=== PATIENT | male | born 1985 | race Caucasian/White ===

== ENCOUNTER 2016-05-22 21:02 | Emergency (ER) | payer OTHER ==
[~2016-05-22] VITALS: Ht 172.7 cm; Wt 83.9 kg
[~2016-05-22 21:02] MED LIST: CYCLOBENZAPRINE10 M1 PO; FLEXERIL10 MG PO; IBU600 MG PO; IBUPROFEN600 M1 PO; IBUPROFEN800 MG PO; KEFLEX500 MG PO; MEDROL DOSEPAK1 PAC PO; MOTRIN800 MG PO; NORCO 325 MG-51 TAB PO; PERCOCET 325 MG1 TA2 PO; PERCOCET 5-3251 EACH PO; PREDNISONE20 M1 PO; PROAIR HFA0.09 MG/Ac INH; PROAIR HFA8.5 GM INH; ZITHROMAX Z-PA250 MG PO; ZOFRAN4 M1 PO; ZOFRAN4 M1 SL
[2016-05-22 21:17] VITALS: BP 149/88
--- NOTE | 2016-05-22 21:45 | ED DYSPNEA/ASTHMA COMPLAINT ---
History of Present Illness General Chief Complaint: Dyspnea (COPD, CHF, Other) Stated Complaint: DIFF BREATHING Source: patient Exam Limitations: no limitations Vital Signs & Intake/Output Vital Signs & Intake/Output Vital Signs Date Time Temp Pulse Resp B/P Pulse O2 O2 Flow FiO2 Ox Delivery Rate 05/22 2211 97 Room Air 05/22 2154 97 05/22 2116 97.5 130 20 149/88 98 Room Air Allergies Coded Allergies: No Known Allergies (01/06/16) Reconcile Medications Albuterol Sulfate (Proair Hfa) 8.5 GM HFA.AER.AD 2-4 PUF INH Q4-6 PRN PRN shortness of breath Prednisone 20 MG TABLET 1 TAB PO BID asthma Triage Note: 31 YEAR OLD MALE STATES THAT FOR THE PAST 2 DAYS HE HAS HAD A COUGH PRODUCTIVE OF GREEN SPUTUM, NASAL CONGESTION, STATES THAT HE HAS ASTHMA AND THAT HE FEELS A LITTLE SOB, O2 SAT 98 % ON RA. Triage Nurses Notes Reviewed? yes HPI: Patient presents with a productive cough with green sputum, chills, difficulty breathing and wheezing. Symptoms have been increasing over the past 3 days. Positive sick contacts. Patient states that he has a history of asthma but has not needed to use an inhaler since he was in 8 grade. Patient denies any chest pain or chest tightness. There is no dyspnea on exertion. There is no orthopnea. There is no abdominal pain. There is no nausea or vomiting. Past History Travel History Traveled to [place] past 21 day No Medical History Any Pertinent Medical History? see below for history Neurological: NONE EENT: NONE Cardiovascular: hypertension Respiratory: asthma Gastrointestinal: NONE Hepatic: NONE Renal: NONE Musculoskeletal: sciatica Psychiatric: NONE Endocrine: NONE Blood Disorders: NONE Cancer(s): NONE Tetanus Vaccine: 11/06/14 Surgical History Surgical History: non-contributory, N Psychosocial History What is your primary language Lao Tobacco Use: Never used ETOH Use: denies use Illicit Drug Use: denies illicit drug use Family History Hx Contributory? No Review of Systems Review of Systems Constitutional: Reports: see HPI, chills. EENTM: Reports: no symptoms. Respiratory: Reports: see HPI, cough, sputum production, wheezing. Cardiovascular: Reports: no symptoms. GI: Reports: no symptoms. Genitourinary: Reports: no symptoms. Musculoskeletal: Reports: no symptoms. Skin: Reports: no symptoms. Neurological/Psychological: Reports: no symptoms. Hematologic/Endocrine: Reports: no symptoms. Immunologic/Allergic: Reports: no symptoms. All Other Systems: Reviewed and Negative Physical Exam Physical Exam General Appearance: well developed/nourished, alert, awake, mild distress Head: atraumatic Eyes: Bilateral: PERRL, EOMI. Ears, Nose, Throat: normal pharynx, normal ENT inspection, hearing grossly normal Neck: normal inspection, supple, full range of motion Respiratory: chest non-tender, rhonchi, wheezing Cardiovascular: regular rate/rhythm, normal peripheral pulses Gastrointestinal: normal bowel sounds, soft, non-tender, no organomegaly Extremities: normal inspection, normal capillary refill, normal range of motion, no edema Neurologic/Psych: no motor/sensory deficits, awake, alert, oriented x 3, normal gait, normal mood/affect Skin: intact, normal color, warm/dry Lymphatic: no anterior cervical matt Core Measures ACS in differential dx? No Severe Sepsis Present: No Septic Shock Present: No Progress Differential Diagnosis: asthma, bronchitis, pneumonia Plan of Care: Orders Procedure Date/time Status Telemetry/Package Designer 05/22 2144 Active RAPID VIRAL INFLUENZA A 05/22 2122 Complete Diagnostic Imaging: Viewed by Me: Radiology Read. Discussed w/RAD: Radiology Read. CXR Impression: PATIENT: SOHEILA BISHOP JR PRESENT AGE: 31 PATIENT ACCOUNT NO: [id number] : 87 LOCATION: [facility] ORDERING PHYSICIAN: MARTI TITUS DO SERVICE DATE: 05/22/16 EXAM TYPE: RAD - XRY-CHEST XRAY, PA AND LATERAL EXAMINATION: XR CHEST CLINICAL INFORMATION: Cough. Green sputum. COMPARISON: Chest x-ray 01/06/2016 TECHNIQUE: 2 views of the chest were obtained. FINDINGS: No significant abnormality is noted involving the heart, lungs, mediastinum, bony thorax or soft tissues. IMPRESSION: Normal chest. DICTATED BY: JOSE DE LA CRUZ MD DATE/TIME DICTATED:05/22/162218 CONDUIT MECHANIC :TORIBIO DATE/TIME TRANSCRIBED:05/22/162218 CONFIDENTIAL, DO NOT COPY WITHOUT APPROPRIATE AUTHORIZATION. <Electronically signed in Other Vendor System> SIGNED BY: JOSE DE LA CRUZ MD 05/22/162222 Initial ED EKG: none Departure Departure Disposition: HOME OR SELF CARE Condition: Stable Clinical Impression Primary Impression: Bronchitis Referrals: JAGRUTI PEREZ DO (PCP/Family) Additional Instructions: RETURN IF SYMPTOMS WORSEN OR FOR ANY COCNERNS Departure Forms: Customer Survey General Discharge Information Prescriptions: Current Visit Scripts Amoxicillin/Potassium Clav (Augmentin 875-125 Tablet) 1 TAB PO BID #20 TAB Albuterol Sulfate (Proair Hfa) 2 PUF INH Q4-6 PRN PRN BRONCHITIS #1 INHAL Benzonatate (Tessalon Perle) 1 CAP PO TID PRN COUGH #30 CAP Critical Care Note Critical Care Note Critical Care Time: non-applicable
--- NOTE | 2016-05-22 22:23 | RADIOLOGY REPORT ---
EXAMINATION: XR CHEST CLINICAL INFORMATION: Cough. Green sputum. COMPARISON: Chest x-ray 01/06/2016 TECHNIQUE: 2 views of the chest were obtained. FINDINGS: No significant abnormality is noted involving the heart, lungs, mediastinum, bony thorax or soft tissues. IMPRESSION: Normal chest.
[2016-05-22] MEDS ORDERED: TESSALON PERLE100 M1 PO (22:54)
[2016-05-22] MEDS ORDERED: AUGMENTIN 875-1 EACH PO (22:54)
[2016-05-22] MEDS ORDERED: PROAIR HFA8.5 GM INH (22:54)
== END 2016-05-22 23:33 ==
LOC: ERH 21:02
DX: J40 Bronchitis, not specified as acute or chronic (principal)
CPT/HCPCS: 1263; 1395; 87804; 87804-59

== ENCOUNTER 2016-05-24 21:17 | Emergency (ER) | payer OTHER ==
[~2016-05-24] VITALS: Ht 172.7 cm; Wt 81.6 kg
[~2016-05-24 21:17] MED LIST changes: +AUGMENTIN 875-1 EACH PO; +TESSALON PERLE100 M1 PO
--- NOTE | 2016-05-24 21:46 | ED ANKLE/FOOT INJURY COMPLAINT ---
History of Present Illness General Chief Complaint: Foot or Ankle Injury Stated Complaint: INJURED RIGHT ANKLE Source: patient Exam Limitations: no limitations Vital Signs & Intake/Output Vital Signs & Intake/Output Vital Signs Date Time Temp Pulse Resp B/P Pulse O2 O2 Flow FiO2 Ox Delivery Rate 05/24 2227 87 135/88 05/24 2122 105 20 150/94 98 Allergies Coded Allergies: No Known Allergies (01/06/16) Triage Note: PER PT SHOVELING SLIPPED AND RT ANKLE BENT UNDER BUTTOCKS, NO LOC NO HEAD INJURY. 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 Triage Nurses Notes Reviewed? yes Occurred: just prior to arrival Duration: hour(s): (1) Timing: remote history Severity: moderate Severity Numbers: 6 Pain/Injury Location: Right: Ankle. Method of Injury: twisted Modifying Factors: Improves With: immobilization. Worsens With: movement. HPI: Patient is a 31-year-old male presenting to the emergency Department chief complaint of right ankle pain that started about one hour prior to arrival. He was shoveling when his right ankle bent underneath him. Pain moderate achy throbbing worse with weightbearing and range of motion. Denies any other injury. No head injury loss of consciousness. Denies neck or back pain. Pain does not radiate. Denies taking anything prior to arrival to help with pain. Limited to come in for evaluation because he was unsure if it is broken. No numbness or tingling. (KWABENA GARCIA,HUMBLE) Reconcile Medications Albuterol Sulfate (Proair Hfa) 90 MCG HFA.AER.AD 2 PUF INH Q4-6 PRN PRN BRONCHITIS Albuterol Sulfate (Proair Hfa) 8.5 GM HFA.AER.AD 2-4 PUF INH Q4-6 PRN PRN shortness of breath Amoxicillin/Potassium Clav (Augmentin 875-125 Tablet) 875 MG-125 MG TABLET 1 TAB PO BID BRONCHITIS Benzonatate (Tessalon Perle) 100 MG CAPSULE 1 CAP PO TID PRN COUGH Ibuprofen 800 MG TABLET 1 TAB PO TID PRN pain Prednisone 20 MG TABLET 1 TAB PO BID asthma (HUGO FAUST MD) Past History Travel History Traveled to [place] past 21 day No Medical History Any Pertinent Medical History? see below for history Neurological: NONE EENT: NONE Cardiovascular: hypertension Respiratory: asthma Gastrointestinal: NONE Hepatic: NONE Renal: NONE Musculoskeletal: sciatica Psychiatric: NONE Endocrine: NONE Blood Disorders: NONE Cancer(s): NONE Tetanus Vaccine: 11/06/14 Surgical History Surgical History: non-contributory, N Psychosocial History What is your primary language Portuguese Tobacco Use: Never used Family History Hx Contributory? No (KWABENA GARCIA,HUMBLE) Review of Systems Review of Systems Constitutional: Reports: no symptoms. Comments Review of systems: See HPI, All other systems negative. Constitutional, no chills fever or weight loss HEENT: No visual changes no sore throat no congestion Cardiovascular: No chest pain ,palpitation Skin, no jaundice no rashes Respiratory: No dyspnea cough sputum or hemoptysis GI: No nausea no vomiting Muscle skeletal: no back pain, no neck pain, Neurologic: No numbness Psych: No stress anxiety Immunology: No splenectomy or history of AIDS (KWABENA GARCIA,HUMBLE) Physical Exam Physical Exam General Appearance: well developed/nourished, no apparent distress, alert, awake , comfortable Leg/Knee/Thigh Left: limited range of motion Comments: Well-developed well-nourished no apparent distress. HEENT: Atraumatic, extraocular motion intact Neck: Supple, no lymphadenopathy Back: Nontender Respiratory: No respiratory distress Extremities: Right Ankle with moderate tenderness medially over the medial malleolus. No lateral tenderness.. Range of motion is near full but somewhat limited due to pain. No instability is noted. Skin is intact, no swelling or ecchymosis noted. The foot is neurovascularly intact with sensation and motor grossly intact. There is no foot tenderness or fifth metatarsal tenderness. Able to move all toes. Neuro: Alert and oriented x3, motor and sensory intact Psych: Mood affect normal, normal memory normal judgment. (KWABENA GARCIA,HUMBLE) Progress Differential Diagnosis: gout, fracture, dislocation, sprain, contusion Plan of Care: Orders Procedure Date/time Status Durable Medical Equipment 05/24 2152 Active Diagnostic Imaging: Viewed by Me: Radiology Read. Discussed w/RAD: Radiology Read. Radiology Impression: no acute abnormality, no fracture, no dislocation, no foreign body seen, PATIENT: SOHEILA BISHOP JR PRESENT AGE: 31 PATIENT ACCOUNT NO: [id number] : 87 LOCATION: [facility] ORDERING PHYSICIAN: HUMBLE GARCIA SERVICE DATE: 05/24/16 EXAM TYPE: RAD - XRY-ANKLE 3 OR MORE VIEWS R; XRY-FOOT COMPLETE, R EXAMINATION: X-RAY RIGHT FOOT AND RIGHT ANKLE CLINICAL INFORMATION: Status post fall. COMPARISON: X-ray right ankle and foot dated 12/27/2014 TECHNIQUE: 3 views of each FINDINGS: Normal bony mineralization. There is no evidence of acute fracture or dislocation. Ankle mortise is preserved. Soft tissue swelling noted along the lateral and dorsal aspect of the ankle. IMPRESSION: No acute osseous modality. Soft tissue swelling. DICTATED BY: JORGE BINGHAM MD Comments: Given IM Toradol on arrival for pain. No acute abnormality on x-ray. Patient will be placed in splint and follow-up with orthopedics if symptoms persist. Otherwise he'll follow-up with his primary care physician. Educated on resting and icing and elevating. (HUMBLE MATTHEWS) Departure Departure Time of Disposition: 2141 Disposition: HOME OR SELF CARE Condition: Stable Clinical Impression Primary Impression: Ankle sprain Qualifiers: Encounter type: initial encounter Involved ligament of ankle: unspecified ligament Laterality: right Qualified Code: S93.401A - Sprain of unspecified ligament of right ankle, initial encounter Referrals: JAGRUTI PEREZ DO (PCP/Family) LIZZY STANELY,JACKY Case Additional Instructions: Follow-up with orthopedics if symptoms persist. Rest ice and elevate. Take [id number] Motrin and Tylenol directed. Wear Javier wrap for support. Departure Forms: Customer Survey General Discharge Information (HUMBLE MATTHEWS) Departure Prescriptions: Current Visit Scripts Ibuprofen 1 TAB PO TID PRN pain #20 TAB PA/PSYCHIATRIC SOCIAL WORKER Co-Sign Statement Statement: ED Attending supervision documentation- [] I saw and evaluated the patient. I have also reviewed all the pertinent lab results and diagnostic results. I agree with the findings and the plan of care as documented in the PA's/PSYCHIATRIC SOCIAL WORKER's documentation. x I have reviewed the ED Record and agree with the PA's/PSYCHIATRIC SOCIAL WORKER's documentation. [] Additions or exceptions (if any) to the PAs/PSYCHIATRIC SOCIAL WORKER's note and plan are summarized below: [] (GOVIND STANLEY,HUGO) Procedures Splinting Location: right ankle Manual Alignment Performed: No Pre-Made Type: aircast Splint: sugar-tong Splint Applied By: splint applied by other (nursing) Pre-Proc Neuro Vasc Exam: normal Post-Proc Neuro Vasc Exam: normal Progress: Patient tolerated procedure well. (KWABENA GARCIA,HUMBLE) ED Attending Observation Initial Observation Note: I have seen and personally examined SOHEILA BISHOP JR on 05/24/16 at 2143. I agree with the current emergency department documentation. The disposition (admission or discharge) is uncertain at this time, he needs a period of observation for the following reason(s): The ED Nurse caring for this patient has been personally informed as to what the patient is being observed for. (HUMBLE MATTHEWS)
--- NOTE | 2016-05-24 22:04 | RADIOLOGY REPORT ---
EXAMINATION: X-RAY RIGHT FOOT AND RIGHT ANKLE CLINICAL INFORMATION: Status post fall. COMPARISON: X-ray right ankle and foot dated 12/27/2014 TECHNIQUE: 3 views of each FINDINGS: Normal bony mineralization. There is no evidence of acute fracture or dislocation. Ankle mortise is preserved. Soft tissue swelling noted along the lateral and dorsal aspect of the ankle. IMPRESSION: No acute osseous modality. Soft tissue swelling.
[2016-05-24] MEDS ORDERED: IBUPROFEN800 M1 PO (22:11)
[2016-05-24 22:28] VITALS: BP 135/88
== END 2016-05-24 22:30 ==
LOC: ERH 21:17
DX: S93.401A Sprain of unspecified ligament of right ankle, initial encounter (principal); X58.XXXA Exposure to other specified factors, initial encounter; W00.0XXA Fall on same level due to ice and snow, initial encounter
CPT/HCPCS: 73610-RT; 73630-RT; J1885

== ENCOUNTER 2016-06-02 00:06 | Emergency (ER) | payer OTHER ==
[~2016-06-02] VITALS: Ht 170.2 cm; Wt 83.5 kg
[~2016-06-02 00:06] MED LIST changes: +IBUPROFEN800 M1 PO
[2016-06-02 00:15] VITALS: BP 139/96
--- NOTE | 2016-06-02 00:22 | ED UPPER/LOWER EXTREMITY COMPL ---
History of Present Illness General Chief Complaint: Lower Extremity Problems Stated Complaint: RT FOOT PAINSEEN HERE FOR SAME " NEEDS TO GET BACK Source: patient Exam Limitations: no limitations Vital Signs & Intake/Output Vital Signs & Intake/Output Vital Signs Date Time Temp Pulse Resp B/P Pulse O2 O2 Flow FiO2 Ox Delivery Rate 06/02 0015 96.8 99 18 139/96 98 Room Air Allergies Coded Allergies: No Known Allergies (01/06/16) Reconcile Medications Albuterol Sulfate (Proair Hfa) 90 MCG HFA.AER.AD 2 PUF INH Q4-6 PRN PRN BRONCHITIS Albuterol Sulfate (Proair Hfa) 8.5 GM HFA.AER.AD 2-4 PUF INH Q4-6 PRN PRN shortness of breath Amoxicillin/Potassium Clav (Augmentin 875-125 Tablet) 875 MG-125 MG TABLET 1 TAB PO BID BRONCHITIS Benzonatate (Tessalon Perle) 100 MG CAPSULE 1 CAP PO TID PRN COUGH Ibuprofen 800 MG TABLET 1 TAB PO TID PRN PAIN Ibuprofen 800 MG TABLET 1 TAB PO TID PRN pain Prednisone 20 MG TABLET 1 TAB PO BID asthma Triage Note: PT TO ED C/O CONTINUED RT ANKLE PAIN AND SWELLING. WAS SEEN HERE ON 05/24. DX WITH A SPRAIN. 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 yes Onset: Abrupt Duration: day(s):, waxing and waning Timing: recent history Severity: mild, moderate Pain/Injury Location: Right: Ankle. Method of Injury: "I sprained my ankle last week." HPI: 31 yo gentleman h/o fracture in his right foot, h/o right ankle sprain on 05/24, presents with continued right ankle pain. 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 He notes continued swelling around the ankle but no leg swelling. No redness, streaking, fevers, chills. Past History Travel History Traveled to [place] past 21 day No Medical History Any Pertinent Medical History? see below for history Neurological: NONE EENT: NONE Cardiovascular: hypertension Respiratory: asthma Gastrointestinal: NONE Hepatic: NONE Renal: NONE Musculoskeletal: sciatica Psychiatric: NONE Endocrine: NONE Blood Disorders: NONE Cancer(s): NONE Tetanus Vaccine: 11/06/14 Surgical History Surgical History: non-contributory, N Psychosocial History What is your primary language Stateless Tobacco Use: Never used ETOH Use: occasional use Illicit Drug Use: denies illicit drug use Family History Hx Contributory? No Review of Systems Review of Systems Constitutional: Reports: no symptoms. EENTM: Reports: no symptoms. Respiratory: Reports: no symptoms. Cardiovascular: Reports: no symptoms. Gastrointestinal/Abdominal: Reports: no symptoms. Genitourinary: Reports: no symptoms. Musculoskeletal: Reports: no symptoms. Skin: Reports: no symptoms. Neurological/Psychological: Reports: no symptoms. Hematologic/Endocrine: Reports: no symptoms. Immunological: Reports: no symptoms. All Other Systems: Reviewed and Negative Physical Exam Physical Exam General Appearance: well developed/nourished, mild distress Head: atraumatic Eyes: Bilateral: normal appearance. Ears, Nose, Throat: normal pharynx Neck: normal inspection Cardiovascular/Respiratory: normal breath sounds Leg Right: diffuse swelling around ankle with diffuse tenderness. no focal bony tenderness. ROM is normal but with discomfort. Progress Differential Diagnosis: sprain vs contusion vs other. Plan of Care: Orders Procedure Date/time Status Durable Medical Equipment 06/02 010 Active estrada bandage to right ankle... encouraged continued use of estrada bandage and crutches x 1 week at least, and then estrada bandage for at least 6 weeks. I also advocated close follow up with orthopedist. wrote note to stay home x 1 week. (HAROON STANLEY,KEAGAN Case) Diagnostic Imaging: Viewed by Me: Radiology Read. Discussed w/RAD: Radiology Read. Radiology Impression: right ankle and foot from 05/24.... no acute disease... full report below. Comments: PATIENT: SOHEILA BISHOP JR PRESENT AGE: 31 PATIENT ACCOUNT NO: [id number] : 87 LOCATION: [facility] ORDERING PHYSICIAN: HUMBLE GARCIA SERVICE DATE: 05/24/16 EXAM TYPE: RAD - XRY-ANKLE 3 OR MORE VIEWS R; XRY-FOOT COMPLETE, R EXAMINATION: X-RAY RIGHT FOOT AND RIGHT ANKLE CLINICAL INFORMATION: Status post fall. COMPARISON: X-ray right ankle and foot dated 12/27/2014 TECHNIQUE: 3 views of each FINDINGS: Normal bony mineralization. There is no evidence of acute fracture or dislocation. Ankle mortise is preserved. Soft tissue swelling noted along the lateral and dorsal aspect of the ankle. IMPRESSION: No acute osseous modality. Soft tissue swelling. DICTATED BY: JORGE BINGHAM MD DATE/TIME DICTATED:05/24/162158 FARMWORKER FIELD CROP:TORIBIO DATE/TIME TRANSCRIBED:05/24/162158 CONFIDENTIAL, DO NOT COPY WITHOUT APPROPRIATE AUTHORIZATION. <Electronically signed in Other Vendor System> SIGNED BY: JORGE BINGHAM MD 05/24/161 Departure Departure Disposition: HOME OR SELF CARE Condition: Stable Clinical Impression Primary Impression: Right ankle sprain Referrals: JAGRUTI PEREZ DO (PCP/Family) Departure Forms: Customer Survey General Discharge Information Prescriptions: Current Visit Scripts Ibuprofen 1 TAB PO TID PRN PAIN #30 TAB Ref 1
[2016-06-02] MEDS ORDERED: IBUPROFEN800 M1 PO (01:04)
== END 2016-06-02 01:15 ==
LOC: ERH 00:06
DX: S93.401A Sprain of unspecified ligament of right ankle, initial encounter (principal); X58.XXXA Exposure to other specified factors, initial encounter

== ENCOUNTER 2016-07-31 18:52 | Inpatient (IN) | payer OTHER ==
[~2016-07-31] VITALS: Ht 172.7 cm; Wt 85.7 kg
--- NOTE | 2016-07-31 18:53 | NUR ---
INFORMED WAITING PERFORMED.
--- NOTE | 2016-07-31 20:01 | NUR ---
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 PT WOKE LAST EVENING WITH DIARRHEA AND THEN TODAY HE HAS BEEN VOMITING APPROX. 5 TIMES TODAY STATES EVERY 1/2 HOUR. PT UNABLE TO EAT ANYTHING TODAY. FROM TRIAGE NOTE
--- NOTE | 2016-07-31 20:06 | ED GI/GU/ABDOMINAL COMPLAINT ---
History of Present Illness General Chief Complaint: Abdominal Pain/Flank Pain Stated Complaint: VOMITING, ABD. PAIN SINCE LAST PM Source: patient, family Exam Limitations: no limitations Vital Signs & Intake/Output Vital Signs & Intake/Output Vital Signs Date Time Temp Pulse Resp B/P B/P Pulse O2 O2 Flow FiO2 Mean Ox Delivery Rate 08/02 0634 98.5 99 20 130/76 94 Room Air 08/02 0600 98.4 104 20 130/80 08/02 0400 98.4 104 20 130/80 08/02 0218 98.4 104 20 130/80 98 Room Air 08/02 0200 98.4 104 20 130/80 08/02 0000 99.6 83 20 150/96 08/01 2325 99.6 83 20 150/96 96 Room Air 08/01 1421 98.0 88 20 135/80 98 08/01 1043 Room Air Room Air 08/01 0800 98.2 83 20 154/84 ED Intake and Output 08/02 0000 08/01 1200 Intake Total 2400 1300 Output Total 1475 1675 Balance 925 -375 Intake, IV 2400 1200 Intake, Oral 0 100 Output, Urine 1475 1675 Patient 190 lb Weight Allergies Coded Allergies: No Known Allergies (01/06/16) Reconcile Medications No Known Home Medications Triage Note: PT STATES HE THINKS HE HAS FOOD POISING. PT WOKE LAST EVENING WITH DIARRHEA AND THEN TODAY HE HAS BEEN VOMITING APPROX. 5 TIMES TODAY STATES EVERY 1/2 HOUR. PT UNABLE TO EAT ANYTHING TODAY. Triage Nurses Notes Reviewed? yes HPI: Patient is a 31-year-old male presents complaining of abdominal pain, diarrhea, vomiting. Patient awoke at 2:30 this morning with diarrhea had approximately 10 episodes. Diarrhea resolved at approximately 2 PM and then patient began vomiting. Patient has vomited approximately 10 times today. Abdominal pain is a cramping and bloating sensation currently severe. Associated cold sweats. Patient had left over [place] food yesterday evening at approximately 11 PM. Denies sick contacts, recent antibiotic use, recent travel. Patient reports that he drinks alcohol approximately 4 times a week, amount varies. Past History Travel History Traveled to [place] past 21 day No Medical History Any Pertinent Medical History? see below for history Neurological: NONE EENT: NONE Cardiovascular: hypertension Respiratory: asthma Gastrointestinal: NONE Hepatic: NONE Renal: NONE Musculoskeletal: sciatica Psychiatric: NONE Endocrine: NONE Blood Disorders: NONE Cancer(s): NONE Tetanus Vaccine: 11/06/14 Surgical History Surgical History: non-contributory, N Psychosocial History What is your primary language Greenlandic Tobacco Use: Never used ETOH Use: 3-4 times a week Illicit Drug Use: denies illicit drug use Family History Hx Contributory? No Review of Systems Review of Systems Constitutional: Denies: chills, fever. EENTM: Reports: no symptoms. Respiratory: Denies: cough, short of breath. Cardiovascular: Denies: chest pain. GI: Reports: see HPI. Genitourinary: Reports: no symptoms. Musculoskeletal: Reports: no symptoms. Skin: Reports: no symptoms. Neurological/Psychological: Reports: no symptoms. Hematologic/Endocrine: Reports: no symptoms. Immunologic/Allergic: Reports: no symptoms. Physical Exam Physical Exam General Appearance: well developed/nourished, alert, awake Head: atraumatic, normal appearance Eyes: Bilateral: normal appearance. Ears, Nose, Throat, Mouth: hearing grossly normal, moist mucous membrane Neck: normal inspection, supple, full range of motion Respiratory: normal breath sounds, chest non-tender, no respiratory distress, lungs clear Cardiovascular: regular rate/rhythm Gastrointestinal: normal bowel sounds, soft, diffuse abdominal tenderness. Back: normal inspection, normal range of motion Extremities: normal range of motion Neurologic/Psych: no motor/sensory deficits, awake, alert, oriented x 3, normal gait, normal mood/affect Skin: intact, normal color, warm/dry Core Measures ACS in differential dx? No Severe Sepsis Present: No Septic Shock Present: No Progress Differential Diagnosis: appendicitis, biliary colic, cholecystitis, diverticulitis, gastritis, hepatitis, hernia, inflamm bowel dis, pancreatitis, PUD/GERD, perforated viscous, FOOD POISONING Plan of Care: Orders Procedure Date/time Status Clear Liquid Diet 08/02 B Active MAGNESIUM 08/02 06 Active CBC WITHOUT DIFFERENTIAL 08/02 0600 Active BASIC ELECTROLYTES PLUS BUN&CR 08/02 0600 Active RT: Evaluation 08/01 1043 Active Change service to 08/01 0751 Active THERAPIST ORDERS 08/01 UNK Complete Current Medications Sig/Brynn Start time Last Medication Dose Stop Time Status Admin Dicyclomine HCl 20 MG 4 TIMES/DAY 08/01 1000 AC 08/01 (Bentyl) 2105 Hydromorphone HCl 0.6 MG Q4P PRN 08/01 0830 AC 08/02 (Dilaudid) 0542 Heparin Sodium 5,000 UNIT Q8 08/01 0600 AC 08/02 (Porcine) 0542 Oxycodone/ 1 TAB Q4P PRN 08/01 0100 AC 08/02 Acetaminophen 0416 (Percocet) Melatonin 5 MG AT BEDTIME PRN 08/01 0030 AC 08/01 (Melatonin) 2105 Lactated Ringer's 1,000 ML Q6H 07/31 2315 AC 08/02 (Lactated Ringers) 0542 Lorazepam 0 Q1P PRN 07/31 2315 AC (Ativan) Ondansetron HCl 4 MG Q6P PRN 07/31 2315 AC 08/02 (Zofran) 0551 Laboratory Tests 08/02/16 0700: Sodium Pending, Potassium Pending, Chloride Pending, Carbon Dioxide Pending, Anion Gap Pending, BUN Pending, Creatinine Pending, BUN/Creatinine Ratio Pending , Magnesium Pending, CBC w Diff Pending, WBC Pending, RBC Pending, Hgb Pending, Hct Pending, MCV Pending, MCH Pending, RDW Pending, Plt Count Pending, MPV Pending, PUBS MCHC Pending 07/31/2016 9:19:53 PM: Patient reports nausea improving, no improvement in abdominal pain after Toradol. Continues with severe abdominal cramping. Abdomen reexamined diffuse tenderness, greatest in the left mid abdomen. Bentyl , morphine, IV fluids ordered. CT scan of the abdomen and pelvis ordered. Results of labs and imaging discussed with patient. Discussed with Dr. Alston. Discussed with Dr. Boothe for admission (MY GARCIA,JOE) Diagnostic Imaging: Viewed by Me: CT Scan. Discussed w/RAD: CT Scan. Radiology Impression: PATIENT: SOHEILA BISHOP JR PRESENT AGE: 31 PATIENT ACCOUNT NO: [id number] : 87 LOCATION: [facility] ORDERING PHYSICIAN: JOE GARCIA SERVICE DATE: 07/31/16 EXAM TYPE: CAT - CT ABD & PELVIS W IV CONTRAST EXAMINATION: CT ABDOMEN AND PELVIS WITH CONTRAST CLINICAL INFORMATION: Diffuse abdominal pain. Vomiting and diarrhea. COMPARISON: None TECHNIQUE: Multidetector volumetric imaging was performed of the abdomen and pelvis before and after the IV administration of 95 mL of Optiray 350 intravenous contrast. Sagittal and coronal reformatted images were obtained on the technologist's workstation. DLP: 554 mGy-cm FINDINGS: LUNG BASES: The visualized lung bases are unremarkable. LIVER, GALLBLADDER, AND BILIARY TREE: The liver is normal in size and shape with decreased attenuation. No focal hepatic lesion or biliary ductal dilatation is present. The gallbladder is unremarkable with no evidence of radiopaque gallstones, gallbladder wall thickening, or obvious pericholecystic inflammatory changes. PANCREAS: The pancreatic parenchyma is homogenous. There is prominent stranding in the fat surrounding the pancreatic head and neck extending to the body. Stranding also extends around the fourth portion of the duodenum. No focal pancreatic lesion. No fluid collection. SPLEEN: Unremarkable. ADRENAL GLANDS: Unremarkable. KIDNEYS AND URETERS: The kidneys are normal in size, shape, and attenuation. No hydronephrosis, hydroureter, or calculi seen. No perinephric stranding. BLADDER: Unremarkable. GASTROINTESTINAL TRACT: The stomach is unremarkable. Fluid around the duodenum is likely correlated to pancreatitis rather than focal duodenitis as there is no wall thickening. The remainder of the small bowel is unremarkable. Normal appendix. No colonic wall thickening or inflammatory change. No free air. ABDOMINAL WALL: No significant hernia is appreciated. LYMPH NODES: Normal. VASCULAR: Unremarkable. PELVIC VISCERA: The prostate and seminal vesicles are unremarkable. OSSEOUS STRUCTURES: No acute or suspicious osseous abnormality. IMPRESSION: 1. Findings most suggestive of pancreatitis. Homogenous pancreatic parenchyma. No rim-enhancing fluid collection. 2. Hepatic steatosis. DICTATED BY: DAVID MUNOZ MD DATE/TIME DICTATED:07/31/162148 SENIOR PRINCIPAL:TORIBIO DATE/TIME TRANSCRIBED:07/31/162148 CONFIDENTIAL, DO NOT COPY WITHOUT APPROPRIATE AUTHORIZATION. <Electronically signed in Other Vendor System> SIGNED BY: DAVID MUNOZ MD 07/31/162154 Initial ED EKG: none Departure Departure Time of Disposition: 2239 Disposition: STILL A PATIENT Condition: Stable Clinical Impression Primary Impression: Acute pancreatitis Qualifiers: Pancreatitis type: unspecified pancreatitis type Acute pancreatitis complication: no infection or necrosis Qualified Code: K85.90 - Acute pancreatitis without necrosis or infection, unspecified Referrals: JAGRUTI PEREZ DO (PCP/Family) Departure Forms: Customer Survey General Discharge Information Prescriptions: Current Visit Scripts No Known Home Medications Admission Note Spoke With: CARRIE BOOTHE MD Documentation of Exam: Documentation of any treatments & extenuating circumstances including Concerns Regarding Discharge (functional status, medication knowledge or non-compliance, living conditions, etc.) that warrant an admission rather than observation: IV fluids, IV pain control, nothing by mouth initially, serial abdominal exams, serial labs, consider GI consultation
--- NOTE | 2016-07-31 20:32 | NUR ---
UNABLE TO OBTAIN IV X 2 FIDELIA RN IN WITH PT.
[2016-07-31 20:35] LABS: ABSOLUTE BASOPHIL COUNT 0 /CUMM (0.0-0.2); ABSOLUTE EOSINOPHIL COUNT 0 /CUMM (0.0-0.7); ABSOLUTE GRANULOCYTE CT 14.4 /CUMM (1.4-6.5); ABSOLUTE MONOCYTE COUNT 0.9 /CUMM (0.10-0.60); BASOPHIL % 0.3 % (0.0-2.0); EOSINOPHIL % 0.1 % (0-5); HEMATOCRIT 49.9 % (42-52); MEAN CORPUSCULAR HGB 31.5 PG (27.0-31.0); MEAN CORPUSCULAR HGB CONC 34.1 G/DL (33.0-37.0); MEAN CORPUSCULAR VOLUME 92.2 FL (80.0-94.0); MEAN PLATELET VOLUME 7.1 FL (7.4-10.4); PLATELET COUNT 151 /CUMM (130-400); RBC DISTRIBUTION WIDTH 12.6 % (11.5-14.5); RED BLOOD CELL CT 5.41 /CUMM (4.70-6.10); WHITE BLOOD CELL COUNT 16.3 /CUMM (4.8-10.8)
[2016-07-31 20:37] LABS: GRANULOCYTE % 88.3 % (42.2-75.2)
--- NOTE | 2016-07-31 20:38 | NUR ---
LABS DRAWN AND SENT SST, LAV, BLUE, AND MA SENT
--- NOTE | 2016-07-31 21:19 | NUR ---
REEVAL BY PA, PT CONT WITH PAIN. PA TO PLACE ADDITIONAL ORDERS
--- NOTE | 2016-07-31 21:55 | CT SCAN REPORT ---
EXAMINATION: CT ABDOMEN AND PELVIS WITH CONTRAST CLINICAL INFORMATION: Diffuse abdominal pain. Vomiting and diarrhea. COMPARISON: None TECHNIQUE: Multidetector volumetric imaging was performed of the abdomen and pelvis before and after the IV administration of 95 mL of Optiray 350 intravenous contrast. Sagittal and coronal reformatted images were obtained on the technologist's workstation. DLP: 554 mGy-cm FINDINGS: LUNG BASES: The visualized lung bases are unremarkable. LIVER, GALLBLADDER, AND BILIARY TREE: The liver is normal in size and shape with decreased attenuation. No focal hepatic lesion or biliary ductal dilatation is present. The gallbladder is unremarkable with no evidence of radiopaque gallstones, gallbladder wall thickening, or obvious pericholecystic inflammatory changes. PANCREAS: The pancreatic parenchyma is homogenous. There is prominent stranding in the fat surrounding the pancreatic head and neck extending to the body. Stranding also extends around the fourth portion of the duodenum. No focal pancreatic lesion. No fluid collection. SPLEEN: Unremarkable. ADRENAL GLANDS: Unremarkable. KIDNEYS AND URETERS: The kidneys are normal in size, shape, and attenuation. No hydronephrosis, hydroureter, or calculi seen. No perinephric stranding. BLADDER: Unremarkable. GASTROINTESTINAL TRACT: The stomach is unremarkable. Fluid around the duodenum is likely correlated to pancreatitis rather than focal duodenitis as there is no wall thickening. The remainder of the small bowel is unremarkable. Normal appendix. No colonic wall thickening or inflammatory change. No free air. ABDOMINAL WALL: No significant hernia is appreciated. LYMPH NODES: Normal. VASCULAR: Unremarkable. PELVIC VISCERA: The prostate and seminal vesicles are unremarkable. OSSEOUS STRUCTURES: No acute or suspicious osseous abnormality. IMPRESSION: 1. Findings most suggestive of pancreatitis. Homogenous pancreatic parenchyma. No rim-enhancing fluid collection. 2. Hepatic steatosis.
--- NOTE | 2016-07-31 22:22 | NUR ---
PA AT BEDSIDE.
--- NOTE | 2016-07-31 22:51 | History & Physical ---
RADHA STANLEY,JHONY 07/31/16 4089: General Information and HPI History of Present Illness: Mr. Coleman is a 31-year-old gentleman with a PMH significant for childhood asthma, recently in ED for bronchitis treated with Augmentin, who presents with intractable abdominal pain associated with profuse diarrhea followed by nausea and vomiting since yesterday. He first started having abdominal pain last night shortly after eating [place] food (pork and rice) that was refrigerated for 2 days. Since then he had about 8 epsidoes of explosive watery nonbloody diarrhea overnight followed by 10 episodes of NBNB emesis since the morning of admission. Denies any fever, chills, chest pain, dypsnea, palpitations, recent sick contact /illness/travel/trauma/interactions with scropions. He reports chronic tremors in arms at baseline. Patient was last seen by PCP about a year ago at which time he was told that his BP was high. No other concerns noted during the visit. Patient drinks 3-4 cans of beer about 4 days a week. Denies any tobacco/illicit drug use. 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 Denies any h/o alcohol withdrawal seizures. FH significant for COPD in mother. No FHx of cardiovascular diseases. In ED patient was given a 1 liter bolus of NS IVF and one time dose of IV morphine 4mg and Toradol with a mild improvement in his abdominal pain. Also received Zofran for nausea with a relief. CT abd revealed pancreatitis consistent with elevated lipase, warranting an admission. PCP - Dr. Perez Full code. Allergies/Medications Allergies: Coded Allergies: No Known Allergies (01/06/16) Home Med list No Known Home Medications Past History Travel History Traveled to [place] past 21 day No Medical History Neurological: NONE EENT: NONE Cardiovascular: hypertension Respiratory: asthma Gastrointestinal: NONE Hepatic: NONE Renal: NONE Musculoskeletal: sciatica Psychiatric: NONE Endocrine: NONE Blood Disorders: NONE Cancer(s): NONE Tetanus Vaccine: 11/06/14 Surgical History Surgical History: non-contributory, N Past Family/Social History Family History Relations & Conditions if any Family history was reviewed; no changes noted. Psychosocial History Where do you live? Home ETOH Use: 3-4 times a week Illicit Drug Use: denies illicit drug use Review of Systems Review of Systems Constitutional: Reports: see HPI. Exam & Diagnostic Data Last 24 Hrs of Vital Signs/I&O Vital Signs Date Time Temp Pulse Resp B/P Pulse O2 O2 Flow FiO2 Ox Delivery Rate 07/31 2242 98.0 74 16 158/88 97 Room Air 07/316 97.0 66 16 168/90 97 Room Air 07/31 1903 96.4 66 16 188/73 99 Room Air Physical Exam General Appearance Alert, Oriented X3, Cooperative, No Acute Distress Skin No Rashes, No Breakdown, No Significant Lesion HEENT Atraumatic, PERRLA, EOMI, Dry MM Neck Supple, No JVD, No thryomegaly, No LAD Cardiovascular Regular Rate, Normal S1, Normal S2, No Murmurs, Gallops, Rubs Lungs Clear to Auscultation, Normal Air Movement Abdomen Normal Bowel Sounds, Soft, No Masses Neurological Normal Gait, Normal Speech, Sensation Intact, Cranial Nerves 3-12 NL Extremities No Clubbing, No Cyanosis, No Edema, Normal Pulses, No Tenderness/ Swelling Vascular Normal Pulses, Pulses Symmetrical Last 24 Hrs of Labs/Mike: Laboratory Tests 07/31/162309: Urine Opiates Screen Pending, Methadone Screen Pending, Barbiturate Screen Pending, Ur Phencyclidine Scrn Pending, Amphetamines Screen Pending, U Benzodiazepines Scrn Pending, Urine Cocaine Screen Pending, Urine Cannabis Screen Pending, Urinalysis LIGHT H, Urine Color YEL, Urine Clarity CLEAR, Urine pH 6.0, Ur Specific [place] 1.020, Urine Protein 30 H, Urine Ketones 15 H, Urine Nitrite NEG, Urine Bilirubin NEG, Urine Urobilinogen 0.2, Ur Leukocyte Esterase NEG, Ur Microscopic SEDIMENT EXAMINED, Urine RBC 1-3, Urine Hemoglobin TRACE-INTACT H, Urine Glucose NEG 07/31/162027: Anion Gap 15, Estimated GFR > 60, BUN/Creatinine Ratio 12.5, Glucose 127 H, Calcium 9.6, Total Bilirubin 1.5 H, Direct Bilirubin 0.6 H, AST 73 H, ALT 106 H, Alkaline Phosphatase 91, Total Protein 8.4 H, Albumin 4.9, Globulin 3.5, Albumin/Globulin Ratio 1.4, Triglycerides 410 H, Cholesterol 236 H, LDL Cholesterol Direct Pending, LDL Cholesterol, Calc ND, HDL Cholesterol 74 H, Cholesterol/HDL Ratio 3, Amylase 61, Lipase 1237 H, CBC w Diff NO MAN DIFF REQ, RBC 5.41, MCV 92.2, MCH 31.5 H, RDW 12.6, MPV 7.1 L, Gran % 88.3 H, Lymphocytes % 5.9 L, Monocytes % 5.4, Eosinophils % 0.1, Basophils % 0.3, Absolute Granulocytes 14.4 H, Absolute Lymphocytes 1.0 L, Absolute Monocytes 0.9 H, Absolute Eosinophils 0, Absolute Basophils 0, PUBS MCHC 34.1, Hepatitis A IgM Ab Pending, Hep Bs Antigen Pending, Hep B Core IgM Ab Conf Pending, Hepatitis C Antibody Pending, Serum Alcohol < 10.0 Microbiology 07/31 2313 STOOL: Clostridium difficile Toxin A & B - ORD 07/31 2013 STOOL: Stool Culture - ORD Assessment/Plan Assessment: Mr. Coleman is a 31 year old gentleman with a PMH significant for childhood asthma, recently in ED for bronchitis treated with Augmentin, who presents with intractable abdominal pain with nausea, vomiting, and profuse diarrhea concerning for gastroenteritis. # Gastroenteritis Given the timing of the onset, his GI sxs were most likely 2/2 gastroenteritis and food poisoning from [place] food that was refrigerated for 2 days. * Admit to GM service * Vitals every shift * Aggressive IVF resuscitation * Adquate pain control with IV narcotics * Control nausea with Zofran # Pancreatitis CT abd revealed pancreatitis consistent with elevated lipase, warranting an admission. Most likely 2/2 EtOH use. * Keep NPO * LR at 150 cc/hr for now * RUQ ultrasound * CIWA protocol * Plans as discussedhawa woody # Hypertension May be 2/2 pain but needs close monitoring as patient was told about his HTN in his previous visits. * Give one time dose of Norvasc 5mg for now * Cont pain control and monitor BP * Initiate an antihypertensive regimen if HTN persists despite pain control # HLD * Provide counseling about lifestyle modifications * To be followed outpatient - NPO - Moderate pain pathway - DVTppx with H - Full code. As Ranked By This Provider Problem List: 1. Acute pancreatitis Qualifiers Pancreatitis type: unspecified pancreatitis type Acute pancreatitis complication: no infection or necrosis Qualified Code: K85.90 - Acute pancreatitis without necrosis or infection, unspecified 2. Gastroenteritis Core Measures/Miscellaneous Acute Coronary Syndrome ACS Diagnosis: No Cerebrovascular Accident CVA/TIA Diagnosis: No Congestive Heart Failure CHF Diagnosis: No Venous Thromboembolism VTE Risk Factors: Age > 40 [facility] prophylaxis d/t: No contraindications No VTE Pharm Prophylaxis d/t: No contraindications VTE Diagnosis: No VTE Type: NONE VTE Confirmed by (Test): NONE Severe Sepsis Severe Sepsis Present: No Septic Shock Septic Shock Present: No Miscellaneous Documentation Attending Case Discussed With: CARRIE RUSSO MD Primary Care Physician: JAGRUTI PEREZ DO Patient sees these Specialists HPI Level of Patient Care: General Medicine JNOI WHARTON MD 07/31/16 2307: Resident Review Statement Resident Statement: examined this patient, discussed with real estate intern Other Findings: 31-year-old gentleman with no medical history, not taking any medications presented to the emergency room with an evaluation of abdominal pain. States that yesterday night for dinner he ate [place] food and then this morning he had roughly 10 bouts of diarrhea, also followed up with nausea and vomiting however no history of hematochezia or hematemesis. States that he drinks 3-4 beers, 3-4 nights a week. No previous alcohol detox history or withdrawal seizures. As stated above no medical history, family history significant for mom having COPD, no history of heart attack or stroke no familial history of cancers. Does not smoke cigarettes, denies any illicit drug use. Pain and tenderness is reported to be diffuse all over the abdomen. CAT scan of the abdomen and pelvis is suggestive of pancreatitis Significant labs are leukocytosis of 16,300, elevated total bilirubin of 1.5, AST 73, ALT 106, total protein 8.4, triglycerides for 10, lipase 1237, serum alcohol less than 10 Physical exam pertinent findings bowel sounds are present, tenderness to light and deep palpation, no organomegaly appreciated; mild tremors of the hands noted bilaterally, no scleral icterus; rest of the physical exam was within normal limits Assessment- 1. Pancreatitis; likely multifactorial chronic alcohol use versus triglyceridemia, no gallstones on CAT scan 2. Abdominal pain secondary to pancreatitis 3. Gastroenteritis; infectious versus noninfectious, likely secondary to eating [place] food 4. History of alcohol use (3-4 drinks, 3-4 nights per week) Plan- GEN med admit Lactated Ringer's 250 mL an hour Nothing by mouth for now Blood cultures 2 U tox IV Zofran for nausea when necessary IV analgesics Check lipid profile Right upper quadrant ultrasound Hepatitis serology C. difficile and stool cultures Pain pathway Place on [facility] protocol PRN ativan per [facility] DVT prophylaxis with subcutaneous heparin Nothing by mouth Full code CARRIE RUSSO 08/01/16 0055: Attending MD Review Statement Attending Statement Attending MD Statement: examined this patient, discuss w/resident/PA/HAIRSPRING ADJUSTER, agreed w/resident/PA/HAIRSPRING ADJUSTER, reviewed EMR data (avail), reviewed images, amended to note Attending Assessment/Plan: CC: abdo pain, diarrhea, vomiting PMH: none Patient woke up at 2.30 am with acute abdo pain, diffuse, going to back, associated with diarrhea, 8-10 times. Later in the afternoon his diarrhea stopped but abdominal pain persisted and associated with nausea and several vomiting starts why he came to ER. No blood in vomiting or diarrhea. No similar symptoms in the past. He drinks 3-4 drinks, 3-4 times a week, no smoking, no illicit drug use. Of note patient's blood pressure has been high on and off outpatient: Was told probably secondary to anxiety/ white coat. Currently not on any medications. Vitals: Afebrile, otherwise unremarkable On examination: A O 3, cooperative, no acute distress, neck supple, no JVD, no lymphadenopathy, mucosa moist, no focal neurological deficit, mild tremors, no dependent edema, no obvious skin rashes or inflammation CVS: S1-S2, RRR. RS: Clear to auscultate bilaterally. Abdomen: Soft, diffusely tender, no guarding no rigidity Segura's sign negative, ND, bowel sounds present. Labs: WBC 16.3, hemoglobin 17.0, hematocrit 49.5, platelet 151, Neutrophils 88%, glucose 127, total bilirubin 1.5, AST 73, ALT 106, total protein 8.4, lipase 1237, alcohol Less than 10 CT abdomen and pelvis with IV contrast:1. Findings most suggestive of pancreatitis. Homogenous pancreatic parenchyma. No rim-enhancing fluid collection. 2. Hepatic steatosis. A and P # Acute pancreatitis : Probably secondary to alcohol, mildly elevated triglyceride which maybe not contributory, patient appears hemoconcentrated secondary to diarrhea and vomiting along with pancreatitis. Unusual to have diarrhea with pancreatitis, maybe associated some gastroenteritis. - Continue IV RL at 150 mL per hour, after - Nothing by mouth except meds - When necessary Zofran for nausea - Adequate pain control with IV morphine, and by mouth Percocet - Check hepatitis panel - Check CBCs, BMP, LFT in a.m. - Add CRP to sample in lab - Small dose of CCB : amlodipine 2.5-5 mg once if blood pressure is persistently elevated
--- NOTE | 2016-07-31 22:57 | NUR ---
PT'S RM ASSIGNMENT 232 BED 1
--- NOTE | 2016-07-31 23:16 | NUR ---
URINE TRIO SENT.
--- NOTE | 2016-07-31 23:30 | NUR ---
REPORT GIVEN TO JUMANA.
[2016-07-31 23:54] VITALS: BP 178/70
[2016-08-01] VITALS: BP 178/70
--- NOTE | 2016-08-01 00:57 | Admission Certification ---
Admission Certification Certification Statement - As attending physician, I certify that at the time of - admission, based on clinical presentation, severity of - symptoms, need for further diagnostic testing and - therapeutic interventions, and risk of adverse outcomes - without in-hospital treatment, in my clinical assessment, - this patient requires an acute hospital stay for a minimum - of two nights or longer. I have also considered psychsocial - factors such as support system, advanced age, financial - issues, cognitive issues, and failed out-patient treatments, - past re-admission history, safety of patient, and lack of - compliance as applicable. Specific rationale supporting this admission is: Acute pancreatitis
[2016-08-01 06:45] VITALS: BP 154/84
--- NOTE | 2016-08-01 07:07 | PN- Housestaff ---
SUE TEJEDA MD 08/01/16 0707: Subjective Follow-up For: Pancreatitis Gastroenteritis Subjective: Patient seen and examined. He is seen lying flat in bed resting comfortably. He appears to be in no acute distress. His spouse is at bedside and is up-to- date about his clinical condition and has no further questions at this time. Patient reports mild improvement of his abdominal pain with the addition of Dilaudid to his pain medication regimen. He does however admit to persistent nausea and abdominal discomfort and is not interested in eating at this time. He otherwise admits to feeling mildly weak but does not endorse any new subjective complaints. Additionally he denies any lightheadedness/dizziness, headache, fever, chills, chest pain, palpitations, shortness of breath, cough, further episodes vomiting, area. No overnight events reported. Review of Systems Constitutional: Reports: see HPI. Objective Last 24 Hrs of Vital Signs/I&O Vital Signs Date Time Temp Pulse Resp B/P B/P Pulse O2 O2 Flow FiO2 Mean Ox Delivery Rate 08/01 1421 98.0 88 20 135/80 98 08/01 1043 Room Air Room Air 08/01 0800 98.2 83 20 154/84 08/01 0645 98.2 83 20 154/84 99 Room Air 08/01 0045 172/100 08/01 0016 Room Air 08/01 0000 98.5 68 20 178/70 07/31 2354 98.5 68 20 178/70 98 Room Air 07/31 2242 98.0 74 16 158/88 97 Room Air 07/31 2056 97.0 66 16 168/90 97 Room Air 07/31 1903 96.4 66 16 188/73 99 Room Air Intake & Output 08/01 1600 08/01 0800 08/01 0000 Intake Total 1200 1300 2000 Output Total 1400 875 600 Balance -196 173 0060 Intake, IV 1200 1200 2000 Intake, Oral 0 100 Output, Urine 1400 875 600 Patient 86.183 kg 86.183 kg Weight Physical Exam General Appearance: Alert, Oriented X3, Cooperative, No Acute Distress Other Physical Findings: General -well-developed, well-nourished young man in no acute distress HEENT - NCAT, PERRL, EOMI, anicteric sclera Cardio - S1, S2 w/o murmurs/gallops/rubs Resp - CTA bilaterally w/o wheezing/rhochi/crackles GI - soft, mild diffuse tenderness without guarding or rigidity, nondistended, bowel sounds present Neuro - Awake and alert, CN II - XII grossly intact Extremities - no edema, pulses intact Current Medications: Current Medications Sig/Brynn Start time Last Medication Dose Route Stop Time Status Admin Amlodipine Besylate 5 MG ONCE ONE 08/01 0030 CAN PO 08/01 0031 Amlodipine Besylate 5 MG ONCE ONE 08/01 0030 DC 08/01 PO 08/01 0031 0045 Dicyclomine HCl 20 MG 4 TIMES/DAY 08/01 1000 AC 08/01 PO 1622 Dicyclomine HCl 20 MG ONCE ONE 07/31 213 DC 07/31 PO 07/31 2130 215 Heparin Sodium 5,000 UNIT Q8 08/01 0600 AC 08/01 (Porcine) SC 1325 Hydromorphone HCl 0.6 MG Q4P PRN 08/01 0830 AC 08/01 IV 1730 Hydromorphone HCl 0.6 MG ONCE ONE 08/01 0330 DC 08/01 IV 08/01 0331 0327 Ketorolac 0 .STK-MED ONE 08/01 2051 DC Tromethamine .ROUTE Ketorolac 30 MG ONCE ONE 07/31 2014 DC 07/31 Tromethamine IV 07/31 Lactated Ringer's 1,000 ML Q6H 07/31 231 AC 08/01 IV 1621 Lactated Ringer's 1,000 ML ONCE ONE 07/31 2229 DC 07/31 IV 08/01 022 2235 Lorazepam 0 Q1P PRN 07/31 2314 IV Melatonin 5 MG AT BEDTIME PRN 08/01 0030 AC 08/01 PO 0046 Morphine Sulfate 2 MG Q4P PRN 07/31 2314 DC 08/01 IV 0542 Morphine Sulfate 0 .STK-MED ONE 07/31 2144 DC .ROUTE Morphine Sulfate 4 MG ONCE ONE 07/31 2129 DC 07/31 IV 07/31 2130 214 Ondansetron HCl 4 MG .STK-MED ONE 08/01 0042 DC IM 08/01 0043 Ondansetron HCl 4 MG Q6P PRN 07/31 2315 AC 08/01 IV 1734 Ondansetron HCl 0 .STK-MED ONE 04/18 2035 DC .ROUTE Ondansetron HCl 4 MG ONCE ONE 07/31 2014 DC 07/31 IV 07/31 Oxycodone/ 1 TAB Q4P PRN 08/01 0100 AC 08/01 Acetaminophen PO 0707 Patient Medication 1 ED .STK-MED ONE 08/01 1402 DC Teaching ED 08/01 1403 Potassium Chloride 40 MEQ ONCE ONE 08/01 1800 UNVr PO 08/01 1801 Sodium Chloride 1,000 ML BOLUS ONE 07/31 2129 DC 07/31 IV 07/31 2228 214 Sodium Chloride 1,000 ML BOLUS ONE 07/31 2014 DC 07/31 IV 07/31 Last 24 Hrs of Lab/Mike Results Last 24 Hrs of Labs/Mics: Laboratory Tests 08/01/16 0624: Anion Gap 12, Estimated GFR > 60, BUN/Creatinine Ratio 8.6, CBC w Diff NO MAN DIFF REQ, RBC 4.84, MCV 92.5, MCH 32.0 H, RDW 12.5, MPV 7.8, Gran % 76.6 H, Lymphocytes % 14.6 L, Monocytes % 7.9, Eosinophils % 0.5, Basophils % 0.4, Absolute Granulocytes 9.4 H, Absolute Lymphocytes 1.8, Absolute Monocytes 1.0 H, Absolute Eosinophils 0.1, Absolute Basophils 0.1, PUBS MCHC 34.6 07/31/16 2310: Urine Opiates Screen 2050.00 H, Methadone Screen < 40, Barbiturate Screen < 60, Ur Phencyclidine Scrn < 6.00, Amphetamines Screen < 100, U Benzodiazepines Scrn < 85, Urine Cocaine Screen < 50, Urine Cannabis Screen < 5.00, Urinalysis LIGHT H, Urine Color YEL, Urine Clarity CLEAR, Urine pH 6.0, Ur Specific [place] 1.020 , Urine Protein 30 H, Urine Ketones 15 H, Urine Nitrite NEG, Urine Bilirubin NEG, Urine Urobilinogen 0.2, Ur Leukocyte Esterase NEG, Ur Microscopic SEDIMENT EXAMINED, Urine RBC 1-3, Urine Hemoglobin TRACE-INTACT H, Urine Glucose NEG 07/31/162027: Anion Gap 15, Estimated GFR > 60, BUN/Creatinine Ratio 12.5, Glucose 127 H, Calcium 9.6, Total Bilirubin 1.5 H, Direct Bilirubin 0.6 H, AST 73 H, ALT 106 H, Alkaline Phosphatase 91, C-Reactive Prot, Quant < 0.5, Total Protein 8.4 H, Albumin 4.9, Globulin 3.5, Albumin/Globulin Ratio 1.4, Triglycerides 410 H, Cholesterol 236 H, LDL Cholesterol Direct 105.46 H, LDL Cholesterol, Calc ND, HDL Cholesterol 74 H, Cholesterol/HDL Ratio 3, Amylase 61, Lipase 1237 H, CBC w Diff NO MAN DIFF REQ, RBC 5.41, MCV 92.2, MCH 31.5 H, RDW 12.6, MPV 7.1 L, Gran % 88.3 H, Lymphocytes % 5.9 L, Monocytes % 5.4, Eosinophils % 0.1, Basophils % 0.3, Absolute Granulocytes 14.4 H, Absolute Lymphocytes 1.0 L, Absolute Monocytes 0.9 H, Absolute Eosinophils 0, Absolute Basophils 0, PUBS MCHC 34.1, Hepatitis A IgM Ab NONREACTIVE, Hep Bs Antigen NONREACTIVE, Hep B Core IgM Ab Conf NONREACTIVE, Hepatitis C Antibody NONREACTIVE, Serum Alcohol < 10.0 Microbiology 07/31 9423 STOOL: Clostridium difficile Toxin A & B - CAN Cancelled: SPECIMEN NOT RECEIVED IN LABORATORY 07/31 2013 STOOL: Stool Culture - CAN Cancelled: SPECIMEN NOT RECEIVED IN LABORATORY Assessment/Plan Assessment: Patient reports mild improvement of his abdominal pain with recurrent narcotic pain medication regimen. He is to be maintained nothing by mouth with intravenous fluid resuscitation, pain control, and antiemetics overnight and to be trialed on a clear liquid diet for breakfast tomorrow. He was encouraged to follow-up with an outpatient alcohol rehabilitation program. Acute pancreatitis/gastroenteritis Patient reports consumption of "old [place] food" 2 days prior to initial evaluation for which she developed multiple episodes of explosive watery nonbloody diarrhea with further multiple episodes of nonbloody nonbilious emesis. He also admits to get her alcohol consumption of 3-4 cans of beer multiple days a week with occasional use of hard liquor. CT abdomen/pelvis demonstrated findings suggestive of acute pancreatitis with homogenous pancreatic parenchyma and no rim-enhancing fluid collection with hepatic steatosis. WBC 16.3. Lipase 1237, triglycerides 410. Urine toxicology was positive for opiates. Hepatitis panel negative -Gen. medicine -Nothing by mouth -Lactated Ringer's -Bentyl 20 mg by mouth 4 times a day -Zofran 4 mg IV every 6 hours as needed for nausea -Dilaudid 0.6 mg IV every 4 hours as needed for severe pain EtOH dependence Patient reports consumption of 3-4 cans of beer several days a week with addition of hard liquor occasionally. He denies admission to hospital or ICU for alcohol-related disease or withdrawal. -CIWA protocol -Ativan per CIWA Pain plan-Percocet/Dilaudid Diet-nothing by mouth, clear liquids for breakfast, advance as tolerated DVT prophylaxis-subcutaneous heparin CODE STATUS-full code Problem List: 1. Gastroenteritis 2. Acute pancreatitis Pain Ratin Pain Location: Abdomen Pain Goal: Pain 7 or less Pain Plan: See assessment Tomorrow's Labs & Rationales: CBC-leukocytosis BEP/Mg-hypokalemia PROMISE GREEN MD 08/01/16 1409: Attending MD Review Statement Attending Statement Attending MD Statement: examined this patient, discuss w/resident/PA/[employer], agreed w/resident/PA/[employer], discussed with family, reviewed EMR data (avail), discussed with nursing, discussed with case mgmt, amended to note Attending Assessment/Plan: Patient seen and examined. Seasonal comfortably and not in acute distress at present. Admits to abdominal pain but states that pain is controlled with Dilaudid. Denies nausea vomiting at present. He is on agitated or tremulous. He is not tachycardic or diaphoretic. His CIWA scores have been low. Appetite is appears to be secondary to alcoholism. There Is no evidence of biliary stones on imaging. He Is not on any medications that can cause pancreatitis. Recommendations: -Keep nothing by mouth. Continue hydration with IV fluids. -Continue current pain regimen. -Recommend outpatient alcohol rehabilitation follow-up. -Supplement potassium level orally. -Leukocytosis is likely secondary to hemoconcentration. Levels are currently improving with hydration.
[2016-08-01 08:00] VITALS: BP 154/84
[2016-08-01 08:14] LABS: ABSOLUTE BASOPHIL COUNT 0.1 /CUMM (0.0-0.2); BASOPHIL % 0.4 % (0.0-2.0); MEAN PLATELET VOLUME 7.8 FL (7.4-10.4); RED BLOOD CELL CT 4.84 /CUMM (4.70-6.10)
[2016-08-01 08:25] LABS: ABSOLUTE EOSINOPHIL COUNT 0.1 /CUMM (0.0-0.7); ABSOLUTE GRANULOCYTE CT 9.4 /CUMM (1.4-6.5); ABSOLUTE LYMPH COUNT 1.8 /CUMM (1.2-3.4); EOSINOPHIL % 0.5 % (0-5); GRANULOCYTE % 76.6 % (42.2-75.2); MEAN CORPUSCULAR HGB CONC 34.6 G/DL (33.0-37.0); MEAN CORPUSCULAR VOLUME 92.5 FL (80.0-94.0); PLATELET COUNT 124 /CUMM (130-400); RBC DISTRIBUTION WIDTH 12.5 % (11.5-14.5); WHITE BLOOD CELL COUNT 12.3 /CUMM (4.8-10.8)
[2016-08-01 08:30] LABS: HEMATOCRIT 44.7 % (42-52)
--- NOTE | 2016-08-01 13:15 | ULTRASOUND REPORT ---
EXAMINATION: US ABDOMEN COMPLETE CLINICAL INFORMATION: Bilirubin of 1.5. Pancreatitis on CT scan. Right upper quadrant ultrasound to rule out biliary process. COMPARISON: CT scan of the abdomen and pelvis dated 07/31/2016. TECHNIQUE: Real-time imaging of the abdominal viscera. FINDINGS: PANCREAS: Suboptimally visualized due to overlying bowel gas. Portions of the pancreatic body are seen and are unremarkable. Remainder of the pancreas is not seen. There is borderline distention of the pancreatic duct to 0.3 cm. No definite peripancreatic fluid collections identified. ABDOMINAL AORTA: The proximal segment is normal in caliber. INFERIOR VENA CAVA: Visualized portions are normal. LIVER: Diffusely increased hepatic echogenicity is seen, consistent with hepatic steatosis. The liver is enlarged, measuring 20.9 cm longitudinally. No focal lesion or intrahepatic biliary duct dilatation. GALLBLADDER: Normal. The gallbladder is physiologically distended without evidence of stones, sludge, polyps, wall thickening or pericholecystic fluid. COMMON BILE DUCT: Normal in caliber measuring 0.4 cm in diameter. RIGHT KIDNEY: Normal. No hydronephrosis. No renal calculi or focal parenchymal lesions. The kidney measures 11.6 cm in maximum dimension. LEFT KIDNEY: Normal. No hydronephrosis. No renal calculi or focal parenchymal lesions. The kidney measures 11.2 cm in maximum dimension. SPLEEN: Normal. The spleen measures 10.4 cm in maximum dimension. FREE FLUID: None. IMPRESSION: 1. Pancreas not adequately assessed on this exam. Known pancreatitis is not appreciated. 2. No peripancreatic collections are seen. Pancreatic duct is borderline dilated. 3. No abnormal dilatation of the biliary tree. 4. No choledocholithiasis or cholecystitis. 5. Hepatic steatosis.
[2016-08-01 14:21] VITALS: BP 135/80
[2016-08-01 23:25] VITALS: BP 150/96
[2016-08-02] VITALS (10 sets, daily range): BP systolic 130–150; BP diastolic 76–96
--- NOTE | 2016-08-02 07:11 | PN- Housestaff ---
SUE TEJEDA MD 08/02/16 0711: Subjective Follow-up For: Pancreatitis Gastroenteritis Subjective: Patient seen and examined. He is seen lying flat in bed resting comfortably. He appears mildly uncomfortable, but in no acute distress. He attempt to eat a clear liquid diet this morning, but was unable to tolerate it. He states that is abdominal pain is still persistent and that the pain medication regimen reduces paint about "2/10" but does not last more than about two hours. Otherwise he feels well and has no new subjective complaints. Additionally he denies any fever, chills, chest pain, shortness of breath, worsening nausea, further vomiting, or diarrhea. No overnight events reported. Review of Systems Constitutional: Reports: see HPI. Objective Last 24 Hrs of Vital Signs/I&O Vital Signs Date Time Temp Pulse Resp B/P B/P Pulse O2 O2 Flow FiO2 Mean Ox Delivery Rate 08/02 1107 99.1 104 20 140/80 95 08/02 0634 98.5 99 20 130/76 94 Room Air 08/02 0600 98.4 104 20 130/80 08/02 0400 98.4 104 20 130/80 08/02 0218 98.4 104 20 130/80 98 Room Air 08/02 0200 98.4 104 20 130/80 08/02 0000 99.6 83 20 150/96 08/01 2325 99.6 83 20 150/96 96 Room Air 08/01 1421 98.0 88 20 135/80 98 Intake & Output 08/02 1600 08/02 0800 08/02 0000 Intake Total 1075 1200 Output Total 1100 875 Balance -25 325 Intake, IV 1000 1200 Intake, Oral 75 Output, Urine 1100 875 Physical Exam General Appearance: Alert, Oriented X3, Cooperative, No Acute Distress Other Physical Findings: General -well-developed, well-nourished young man in no acute distress HEENT - NCAT, PERRL, EOMI, anicteric sclera Cardio - S1, S2 w/o murmurs/gallops/rubs Resp - CTA bilaterally w/o wheezing/rhochi/crackles GI - soft, mild diffuse tenderness without guarding or rigidity, nondistended, bowel sounds present Neuro - Awake and alert, CN II - XII grossly intact Extremities - no edema, pulses intact Current Medications: Current Medications Sig/Brynn Start time Last Medication Dose Route Stop Time Status Admin Dextrose/Lactated 1,000 ML Q6H 08/02 0915 08/02 Ringer's IV 1018 Dicyclomine HCl 20 MG 4 TIMES/DAY 08/01 1000 AC 08/02 PO 0846 Heparin Sodium 5,000 UNIT Q8 08/01 0600 AC 08/02 (Porcine) SC 0542 Hydromorphone HCl 0.6 MG Q2 HRS NEEDED PRN 08/02 0845 08/02 IV 0845 Hydromorphone HCl 0.6 MG Q4P PRN 08/01 0830 IA 08/02 IV 0542 Lactated Ringer's 1,000 ML Q6H 07/31 2315 IA 08/02 IV 0542 Lorazepam 0 Q1P PRN 07/31 2315 IV Melatonin 5 MG AT BEDTIME PRN 08/01 0030 AC 08/01 PO 2105 Ondansetron HCl 4 MG .STK-MED ONE 08/01 1734 DC IM 08/01 1735 Ondansetron HCl 4 MG Q6P PRN 07/31 2315 08/02 IV 0551 Oxycodone/ 1 TAB Q4P PRN 08/01 0100 08/02 Acetaminophen PO 0416 Patient Medication 1 ED .STK-MED ONE 08/01 1402 DC Teaching ED 08/01 1403 Potassium Chloride 40 MEQ ONCE ONE 08/01 1800 DC 08/01 PO 08/01 1801 2105 Last 24 Hrs of Lab/Mike Results Last 24 Hrs of Labs/Mics: Laboratory Tests 08/02/16 0700: Anion Gap 13, Estimated GFR > 60, BUN/Creatinine Ratio 6.3 L, Magnesium 1.6, CBC w Diff NO MAN DIFF REQ, RBC 5.05, MCV 93.2, MCH 31.8 H, RDW 12.6, MPV 7.6, Gran % 87.1 H, Lymphocytes % 6.0 L, Monocytes % 6.7, Eosinophils % 0.2, Basophils % 0 L, Absolute Granulocytes 13.8 H, Absolute Lymphocytes 0.9 L, Absolute Monocytes 1.1 H, Absolute Eosinophils 0, Absolute Basophils 0, PUBS MCHC 34.1 Assessment/Plan Assessment: Patient reports persistent abdominal pain despite intravenous narcotic medications. He states that the pain medications with his pain to "2/10" but only lasts for "a couple of hours". His Dilaudid was advanced to every 2 hours. Patient was trialed on a clear liquid diet for breakfast this morning, but was unable to consume it without worsening abdominal discomfort. Patient was made nothing by mouth and fluids were changed to D5 lactated Ringer's for calorie support. Patient will continue to be monitored today and maintained nothing by mouth, he will be considered for discharge in the next coming days. Acute pancreatitis/gastroenteritis Patient reports consumption of "old [place] food" 2 days prior to initial evaluation for which she developed multiple episodes of explosive watery nonbloody diarrhea with further multiple episodes of nonbloody nonbilious emesis. He also admits to get her alcohol consumption of 3-4 cans of beer multiple days a week with occasional use of hard liquor. CT abdomen/pelvis demonstrated findings suggestive of acute pancreatitis with homogenous pancreatic parenchyma and no rim-enhancing fluid collection with hepatic steatosis. WBC 16.3. Lipase 1237, triglycerides 410. Urine toxicology was positive for opiates. Hepatitis panel negative. -Gen. medicine -Nothing by mouth -D5 Lactated Ringer's -Bentyl 20 mg by mouth 4 times a day -Zofran 4 mg IV every 6 hours as needed for nausea -Dilaudid 0.6 mg IV every 2 hours as needed for severe pain EtOH dependence Patient reports consumption of 3-4 cans of beer several days a week with addition of hard liquor occasionally. He denies admission to hospital or ICU for alcohol-related disease or withdrawal. -[facility] protocol -Ativan per [facility] Pain plan-Percocet/Dilaudid Diet-nothing by mouth, clear liquids for breakfast, advance as tolerated DVT prophylaxis-subcutaneous heparin CODE STATUS-full code Problem List: 1. Acute pancreatitis 2. Gastroenteritis Pain Ratin Pain Location: Abdomen Pain Goal: Pain 7 or less Pain Plan: See assessment Tomorrow's Labs & Rationales: CBC-leukocytosis PROMISE GREEN MD 08/02/16 1142: Attending MD Review Statement Attending Statement Attending MD Statement: examined this patient, discuss w/resident/PA/MERCHANDISE STOCKER, agreed w/resident/PA/MERCHANDISE STOCKER, reviewed EMR data (avail), discussed with nursing, discussed with case mgmt, amended to note Attending Assessment/Plan: Patient seen and examined. Continues to complain of abdominal pain on and off. Continues to request analgesic therapy. Reports that Dilaudid not lasting long enough between doses. He attempted clear liquid diet today but became nauseous the fortunately remains hemodynamically stable and afebrile. Lungs are clear to auscultation bilaterally. Abdomen is soft with mild epigastric tenderness. Laboratory data today shows normal creatinine. White cell count however is trending upwards as well as his hemoglobin level. His platelet count is also slowly trending downwards. His CIWA score remains low. Recommendations: -Recommend more aggressive IV hydration. Increase fluid rate to 2 50 mL an hours. Change fluids to D5 LR as patient remains nothing by mouth. -Close monitoring of respiratory status. -Continue analgesic therapy. Administer Dilaudid every 2 hours as needed. Avoid if excessively sedated. -If abdominal pain persists will consider repeating lipase level and abdominal imaging. -Repeat serum chemistry including LFTs and CBC tomorrow.
[2016-08-02 08:20] LABS: ABSOLUTE BASOPHIL COUNT 0 /CUMM (0.0-0.2); ABSOLUTE EOSINOPHIL COUNT 0 /CUMM (0.0-0.7); ABSOLUTE GRANULOCYTE CT 13.8 /CUMM (1.4-6.5); ABSOLUTE LYMPH COUNT 0.9 /CUMM (1.2-3.4); ABSOLUTE MONOCYTE COUNT 1.1 /CUMM (0.10-0.60); BASOPHIL % 0 % (0.0-2.0); EOSINOPHIL % 0.2 % (0-5); HEMATOCRIT 47.1 % (42-52); MEAN CORPUSCULAR HGB 31.8 PG (27.0-31.0); MEAN CORPUSCULAR HGB CONC 34.1 G/DL (33.0-37.0); MEAN CORPUSCULAR VOLUME 93.2 FL (80.0-94.0); MEAN PLATELET VOLUME 7.6 FL (7.4-10.4); PLATELET COUNT 120 /CUMM (130-400); RBC DISTRIBUTION WIDTH 12.6 % (11.5-14.5); RED BLOOD CELL CT 5.05 /CUMM (4.70-6.10); WHITE BLOOD CELL COUNT 15.8 /CUMM (4.8-10.8)
[2016-08-02 09:22] LABS: GRANULOCYTE % 87.1 % (42.2-75.2)
--- NOTE | 2016-08-02 16:41 | Event Note ---
Event Note Event Note: This patient continues to have persistent abdominal discomfort, his belly appears a little more distended and taut than before. He has been receiving large amounts hydromorphone. His labs seem to suggest that he is also getting increasingly more hemoconcentrated. We suspect opiate-induced ileus/bowel obstruction, or perhaps necrotic pancreatitis plus or minus superimposed infection. We will obtain multiple views of the abdomen with x-ray, if he is obstructed we will decompress him with nasogastric suction. If he is not obstructed we will pursue urgent CAT scan the abdomen and pelvis w/iv & po contrastto evaluate for development of necrosis, pseudocyst versus superimposed infection. If the patient continues to do poorly, or there is evidence of infection begin empiric antibiotics.
--- NOTE | 2016-08-02 17:26 | RADIOLOGY REPORT ---
EXAMINATION: XR ABDOMEN MULTIPLE VIEWS CLINICAL INDICATION: Pancreatitis. COMPARISON: 07/31/2016 TECHNIQUE: 2 views, 3 images of the abdomen FINDINGS: There is a nonobstructive bowel gas pattern. Scattered gas throughout the colon with stool. No dilated loops of bowel. No free air on the upright view. The lung bases are clear. No acute osseous abnormality. IMPRESSION: Nonobstructive bowel gas pattern.
--- NOTE | 2016-08-02 19:50 | NUR ---
PT'S PAIN REMAINED HIGH THROUGHOUT THE DAY. DR. VALENZUELA CHANGED THE DILAUDID TO 0.6MG Q 2 PRN . PT TRIED TO EAT CLEARS IN AM AND WAS NAUSEOUS. PT WAS MADE NPO. INFORMED DR. CR THAT PT'S URINE WAS DARK. NO PAIN WITH URINATION. URINE WAS SENT. PTS ABDOMEN IS STILL EXTREMLEY DISTENDED. XRAY WAS DONE. NO FURTHER ORDERS. MAGNESIUM IS RUNNING . FLUIDS ARE RUNNING AT 250 ML/HR.
--- NOTE | 2016-08-02 20:53 | CT SCAN REPORT ---
EXAMINATION: CT ABDOMEN AND PELVIS WITH CONTRAST CLINICAL INFORMATION: 31-year-old male patient with pancreatitis. COMPARISON: CT of the abdomen and pelvis on 07/31/2016. TECHNIQUE: Multidetector volumetric imaging was performed of the abdomen and pelvis before and after the IV administration of 95 mL of Optiray 320 intravenous contrast. Sagittal and coronal reformatted images were obtained on the technologist's workstation. DLP: 712 mGy-cm FINDINGS: LUNG BASES: The lungs remain clear. There is no pleural effusion. Interestingly, there are streaky opacities and stranding of the cardiophrenic fat pads bilaterally probably due to the ongoing pancreatitis. LIVER, GALLBLADDER, AND BILIARY TREE: Again there is diffuse fatty infiltration of the liver. Biliary system is unremarkable. PANCREAS: The extent of disease secondary to the acute pancreatitis has increased. Importantly, there are no signs of pancreatic necrosis. There is increasing diffusion of pancreatic enzymes in the peripancreatic space, the root of the mesentery, the transverse mesocolon, the lesser sac, the left anterior pararenal space to the true splenic flexure and parallel to the descending colon, and to a lesser extent in the right anterior pararenal space. Some fluid tracks down the right paracolic cutter and there is a small amount of ascites in the pelvis. There is additional stranding in the perirenal fat which has increased in 2 days. As yet, there is no indication of pseudocyst formation or pancreatic abscess. SPLEEN: Unremarkable. ADRENAL GLANDS: Unremarkable. KIDNEYS AND URETERS: The kidneys are normal in size, shape, and attenuation. No hydronephrosis, hydroureter, or calculi seen. There are trace amounts of fluid in both perirenal spaces. BLADDER: Unremarkable. GASTROINTESTINAL TRACT: There is adynamic ileus of the second and third portions of the duodenum due to the adjacent inflammatory disease. Also, there is a suggestion of right-sided colitis as a secondary effect of the adjacent pancreatic enzymes. No free air. ABDOMINAL WALL: No significant hernia is appreciated. LYMPH NODES: Normal. VASCULAR: Unremarkable. PELVIC VISCERA: Unremarkable. OSSEOUS STRUCTURES: Unremarkable. IMPRESSION: Progressive acute pancreatitis with increasing pancreatic effusions in multiple compartments as described above. Small amount of pancreatic ascites. No sign of pancreatic necrosis. No pseudocyst formation or abscess is detected
--- NOTE | 2016-08-02 23:51 | NUR ---
PT HAS SLIGHT TREMOR, REPORTS HAVING TREMOR SINCE CHILDHOOD. DENIES ANY DETOX S/P, REFUSED IV ATIVAN THIS EVENING. PASSED ON TO NEXT SHIFT RN.
[2016-08-03] VITALS (10 sets, daily range): BP systolic 120–171; BP diastolic 70–116
--- NOTE | 2016-08-03 07:23 | PN- Housestaff ---
SUE TEJEDA MD 08/03/16 0722: Subjective Follow-up For: Pancreatitis Gastroenteritis Subjective: Patient seen and examined. He is seen lying flat in bed resting comfortably. He appears to be in no acute distress. He reports that his abdominal pain is worse today, and is no longer being controlled with the current intravenous narcotic regimen. Otherwise he states that his nausea is better and is requesting to have some water. He states that he is now having loose bowel movements and is passing gas. He feels his abdomen is bigger and more bloated today. Otherwise he denies any fever, chills, chest pain, shortness of breath, vomiting. Last evening patient declined to receive the scheduled dose of ativan per nursing staff as the patient reportedly felt that he did not need it. Review of Systems Constitutional: Reports: see HPI. Objective Last 24 Hrs of Vital Signs/I&O Vital Signs Date Time Temp Pulse Resp B/P B/P Pulse O2 O2 Flow FiO2 Mean Ox Delivery Rate 08/03 1117 97.1 88 20 130/77 96 08/03 0800 98.2 77 20 122/80 08/03 0754 98.2 77 20 122/80 98 08/03 0400 99.0 107 20 136/72 08/03 0400 99.0 107 20 136/72 94 Room Air 08/03 0052 100.5 106 20 140/80 95 Room Air 08/03 0000 100.5 106 20 140/80 08/02 2210 100.7 08/02 2200 100.7 89 20 132/80 08/02 2106 100.0 89 20 132/80 94 Room Air 08/02 1725 99.4 109 20 132/82 95 Room Air Intake & Output 08/03 1600 08/03 0800 08/03 0000 Intake Total 1999 2039 Output Total 650 325 Balance 1350 1715 Intake, IV 1999 1999 Intake, Oral 0 40 Number 0 Bowel Movements Output, Urine 650 325 Physical Exam General Appearance: Alert, Oriented X3, Cooperative, No Acute Distress Other Physical Findings: General -well-developed, well-nourished young man in no acute distress HEENT - NCAT, PERRL, EOMI, anicteric sclera Cardio - S1, S2 w/o murmurs/gallops/rubs Resp - CTA bilaterally w/o wheezing/rhochi/crackles GI - soft, mild diffuse tenderness without guarding or rigidity, moderated distended, bowel sounds present Neuro - Awake and alert, CN II - XII grossly intact Extremities - no edema, pulses intact Current Medications: Current Medications Sig/Brynn Start time Last Medication Dose Route Stop Time Status Admin Dextrose/Lactated 1,000 ML Q6H 08/02 0915 AC 08/03 Ringer's IV 0805 Dicyclomine HCl 20 MG 4 TIMES/DAY 08/01 1000 AC 08/03 PO 0921 Docusate Sodium 100 MG DAILY 08/03 1000 AC PO Heparin Sodium 5,000 UNIT Q8 08/01 0600 AC 08/03 (Porcine) SC 0639 Hydromorphone HCl 1 MG Q2 HRS NEEDED PRN 08/03 1000 AC IV Hydromorphone HCl 0.6 MG Q2 HRS NEEDED PRN 08/02 0845 DC 08/03 IV 0920 Lorazepam 2 MG BID 08/02 2200 AC IV Lorazepam 0 Q1P PRN 07/31 2315 AC 08/02 IV 1500 Magnesium Sulfate 1 GM ONCE ONE 08/02 1400 DC 08/02 Dextrose/Water 100 ML IV 08/02 1759 1510 Melatonin 5 MG AT BEDTIME PRN 08/01 0030 AC 08/01 PO 2105 Ondansetron HCl 4 MG .STK-MED ONE 08/03 0140 DC IM 08/03 0141 Ondansetron HCl 4 MG .STK-MED ONE 08/02 1257 DC IM 08/02 1258 Ondansetron HCl 4 MG Q6P PRN 07/31 2315 AC 08/03 IV 0140 Oxycodone/ 1 TAB Q4P PRN 08/01 0100 AC 08/02 Acetaminophen PO 0416 Polyethylene Glycol 17 GM DAILY 08/03 1000 AC PO Senna/Docusate Sodium 1 TAB BID PRN 08/03 0830 AC PO Last 24 Hrs of Lab/Mike Results Last 24 Hrs of Labs/Mics: Laboratory Tests 08/03/16 0610: Total Bilirubin 1.5 H, Direct Bilirubin 0.6 H, AST 26, ALT 42, Alkaline Phosphatase 62, Total Protein 5.8 L, Albumin 3.1 L, Prealbumin 19.2, CBC w Diff Pending, RBC 4.16 L, MCV 92.9, MCH 32.3 H, RDW 12.7, MPV 7.8, Gran % 82.5 H, Lymphocytes % 8.1 L, Monocytes % 8.7, Eosinophils % 0.5, Basophils % 0.2, Absolute Granulocytes 14.0 H, Absolute Lymphocytes 1.4, Absolute Monocytes 1.5 H, Absolute Eosinophils 0.1, Absolute Basophils 0, PUBS MCHC 34.7 08/02/16 1830: Urine Color YEL, Urine Clarity HAZY H, Urine pH 6.5, Ur Specific [place] 1.025, Urine Protein 100 H, Urine Ketones 40 H, Urine Nitrite NEG, Urine Bilirubin NEG@ICTO, Urine Urobilinogen 4.0 H, Ur Leukocyte Esterase NEG, Ur Microscopic SEDIMENT EXAMINED, Urine RBC RARE, Urine WBC RARE, Ur Epithelial Cells RARE, Urine Bacteria MOD H, Urine Hemoglobin SMALL H, Urine Glucose NEG Microbiology 08/03 929 BLOOD: Blood Culture - RECD 08/03 914 BLOOD: Blood Culture - RECD 08/04 843 STOOL: Clostridium difficile Toxin A & B - RECD 08/04 843 STOOL: Stool Culture - RECD Assessment/Plan Assessment: Abdominal X-ray and CT Abdomen/Pelvis yesterday ruled out any obstruction but demonstrated worsening of the pancreatic inflammation. His pain is no longer controlled with the previous dose of intravenous dilaudid, which was increased today. He is to take sips of water as tolerated and will be considered for a clear liquid diet tomorrow. He is still receiving intravenous fluids at an aggressive rate. Acute pancreatitis/gastroenteritis Patient reports consumption of "old [place] food" 2 days prior to initial evaluation for which she developed multiple episodes of explosive watery nonbloody diarrhea with further multiple episodes of nonbloody nonbilious emesis. He also admits to get her alcohol consumption of 3-4 cans of beer multiple days a week with occasional use of hard liquor. CT abdomen/pelvis demonstrated findings suggestive of acute pancreatitis with homogenous pancreatic parenchyma and no rim-enhancing fluid collection with hepatic steatosis. WBC 16.3. Lipase 1237, triglycerides 410. Urine toxicology was positive for opiates. Hepatitis panel negative. -Gen. medicine -Sips of water -Nothing by mouth -D5 Lactated Ringer's -Bentyl 20 mg by mouth 4 times a day -Zofran 4 mg IV every 6 hours as needed for nausea -Dilaudid 1 mg IV every 2 hours as needed for severe pain EtOH dependence Patient reports consumption of 3-4 cans of beer several days a week with addition of hard liquor occasionally. He denies admission to hospital or ICU for alcohol-related disease or withdrawal. -[facility] protocol -Ativan per [facility] Pain plan-Percocet/Dilaudid Diet-nothing by mouth, sips of water as tolerated DVT prophylaxis-subcutaneous heparin CODE STATUS-full code Problem List: 1. Acute pancreatitis 2. Gastroenteritis Pain Ratin Pain Location: Abdomen Pain Goal: Pain 7 or less Pain Plan: See assessment Tomorrow's Labs & Rationales: CBC - leukocytosis PROMISE GREEN MD 08/03/16 1217: Attending MD Review Statement Attending Statement Attending MD Statement: examined this patient, discuss w/resident/PA/BLOCKING MACHINE TENDER, agreed w/resident/PA/BLOCKING MACHINE TENDER, reviewed EMR data (avail), discussed with nursing, discussed with case mgmt, amended to note Attending Assessment/Plan: Patient seen and examined. Yesterday afternoon nursing staff reported increased abdominal girth. Patient continues to complain of abdominal pain. His abdomen did appear more distended, tense and mild diffuse tenderness. X-ray showed no evidence of bowel obstruction. CT scan showed worsening pancreatic inflammation with no evidence of necrosis or abscess. This morning patient does continue to endorse abdominal pain but does report denies nausea. He reports that he is ready to attempt oral intake. He was very hesitant about this yesterday. Denies any respiratory complaints. On examination the abdomen is full but soft and nontender with normal bowel sounds. He reports having a small bowel movement earlier on today. He was febrile overnight and his white cell count continues to rise. Problems: 1. Acute pancreatitis; likely secondary to alcohol use. 2. SIRS; (rising leukocytosis, fever )secondary to pancreatitis. No evidence of infection. 3. Transaminitis; improved 4. Thrombocytopenia; likely secondary to alcohol use. Plan: -Allow only sips of water today. Continue aggressive IV hydration. -Optimize pain control by changing Dilaudid to 1 mg every 2 hours when necessary pain. -Provide patient with bowel regimen. -Hold off on antibiotic therapy for now. Fever is most likely secondary to his ongoing inflammation. -Follow-up blood cultures. -Mobilize patient. -Monitor CBC daily. Repeat serum chemistry in the a.m. -Anticipate advancing his diet over the weekend. However if patient remains with significant nausea, consider GI consultation for TPN versus tube feeding in the next 48 hour -Follow-up blood cultures. -Mobilize patient. -Monitor CBC daily. Repeat serum chemistry in the a.m. -Anticipate advancing his diet over the weekend. However if patient remains with significant nausea, consider GI consultation for TPN versus tube feeding in the next 48 hour
[2016-08-03 08:03] LABS: ABSOLUTE BASOPHIL COUNT 0 /CUMM (0.0-0.2); ABSOLUTE EOSINOPHIL COUNT 0.1 /CUMM (0.0-0.7); ABSOLUTE LYMPH COUNT 1.4 /CUMM (1.2-3.4); ABSOLUTE MONOCYTE COUNT 1.5 /CUMM (0.10-0.60); BASOPHIL % 0.2 % (0.0-2.0); EOSINOPHIL % 0.5 % (0-5); GRANULOCYTE % 82.5 % (42.2-75.2); MEAN CORPUSCULAR HGB 32.3 PG (27.0-31.0); MEAN CORPUSCULAR HGB CONC 34.7 G/DL (33.0-37.0); MEAN CORPUSCULAR VOLUME 92.9 FL (80.0-94.0); MEAN PLATELET VOLUME 7.8 FL (7.4-10.4); PLATELET COUNT 105 /CUMM (130-400); RBC DISTRIBUTION WIDTH 12.7 % (11.5-14.5); RED BLOOD CELL CT 4.16 /CUMM (4.70-6.10)
[2016-08-03 08:25] LABS: HEMATOCRIT 38.6 % (42-52)
--- NOTE | 2016-08-03 19:15 | NUR ---
AT THIS TIME, PT AT HIS ROOM DOORWAY STATING HE SAW GLUE IN HIS IV TUBING AND HE TOOK SCISSORS TO CUT THE IV TUBING. BLOOD BACKED UP INTO CUT TUBING. PT ALERT AND ORIENTEDX3. VSS. TAPER/FINISHER CALLED IN TO SEE PT DUE TO DISORIENTATION AND HALLUCINATION. CIWA SCORE 17, MEDICATED WITH ATIVAN PER EMAR. AT 194- PT RIPPED IV OUT. PT STATING THAT THE TUBING KEPT STICKING TO HIM. NEW IV PLACED #22 TO RFA. RESIDENT FAIZEN IN TO SEE PT, ONE TIME 1MG IV ATIVAN DOSE ORDERED AND ADMINISTERED TO PT. NEXT CINM FOR 2029. CHARGE NURSE AND SUPERVISIOR MADE AWARE IN CHANGE OF PT. WILL CONTINUE TO MONITOR.
--- NOTE | 2016-08-03 20:15 | NUR ---
RESIDENT JENNIFER AWARE THAT PT RECEIVING 1MG IV DILAUDID Q2 HOURS PER EMAR. PT C/O SEVERE PAIN TO ABD THAT IS RELIEVED FOR SHORT PERIOD OF TIME AFTER ADMIN OF DILAUDID. DUE TO PTS CURRENT STATUS, DILAUDID ORDER CHANGED TO [id number]. WILL CONTINUE TO MONITOR.
--- NOTE | 2016-08-03 20:34 | NUR ---
PT RECIEVED 5MG IV ATIVAN BETWEEN 1930 AND 2029. RESIDENT JENNIFER AWARE. WILL CONTINUE TO MONITOR.
--- NOTE | 2016-08-03 20:45 | NUR ---
PT RECEIVED AN ADDITIONAL 3MG IV ATIVAN AT 2040 PER EMAR. IN TOTAL, PT RECEIVED 8MG IV ATIVAN WITHIN ONE HOUR AND TEN MIN PERIOD. RESIDENT JENNIFER AT BEDSIDE, CHARGE NURSE AT BEDSIDE. PT CONTINUES TO BE DISORIENTED WITH NO CHANGE AFTER ADMIN OF ATIVAN. PT HALLUCINATING, STATING HE THOUGHT AN NULATO LANDED NEAR HIS MOUTH. PT REACHING FOR NON VISIBLE OBJECTS IN THE ROOM AND HAVING A CONVERSATION WITH HIMSELF. PT TRANSFERRED TO ICU AT 2100 ON MONITOR WITH CHARGE NURSE AND RESIDENT AT BEDSIDE. REPORT GIVEN TO ODD PIECE CHECKER.
--- NOTE | 2016-08-03 21:48 | RADIOLOGY REPORT ---
EXAMINATION: XR PORTABLE ABDOMEN CLINICAL INFORMATION: Distended abdomen. Presumptive diagnosis of small bowel obstruction. COMPARISON: CT and radiographs dated 08/02/2016 TECHNIQUE: AP portable views of the abdomen. FINDINGS: Portable views of the abdomen is somewhat limited by underpenetration. The gas-filled segment of transverse colon is within normal limits. A few gas-filled segments of small bowel in the central abdomen are likely within normal limits in caliber. Lung bases are unremarkable. Lumbar spine is unremarkable. IMPRESSION: Nonobstructive bowel gas pattern. This portable study is somewhat limited due to underpenetration.
[2016-08-03 22:40] LABS: ABSOLUTE BASOPHIL COUNT 0.1 /CUMM (0.0-0.2); ABSOLUTE EOSINOPHIL COUNT 0.1 /CUMM (0.0-0.7); ABSOLUTE GRANULOCYTE CT 13.9 /CUMM (1.4-6.5); ABSOLUTE LYMPH COUNT 1.3 /CUMM (1.2-3.4); ABSOLUTE MONOCYTE COUNT 1.4 /CUMM (0.10-0.60); BASOPHIL % 0.4 % (0.0-2.0); EOSINOPHIL % 0.8 % (0-5); GRANULOCYTE % 82.5 % (42.2-75.2); HEMATOCRIT 35.9 % (42-52); MEAN CORPUSCULAR HGB CONC 34.4 G/DL (33.0-37.0); MEAN CORPUSCULAR VOLUME 92.9 FL (80.0-94.0); MEAN PLATELET VOLUME 7.6 FL (7.4-10.4); PLATELET COUNT 112 /CUMM (130-400); RBC DISTRIBUTION WIDTH 12.5 % (11.5-14.5); RED BLOOD CELL CT 3.86 /CUMM (4.70-6.10); WHITE BLOOD CELL COUNT 16.8 /CUMM (4.8-10.8)
--- NOTE | 2016-08-03 23:00 | NUR ---
2104= RECIEVED PT FROM 2N TRANSFER. PT ALERT, HALLUCINATING. ATTEMPTING TO GET OOB AND REMOVE LINES, OLIVIA AND SOFT UPPER RESTRAINTS APPLIED PER MD ORDER. ST 100-120'S. ATIVAN GTT STARTED AT 2MG/HR PER MD FOURNIER. DAVIS PLACED. NGT PLACED PER MD GRANT. XRAY ORDERED TO CONFIRM- PER MD GRANT RADIOLOGIST STATES TO ADVANCE 5CM- NGT ADVANCED TO 70CM. REPEAT XRAY DONE- AWAITING CONFIRMATION. +BS, ABD DISTENDED AND FIRM. CIWA 20-30.SBP 140-160. NC/2L 97%. SKIN INTACT. IVF INFUSING. WILL CONT TO MONITOR
--- NOTE | 2016-08-03 23:49 | Event Note ---
Event Note Event Note: This is a documentation of the events that occurred at 8 PM on July. I was asked to evaluate the patient as he was having increased agitation and anxiety. The patient's RN reported that he has been suffering from auditory and visual hallucinations When I examined the patient the patient was disoriented and was having increased tremors. He was complaining of seeing "snakes"on his bed. At that time I gave him an extra dose of Ativan 3 mg followed by another 2 mg in the next 20 minutes. The patient's condition did not improve and after discussion with the nocturnal wrist on-call I counseled the patient to ICU for Ativan drip Regarding the patient's abdominal exam. Previous events note was reviewed and the patient still had persistent abdominal distention even though the abdominal x-ray did not show any small bowel obstruction. An NG tube was placed and confirmation was confirmed with abdominal x-ray(had to repeat twice due to abnormal positioning). Slight decrease in distention was noticed and NG tube was placed on suctioning which drained bilious fluid The patient still had abdominal distention but we recommended to watch for now but if the distention does not improve we will consider necrotizing pancreatitis versus abdominal compartment syndrome. And hence at that time we will consider placing a surgical consult after performng CT scan with IV contrast.
[2016-08-04] VITALS (12 sets, daily range): BP systolic 122–188; BP diastolic 68–98
--- NOTE | 2016-08-04 00:41 | Event Note ---
Event Note Event Note: Patient is seen and examined at the bedside. His belly was distended and he was having temperature of 101. Discussion between Dr. Boothe and Dr. Aguilar, we decided to rule out necrotizing pancreatitis along with a compartment syndrome. He ordered CT scan of abdomen and pelvis with contrast. We will also take surgical consult and will follow the recommendation. We also ordered IV Tylenol for the fever.
--- NOTE | 2016-08-04 01:37 | RADIOLOGY REPORT ---
EXAMINATION: XR PORTABLE ABDOMEN CLINICAL INFORMATION: Question small bowel distortion. Distended abdomen. COMPARISON: CT scan of abdomen and pelvis 08/02/2016. TECHNIQUE: AP view of the abdomen. FINDINGS: There is intraluminal gas visualized within nondistended colon and small bowel. Solid organ contours are unremarkable. This examination is limited. Specifically the left hemiabdomen was excluded from the [id number] this examination. No acute osseous finding. IMPRESSION: Limited examination reveals no evidence to suggest small bowel obstruction.
--- NOTE | 2016-08-04 03:23 | NUR ---
0000= AXILARRY TEMP 101.9. MD FOURNIER AND MY JUANITA MADE AWARE. IV TYLENOL ORDERED. CT SCAN ABD WITH CONTRAST ORDERED. 0300=TEMP 99.2 AXILLARY. NSR 90'S. SBP 150'S. ATIVAN GTT 4MG/HR FOR SAS 5. PT TRANSPORT TO CT SCAN WITHOUT INCIDENT.
--- NOTE | 2016-08-04 03:39 | CT SCAN REPORT ---
EXAMINATION: CT ABDOMEN AND PELVIS WITH CONTRAST CLINICAL INFORMATION: Acute pancreatitis. Question necrotizing pancreatitis and compartment syndrome. COMPARISON: CT scan of the abdomen and pelvis 08/02/2016. TECHNIQUE: Multidetector volumetric imaging was performed of the abdomen and pelvis before and after the IV administration of 95 mL of Optiray 320 intravenous contrast. Sagittal and coronal reformatted images were obtained on the technologist's workstation. DLP: 886.83 mGy-cm FINDINGS: LUNG BASES: There are small bilateral pleural effusions and bibasilar subsegmental atelectasis. The heart is at the upper limits of normal size. No pericardial effusion. LIVER, GALLBLADDER, AND BILIARY TREE: The liver demonstrates homogeneous attenuation and enhancement with no evidence of a discrete hepatic parenchymal mass. The gallbladder is normal and there is no abnormal intrahepatic or extrahepatic biliary ductal dilatation. PANCREAS: There are diffuse inflammatory changes surrounding the pancreas consistent with the patient's clinical history of acute pancreatitis. The pancreatic tissue enhances normally and there is no evidence of necrosis. SPLEEN: Unremarkable. ADRENAL GLANDS: Unremarkable. KIDNEYS AND URETERS: Kidneys demonstrate symmetric nephrographic enhancement. There is no abnormal perinephric inflammation or collection. No hydroureteronephrosis. No worrisome mass or caliber indications are visualized along the course of the right or left ureters. BLADDER: Decompressed and otherwise unremarkable. GASTROINTESTINAL TRACT: There is small amount of ascites. The stomach and small bowel are unremarkable. There is mild thickening of the descending colon and ascending colon presumably related to reactive inflammation associated with fluid within the paracolic gutters. The colon is otherwise unremarkable. Normal appendix. ABDOMINAL WALL: No significant hernia is appreciated. LYMPH NODES: No pathologically enlarged mesenteric or retroperitoneal lymph nodes. VASCULAR: The abdominal aorta and inferior vena cava are unremarkable. PELVIC VISCERA: Unremarkable. OSSEOUS STRUCTURES: There is no acute osseous finding. IMPRESSION: Changes related to acute appendicitis are redemonstrated. No evidence of pancreatic necrosis. There is mild thickening of the ascending colon and descending colon that is new when compared to the previous examination from 08/02/2016 which is presumably related to reactive inflammation related to fluid within the paracolic gutters. Otherwise stable examination.
[2016-08-04 05:08] LABS: ABSOLUTE BASOPHIL COUNT 0 /CUMM (0.0-0.2); ABSOLUTE EOSINOPHIL COUNT 0.2 /CUMM (0.0-0.7); ABSOLUTE GRANULOCYTE CT 13.1 /CUMM (1.4-6.5); ABSOLUTE LYMPH COUNT 1.3 /CUMM (1.2-3.4); ABSOLUTE MONOCYTE COUNT 1.3 /CUMM (0.10-0.60); BASOPHIL % 0.3 % (0.0-2.0); EOSINOPHIL % 1.1 % (0-5); GRANULOCYTE % 82.5 % (42.2-75.2); HEMATOCRIT 35.1 % (42-52); MEAN CORPUSCULAR HGB 31.9 PG (27.0-31.0); MEAN CORPUSCULAR HGB CONC 34.5 G/DL (33.0-37.0); MEAN CORPUSCULAR VOLUME 92.6 FL (80.0-94.0); MEAN PLATELET VOLUME 7.7 FL (7.4-10.4); PLATELET COUNT 117 /CUMM (130-400); RBC DISTRIBUTION WIDTH 12.5 % (11.5-14.5); RED BLOOD CELL CT 3.79 /CUMM (4.70-6.10); WHITE BLOOD CELL COUNT 15.9 /CUMM (4.8-10.8)
--- NOTE | 2016-08-04 05:28 | NUR ---
MD FOURNIER MADE AWRE B/P 171/95, AFTER DILAUDID ADMINISTERED AND ATIVAN GTT. NO NEW ORDERS AT THIS TIME.
--- NOTE | 2016-08-04 06:18 | NUR ---
MD FOURNIER MADE AWARE B/P NOW 188/98. AWAITING ORDERS PER .
--- NOTE | 2016-08-04 08:06 | Cons- CRCU ---
MARKO STANLEY,[facility] 08/04/16 0806: General Information and HPI Consulting Request Date of Consult: 08/04/16 Requested By: Dr. Boothe Reason for Consult: -Agitation and anxiety with auditory and visual hallucinations -Persistent abdominal distention Source of Information: old records Exam Limitations: unable to give history History of Present Illness: Mr. Coleman is 31 year old male with past medical history significant for childhood asthma. He was admitted on 07/31/16 to general medical floor for intractable abdominal pain associated with profuse watery nonbloody diarrhea, nausea and nonbloody and non-pylorus vomiting after consumption of "old Italian food, pork and rice" 2 days prior to initial evaluation. Patient also has history of alcohol consumption of 3-4 cans of beer multiple days a week with occasional use of hard liquor. CT abdomen/pelvis demonstrated findings suggestive of acute pancreatitis with homogenous pancreatic parenchyma and no rim-enhancing fluid collection with hepatic steatosis. WBC 16.3. Lipase 1237, triglycerides 410. Urine toxicology was positive for opiates. Hepatitis panel negative. Patient denied history of any tobacco or drug illicit use. No history of previous hospitalization for alcohol intoxication or alcohol related seizure. Patient was initially admitted to general medical floor where he received D5 lactated Ringer at rate 250-150 mL/h, maintained nothing by mouth with some water sips allowed, Bentyl 20 mg by mouth 4 times a day as an antispasmodic, Zofran for nausea and dilaudid as needed for severe pain. Patient continued to suffer from severe abdominal pain with increase dilaudid requirement. Also patient has distended abdomen, there was questionable necrotizing pancreatitis versus abdominal compartment syndrome for which CT scan with IV contrast was obtained and revealed no evidence of pancreatic necrosis. There is mild thickening of the ascending colon and descending colon that is new when compared to the previous examination from 08/02/2016 which is presumably related to reactive inflammation related to fluid within the paracolic gutters. Otherwise stable examination. An NG tube was placed with slight decrease in distention, NG tube drained bilious fluid. For alcohol withdrawal, initially during hospitalization patient refused any when necessary Ativan. Patient continued to have withdrawal symptoms including tremors and hallucination with CIWA max 34 and needed Ativan drip for which he was transferred to ICU for close monitoring. Allergies/Medications Allergies: Coded Allergies: No Known Allergies (01/06/16) Home Med List: No Known Home Medications Review of Systems Review of Systems Constitutional: Reports: see HPI. Past History Travel History Traveled to [place] past 21 day No Medical History Blood Transfusion Hx: No Neurological: NONE EENT: NONE Cardiovascular: hypertension Respiratory: asthma Gastrointestinal: NONE Hepatic: NONE Renal: NONE Musculoskeletal: sciatica Psychiatric: NONE Endocrine: NONE Blood Disorders: NONE Cancer(s): NONE Surgical History Surgical History: none, non-contributory Psychosocial History Where Do You Live? Home Smoking Status: Never Smoked ETOH Use: 3-4 times a week Illicit Drug Use: denies illicit drug use Exam & Diagnostic Data Last 24 Hrs of Vital Signs/I&O Vital Signs Date Time Temp Pulse Resp B/P B/P Pulse O2 O2 Flow FiO2 Mean Ox Delivery Rate 08/04 1619 101.3 08/04 1400 100.1 93 15 122/85 08/04 1200 100.1 92 15 124/87 08/04 1200 96 Nasal 2.0L Cannula 08/04 1000 99.9 91 18 146/68 08/04 0853 94 Nasal 2.0L Cannula 08/04 0800 101.0 101 15 155/81 08/04 0800 96 Nasal 2.0L Cannula 08/04 0700 101.0 101 15 155/81 95 Nasal 2.0L Cannula 08/04 0600 99.2 100 14 188/98 08/04 0400 99.2 106 20 170/94 08/04 0400 98 Nasal 2.0L Cannula 08/04 0200 100.9 100 18 174/96 08/04 0145 101.0 08/04 0030 101.9 08/04 0000 101.9 106 18 140/79 08/04 0000 97 Nasal 2.0L Cannula 08/04 0000 101.9 106 18 150/90 97 Nasal 2.0L Cannula 08/03 2200 99.6 106 20 171/116 08/03 2104 99.8 114 20 143/82 08/04 2015 99.2 90 18 130/70 97 Room Air Intake & Output 08/04 1600 08/04 0800 08/04 0000 Intake Total 2200 2404 161 Output Total 1200 3050 350 Balance 1000 -646 -189 Intake, IV 2200 2404 161 Intake, Oral 0 0 0 Number 0 0 0 Bowel Movements Output, 550 450 50 Gastric Drainage Output, Urine 650 2600 300 Physical Exam General Appearance: well developed/nourished, lethargic Head: atraumatic, normal appearance Eyes: Left: PERRL. Ears, Nose, Throat: normal pharynx, normal ENT inspection Neck: normal inspection, supple Respiratory: normal breath sounds, chest non-tender, no respiratory distress Cardiovascular: regular rate/rhythm Gastrointestinal: soft, distention, decreased abdominal sounds Extremities: normal inspection, normal capillary refill, no edema Neurologic/Psych: no motor/sensory deficits Last 48 Hrs of Labs/Mike: Laboratory Tests 08/04/16 0420: Anion Gap 10, Estimated GFR > 60, BUN/Creatinine Ratio 5.7 L, Phosphorus 3.1, Magnesium 1.9, Total Bilirubin 1.2, Direct Bilirubin 0.6 H, AST 28, ALT 39, Alkaline Phosphatase 62, Creatine Kinase 104, C-Reactive Prot, Quant > 9.0 H, Total Protein 5.3 L, Albumin 2.7 L, Triglycerides 131, Amylase 61, Lipase 481 H, CBC w Diff NO MAN DIFF REQ, RBC 3.79 L, MCV 92.6, MCH 31.9 H, RDW 12.5, MPV 7.7, Gran % 82.5 H, Lymphocytes % 8.2 L, Monocytes % 7.9, Eosinophils % 1.1, Basophils % 0.3, Absolute Granulocytes 13.1 H, Absolute Lymphocytes 1.3, Absolute Monocytes 1.3 H, Absolute Eosinophils 0.2, Absolute Basophils 0, PUBS MCHC 34.5 08/04/16 0050: Lactic Acid 0.5 L 08/03/16 2200: Anion Gap 11, Estimated GFR > 60, BUN/Creatinine Ratio 7.1, Calcium 8.4, Magnesium 1.7, Total Bilirubin 1.7 H, Direct Bilirubin 0.8 H, AST 29, ALT 44, Alkaline Phosphatase 61, Total Protein 5.9 L, Albumin 3.1 L, CBC w Diff MAN DIFF ORDERED, RBC 3.86 L, MCV 92.9, MCH 32.0 H, RDW 12.5, MPV 7.6, Gran % 82.5 H, Lymphocytes % 8.0 L, Monocytes % 8.3, Eosinophils % 0.8, Basophils % 0.4, Absolute Granulocytes 13.9 H, Absolute Lymphocytes 1.3, Absolute Monocytes 1.4 H, Absolute Eosinophils 0.1, Absolute Basophils 0.1, Platelet Estimate ADEQUATE, Normochromic RBCs VERIFIED, Poikilocytosis 2+, Stomatocytes 2+, PUBS MCHC 34.4 08/03/16 0610: Total Bilirubin 1.5 H, Direct Bilirubin 0.6 H, AST 26, ALT 42, Alkaline Phosphatase 62, Total Protein 5.8 L, Albumin 3.1 L, Prealbumin 19.2, CBC w Diff NO MAN DIFF REQ, RBC 4.16 L, MCV 92.9, MCH 32.3 H, RDW 12.7, MPV 7.8, Gran % 82.5 H, Lymphocytes % 8.1 L, Monocytes % 8.7, Eosinophils % 0.5, Basophils % 0.2, Absolute Granulocytes 14.0 H, Absolute Lymphocytes 1.4, Absolute Monocytes 1.5 H, Absolute Eosinophils 0.1, Absolute Basophils 0, [facility] MCHC 34.7 08/02/16 1830: Urine Color YEL, Urine Clarity HAZY H, Urine pH 6.5, Ur Specific [place] 1.025, Urine Protein 100 H, Urine Ketones 40 H, Urine Nitrite NEG, Urine Bilirubin NEG@ICTO, Urine Urobilinogen 4.0 H, Ur Leukocyte Esterase NEG, Ur Microscopic SEDIMENT EXAMINED, Urine RBC RARE, Urine WBC RARE, Ur Epithelial Cells RARE, Urine Bacteria MOD H, Urine Hemoglobin SMALL H, Urine Glucose NEG Assessment/Plan Impression/Plan: Mr. Coleman is a 31 year old gentleman with a PMH significant for childhood asthma. He presented to ED on 07/31/16 with chief complain of intractable abdominal pain with nausea, vomiting, and profuse diarrhea. # Acute Pancreatitis * Keep NPO * NG tube with suction * LR D5 at 150 cc/hr for now * GI consultation was obtained, thanks the recommendation * Amylase 61 < 61 * Lipase 481< 1237 * Abdominal CT scan with IV contrast ruled out necrotizing pancreatitis/ abdominal compartment syndrome * CK 104 * Recommendation to stay off antibiotic * Start PPI IV * Discontinue dicyclomine * C-reactive protein more than 9 elevated * Triglycerides 131<410 * Recommendation to consider nasojejunal tube feeding within next 48-72 hours * Continue optimal pain control * Fever and leukocytosis due to active inflammation, acetaminophen IV as needed. * Blood culture negative so far # Hypertension * Could be due to pain and alcohol withdrawal * Continue close monitoring #Alcohol withdrawal * Continue Ativan drip * Titrate as tolerated - Diet NPO - DVTppx with SQH - Full code Consult Acknowledgment - Thank you for your consult request. GEO DASH MD 08/04/16 0909: Assessment/Plan Other Findings/Comments: Geo Deleon M.D. have examined this patient, reviewed available EMR data, personally reviewed images, discussed with resident/PA/CELLARS SUPERVISOR, discussed management plan with housestaff and nursing staff, discussed managment plan all of healthcare providers, discussed management plan with patient and/or family, agreed with resident/PA/CELLARS SUPERVISOR. The past history and parts of the chart have been autopopulated. Impression 31-year-old man * Acute alcohol withdrawal requiring Ativan drip in ICU monitoring * Acute pancreatitis and gastroenteritis * Leukocytosis * Thrombocytopenia likely secondary to alcoholism * Improved transaminitis with elevated bilirubins * Subsegmental atelectasis Plan -CIWA protocol and Ativan drip @5/hr -Pain control -Nothing by mouth -Incentive spirometry -Check CK level -Leukocytosis likely reactive is currently being monitored off antibiotics -We will recheck amylase and lipase -GI consultation Radiology report noted to say acute appendicitis - should likely read acute pancreatitis - will ask for addendum TTS 40 min Consult Acknowledgment - Thank you for your consult request.
--- NOTE | 2016-08-04 12:51 | Cons- Gastroenterology ---
General Information and HPI Consulting Request Date of Consult: 08/04/16 (MD EMELYN/GASTROENTEROLOGY) Requested By: ARAVIND DASH MD Reason for Consult: Acute pancreatitis Source of Information: old records Exam Limitations: unable to give history, clinical condition History of Present Illness: The patient is sedated. 31-year-old male with alcohol abuse, and no recorded history of pancreatitis. Admitted 4 days ago with severe abdominal pain, diarrhea, nausea and vomiting. Imaging suggested pancreatitis, and the patient had elevated lipase and triglycerides. He has shown evidence of alcohol withdrawal with agitation and hallucinations and is currently on an Ativan drip. Apparently his pain persisted over the last several days and was worse yesterday. He was febrile. There has been no reported blood per rectum/melena. His diarrhea apparently stopped. He was noted to have increasing abdominal distention. Allergies/Medications Allergies: Coded Allergies: No Known Allergies (01/06/16) Home Med List: No Known Home Medications Current Medications: Current Medications Sig/Brynn Start time Last Medication Dose Route Stop Time Status Admin Acetaminophen 1,000 MG Q6P PRN 08/04 0845 AC N/A 1 UNIT IV Acetaminophen 1,000 MG ONCE ONE 08/04 0015 DC 08/04 N/A 1 UNIT IV 08/04 0029 0030 Albuterol Sulfate 3 ML Q4H PRN 08/04 0900 AC 08/04 INH 0852 Dextrose/Lactated 1,000 ML Q6H 08/02 0915 AC 08/04 Ringer's IV 1128 Dicyclomine HCl 20 MG 4 TIMES/DAY 08/01 1000 AC 08/03 PO 1717 Docusate Sodium 100 MG DAILY 08/03 1000 AC PO Heparin Sodium 5,000 UNIT Q8 08/01 0600 AC 08/04 (Porcine) SC 0529 Hydromorphone HCl 1 MG Q4 HRS NEEDED PRN 08/03 2015 AC 08/04 IV 0439 Hydromorphone HCl 1 MG Q2 HRS NEEDED PRN 08/03 1000 DC 08/03 IV 1834 Lorazepam 100 MG Q20H 08/04 1230 AC Sodium Chloride 1,000 ML IV Lorazepam 100 MG Q24H 08/03 2215 AC Sodium Chloride 1,000 ML IV 08/04 1230 Lorazepam 3 MG ONE ONE 08/035 DC 08/03 IV 04/21 2116 2113 Lorazepam 100 MG ONCE ONE 08/03 2100 DC 08/03 Sodium Chloride 1,000 ML IV 08/03 Lorazepam 3 MG ONE ONE 08/03 2044 DC 08/03 IV 08/03 Lorazepam 1 MG ONE ONE 08/03 2014 DC 08/03 IV 08/03 Lorazepam 2 MG BID 08/02 2200 AC IV Lorazepam 0 Q1P PRN 07/31 2315 AC 08/03 IV 2029 Melatonin 5 MG AT BEDTIME PRN 08/01 0030 AC 08/01 PO 2105 Ondansetron HCl 4 MG Q6P PRN 07/31 2315 AC 08/03 IV 0140 Oxycodone/ 1 TAB Q4P PRN 08/01 0100 AC 08/02 Acetaminophen PO 0416 Patient Medication 1 ED .STK-MED ONE 08/03 1410 DC Teaching ED 08/03 1411 Polyethylene Glycol 17 GM DAILY 08/03 1000 AC PO Potassium Chloride 10 MEQ ONCE ONE 08/04 0630 DC 08/04 IV 08/04 0631 0632 Potassium Chloride 10 MEQ Q1H 08/04 0045 DC 08/04 IV 08/04 0146 0149 Potassium Chloride 40 MEQ Q8H 08/04 0015 DC Sodium Chloride 1,000 ML IV Senna/Docusate Sodium 1 TAB BID PRN 08/03 0830 AC PO Past History Travel History Traveled to [place] past 21 day No Medical History Blood Transfusion Hx: No Neurological: NONE EENT: NONE Cardiovascular: hypertension Respiratory: asthma Gastrointestinal: NONE Hepatic: NONE Renal: NONE Musculoskeletal: sciatica Psychiatric: NONE Endocrine: NONE Blood Disorders: NONE Cancer(s): NONE Surgical History Surgical History: none, non-contributory Psychosocial History Where Do You Live? Home Smoking Status: Never Smoked ETOH Use: 3-4 times a week Illicit Drug Use: denies illicit drug use Review of Systems Review of Systems: Unobtainable Exam & Diagnostic Data Vital Signs and I&O Vital Signs Date Time Temp Pulse Resp B/P B/P Pulse O2 O2 Flow FiO2 Mean Ox Delivery Rate 08/04 0853 94 Nasal 2.0L Cannula 08/04 08 101.0 101 15 155/81 08/04 0800 96 Nasal 2.0L Cannula 08/04 06 99.2 100 14 188/98 08/04 0400 99.2 106 20 170/94 08/04 0400 98 Nasal 2.0L Cannula 08/04 0200 100.9 100 18 174/96 08/04 0145 101.0 08/04 0030 101.9 08/04 0000 101.9 106 18 140/79 08/04 0000 97 Nasal 2.0L Cannula 08/04 0000 101.9 106 18 150/90 97 Nasal 2.0L Cannula 08/03 2200 99.6 106 20 171/116 08/03 2105 99.8 114 20 143/82 08/04 2015 99.2 90 18 130/70 97 Room Air 08/03 1404 98.0 72 20 120/80 97 Room Air Intake & Output 08/04 1600 08/04 0400 08/03 1600 08/03 0400 08/02 1600 08/02 0400 Intake Total 2404 161 4250 2040 2480 1200 Output Total 3050 350 9864 427 8855 875 Balance -646 -189 3100 1715 1380 325 Intake, IV 2404 161 4000 2000 2400 1200 Intake, Oral 0 0 250 40 80 Number 0 0 0 Bowel Movements Output, 450 50 Gastric Drainage Output, Urine 2600 300 4228 210 5520 875 Patient 189 lb Weight Physical Exam: Sedated. Skin normal; normal turgor, no rash, jaundice, lesion, petechiae, purpura, spider telangiectasias or palmar erythema. No adenopathy. Sclera anicteric. Head and neck normal. Heart regular rate and rhythm without murmur. Lungs clear bilaterally, anterolateral. No gynecomastia. Abdomen mildly distended with hyperactive bowel sounds; liver 3 fingerbreadths below costal margin; no mass, fullness, splenomegaly, or ecchymoses. No Superior's. Diffuse upper abdominal tenderness (patient moans and moves). Extremities without clubbing, cyanosis, mottling, edema. Pulses intact bilaterally. Results Pertinent Lab Results: Laboratory Tests 08/04 08/04 0420 0050 Chemistry Sodium (137 - 145 mmol/L) 137 Potassium (3.5 - 5.1 mmol/L) 3.6 Chloride (98 - 107 mmol/L) 103 Carbon Dioxide (22 - 30 mmol/L) 24 Anion Gap (5 - 16) 10 BUN (9 - 20 mg/dL) 4 L Creatinine (0.7 - 1.2 mg/dL) 0.7 Estimated GFR (>60 ml/min) > 60 BUN/Creatinine Ratio (7 - 25 %) 5.7 L Lactic Acid (0.7 - 2.1 mmol/L) 0.5 L Phosphorus (2.5 - 4.5 mg/dL) 3.1 Magnesium (1.6 - 2.3 mg/dL) 1.9 Total Bilirubin (0.2 - 1.3 mg/dL) 1.2 Direct Bilirubin (< 0.4 mg/dL) 0.6 H AST (17 - 59 U/L) 28 ALT (21 - 72 U/L) 39 Alkaline Phosphatase (< 127 U/L) 62 Creatine Kinase (55 - 170 U/L) 104 Total Protein (6.3 - 8.2 g/dL) 5.3 L Albumin (3.5 - 5.0 g/dL) 2.7 L Amylase (30 - 110 U/L) 61 Lipase (23 - 300 U/L) 481 H Hematology CBC w Diff NO MAN DIFF REQ WBC (4.8 - 10.8 /CUMM) 15.9 H RBC (4.70 - 6.10 /CUMM) 3.79 L Hgb (14.0 - 18.0 G/DL) 12.1 L Hct (42 - 52 %) 35.1 L MCV (80.0 - 94.0 FL) 92.6 MCH (27.0 - 31.0 PG) 31.9 H RDW (11.5 - 14.5 %) 12.5 Plt Count (130 - 400 /CUMM) 117 L MPV (7.4 - 10.4 FL) 7.7 Gran % (42.2 - 75.2 %) 82.5 H Lymphocytes % (20.5 - 51.1 %) 8.2 L Monocytes % (1.7 - 9.3 %) 7.9 Eosinophils % (0 - 5 %) 1.1 Basophils % (0.0 - 2.0 %) 0.3 Absolute Granulocytes (1.4 - 6.5 /CUMM) 13.1 H Absolute Lymphocytes (1.2 - 3.4 /CUMM) 1.3 Absolute Monocytes (0.10 - 0.60 /CUMM) 1.3 H Absolute Eosinophils (0.0 - 0.7 /CUMM) 0.2 Absolute Basophils (0.0 - 0.2 /CUMM) 0 PUBS MCHC (33.0 - 37.0 G/DL) 34.5 08/03 08/03 2200 0610 Chemistry Sodium (137 - 145 mmol/L) 132 L Potassium (3.5 - 5.1 mmol/L) 3.3 L Chloride (98 - 107 mmol/L) 97 L Carbon Dioxide (22 - 30 mmol/L) 25 Anion Gap (5 - 16) 11 BUN (9 - 20 mg/dL) 5 L Creatinine (0.7 - 1.2 mg/dL) 0.7 Estimated GFR (>60 ml/min) > 60 BUN/Creatinine Ratio (7 - 25 %) 7.1 Calcium (8.4 - 10.2 mg/dL) 8.4 Magnesium (1.6 - 2.3 mg/dL) 1.7 Total Bilirubin (0.2 - 1.3 mg/dL) 1.7 H 1.5 H Direct Bilirubin (< 0.4 mg/dL) 0.8 H 0.6 H AST (17 - 59 U/L) 29 26 ALT (21 - 72 U/L) 44 42 Alkaline Phosphatase (< 127 U/L) 61 62 Total Protein (6.3 - 8.2 g/dL) 5.9 L 5.8 L Albumin (3.5 - 5.0 g/dL) 3.1 L 3.1 L Prealbumin (17.6 - 36.0 mg/dL) 19.2 Hematology CBC w Diff MAN DIFF ORDERED NO MAN DIFF REQ WBC (4.8 - 10.8 /CUMM) 16.8 H 17.0 H RBC (4.70 - 6.10 /CUMM) 3.86 L 4.16 L Hgb (14.0 - 18.0 G/DL) 12.4 L 13.4 L Hct (42 - 52 %) 35.9 L 38.6 L MCV (80.0 - 94.0 FL) 92.9 92.9 MCH (27.0 - 31.0 PG) 32.0 H 32.3 H RDW (11.5 - 14.5 %) 12.5 12.7 Plt Count (130 - 400 /CUMM) 112 L 105 L MPV (7.4 - 10.4 FL) 7.6 7.8 Gran % (42.2 - 75.2 %) 82.5 H 82.5 H Lymphocytes % (20.5 - 51.1 %) 8.0 L 8.1 L Monocytes % (1.7 - 9.3 %) 8.3 8.7 Eosinophils % (0 - 5 %) 0.8 0.5 Basophils % (0.0 - 2.0 %) 0.4 0.2 Absolute Granulocytes (1.4 - 6.5 /CUMM) 13.9 H 14.0 H Absolute Lymphocytes (1.2 - 3.4 /CUMM) 1.3 1.4 Absolute Monocytes (0.10 - 0.60 /CUMM) 1.4 H 1.5 H Absolute Eosinophils (0.0 - 0.7 /CUMM) 0.1 0.1 Absolute Basophils (0.0 - 0.2 /CUMM) 0.1 0 Platelet Estimate (ADEQUATE) ADEQUATE Normochromic RBCs VERIFIED Poikilocytosis 2+ Stomatocytes 2+ PUBS MCHC (33.0 - 37.0 G/DL) 34.4 34.7 08/02 08/02 1830 0700 Chemistry Sodium (137 - 145 mmol/L) 135 L Potassium (3.5 - 5.1 mmol/L) 3.7 Chloride (98 - 107 mmol/L) 94 L Carbon Dioxide (22 - 30 mmol/L) 28 Anion Gap (5 - 16) 13 BUN (9 - 20 mg/dL) 5 L Creatinine (0.7 - 1.2 mg/dL) 0.8 Estimated GFR (>60 ml/min) > 60 BUN/Creatinine Ratio (7 - 25 %) 6.3 L Magnesium (1.6 - 2.3 mg/dL) 1.6 Hematology CBC w Diff NO MAN DIFF REQ WBC (4.8 - 10.8 /CUMM) 15.8 H RBC (4.70 - 6.10 /CUMM) 5.05 Hgb (14.0 - 18.0 G/DL) 16.1 Hct (42 - 52 %) 47.1 MCV (80.0 - 94.0 FL) 93.2 MCH (27.0 - 31.0 PG) 31.8 H RDW (11.5 - 14.5 %) 12.6 Plt Count (130 - 400 /CUMM) 120 L MPV (7.4 - 10.4 FL) 7.6 Gran % (42.2 - 75.2 %) 87.1 H Lymphocytes % (20.5 - 51.1 %) 6.0 L Monocytes % (1.7 - 9.3 %) 6.7 Eosinophils % (0 - 5 %) 0.2 Basophils % (0.0 - 2.0 %) 0 L Absolute Granulocytes (1.4 - 6.5 /CUMM) 13.8 H Absolute Lymphocytes (1.2 - 3.4 /CUMM) 0.9 L Absolute Monocytes (0.10 - 0.60 /CUMM) 1.1 H Absolute Eosinophils (0.0 - 0.7 /CUMM) 0 Absolute Basophils (0.0 - 0.2 /CUMM) 0 PUBS MCHC (33.0 - 37.0 G/DL) 34.1 Urines Urine Color (YEL,AMB,STR) YEL Urine Clarity (CLEAR) HAZY H Urine pH (5.0 - 8.0) 6.5 Ur Specific [place] (1.001 - 1.035) 1.025 Urine Protein (NEG,<30 MG/DL) 100 H Urine Ketones (NEG) 40 H Urine Nitrite (NEG) NEG Urine Bilirubin (NEG) NEG@ICTO Urine Urobilinogen (0.1 - 1.0 EU/dl) 4.0 H Ur Leukocyte Esterase (NEG) NEG Ur Microscopic SEDIMENT EXAMINED Urine RBC (0 - 5 /HPF) RARE Urine WBC (0 - 2 /HPF) RARE Ur Epithelial Cells (NONE,FEW) RARE Urine Bacteria (NEG/NONE) MOD H Urine Hemoglobin (NEG) SMALL H Urine Glucose (N MG/DL) NEG Imaging/Other Studies: Ultrasound (August 01) without gallstones or ductal dilatation CT scan #1 (July 31) IMPRESSION: 1. Findings most suggestive of pancreatitis. Homogenous pancreatic parenchyma. No rim-enhancing fluid collection. 2. Hepatic steatosis. CT scan #2 (August 02) IMPRESSION: Progressive acute pancreatitis with increasing pancreatic effusions in multiple compartments as described above. Small amount of pancreatic ascites. No sign of pancreatic necrosis. No pseudocyst formation or abscess is detected CT scan #3 (August 04) IMPRESSION: Changes related to acute pancreatitis are redemonstrated. No evidence of pancreatic necrosis. There is mild thickening of the ascending colon and descending colon that is new when compared to the previous examination from 08/02/2016 which is presumably related to reactive inflammation related to fluid within the paracolic gutters. Otherwise stable examination. Assessment/Plan Assessment/Recommendations: Acute alcoholic pancreatitis, moderate. Component of hypertriglyceridemia. Probable proximal ileus. No evidence of necrosis on imaging, nor apparently significant fluid collections (and thus no compartment syndrome). Initial hemoconcentration (elevated hemoglobin) corrected. Course complicated by alcohol withdrawal, likely contributing to fever and leukocytosis. Alcoholic steatosis with hepatomegaly. Recommendations * Continue IV fluids (rate 150 mL per hour), careful monitoring of input and output * Continue analgesics and antiemetics as necessary * No antibiotics * May need to consider nasojejunal tube feeding within the next 48-72 hours * Follow C-reactive protein * Recheck triglycerides * Stop dicyclomine * Begin PPI IV * I will review imaging with radiology Consult Acknowledgment - Thank you for your consult request.
--- NOTE | 2016-08-04 14:52 | RADIOLOGY REPORT ---
EXAMINATION: XR PORTABLE CHEST CLINICAL INFORMATION: Aspiration. Lung pathology. COMPARISON: CT abdomen pelvis 08/04/2016 and earlier TECHNIQUE: Portable AP view of the chest was obtained. FINDINGS: Lung volumes are low. There is retrocardiac consolidation that obscures the medial left hemidiaphragm. There is new asymmetric elevation of the right hemidiaphragm. Normal pulmonary vascularity. No gross pleural effusion. No pneumothorax. And enteric tube descends the esophagus into the stomach. The cardiac silhouette remains enlarged. IMPRESSION: New retrocardiac consolidation which could represent atelectasis, aspiration, or pneumonia.
--- NOTE | 2016-08-04 21:36 | RADIOLOGY REPORT ---
EXAMINATION: XR PORTABLE CHEST CLINICAL INFORMATION: NG tube placement COMPARISON: Same day chest TECHNIQUE: Portable portable AP 80 degrees view of the chest was obtained. FINDINGS: Examination is limited by technical factors. An NG tube is visualized with tip projecting over the expected location of the stomach. The side port is just distal to the expected location of the gastroesophageal junction. The cardiac silhouette is stable compared to prior. The lungs are grossly clear. IMPRESSION: NG tube with tip likely within the stomach. The tube could be advanced 5 to 10 cm for optimal positioning.
[2016-08-05] VITALS (12 sets, daily range): BP systolic 128–176; BP diastolic 79–104
--- NOTE | 2016-08-05 02:20 | RADIOLOGY REPORT ---
EXAMINATION: XR PORTABLE CHEST CLINICAL INFORMATION: NG tube placement. Pancreatitis. COMPARISON: 08/04/2016 TECHNIQUE: Portable AP view of the chest was obtained. FINDINGS: An enteric tube is seen, although the distal aspect is not visualized secondary to the exposure of the study. It is better seen on the prior radiograph, extending to the proximal stomach. Exact positioning cannot be confirmed on this radiograph. Cardiac leads overlie the chest. Low lung volumes. No consolidation, edema, or effusion. No pneumothorax. The cardiomediastinal silhouette is unchanged. IMPRESSION: Limited visualization of the enteric tube secondary to the exposure of the study. The tip cannot be confirmed on this study. The tube extends at least knee on the diaphragm. No acute pulmonary findings. Low lung volumes.
--- NOTE | 2016-08-05 03:20 | NUR ---
REC'D PT IN BED ASLEEP BUT AROUSABLE WHEN ASSESSMENTS WERE DONE. ON ATIVAN GTT @5MG/HR. SAS 3-5 CIWA 5-8. FOLLOWS SIMPLE COMMANDS, SLOW & SOMETIMES MUMBLES WORDS. ST/SR ON THE MONITOR HR 80-100'S, SBP 140-160'S CORRELATING TO BOTH CUFFS. ON 2LNC POX >95-98%, LS CLEAR BUT DIMINISHED AT THE BASES. ABD DISTENDED BUT SOFT, BS HYPOACTIVE. NO BM. PT HAD NO RESTRAINTS IN BEGINING OF THE EVENING SHIFT THAT HE WOKE UP & PULLED OUT THE NGT, O2 NC OFF & ALPS REMOVED BY THE PT. PLACED BACK THE SOFT WRIST RESTRAINTS & REINSERTED THE NGT TO R NARES. STAT CXR DONE & MD CONFIRM PLACEMENT. NGT DRAINING YELLOW BILEOUS D/C. C/O ABD PAIN 8/10 SCORE. DILAUDID IVP GIVEN SEE EMAR. SLEEPING ON/OFF BUT EASILY AROUSABLE DURING CARE. 0200 PT MANAGED TO REMOVED & NGT X2 DESPITE HAVING TH CANDIDO WRIST RESTRAINTS. STAT CXR DONE. C/O ABD PAIN DIFFUSE 9-10 & C/O NAUSEA. REORIENTATION & REASSURANCE GIVEN. DILAUDID & ZOFRAN GIVEN SEE EMAR. 0230 PT SLEEPING. CONT TO MONITOR.
[2016-08-05 04:59] LABS: ABSOLUTE BASOPHIL COUNT 0 /CUMM (0.0-0.2); ABSOLUTE EOSINOPHIL COUNT 0.2 /CUMM (0.0-0.7); ABSOLUTE GRANULOCYTE CT 14.4 /CUMM (1.4-6.5); ABSOLUTE LYMPH COUNT 1.3 /CUMM (1.2-3.4); ABSOLUTE MONOCYTE COUNT 1.5 /CUMM (0.10-0.60); BASOPHIL % 0.1 % (0.0-2.0); EOSINOPHIL % 1.2 % (0-5); GRANULOCYTE % 82.9 % (42.2-75.2); HEMATOCRIT 34.5 % (42-52); MEAN CORPUSCULAR HGB 31.9 PG (27.0-31.0); MEAN CORPUSCULAR HGB CONC 34.2 G/DL (33.0-37.0); MEAN CORPUSCULAR VOLUME 93.3 FL (80.0-94.0); MEAN PLATELET VOLUME 7.6 FL (7.4-10.4); PLATELET COUNT 159 /CUMM (130-400); RBC DISTRIBUTION WIDTH 12.5 % (11.5-14.5); WHITE BLOOD CELL COUNT 17.4 /CUMM (4.8-10.8)
[2016-08-05 05:07] LABS: PT 11.7 SEC (9.4-12.5); PTT 31 SEC (25-37)
--- NOTE | 2016-08-05 07:11 | PN- Resident CRCU ---
Subjective HPI/CRCU Issues: Mr. Coleman was seen and examined this morning is resting comfortably in bed. He appears sedated, although is alert and able to follow commands. Pain is rated 10 out of 10 in severity. Pain is located in the abdomen. Non radiating. Patient denies any fever, chills, nausea, vomiting. He currently has a sitter in place. Objective Vital Signs & I&O Last 8 Hrs of Vitals and I&O: Intake & Output 08/05 1600 Intake Total 1560 Output Total 2800 Balance -1240 Intake, IV 1560 Number 0 Bowel Movements Output, 100 Gastric Drainage Output, Urine 2700 Exam General Appearance: well developed/nourished, no apparent distress, alert, awake , sedated Respiratory: normal breath sounds, chest non-tender, no respiratory distress Cardiovascular: regular rate/rhythm Gastrointestinal: normal bowel sounds, soft, non-tender, distention Extremities: normal inspection, normal capillary refill Cranial Nerves: normal hearing, normal speech Skin: intact, normal color, warm/dry Current Medications: Current Medications Sig/Brynn Start time Last Medication Dose Route Stop Time Status Admin Acetaminophen 1,000 MG Q6P PRN 08/04 0845 AC 08/04 N/A 1 UNIT IV 1619 Albuterol Sulfate 3 ML Q4H PRN 08/04 0900 AC 08/05 INH 1224 Dextrose/Lactated 1,000 ML Q6H 08/02 0915 08/04 Ringer's IV 2325 Docusate Sodium 100 MG DAILY 08/03 1000 AC PO Heparin Sodium 5,000 UNIT Q8 08/01 0600 AC 08/05 (Porcine) SC 1349 Hydromorphone HCl 1 MG Q4 HRS NEEDED PRN 08/03 2015 08/05 IV 1335 Lorazepam 100 MG Q14H 08/05 1100 AC 08/05 Sodium Chloride 1,000 ML IV 1147 Lorazepam 100 MG Q20H 08/04 1230 DC 08/04 Sodium Chloride 1,000 ML IV 08/05 1059 1217 Lorazepam 0 Q1P PRN 07/31 2315 AC 08/03 IV 2029 Melatonin 5 MG AT BEDTIME PRN 08/01 0030 AC 08/01 PO 2105 Ondansetron HCl 4 MG .STK-MED ONE 08/05 0154 DC IM 08/05 0155 Ondansetron HCl 4 MG Q6P PRN 07/31 2315 AC 08/05 IV 0153 Oxycodone/ 1 TAB Q4P PRN 08/01 0100 AC 08/02 Acetaminophen PO 0416 Pantoprazole Sodium 40 MG DAILY 08/04 1445 AC 08/05 IV 0839 Patient Medication 1 UNIT ONE NR 08/04 1500 DC Teaching ED 08/04 1530 Polyethylene Glycol 17 GM DAILY 08/03 1000 AC PO Potassium Chloride 10 MEQ Q1H 08/05 1300 DC 08/05 IV 08/05 1501 1345 Potassium Chloride 10 MEQ Q1H 08/05 0630 DC 08/05 IV 08/05 0731 0937 Potassium Chloride 40 MEQ ONCE ONE 08/05 0630 DC PO 08/05 0631 Senna/Docusate Sodium 1 TAB BID PRN 08/03 0830 AC PO Impression/Plan Impression/Problem List Impression: Mr. Coleman is a 31 year old gentleman with a PMH significant for childhood asthma. He presented to ED on 07/31/16 with chief complain of intractable abdominal pain with nausea, vomiting, and profuse diarrhea. He is currently in the ICU requiring Ativan Drip. #Alcohol withdrawal * Continue Ativan drip, current rate:6/hr * Titrate as tolerated * CK: 104 #Acute Pancreatitis * Continue NPO * NG tube with suction * LR D5 at 150 cc/hr for now * Amylase 61 < 61 * Lipase 481< 1237 * Abdominal CT scan with IV contrast ruled out necrotizing pancreatitis/ abdominal compartment syndrome * Continue PPI IV * Discontinue dicyclomine * C-reactive protein more than 9 elevated, repeat 08/06 * Triglycerides 410-->131 * Fever and leukocytosis, 17.4, likely due to stress demargination. * Repeat CBC in AM # Hypertension * Could be due to pain and alcohol withdrawal * Continue close monitoring #Diet NPO, May need to consider tube feeds within 24-48 hours. #DVTppx SQH #Full code Problem List: 1. Acute pancreatitis 2. Back pain Pain Ratin Tomorrow's Labs & Rationales: CBC BEP C reactive Protein Plan DVT/Prophylaxis: mechanical
--- NOTE | 2016-08-05 07:30 | NUR ---
PT GETTING RESTLESS IN BED. TITRATED THE ATIVAN GTT UP 7MG/HR. @0700 PT MANAGED TO REMOVED THE NGT 5TH TIME. [facility] REINSERTED THE NGT & DR. MOREAU AWARE & ORDER ANOTHER CXR. OLIVIA & JESSICA ORDERED. 729 [facility].
--- NOTE | 2016-08-05 08:27 | RADIOLOGY REPORT ---
EXAMINATION: XR PORTABLE CHEST CLINICAL INFORMATION: NG tube placement COMPARISON: Portable chest x-ray from same day TECHNIQUE: Portable AP view of the chest was obtained. FINDINGS: Nasogastric tube seen traversing to the stomach. There is no evidence of acute parenchymal disease, pneumothorax, or pleural effusion. Cardiopericardial silhouette is enlarged. No evidence of pulmonary edema. Prominence of the superior mediastinum again seen some of which is related to rotation of the film. IMPRESSION: Nasogastric tube in place. No significant acute parenchymal disease identified.
--- NOTE | 2016-08-05 08:55 | PN- CRCU ---
Subjective HPI/Critical Care Issues: pt seen and examined [facility] no longer febrile hypertensive saturating 96% on 2LNC Objective Current Medications: Current Medications Sig/Brynn Start time Last Medication Dose Route Stop Time Status Admin Acetaminophen 1,000 MG Q6P PRN 08/04 0845 AC 08/04 N/A 1 UNIT IV 1619 Albuterol Sulfate 3 ML Q4H PRN 08/04 0900 AC 08/05 INH 0825 Dextrose/Lactated 1,000 ML Q6H 08/02 0915 AC 08/04 Ringer's IV 2325 Dicyclomine HCl 20 MG 4 TIMES/DAY 08/01 1000 DC 08/03 PO 1717 Docusate Sodium 100 MG DAILY 08/03 1000 AC PO Heparin Sodium 5,000 UNIT Q8 08/01 0600 AC 08/05 (Porcine) SC 0531 Hydromorphone HCl 1 MG Q4 HRS NEEDED PRN 08/03 2015 AC 08/05 IV 0804 Lorazepam 100 MG Q20H 08/04 1230 AC 08/04 Sodium Chloride 1,000 ML IV 1217 Lorazepam 100 MG Q24H 08/03 2215 DC Sodium Chloride 1,000 ML IV 08/04 1230 Lorazepam 2 MG BID 08/02 2200 DC IV Lorazepam 0 Q1P PRN 07/31 2315 AC 08/03 IV 2029 Melatonin 5 MG AT BEDTIME PRN 08/01 0030 AC 08/01 PO 2105 Ondansetron HCl 4 MG Q6P PRN 07/31 2315 AC 08/05 IV 0153 Oxycodone/ 1 TAB Q4P PRN 08/01 0100 AC 08/02 Acetaminophen PO 0416 Pantoprazole Sodium 40 MG DAILY 08/04 1445 AC 08/05 IV 0839 Patient Medication 1 UNIT ONE NR 08/04 1500 DC Teaching ED 08/04 1530 Polyethylene Glycol 17 GM DAILY 08/03 1000 AC PO Potassium Chloride 10 MEQ Q1H 08/05 0630 DC 08/05 IV 08/05 0731 0837 Potassium Chloride 40 MEQ ONCE ONE 08/05 0630 DC PO 08/05 0631 Senna/Docusate Sodium 1 TAB BID PRN 08/03 0830 AC PO Vital Signs & I&O Last 24 Hrs of Vitals and I&O: Vital Signs Date Time Temp Pulse Resp B/P B/P Pulse O2 O2 Flow FiO2 Mean Ox Delivery Rate 08/05 0828 96 Nasal 2.0L Cannula 08/05 0600 92 22 164/94 08/05 0400 99.5 94 18 160/100 08/05 0400 96 Nasal 2.0L Cannula 08/05 0200 101 17 176/79 08/05 0000 99.3 93 19 149/81 08/05 0000 99.3 93 19 149/81 96 Nasal 2.0L Cannula 08/05 0000 96 Nasal 2.0L Cannula 08/04 2200 96 16 165/90 08/04 2018 96 Nasal 2.0L Cannula 08/04 2000 98.3 86 17 152/76 08/05 1999 97 Nasal 2.0L Cannula 08/04 1847 98.0 08/04 1619 101.3 08/04 1600 101.3 101 22 140/86 08/04 1600 101.3 101 22 140/86 96 Nasal 2.0L Cannula 08/04 1600 95 Nasal 2.0L Cannula 08/04 1400 100.1 93 15 122/85 08/04 1200 100.1 92 15 124/87 08/04 1200 96 Nasal 2.0L Cannula 08/04 1000 99.9 91 18 146/68 08/04 0853 94 Nasal 2.0L Cannula Intake & Output 08/05 1600 08/05 0800 08/05 0000 Intake Total 1228 2247 Output Total 600 1050 Balance 628 1197 Intake, IV 1228 2247 Intake, Oral 0 0 Intake, Other 0 Number 0 0 Bowel Movements Output, 100 250 Gastric Drainage Output, Urine 500 800 Exam Other Physical Findings: Gen - lethargic HEENT - NCAT CVS - S1, S2, no murmurs, rubs or gallops Lungs - clear to auscultation bilaterally Abdomen - soft, non-tender, bs+ Ext - no edema, no cyanosis Results Last 24 Hrs of Lab Results: Laboratory Tests 08/05/16 0348: Anion Gap 12, Estimated GFR > 60, Glucose 108 H, Calcium 8.2 L, Phosphorus 2.7 , Magnesium 1.9, Total Bilirubin 1.3, AST 33, ALT 48, Albumin 2.9 L, PT 11.7, INR 1.12, APTT 31, CBC w Diff NO MAN DIFF REQ, RBC 3.70 L, MCV 93.3, MCH 31.9 H, RDW 12.5, MPV 7.6, Gran % 82.9 H, Lymphocytes % 7.5 L, Monocytes % 8.3, Eosinophils % 1.2, Basophils % 0.1, Absolute Granulocytes 14.4 H, Absolute Lymphocytes 1.3, Absolute Monocytes 1.5 H, Absolute Eosinophils 0.2, Absolute Basophils 0, PUBS MCHC 34.2 Impression/Plan Impression/Plan Impression/Plan: Impression 31-year-old man * Acute alcohol withdrawal requiring Ativan drip in ICU monitoring * Acute pancreatitis and gastroenteritis * Leukocytosis * Thrombocytopenia likely secondary to alcoholism * Improved transaminitis with elevated bilirubins * Subsegmental atelectasis Plan -CIWA protocol and Ativan drip @7/hr -Pain control -Nothing by mouth -Incentive spirometry -Leukocytosis likely reactive is currently being monitored off antibiotics -lipase trended down -GI consultation appreciated Radiology report noted to say acute appendicitis - should likely read acute pancreatitis - will ask for addendum TTS 35 min
--- NOTE | 2016-08-05 11:27 | PN- Gastroenterology ---
Assessment/Plan Assessment/Recommendations: Acute alcoholic pancreatitis, moderate. Triglycerides now normal. Probable ileus. No evidence of necrosis on imaging, nor apparently significant fluid collections (and thus no compartment syndrome). Initial hemoconcentration ( elevated hemoglobin) corrected. Course complicated by alcohol withdrawal, likely contributing to fever and leukocytosis; possible component of atelectasis and/or pneumonia. Alcoholic steatosis with hepatomegaly. Recommendations * Continue IV fluids (rate per ICU team), careful monitoring of input and output * Continue analgesics and antiemetics as necessary * No antibiotics * May need to consider nasojejunal tube feeding within the next 24-48 hours * Follow C-reactive protein every other day Subjective Subjective: The patient remained sedated. Reportedly, he was complaining of abdominal pain when awake. NG suction reveals bile only. There have been no bowel movements. Review of Systems: Unobtainable Objective Vital Signs and I&Os Vital Signs Date Time Temp Pulse Resp B/P B/P Pulse O2 O2 Flow FiO2 Mean Ox Delivery Rate 08/05 0828 96 Nasal 2.0L Cannula 08/05 0800 100.3 93 22 160/98 08/05 0800 96 Nasal 2.0L Cannula 08/05 0800 100.3 93 22 160/98 96 Nasal 2.0L Cannula 08/05 0600 92 22 164/94 08/05 0400 99.5 94 18 160/100 08/05 0400 96 Nasal 2.0L Cannula 08/05 0200 101 17 176/79 08/05 0000 99.3 93 19 149/81 08/05 0000 99.3 93 19 149/81 96 Nasal 2.0L Cannula 08/05 0000 96 Nasal 2.0L Cannula 08/04 2200 96 16 165/90 08/04 2019 96 Nasal 2.0L Cannula 08/04 2000 98.3 86 17 152/76 08/04 2000 97 Nasal 2.0L Cannula 08/04 1847 98.0 08/04 1619 101.3 08/04 1600 101.3 101 22 140/86 08/04 1600 101.3 101 22 140/86 96 Nasal 2.0L Cannula 08/04 1600 95 Nasal 2.0L Cannula 08/04 1400 100.1 93 15 122/85 08/04 1200 100.1 92 15 124/87 08/04 1200 96 Nasal 2.0L Cannula Intake & Output 08/05 1600 08/05 0400 08/04 1600 08/04 0400 08/03 1600 08/03 0400 Intake Total 1228 2247 4604 161 4250 2040 Output Total 600 1050 4250 350 1150 325 Balance 628 1197 354 -189 3100 1715 Intake, IV 1228 2247 4604 161 4000 2000 Intake, Oral 0 0 0 0 250 40 Intake, Other 0 Number 0 0 0 0 0 Bowel Movements Output, 972 720 2061 50 Gastric Drainage Output, Urine 399 175 7988 300 1150 325 Patient 189 lb Weight Physical Exam: Sclera anicteric. Nasogastric tube intact. No adenopathy. No edema. Abdomen is distended and soft without apparent tenderness (does not moan or react to palpation); bowel sounds are absent. Current Medications: Current Medications Sig/Brynn Start time Last Medication Dose Route Stop Time Status Admin Acetaminophen 1,000 MG Q6P PRN 08/04 0845 08/04 N/A 1 UNIT IV 1619 Albuterol Sulfate 3 ML Q4H PRN 08/04 0900 AC 08/05 INH 0825 Dextrose/Lactated 1,000 ML Q6H 08/02 0915 AC 08/04 Ringer's IV 2325 Dicyclomine HCl 20 MG 4 TIMES/DAY 08/01 1000 DC 08/03 PO 1717 Docusate Sodium 100 MG DAILY 08/03 1000 AC PO Heparin Sodium 5,000 UNIT Q8 08/01 0600 AC 08/05 (Porcine) SC 0531 Hydromorphone HCl 1 MG Q4 HRS NEEDED PRN 08/03 2014 AC 08/05 IV 0804 Lorazepam 100 MG Q14H 08/05 1100 AC Sodium Chloride 1,000 ML IV Lorazepam 100 MG Q20H 08/04 1230 DC 08/04 Sodium Chloride 1,000 ML IV 08/05 1059 1217 Lorazepam 100 MG Q24H 08/03 2215 DC Sodium Chloride 1,000 ML IV 08/04 1230 Lorazepam 2 MG BID 08/02 2200 DC IV Lorazepam 0 Q1P PRN 07/31 2315 AC 08/03 IV 2029 Melatonin 5 MG AT BEDTIME PRN 08/01 0030 AC 08/01 PO 2105 Ondansetron HCl 4 MG .STK-MED ONE 08/05 0154 DC IM 08/05 0155 Ondansetron HCl 4 MG Q6P PRN 07/31 2315 AC 08/05 IV 0153 Oxycodone/ 1 TAB Q4P PRN 08/01 0100 AC 08/02 Acetaminophen PO 0416 Pantoprazole Sodium 40 MG DAILY 08/04 1445 AC 08/05 IV 0839 Patient Medication 1 UNIT ONE NR 08/04 1500 DC Teaching ED 08/04 1530 Polyethylene Glycol 17 GM DAILY 08/03 1000 AC PO Potassium Chloride 10 MEQ Q1H 08/05 0630 DC 08/05 IV 08/05 0731 0937 Potassium Chloride 40 MEQ ONCE ONE 08/05 0630 DC PO 08/05 0631 Senna/Docusate Sodium 1 TAB BID PRN 08/03 0830 AC PO Results Pertinent Lab Results: Laboratory Tests 08/05 08/04 0348 0420 Chemistry Sodium (137 - 145 mmol/L) 135 L 137 Potassium (3.5 - 5.1 mmol/L) 3.2 L 3.6 Chloride (98 - 107 mmol/L) 97 L 103 Carbon Dioxide (22 - 30 mmol/L) 26 24 Anion Gap (5 - 16) 12 10 BUN (9 - 20 mg/dL) 3 L 4 L Creatinine (0.7 - 1.2 mg/dL) 0.8 0.7 Estimated GFR (>60 ml/min) > 60 > 60 BUN/Creatinine Ratio (7 - 25 %) 5.7 L Glucose (65 - 99 mg/dL) 108 H Calcium (8.4 - 10.2 mg/dL) 8.2 L Phosphorus (2.5 - 4.5 mg/dL) 2.7 3.1 Magnesium (1.6 - 2.3 mg/dL) 1.9 1.9 Total Bilirubin (0.2 - 1.3 mg/dL) 1.3 1.2 Direct Bilirubin (< 0.4 mg/dL) 0.6 H AST (17 - 59 U/L) 33 28 ALT (21 - 72 U/L) 48 39 Alkaline Phosphatase (< 127 U/L) 62 Creatine Kinase (55 - 170 U/L) 104 C-Reactive Prot, Quant (<1.0 mg/dL) > 9.0 H Total Protein (6.3 - 8.2 g/dL) 5.3 L Albumin (3.5 - 5.0 g/dL) 2.9 L 2.7 L Triglycerides (<150 mg/dL) 131 Amylase (30 - 110 U/L) 61 Lipase (23 - 300 U/L) 481 H Coagulation PT (9.4 - 12.5 SEC) 11.7 INR (0.90 - 1.17) 1.12 APTT (25 - 37 SEC) 31 Hematology CBC w Diff NO MAN DIFF REQ NO MAN DIFF REQ WBC (4.8 - 10.8 /CUMM) 17.4 H 15.9 H RBC (4.70 - 6.10 /CUMM) 3.70 L 3.79 L Hgb (14.0 - 18.0 G/DL) 11.8 L 12.1 L Hct (42 - 52 %) 34.5 L 35.1 L MCV (80.0 - 94.0 FL) 93.3 92.6 MCH (27.0 - 31.0 PG) 31.9 H 31.9 H RDW (11.5 - 14.5 %) 12.5 12.5 Plt Count (130 - 400 /CUMM) 159 117 L MPV (7.4 - 10.4 FL) 7.6 7.7 Gran % (42.2 - 75.2 %) 82.9 H 82.5 H Lymphocytes % (20.5 - 51.1 %) 7.5 L 8.2 L Monocytes % (1.7 - 9.3 %) 8.3 7.9 Eosinophils % (0 - 5 %) 1.2 1.1 Basophils % (0.0 - 2.0 %) 0.1 0.3 Absolute Granulocytes (1.4 - 6.5 /CUMM) 14.4 H 13.1 H Absolute Lymphocytes (1.2 - 3.4 /CUMM) 1.3 1.3 Absolute Monocytes (0.10 - 0.60 /CUMM) 1.5 H 1.3 H Absolute Eosinophils (0.0 - 0.7 /CUMM) 0.2 0.2 Absolute Basophils (0.0 - 0.2 /CUMM) 0 0 PUBS MCHC (33.0 - 37.0 G/DL) 34.2 34.5 08/05 03/ 0050 2200 Chemistry Sodium (137 - 145 mmol/L) 132 L Potassium (3.5 - 5.1 mmol/L) 3.3 L Chloride (98 - 107 mmol/L) 97 L Carbon Dioxide (22 - 30 mmol/L) 25 Anion Gap (5 - 16) 11 BUN (9 - 20 mg/dL) 5 L Creatinine (0.7 - 1.2 mg/dL) 0.7 Estimated GFR (>60 ml/min) > 60 BUN/Creatinine Ratio (7 - 25 %) 7.1 Lactic Acid (0.7 - 2.1 mmol/L) 0.5 L Calcium (8.4 - 10.2 mg/dL) 8.4 Magnesium (1.6 - 2.3 mg/dL) 1.7 Total Bilirubin (0.2 - 1.3 mg/dL) 1.7 H Direct Bilirubin (< 0.4 mg/dL) 0.8 H AST (17 - 59 U/L) 29 ALT (21 - 72 U/L) 44 Alkaline Phosphatase (< 127 U/L) 61 Total Protein (6.3 - 8.2 g/dL) 5.9 L Albumin (3.5 - 5.0 g/dL) 3.1 L Hematology CBC w Diff MAN DIFF ORDERED WBC (4.8 - 10.8 /CUMM) 16.8 H RBC (4.70 - 6.10 /CUMM) 3.86 L Hgb (14.0 - 18.0 G/DL) 12.4 L Hct (42 - 52 %) 35.9 L MCV (80.0 - 94.0 FL) 92.9 MCH (27.0 - 31.0 PG) 32.0 H RDW (11.5 - 14.5 %) 12.5 Plt Count (130 - 400 /CUMM) 112 L MPV (7.4 - 10.4 FL) 7.6 Gran % (42.2 - 75.2 %) 82.5 H Lymphocytes % (20.5 - 51.1 %) 8.0 L Monocytes % (1.7 - 9.3 %) 8.3 Eosinophils % (0 - 5 %) 0.8 Basophils % (0.0 - 2.0 %) 0.4 Absolute Granulocytes (1.4 - 6.5 /CUMM) 13.9 H Absolute Lymphocytes (1.2 - 3.4 /CUMM) 1.3 Absolute Monocytes (0.10 - 0.60 /CUMM) 1.4 H Absolute Eosinophils (0.0 - 0.7 /CUMM) 0.1 Absolute Basophils (0.0 - 0.2 /CUMM) 0.1 Platelet Estimate (ADEQUATE) ADEQUATE Normochromic RBCs VERIFIED Poikilocytosis 2+ Stomatocytes 2+ PUBS MCHC (33.0 - 37.0 G/DL) 34.4 08/03 08/02 0610 1830 Chemistry Total Bilirubin (0.2 - 1.3 mg/dL) 1.5 H Direct Bilirubin (< 0.4 mg/dL) 0.6 H AST (17 - 59 U/L) 26 ALT (21 - 72 U/L) 42 Alkaline Phosphatase (< 127 U/L) 62 Total Protein (6.3 - 8.2 g/dL) 5.8 L Albumin (3.5 - 5.0 g/dL) 3.1 L Prealbumin (17.6 - 36.0 mg/dL) 19.2 Hematology CBC w Diff NO MAN DIFF REQ WBC (4.8 - 10.8 /CUMM) 17.0 H RBC (4.70 - 6.10 /CUMM) 4.16 L Hgb (14.0 - 18.0 G/DL) 13.4 L Hct (42 - 52 %) 38.6 L MCV (80.0 - 94.0 FL) 92.9 MCH (27.0 - 31.0 PG) 32.3 H RDW (11.5 - 14.5 %) 12.7 Plt Count (130 - 400 /CUMM) 105 L MPV (7.4 - 10.4 FL) 7.8 Gran % (42.2 - 75.2 %) 82.5 H Lymphocytes % (20.5 - 51.1 %) 8.1 L Monocytes % (1.7 - 9.3 %) 8.7 Eosinophils % (0 - 5 %) 0.5 Basophils % (0.0 - 2.0 %) 0.2 Absolute Granulocytes (1.4 - 6.5 /CUMM) 14.0 H Absolute Lymphocytes (1.2 - 3.4 /CUMM) 1.4 Absolute Monocytes (0.10 - 0.60 /CUMM) 1.5 H Absolute Eosinophils (0.0 - 0.7 /CUMM) 0.1 Absolute Basophils (0.0 - 0.2 /CUMM) 0 PUBS MCHC (33.0 - 37.0 G/DL) 34.7 Urines Urine Color (YEL,AMB,STR) YEL Urine Clarity (CLEAR) HAZY H Urine pH (5.0 - 8.0) 6.5 Ur Specific [place] (1.001 - 1.035) 1.025 Urine Protein (NEG,<30 MG/DL) 100 H Urine Ketones (NEG) 40 H Urine Nitrite (NEG) NEG Urine Bilirubin (NEG) NEG@ICTO Urine Urobilinogen (0.1 - 1.0 EU/dl) 4.0 H Ur Leukocyte Esterase (NEG) NEG Ur Microscopic SEDIMENT EXAMINED Urine RBC (0 - 5 /HPF) RARE Urine WBC (0 - 2 /HPF) RARE Ur Epithelial Cells (NONE,FEW) RARE Urine Bacteria (NEG/NONE) MOD H Urine Hemoglobin (NEG) SMALL H Urine Glucose (N MG/DL) NEG Imaging/Other Studies: Chest x-ray (08/04): IMPRESSION: New retrocardiac consolidation which could represent atelectasis, aspiration, or pneumonia.
--- NOTE | 2016-08-05 16:00 | NUR ---
ASSUMED CARE OF PATIENT. PATIENT DROWSY BUT AROUSED EASILY. ORIENTED TO SELF ONLY, DELUSIONAL TELLING ME HIS CREW WILL BE DONE WORKING SHORTLY. AMOS MOVES ALL EXTREMITIES. PATIENT CALMER WILL MAKE RECOMMENDATION TO [facility]. BILAT SOFT WRISTS NEEDED FOR PULLING LINES AND SITTER AT BEDSIDE IN EVEN OF UNSAFE AMBULATION OR PULLING AT DEVICES. LUNGS CLEAR, MONITOR NSR WITHOUT ECTOPY. ABD DISTENDED WITH GOOD BOWEL SOUNDS. NG INTACT TO LOW WALL SUCTION. DAVIS INTACT DRAINING CLEAR URINE. SKIN INTACT.
[2016-08-06] VITALS (8 sets, daily range): BP systolic 110–164; BP diastolic 60–100
--- NOTE | 2016-08-06 01:28 | NUR ---
PT SLEEPY BUT AROUSABLE. ORIENTED TO PERSON AND PLACE. ATIVAN GTT AT 6MG. SITTER AT BEDSIDE.NSR 90'S, MANUAL BP 160/100. ABDOMEN SOFT, NORMOACTIVE BS. DAVIS IN PLACE,ADEQUATE UO AT THIS TIME. NGT TO RIGHT NARE INTACT; TO LWS.
[2016-08-06 04:23] LABS: ABSOLUTE BASOPHIL COUNT 0.2 /CUMM (0.0-0.2); ABSOLUTE EOSINOPHIL COUNT 0.2 /CUMM (0.0-0.7); ABSOLUTE GRANULOCYTE CT 14.4 /CUMM (1.4-6.5); ABSOLUTE LYMPH COUNT 1.4 /CUMM (1.2-3.4); ABSOLUTE MONOCYTE COUNT 1.3 /CUMM (0.10-0.60); BASOPHIL % 0.9 % (0.0-2.0); EOSINOPHIL % 1.2 % (0-5); GRANULOCYTE % 82.3 % (42.2-75.2); HEMATOCRIT 34.6 % (42-52); MEAN CORPUSCULAR HGB 31.8 PG (27.0-31.0); MEAN CORPUSCULAR HGB CONC 34.3 G/DL (33.0-37.0); MEAN CORPUSCULAR VOLUME 92.7 FL (80.0-94.0); MEAN PLATELET VOLUME 7.2 FL (7.4-10.4); PLATELET COUNT 185 /CUMM (130-400); RBC DISTRIBUTION WIDTH 12.6 % (11.5-14.5); RED BLOOD CELL CT 3.74 /CUMM (4.70-6.10); WHITE BLOOD CELL COUNT 17.5 /CUMM (4.8-10.8)
--- NOTE | 2016-08-06 07:38 | PN- Resident CRCU ---
Subjective HPI/CRCU Issues: 1-Agitation and anxiety with auditory and visual hallucinations 2- Persistent abdominal distention in the setting of acute pancreatitis 3- Alcohol withdrawal on ativan drip 24 Hour Events: Patient has been kept NPO, on RL 150 cc/hour, has NG tube day 2 (inserted on ), has restraints as he was pulling on the tubes, has acosta catheter day 4 (inserted on 08/03/16). This morning he appeared in mild distress, reports 8/10 pain in the abdomen radiating to the back, he is on IV dilaudid 1 mg Q4 PRN. We changed it to Q6 scheduled for 24 hours. Denies N/V. Vital Signs Date Time Temp Pulse Resp B/P B/P Pulse O2 O2 Flow FiO2 Mean Ox Delivery Rate 08/06 0839 97 Nasal 2.0L Cannula 08/06 0800 97.3 90 23 152/100 08/06 0800 95 Nasal 2.0L Cannula 08/06 0800 97.3 90 23 152/100 95 Nasal 2.0L Cannula 08/06 0600 88 22 164/70 08/06 0400 97.8 102 24 158/90 08/06 0400 100 Nasal 2.0L Cannula 08/06 0200 100 24 152/89 08/06 0000 97.5 92 20 110/60 08/06 0000 97 Nasal 2.0L Cannula 08/06 0000 97.5 92 24 160/100 97 Nasal 2.0L Cannula 08/05 2200 84 18 144/102 08/05 2115 96 Nasal 2.0L Cannula 08/06 1999 99.4 89 18 140/82 08/05 2000 97 Nasal 2.0L Cannula 08/05 1800 89 18 153/104 08/05 1600 99.0 90 18 170/98 08/05 1600 97 Nasal 2.0L Cannula 08/05 1600 99.0 90 18 170/98 97 Nasal 2.0L Cannula 08/05 1400 94 22 168/96 08/05 1200 86 20 150/100 08/05 1200 96 Nasal 2.0L Cannula 08/05 1000 98.4 89 22 128/82 Intake & Output 08/06 1600 08/06 0800 08/06 0000 Intake Total 1510 1580 Output Total 1999 1825 Balance -490 -245 Intake, IV 1510 1580 Output, 200 200 Gastric Drainage Output, Urine 1800 1625 Objective Vital Signs & I&O Last 8 Hrs of Vitals and I&O: T max 97.8 HR 88-102, SR RR 18-22 BP 150/92 to 170/84 SO2 on NC 2L, 97-98% I 1,510 O 2,000 Exam General Appearance: well developed/nourished, awake, moderate distress, not oriented to place and time Head: atraumatic Ears, Nose, Throat: normal ENT inspection, has NGT in place, mucous membranes appear dry Neck: normal inspection, full range of motion Respiratory: chest non-tender, no respiratory distress, quiet respiration Cardiovascular: regular rate/rhythm Gastrointestinal: decreased bowel sounds, generalized tenderness over the abdomen, abdomen is distended. Extremities: normal capillary refill, normal range of motion, no edema Cranial Nerves: normal speech, PERRL Skin: intact Current Medications: Current Medications Sig/Brynn Start time Last Medication Dose Route Stop Time Status Admin Acetaminophen 650 MG .STK-MED ONE 08/05 1409 DC PO 08/05 1410 Acetaminophen 1,000 MG Q6P PRN 08/04 0845 08/04 N/A 1 UNIT IV 1619 Albuterol Sulfate 3 ML EVERY 4 HRS/AWAKE 08/05 2000 AC 08/06 INH 0818 Albuterol Sulfate 3 ML Q4H PRN 08/04 0900 DC 08/05 INH 1224 Dextrose/Lactated 1,000 ML Q6H 08/02 0915 AC 08/06 Ringer's IV 0519 Docusate Sodium 100 MG DAILY 08/03 1000 AC PO Heparin Sodium 5,000 UNIT Q8 08/01 0600 AC 08/06 (Porcine) SC 0519 Hydromorphone HCl 1 MG Q6 08/06 1200 AC IV Hydromorphone HCl 1 MG Q4 HRS NEEDED PRN 08/03 2015 DC 08/05 IV 1913 Lorazepam 100 MG Q14H 08/05 1100 AC 08/06 Sodium Chloride 1,000 ML IV 0520 Lorazepam 100 MG Q20H 08/04 1230 DC 08/04 Sodium Chloride 1,000 ML IV 08/05 1059 1217 Lorazepam 0 Q1P PRN 07/31 2315 AC 08/03 IV 2029 Melatonin 5 MG AT BEDTIME PRN 08/01 0030 AC 08/01 PO 2105 Ondansetron HCl 4 MG Q6P PRN 07/31 2315 AC 08/05 IV 0153 Oxycodone/ 1 TAB Q4P PRN 08/01 0100 AC 08/02 Acetaminophen PO 0416 Pantoprazole Sodium 40 MG DAILY 08/04 1445 AC 08/05 IV 0839 Polyethylene Glycol 17 GM DAILY 08/03 1000 AC PO Potassium Chloride 10 MEQ Q1H 08/06 0630 DC 08/06 IV 08/06 0731 0635 Potassium Chloride 10 MEQ Q1H 08/05 1745 CAN IV 08/05 1846 Potassium Chloride 10 MEQ Q1H 08/05 1300 DC 08/05 IV 08/05 1501 2026 Senna/Docusate Sodium 1 TAB BID PRN 08/03 0830 AC PO Impression/Plan Impression/Problem List Impression: Mr. Coleman is a 31 year old gentleman with a PMH significant for childhood asthma. He presented to ED on 07/31/16 with chief complain of intractable abdominal pain with nausea, vomiting, and profuse diarrhea. He is found to have acute pancreatitis, no evidence of necrosis with mild thickening of the ascending colon and descending colon. He is in the ICU as he was requiring Ativan Drip. Alcohol withdrawal * Continue Ativan drip, current rate: 6/hr, will taper down per ciwa scores * CK: 104 * continue multivitamins, folic acid, thiamine Acute Pancreatitis * Continues to be NPO today, will try starting diet tomorrow and if fails will replace NGT with a nasojejunal tube and feed ihim through that * NG tube with suction * LR D5 at 150 cc/hr for now * Amylase 61 < 61 * Lipase 481< 1237 * Abdominal CT scan with IV contrast ruled out necrotizing pancreatitis/ abdominal compartment syndrome * Continue PPI IV * Discontinue dicyclomine * C-reactive protein more than 9 elevated, repeat 08/06 * Triglycerides 410-->131 * Fever and leukocytosis, 17.4, likely due to stress demargination. * Repeat CBC in AM Hypertension * Could be due to pain and alcohol withdrawal * Continue close monitoring Oral thrush: Nysatin oral suspesion Diet : NPO, May need to consider tube feeds within 24-48 hours. DVTppx SC heparin Full code Problem List: 1. Acute pancreatitis Pain Ratin Pain Location: epigastric radiating to the back Tomorrow's Labs & Rationales: BEP (monitor for electrolyes, kidney fx and lipase) Plan DVT/Prophylaxis: mechanical
--- NOTE | 2016-08-06 10:23 | PN- CRCU ---
Subjective HPI/Critical Care Issues: pt seen and examined. ngt remains pain is worsened, will increase pain meds npo gi following on 6/hr ativan lethargic no other complaints Objective Current Medications: Current Medications Sig/Brynn Start time Last Medication Dose Route Stop Time Status Admin Acetaminophen 650 MG .STK-MED ONE 08/05 1409 DC PO 08/05 1410 Acetaminophen 1,000 MG Q6P PRN 08/04 0845 AC 08/04 N/A 1 UNIT IV 1619 Albuterol Sulfate 3 ML EVERY 4 HRS/AWAKE 08/05 2000 AC 08/06 INH 0818 Albuterol Sulfate 3 ML Q4H PRN 08/04 0900 DC 08/05 INH 1224 Dextrose/Lactated 1,000 ML Q6H 08/02 0915 AC 08/06 Ringer's IV 0945 Docusate Sodium 100 MG DAILY 08/03 1000 AC PO Heparin Sodium 5,000 UNIT Q8 08/01 0600 AC 08/06 (Porcine) SC 0519 Hydromorphone HCl 1 MG Q6 08/06 1200 AC 08/06 IV 1000 Hydromorphone HCl 1 MG Q4 HRS NEEDED PRN 08/03 2015 DC 08/05 IV 1913 Lorazepam 100 MG Q14H 08/05 1100 AC 08/06 Sodium Chloride 1,000 ML IV 0520 Lorazepam 100 MG Q20H 08/04 1230 DC 08/04 Sodium Chloride 1,000 ML IV 08/05 1059 1217 Lorazepam 0 Q1P PRN 07/31 2315 AC 08/03 IV 2029 Melatonin 5 MG AT BEDTIME PRN 08/01 0030 AC 08/01 PO 2105 Ondansetron HCl 4 MG Q6P PRN 07/31 2315 AC 08/05 IV 0153 Oxycodone/ 1 TAB Q4P PRN 08/01 0100 AC 08/02 Acetaminophen PO 0416 Pantoprazole Sodium 40 MG DAILY 08/04 1445 AC 08/06 IV 1000 Polyethylene Glycol 17 GM DAILY 08/03 1000 AC PO Potassium Chloride 10 MEQ Q1H 08/06 0630 DC 08/06 IV 08/06 0731 0800 Potassium Chloride 10 MEQ Q1H 08/05 1745 CAN IV 08/05 1846 Potassium Chloride 10 MEQ Q1H 08/05 1300 DC 08/05 IV 08/05 1501 2026 Senna/Docusate Sodium 1 TAB BID PRN 08/03 0830 AC PO Vital Signs & I&O Last 24 Hrs of Vitals and I&O: Vital Signs Date Time Temp Pulse Resp B/P B/P Pulse O2 O2 Flow FiO2 Mean Ox Delivery Rate 08/06 0839 97 Nasal 2.0L Cannula 08/06 0800 97.3 90 23 152/100 08/06 0800 95 Nasal 2.0L Cannula 08/06 0800 97.3 90 23 152/100 95 Nasal 2.0L Cannula 08/06 0600 88 22 164/70 08/06 0400 97.8 102 24 158/90 08/06 0400 100 Nasal 2.0L Cannula 08/06 0200 100 24 152/89 08/06 0000 97.5 92 20 110/60 08/06 0000 97 Nasal 2.0L Cannula 08/06 0000 97.5 92 24 160/100 97 Nasal 2.0L Cannula 08/05 2200 84 18 144/102 08/05 2115 96 Nasal 2.0L Cannula 08/06 1999 99.4 89 18 140/82 08/06 1999 97 Nasal 2.0L Cannula 08/05 1800 89 18 153/104 08/05 1600 99.0 90 18 170/98 08/05 1600 97 Nasal 2.0L Cannula 08/05 1600 99.0 90 18 170/98 97 Nasal 2.0L Cannula 08/05 1400 94 22 168/96 08/05 1200 86 20 150/100 08/05 1200 96 Nasal 2.0L Cannula Intake & Output 08/06 1600 08/06 0800 08/06 0000 Intake Total 1510 1580 Output Total 1999 182 Balance -490 -245 Intake, IV 1510 1580 Output, 200 200 Gastric Drainage Output, Urine 1800 1625 Exam Other Physical Findings: Gen - lethargic HEENT - NCAT CVS - S1, S2, no murmurs, rubs or gallops Lungs - clear to auscultation bilaterally Abdomen - soft, non-tender, bs+ Ext - no edema, no cyanosis Results Last 24 Hrs of Lab Results: Laboratory Tests 08/06/16 0345: Anion Gap 13, Estimated GFR > 60, Glucose 142 H, Calcium 8.5, Phosphorus 2.8, Magnesium 1.9, Total Bilirubin 1.2, AST 66 H, ALT 66, C-Reactive Prot, Quant > 9.0 H, Albumin 3.0 L, Lipase 497 H, CBC w Diff MAN DIFF ORDERED, RBC 3.74 L, MCV 92.7, MCH 31.8 H, RDW 12.6, MPV 7.2 L, Gran % 82.3 H, Lymphocytes % 8.0 L, Monocytes % 7.6, Eosinophils % 1.2, Basophils % 0.9, Absolute Granulocytes 14.4 H, Segmented Neutrophils 73, Band Neutrophils 7 H, Absolute Lymphocytes 1.4, Lymphocytes 9 L, Monocytes 9, Absolute Monocytes 1.3 H, Eosinophils 2, Absolute Eosinophils 0.2, Absolute Basophils 0.2, Platelet Estimate ADEQUATE, Polychromasia 1+, PUBS MCHC 34.3 08/05/16 1625: Impression/Plan Impression/Plan Impression/Plan: Impression 31-year-old man * Acute alcohol withdrawal requiring Ativan drip in ICU monitoring * Acute pancreatitis and gastroenteritis * Leukocytosis * Thrombocytopenia likely secondary to alcoholism * Improved transaminitis with elevated bilirubins * Subsegmental atelectasis Plan -CIWA protocol and Ativan drip @6/hr -Pain control - increase to dilaudid q6h hold for sedation -Nothing by mouth -Incentive spirometry -Leukocytosis likely reactive is currently being monitored off antibiotics -lipase trended down -GI consultation appreciated, please f/u recommendations TTS 35 min
--- NOTE | 2016-08-06 14:34 | NUR ---
Referral received via casefind. This patient is a 31 year old man, admitted to the hospital on 07/31/16 with pancreatitis. Patient originally admitted to [facility], but later transferred to Critical Care. On an ativan drip, and complaining of pain; NPO with fluids. Case discussed with Dr. Alicea. Will follow to better assess aftercare needs.
[2016-08-07] VITALS (10 sets, daily range): BP systolic 124–168; BP diastolic 68–96
[2016-08-07 05:07] LABS: ABSOLUTE BASOPHIL COUNT 0.1 /CUMM (0.0-0.2); ABSOLUTE EOSINOPHIL COUNT 0.3 /CUMM (0.0-0.7); ABSOLUTE GRANULOCYTE CT 11.4 /CUMM (1.4-6.5); ABSOLUTE LYMPH COUNT 1.8 /CUMM (1.2-3.4); ABSOLUTE MONOCYTE COUNT 1.8 /CUMM (0.10-0.60); BASOPHIL % 0.5 % (0.0-2.0); EOSINOPHIL % 2.2 % (0-5); GRANULOCYTE % 73.9 % (42.2-75.2); HEMATOCRIT 35.6 % (42-52); MEAN CORPUSCULAR HGB 32.1 PG (27.0-31.0); MEAN CORPUSCULAR HGB CONC 34.3 G/DL (33.0-37.0); MEAN CORPUSCULAR VOLUME 93.6 FL (80.0-94.0); MEAN PLATELET VOLUME 7.5 FL (7.4-10.4); PLATELET COUNT 214 /CUMM (130-400); RBC DISTRIBUTION WIDTH 12.7 % (11.5-14.5); RED BLOOD CELL CT 3.81 /CUMM (4.70-6.10); WHITE BLOOD CELL COUNT 15.4 /CUMM (4.8-10.8)
--- NOTE | 2016-08-07 07:36 | PN- Resident CRCU ---
Subjective HPI/CRCU Issues: 1- Acute pancreatitis, NPO with NGT 2- Alcohol withdrawal 24 Hour Events: No overnight events, he has been on Ativan drip, decreased to 5 mcg/hour and further to 4 mcg/hour this am. Vital Signs Date Time Temp Pulse Resp B/P B/P Pulse O2 O2 Flow FiO2 Mean Ox Delivery Rate 08/07 1000 86 16 135/76 08/07 0800 98.6 84 14 156/80 08/07 0800 95 Nasal 1.0L Cannula 08/07 0800 98.6 84 14 156/80 95 Nasal 1.0L Cannula 08/07 0600 80 16 160/79 08/07 0400 97.6 80 20 152/96 08/07 0400 95 Room Air 08/07 0200 78 16 129/88 08/07 0000 98.7 84 20 168/94 08/07 0000 98.7 84 20 168/94 92 Nasal 2.0L Cannula 08/06 2354 92 Nasal 2.0L Cannula 08/06 2200 98.0 90 24 141/87 08/07 1999 98.0 86 20 144/100 08/06 2000 96 Nasal 2.0L Cannula 08/06 1615 96 Nasal 2.0L Cannula 08/06 1600 96 Nasal 2.0L Cannula 08/06 1600 97.6 86 20 150/100 96 Nasal 2.0L Cannula 08/06 1200 97 Nasal 2.0L Cannula Intake & Output 08/07 1600 08/07 0800 08/07 0000 Intake Total 1550 1680 Output Total 1140 620 Balance 410 1060 Intake, IV 1550 1680 Intake, Oral 0 Output, 100 100 Gastric Drainage Output, Urine 1040 520 Objective Vital Signs & I&O Last 8 Hrs of Vitals and I&O: Max Temp 98.7 MD 82-90 RR 12-20 BP 105/79 to 160/79 on 2L Nc saturating at 93-97% I 1550 cc O 1140 cc Exam General Appearance: well developed/nourished, sedated, mild distress Ears, Nose, Throat: has NGT, atraumatic, mouth appears dry Neck: normal inspection, supple Respiratory: normal breath sounds, chest non-tender, quiet respiration, lungs clear Cardiovascular: regular rate/rhythm Gastrointestinal: decreased bowel sounds, distended (improved compared to yesterday) Extremities: normal inspection, normal capillary refill, normal range of motion, no edema Cranial Nerves: normal speech, PERRL Skin: intact, normal color Skin Temp/Moisture Exam: Warm/Dry Current Medications: Current Medications Sig/Brynn Start time Last Medication Dose Route Stop Time Status Admin Acetaminophen 1,000 MG Q6P PRN 08/04 0845 AC 08/04 N/A 1 UNIT IV 1619 Albuterol Sulfate 3 ML EVERY 4 HRS/AWAKE 08/05 2000 AC 08/07 INH 0843 Dextrose/Lactated 1,000 ML Q6H 08/02 0915 AC 08/07 Ringer's IV 0958 Docusate Sodium 100 MG DAILY 08/03 1000 AC PO Heparin Sodium 5,000 UNIT Q8 08/01 0600 AC 08/07 (Porcine) SC 0551 Hydromorphone HCl 1 MG Q6 08/06 1200 AC 08/07 IV 0550 Lorazepam 100 MG Q20H 08/07 1900 AC Sodium Chloride 1,000 ML IV Lorazepam 100 MG Q14H 08/05 1100 AC 08/06 Sodium Chloride 1,000 ML IV 08/07 1859 2326 Lorazepam 0 Q1P PRN 07/31 2315 AC 08/03 IV 2029 Melatonin 5 MG AT BEDTIME PRN 08/01 0030 AC 08/01 PO 2105 Nystatin 5 ML 4 TIMES/DAY 08/06 1815 AC 08/07 PO 0957 Ondansetron HCl 4 MG Q6P PRN 07/31 2315 AC 08/05 IV 0153 Oxycodone/ 1 TAB Q4P PRN 08/01 0100 AC 08/02 Acetaminophen PO 0416 Pantoprazole Sodium 40 MG DAILY 08/04 1445 AC 08/07 IV 0957 Polyethylene Glycol 17 GM DAILY 08/03 1000 AC PO Senna/Docusate Sodium 1 TAB BID PRN 08/03 0830 AC PO Impression/Plan Impression/Problem List Impression: Mr. Coleman is a 31 year old gentleman with a PMH significant for childhood asthma. He presented to ED on 07/31/16 with chief complain of intractable abdominal pain with nausea, vomiting, and profuse diarrhea. He is found to have acute pancreatitis, no evidence of necrosis with mild thickening of the ascending colon and descending colon. He is in the ICU as he was requiring Ativan Drip. Alcohol withdrawal * Continue Ativan drip, current rate: 4/hr, will taper down per ciwa scores * continue multivitamins, folic acid, thiamine Acute Pancreatitis -Abdominal CT scan with IV contrast ruled out necrotizing pancreatitis, there is mild thickening of the ascending colon and descending colon. Patient passed swallow eval. -We turned off the suction of the NGT, is he tolerates water well without nausea /vomiting or abdominal pain, we will discontinue NGT and start him on clear liquids -Amylase 61, Triglycerides 410-->131 * continue D5W-LR at 150 cc/hr for now * Lipase 1237 --> 481 --> 684 * Continue PPI IV * C-reactive protein >9, will follow tomorrow. * Fever and leukocytosis, improving, came down to 15.4 * Repeat CBC in AM Hypertension * Could be due to pain and alcohol withdrawal * Continue close monitoring Oral thrush: Nysatin oral suspesion Diet : clear liquids, started today DVTppx SC heparin Full code Problem List: 1. Acute pancreatitis 2. Alcohol withdrawal Pain Ratin Pain Location: lower abdomen Pain Goal: Pain 4 or less Pain Plan: Tylenol, IV acetamiophen, Dilaudid Tomorrow's Labs & Rationales: CBC (leukocytosis) ICU bundle (monitor electrolytes) Plan DVT/Prophylaxis: mechanical
--- NOTE | 2016-08-07 09:24 | NUR ---
Patient is currently awake and alert- drowsey at times but is easily arousable to verbal stimuli. Oriented to person only and will hallucinate at times. Can move all extremities and follows commands. SAS 3-4, ativan gtt infusing at 5mg/hr- CIWA ranging from 5-9. NSR on tele monitor, HR= 70-80's. SBP: 140-150's and pt denies chest pain. On 1L nc, lungs clear and diminished at the bases. O2 sat 93-95%. R. nares NGT in place to low wall suction with green output. Abdomen is distended and soft with hypoactive bowel sounds. C/o slight tenderness to the upper abd quadrants 04/24. NPO at this time. Zaragoza in place draining clear yellow urine. Skin appears intact with no areas of pressure injury noted. D5LR @ 150mls/hr. 1:1 sitter at the bedside. Vitals currently stable and pt is calm and cooperative. Will continue to closely monitor patient.
--- NOTE | 2016-08-07 09:54 | PN- CRCU ---
Subjective HPI/Critical Care Issues: Patient seen and examined this morning. NG tube remains and he is still lethargic on Ativan drip. Review of systems is limited however is arousable. Objective Current Medications: Current Medications Sig/Brynn Start time Last Medication Dose Route Stop Time Status Admin Acetaminophen 1,000 MG Q6P PRN 08/04 0845 08/04 N/A 1 UNIT IV 1619 Albuterol Sulfate 3 ML EVERY 4 HRS/AWAKE 08/05 2000 AC 08/07 INH 0843 Dextrose/Lactated 1,000 ML Q6H 08/02 0915 AC 08/07 Ringer's IV 0400 Docusate Sodium 100 MG DAILY 08/03 1000 AC PO Heparin Sodium 5,000 UNIT Q8 08/01 0600 AC 08/07 (Porcine) SC 0551 Hydromorphone HCl 1 MG Q6 08/06 1200 AC 08/07 IV 0550 Lorazepam 100 MG Q20H 08/07 1900 AC Sodium Chloride 1,000 ML IV Lorazepam 100 MG Q14H 08/05 1100 AC 08/06 Sodium Chloride 1,000 ML IV 08/07 1859 2326 Lorazepam 0 Q1P PRN 07/31 2315 AC 08/03 IV 2029 Melatonin 5 MG AT BEDTIME PRN 08/01 0030 AC 08/01 PO 2105 Nystatin 5 ML 4 TIMES/DAY 08/06 1815 AC 08/06 PO 2125 Ondansetron HCl 4 MG Q6P PRN 07/31 2315 AC 08/05 IV 0153 Oxycodone/ 1 TAB Q4P PRN 08/01 0100 AC 08/02 Acetaminophen PO 0416 Pantoprazole Sodium 40 MG DAILY 08/04 1445 AC 08/06 IV 1000 Polyethylene Glycol 17 GM DAILY 08/03 1000 AC PO Senna/Docusate Sodium 1 TAB BID PRN 08/03 0830 AC PO Vital Signs & I&O Last 24 Hrs of Vitals and I&O: Vital Signs Date Time Temp Pulse Resp B/P B/P Pulse O2 O2 Flow FiO2 Mean Ox Delivery Rate 08/07 0800 98.6 84 14 156/80 08/07 0800 95 Nasal 1.0L Cannula 08/07 08 98.6 84 14 156/80 95 Nasal 1.0L Cannula 08/07 0600 80 16 160/79 08/07 0400 97.6 80 20 152/96 08/07 0400 95 Room Air 08/07 0200 78 16 129/88 08/07 0000 98.7 84 20 168/94 08/07 0000 98.7 84 20 16894 92 Nasal 2.0L Cannula 08/06 2354 92 Nasal 2.0L Cannula 08/06 2200 98.0 90 24 141/87 08/07 1999 98.0 86 20 144/100 08/07 1999 96 Nasal 2.0L Cannula 08/06 1615 96 Nasal 2.0L Cannula 08/06 1600 96 Nasal 2.0L Cannula 08/06 1600 97.6 86 20 150/100 96 Nasal 2.0L Cannula 08/06 1200 97 Nasal 2.0L Cannula Intake & Output 08/07 1600 08/07 0800 08/07 0000 Intake Total 1550 1680 Output Total 1140 620 Balance 410 1060 Intake, IV 1550 1680 Intake, Oral 0 Output, 100 100 Gastric Drainage Output, Urine 1040 520 Exam Other Physical Findings: Gen - lethargic HEENT - NCAT CVS - S1, S2, no murmurs, rubs or gallops Lungs - clear to auscultation bilaterally Abdomen - soft, non-tender, bs+ Ext - no edema, no cyanosis Results Last 24 Hrs of Lab Results: Laboratory Tests 08/07/16 0335: Anion Gap 13, Estimated GFR > 60, Glucose 96, Calcium 8.2 L, Phosphorus 3.9, Magnesium 2.0, Total Bilirubin 0.8, AST 52, ALT 64, Albumin 2.8 L, CBC w Diff NO MAN DIFF REQ, RBC 3.81 L, MCV 93.6, MCH 32.1 H, RDW 12.7, MPV 7.5, Gran % 73.9, Lymphocytes % 11.7 L, Monocytes % 11.7 H, Eosinophils % 2.2, Basophils % 0.5, Absolute Granulocytes 11.4 H, Absolute Lymphocytes 1.8, Absolute Monocytes 1.8 H, Absolute Eosinophils 0.3, Absolute Basophils 0.1, PUBS MCHC 34.3 Impression/Plan Impression/Plan Impression/Plan: Impression 31-year-old man * Acute alcohol withdrawal requiring Ativan drip in ICU monitoring * Acute pancreatitis and gastroenteritis * Leukocytosis * Thrombocytopenia likely secondary to alcoholism * Improved transaminitis with elevated bilirubins * Subsegmental atelectasis Plan -CIWA protocol and Ativan drip -Pain control -Elementary status per GI -Incentive spirometry -Leukocytosis likely reactive is currently being monitored off antibiotics -lipase trended down -GI consultation appreciated, please f/u recommendations TTS 35 min
--- NOTE | 2016-08-07 14:54 | NUR ---
Patient was able to tolerate a clear liquid diet well consuming approx. 50%- Patient denied any pain, nausea or vomiting one hour after. Abdomen remains distended but soft with hypoactive bowel sounds. NGT was removed at [address] Dyer's order- 1:1 sitter was also d/c at this time. Will continue to closely monitor patient.
[2016-08-08] VITALS (8 sets, daily range): BP systolic 111–160; BP diastolic 76–90
[2016-08-08 06:36] LABS: ABSOLUTE BASOPHIL COUNT 0.2 /CUMM (0.0-0.2); ABSOLUTE EOSINOPHIL COUNT 0.4 /CUMM (0.0-0.7); ABSOLUTE GRANULOCYTE CT 10.6 /CUMM (1.4-6.5); ABSOLUTE LYMPH COUNT 1.7 /CUMM (1.2-3.4); ABSOLUTE MONOCYTE COUNT 1.7 /CUMM (0.10-0.60); BASOPHIL % 1.4 % (0.0-2.0); EOSINOPHIL % 2.5 % (0-5); GRANULOCYTE % 72.7 % (42.2-75.2); HEMATOCRIT 36.4 % (42-52); MEAN CORPUSCULAR HGB 31.8 PG (27.0-31.0); MEAN CORPUSCULAR HGB CONC 34.3 G/DL (33.0-37.0); MEAN CORPUSCULAR VOLUME 92.5 FL (80.0-94.0); MEAN PLATELET VOLUME 7.1 FL (7.4-10.4); PLATELET COUNT 293 /CUMM (130-400); RBC DISTRIBUTION WIDTH 12.9 % (11.5-14.5); RED BLOOD CELL CT 3.94 /CUMM (4.70-6.10); WHITE BLOOD CELL COUNT 14.6 /CUMM (4.8-10.8)
--- NOTE | 2016-08-08 07:17 | PN- Resident CRCU ---
Subjective HPI/CRCU Issues: 1- Acute pancreatitis, NPO with NGT 2- Alcohol withdrawal 24 Hour Events: No overnight events, bradycardia with HR of 49 around midnight, sinus rhythm. Objective Vital Signs & I&O Last 8 Hrs of Vitals and I&O: Max Temp 98.3 KS 64-80 RR 18-27 BP 125/78 to 161/89 SO2 94-97% on 1L I 1220 O 1000 Exam General Appearance: well developed/nourished, no apparent distress Head: atraumatic, normal appearance Ears, Nose, Throat: normal ENT inspection Neck: normal inspection, supple Respiratory: chest non-tender, wheezing and rhonchi Cardiovascular: regular rate/rhythm Gastrointestinal: soft, non-tender Extremities: normal capillary refill, normal range of motion, no edema Cranial Nerves: normal hearing, normal speech, PERRL Skin: intact, normal color Skin Temp/Moisture Exam: Warm/Dry Sepsis Skin Exam (color): Normal for Ethnicity Current Medications: Current Medications Sig/Brynn Start time Last Medication Dose Route Stop Time Status Admin Acetaminophen 1,000 MG Q6P PRN 08/04 0845 AC 08/04 N/A 1 UNIT IV 1619 Albuterol Sulfate 3 ML EVERY 4 HRS/AWAKE 08/05 2000 AC 08/08 INH 1327 Chlordiazepoxide HCl 50 MG Q8 08/07 2115 AC 08/08 PO 0608 Dextrose/Lactated 1,000 ML Q6H 08/02 0915 AC 08/08 Ringer's IV 1047 Docusate Sodium 100 MG DAILY 08/03 1000 AC PO Heparin Sodium 5,000 UNIT Q8 08/01 0600 AC 08/08 (Porcine) SC 0608 Hydromorphone HCl 1 MG Q6P PRN 08/07 1500 AC 08/08 IV 1052 Hydromorphone HCl 1 MG Q6 08/06 1200 DC 08/07 IV 0550 Lorazepam 1 MG Q6 08/07 2115 CAN PO Lorazepam 100 MG Q20H 08/07 1900 DC 08/07 Sodium Chloride 1,000 ML IV 1655 Lorazepam 100 MG Q14H 08/05 1100 DC 08/06 Sodium Chloride 1,000 ML IV 08/07 1859 2326 Lorazepam 0 Q1P PRN 07/31 2315 AC 08/08 IV 0330 Melatonin 5 MG AT BEDTIME PRN 08/01 0030 AC 08/01 PO 2105 Nystatin 5 ML 4 TIMES/DAY 08/06 1815 AC 08/08 PO 1044 Ondansetron HCl 4 MG Q6P PRN 07/31 2315 AC 08/05 IV 0153 Oxycodone/ 1 TAB Q4P PRN 08/01 0100 DC 08/02 Acetaminophen PO 0416 Pantoprazole Sodium 40 MG DAILY 08/04 1445 AC 08/08 IV 1044 Polyethylene Glycol 17 GM DAILY 08/03 1000 AC PO Senna/Docusate Sodium 1 TAB BID PRN 08/03 0830 AC PO Impression/Plan Impression/Problem List Impression: Mr. Coleman is a 31 year old gentleman with a PMH significant for childhood asthma. He presented to ED on 07/31/16 with chief complain of intractable abdominal pain with nausea, vomiting, and profuse diarrhea. He is found to have acute pancreatitis, no evidence of necrosis with mild thickening of the ascending colon and descending colon. He is in the ICU as he was requiring Ativan Drip. Alcohol withdrawal off Ativan drip since 8 pm last night, received 1 mg Ativan and 50 mg of librium last night * contiue Ativan Q1 PRN per CIWA and scheduled Librium 80 mg Q8 * continue multivitamins, folic acid, thiamine Acute Pancreatitis -Abdominal CT scan with IV contrast ruled out necrotizing pancreatitis, there is mild thickening of the ascending colon and descending colon. Patient passed swallow eval. -We turned off the suction of the NGT, is he tolerates water well without nausea /vomiting or abdominal pain, we will discontinue NGT and start him on clear liquids -Amylase 61, Triglycerides 410-->131 * continue D5W-LR at 150 cc/hr for now * Lipase 1237 --> 481 --> 684 --> 1274 * Continue PPI IV * C-reactive protein >9, will follow tomorrow. * Fever and leukocytosis, improving, came down to 14.6 * Repeat CBC in AM * continue Clear liquid diet per GI, Dr. Aguero Hypertension * Could be due to pain and alcohol withdrawal * Continue close monitoring Oral thrush: Nysatin oral suspesion Diet : clear liquids DVTppx SC heparin Full code Problem List: 1. Alcohol withdrawal 2. Acute pancreatitis Pain Ratin Pain Location: abdomen (hypogaster) Pain Goal: Pain 4 or less Pain Plan: Dialudid 1 mg Q6 PRN for severe pain Tomorrow's Labs & Rationales: CBC, BEP, Lipase, CRP (pancreatitis, alcohol withdrawal, electrolytes imbalance) Plan DVT/Prophylaxis: mechanical
--- NOTE | 2016-08-08 08:42 | NUR ---
PT STILL C/O ABDOMINAL DISCOMFORT, NEG FOR N/V, BS PRESENT. MADE NPO FOR PENDING ABDOMINAL US. PT REMAINS CONFUSED TO TIME AND PLACE. WITH FREQUENT REORIENTATION HE REMAINS CALM AND COOPERATIVE, OCCASIONAL FIDGETYNESS.
--- NOTE | 2016-08-08 09:31 | PN- CRCU ---
Subjective HPI/Critical Care Issues: pt seen and examined saturating well afebrile hemodynamically stable some lethargy persists Objective Current Medications: Current Medications Sig/Brynn Start time Last Medication Dose Route Stop Time Status Admin Acetaminophen 1,000 MG Q6P PRN 08/04 0845 AC 08/04 N/A 1 UNIT IV 1619 Albuterol Sulfate 3 ML EVERY 4 HRS/AWAKE 08/06 1999 AC 08/08 INH 0912 Chlordiazepoxide HCl 50 MG Q8 08/07 2115 AC 08/08 PO 0608 Dextrose/Lactated 1,000 ML Q6H 08/02 0915 AC 08/07 Ringer's IV 1627 Docusate Sodium 100 MG DAILY 08/03 1000 AC PO Heparin Sodium 5,000 UNIT Q8 08/01 0600 AC 08/08 (Porcine) SC 0608 Hydromorphone HCl 1 MG Q6P PRN 08/07 1500 AC IV Hydromorphone HCl 1 MG Q6 08/06 1200 DC 08/07 IV 0550 Lorazepam 1 MG Q6 08/07 2115 CAN PO Lorazepam 100 MG Q20H 08/07 1900 DC 08/07 Sodium Chloride 1,000 ML IV 1655 Lorazepam 100 MG Q14H 08/05 1100 DC 08/06 Sodium Chloride 1,000 ML IV 08/07 1859 2326 Lorazepam 0 Q1P PRN 07/31 2315 AC 08/08 IV 0330 Melatonin 5 MG AT BEDTIME PRN 08/01 0030 AC 08/01 PO 2105 Nystatin 5 ML 4 TIMES/DAY 08/06 1815 AC 08/07 PO 2200 Ondansetron HCl 4 MG Q6P PRN 07/31 2315 AC 08/05 IV 0153 Oxycodone/ 1 TAB Q4P PRN 08/01 0100 DC 08/02 Acetaminophen PO 0416 Pantoprazole Sodium 40 MG DAILY 08/04 1445 AC 08/07 IV 0957 Polyethylene Glycol 17 GM DAILY 08/03 1000 AC PO Senna/Docusate Sodium 1 TAB BID PRN 08/03 0830 AC PO Vital Signs & I&O Last 24 Hrs of Vitals and I&O: Vital Signs Date Time Temp Pulse Resp B/P B/P Pulse O2 O2 Flow FiO2 Mean Ox Delivery Rate 08/08 0914 92 Room Air 08/08 0400 97 Nasal 1.0L Cannula 08/08 0200 64 24 141/77 08/08 0000 97.8 72 18 128/76 08/08 0000 96 Nasal 1.0L Cannula 08/07 2316 98.3 79 19 130/80 94 Nasal 2.0L Cannula 08/07 2000 95 Room Air 08/07 1628 96 Nasal 1.0L Cannula 08/07 1600 98.6 79 16 124/68 08/07 1600 96 Nasal 1.0L Cannula 08/07 1600 98.6 79 16 124/68 96 Nasal 2.0L Cannula 08/07 1400 98 16 132/68 08/07 1210 95 Nasal 1.0L Cannula 08/07 1200 98.8 92 18 150/90 08/07 1200 96 Nasal 1.0L Cannula 08/07 1000 86 16 135/76 Intake & Output 08/08 1600 08/08 0800 08/08 0000 Intake Total 1220 1570 Output Total 1000 3050 Balance 220 -1480 Intake, IV 1220 1270 Intake, Oral 0 300 Number 1 1 Bowel Movements Output, Urine 1000 3050 Exam Other Physical Findings: Gen - lethargic HEENT - NCAT CVS - S1, S2, no murmurs, rubs or gallops Lungs - clear to auscultation bilaterally Abdomen - soft, non-tender, bs+ Ext - no edema, no cyanosis Results Last 24 Hrs of Lab Results: Laboratory Tests 08/08/16 0530: Anion Gap 16, Estimated GFR > 60, Glucose 115 H, Calcium 8.8, Phosphorus 4.2, Magnesium 2.2, Total Bilirubin 0.8, AST 46, ALT 82 H, C-Reactive Prot, Quant > 9.0 H, C-React Prot High Sens > 15.0 H, Albumin 3.2 L, Lipase 1274 H, CBC w Diff NO MAN DIFF REQ, RBC 3.94 L, MCV 92.5, MCH 31.8 H, RDW 12.9, MPV 7.1 L, Gran % 72.7, Lymphocytes % 11.9 L, Monocytes % 11.5 H, Eosinophils % 2.5, Basophils % 1.4, Absolute Granulocytes 10.6 H, Absolute Lymphocytes 1.7, Absolute Monocytes 1.7 H, Absolute Eosinophils 0.4, Absolute Basophils 0.2, PUBS MCHC 34.3 Impression/Plan Impression/Plan Impression/Plan: Impression 31-year-old man * Acute alcohol withdrawal requiring Ativan drip in ICU monitoring * Acute pancreatitis and gastroenteritis * Leukocytosis * Thrombocytopenia likely secondary to alcoholism * Improved transaminitis with elevated bilirubins * Subsegmental atelectasis Plan -CIWA protocol and Ativan drip -Pain control -Elementary status per GI -Incentive spirometry -Leukocytosis likely reactive is currently being monitored off antibiotics -lipase trended down -GI consultation appreciated, please f/u recommendations TTS 35 min
--- NOTE | 2016-08-08 13:05 | ULTRASOUND REPORT ---
EXAMINATION: US ABDOMEN LIMITED CLINICAL INFORMATION: 31-year-old male to evaluate for pancreatic pseudocyst. Worsening lipase and abdominal pain. History of acute pancreatitis. COMPARISON: CT of the abdomen and pelvis done on 08/02/2016. TECHNIQUE: Real-time imaging of the right upper quadrant abdominal viscera. FINDINGS: PANCREAS: The region of the pancreas shows heterogeneous echotexture. The pancreatic gland itself is not visualized. This may represent residual changes of previously documented pancreatitis (as was seen on the prior study dated 08/02/2016). However, there is no definite fluid collection suggestive of a pseudocyst visualized within and around the pancreatic bed. Evaluation of the pancreas is technically limited. For a full detailed evaluation, if clinically appropriate, a followup contrast-enhanced CT scan should be considered for further clarification. LIVER: There is diffuse increased liver parenchymal echogenicity, consistent with diffuse liver disease, likely steatosis or hepatocellular disease, or a combination thereof. The liver is normal in size and contour. No biliary ductal dilatation. GALLBLADDER: Normal. The gallbladder is physiologically distended without evidence of stones, sludge, polyps, wall thickening or pericholecystic fluid. COMMON BILE DUCT: Normal in caliber measuring 0.4 cm in diameter. RIGHT KIDNEY: Normal. No hydronephrosis. No renal calculi or focal parenchymal lesions. The kidney measures 10.6 cm in maximum dimension. FREE FLUID: None. IMPRESSION: 1. Suboptimally visualized pancreas, however, there is no sonographic evidence of a fluid collection suggestive of a pseudocyst identified within and around the pancreatic bed. A followup contrast-enhanced CT scan of the abdomen and pelvis may be considered for a further full detailed evaluation, if clinically appropriate. 2. Diffuse abnormal echotexture within the liver, consistent with diffuse liver disease likely secondary to hepatic steatosis or hepatocellular disease or a combination thereof. 3. No sonographic evidence of cholelithiasis and/or biliary obstruction.
[2016-08-09] VITALS (9 sets, daily range): BP systolic 98–140; BP diastolic 54–100
[2016-08-09 05:30] LABS: ABSOLUTE BASOPHIL COUNT 0.2 /CUMM (0.0-0.2); ABSOLUTE EOSINOPHIL COUNT 0.4 /CUMM (0.0-0.7); ABSOLUTE GRANULOCYTE CT 10.6 /CUMM (1.4-6.5); ABSOLUTE LYMPH COUNT 2.4 /CUMM (1.2-3.4); ABSOLUTE MONOCYTE COUNT 1.3 /CUMM (0.10-0.60); BASOPHIL % 1.2 % (0.0-2.0); EOSINOPHIL % 2.6 % (0-5); GRANULOCYTE % 71.3 % (42.2-75.2); MEAN CORPUSCULAR HGB 31.8 PG (27.0-31.0); MEAN CORPUSCULAR VOLUME 93.4 FL (80.0-94.0); MEAN PLATELET VOLUME 7.2 FL (7.4-10.4); PLATELET COUNT 307 /CUMM (130-400); RBC DISTRIBUTION WIDTH 12.8 % (11.5-14.5); RED BLOOD CELL CT 3.86 /CUMM (4.70-6.10); WHITE BLOOD CELL COUNT 14.9 /CUMM (4.8-10.8)
--- NOTE | 2016-08-09 06:58 | PN- Resident CRCU ---
Subjective HPI/CRCU Issues: 1- Acute pancreatitis 2- Alcohol withdrawal 24 Hour Events: no overnight events, he reports less pain in the abdomen, reports nausea off and on but has tolerated food well. had bowel movement last night. Objective Vital Signs & I&O Last 8 Hrs of Vitals and I&O: max temp 98.4 [place] 56-72 RR 14-16 systolic BP 98 to 134 diastolic BP 67-90 SO2 RA 94-96% I 1080 O 600 Exam General Appearance: well developed/nourished Head: atraumatic, normal appearance Ears, Nose, Throat: normal pharynx, normal ENT inspection Neck: normal inspection, supple, full range of motion Respiratory: normal breath sounds, chest non-tender Cardiovascular: regular rate/rhythm Gastrointestinal: soft, slight tenderness on the hypogaster Extremities: normal inspection, normal capillary refill Cranial Nerves: normal speech, PERRL Skin: intact Skin Temp/Moisture Exam: Warm/Dry Sepsis Skin Exam (color): Normal for Ethnicity Back: normal range of motion Current Medications: Current Medications Sig/Brynn Start time Last Medication Dose Route Stop Time Status Admin Acetaminophen 1,000 MG Q6P PRN 08/04 0845 AC 08/04 N/A 1 UNIT IV 1619 Albuterol Sulfate 3 ML BID 08/08 2200 AC 08/09 INH 0853 Albuterol Sulfate 3 ML EVERY 4 HRS/AWAKE 08/05 2000 DC 08/08 INH 1712 Chlordiazepoxide HCl 25 MG Q8 08/09 1400 AC PO Chlordiazepoxide HCl 50 MG Q8 08/07 2115 DC 08/09 PO 0723 Dextrose/Lactated 1,000 ML Q6H 08/02 0915 AC 08/09 Ringer's IV 0916 Docusate Sodium 100 MG DAILY 08/03 1000 AC PO Heparin Sodium 5,000 UNIT Q8 08/01 0600 AC 08/09 (Porcine) SC 0700 Hydromorphone HCl 1 MG Q6P PRN 08/07 1500 AC 08/09 IV 0918 Lorazepam 0 Q1P PRN 07/31 2315 AC 08/08 IV 1350 Melatonin 5 MG AT BEDTIME PRN 08/01 0030 AC 08/08 PO 2117 Nystatin 5 ML 4 TIMES/DAY 08/06 1815 AC 08/09 PO 0916 Ondansetron HCl 4 MG Q6P PRN 04/18 2315 AC 08/05 IV 0153 Pantoprazole Sodium 40 MG DAILY 08/04 1445 AC 08/09 IV 0917 Polyethylene Glycol 17 GM DAILY 08/03 1000 AC PO Potassium Chloride 40 MEQ ONCE ONE 08/09 0900 DC 08/09 PO 08/09 0901 0916 Senna/Docusate Sodium 1 TAB BID PRN 08/03 0830 AC PO Impression/Plan Impression/Problem List Impression: Mr. Coleman is a 31 year old gentleman with a PMH significant for childhood asthma. He presented to ED on 07/31/16 with chief complain of intractable abdominal pain with nausea, vomiting, and profuse diarrhea. He is found to have acute pancreatitis, no evidence of necrosis with mild thickening of the ascending colon and descending colon. He is in the ICU as he was requiring Ativan Drip. Alcohol withdrawal CIWA scores 3-5 * contiue Ativan Q1 PRN per CIWA and scheduled Librium 25 mg Q8 * continue multivitamins, folic acid, thiamine Acute Pancreatitis -Abdominal CT scan with IV contrast ruled out necrotizing pancreatitis, there is mild thickening of the ascending colon and descending colon. Patient passed swallow eval. -We turned off the suction of the NGT, is he tolerates water well without nausea /vomiting or abdominal pain, we will discontinue NGT and start him on clear liquids -Amylase 61, Triglycerides 410-->131. Lipase 1237 --> 481 --> 684 --> 1274 (will not trend lipase at this point, per GI) * continue D5W-LR at 100 cc/hr * Continue PPI IV * C-reactive protein down to 5.7 from >9 * WBC still high at 14.9 * Repeat CBC in AM * advanced diet to full liquids today Hypertension BP max 140/90 at mid night * Could be due to pain and alcohol withdrawal * Continue close monitoring Oral thrush: Nysatin oral suspesion Diet : full liquids Down graded to GM DVTppx SC heparin Full code Problem List: 1. Alcohol withdrawal 2. Acute pancreatitis Pain Ratin Pain Location: abdomen Pain Goal: Pain 4 or less Pain Plan: IV dialudid Tomorrow's Labs & Rationales: CBC (leukocytosis) BEP , Mg (monitor elevctrolytes) Plan DVT/Prophylaxis: mechanical
--- NOTE | 2016-08-09 09:37 | PN- CRCU ---
Subjective HPI/Critical Care Issues: pt seen and examined 95% room air pain is improved afebrile leukocytosis unchanged lipase stable Objective Current Medications: Current Medications Sig/Brynn Start time Last Medication Dose Route Stop Time Status Admin Acetaminophen 1,000 MG Q6P PRN 08/04 0845 AC 08/04 N/A 1 UNIT IV 1619 Albuterol Sulfate 3 ML BID 08/08 2200 AC 08/09 INH 0853 Albuterol Sulfate 3 ML EVERY 4 HRS/AWAKE 08/05 2000 DC 08/08 INH 1712 Chlordiazepoxide HCl 50 MG Q8 08/07 2115 AC 08/09 PO 0723 Dextrose/Lactated 1,000 ML Q6H 08/02 0915 AC 08/09 Ringer's IV 0916 Docusate Sodium 100 MG DAILY 08/03 1000 AC PO Heparin Sodium 5,000 UNIT Q8 08/01 0600 AC 08/09 (Porcine) SC 0700 Hydromorphone HCl 1 MG Q6P PRN 08/07 1500 AC 08/09 IV 0918 Lorazepam 0 Q1P PRN 07/31 2315 AC 08/08 IV 1350 Melatonin 5 MG AT BEDTIME PRN 08/01 0030 AC 08/08 PO 2117 Nystatin 5 ML 4 TIMES/DAY 08/06 1815 AC 08/09 PO 0916 Ondansetron HCl 4 MG Q6P PRN 07/31 2315 AC 08/05 IV 0153 Pantoprazole Sodium 40 MG DAILY 08/04 1445 AC 08/09 IV 0917 Polyethylene Glycol 17 GM DAILY 08/03 1000 AC PO Potassium Chloride 40 MEQ ONCE ONE 08/09 0900 DC 08/09 PO 08/09 0901 0916 Senna/Docusate Sodium 1 TAB BID PRN 08/03 0830 AC PO Vital Signs & I&O Last 24 Hrs of Vitals and I&O: Vital Signs Date Time Temp Pulse Resp B/P B/P Pulse O2 O2 Flow FiO2 Mean Ox Delivery Rate 08/09 0858 95 Room Air Room Air 08/09 0600 97.9 72 16 98/67 08/09 0400 97.9 66 14 140/90 08/09 0400 95 Room Air 08/09 0200 70 14 122/89 08/09 0000 98.1 70 14 140/100 08/09 0000 96 Room Air 08/09 0000 98.1 70 14 140/100 96 Room Air 08/08 2200 72 16 134/81 08/09 1999 98.4 68 15 160/90 08/09 1999 96 Room Air 08/08 1716 95 Room Air Room Air 08/08 1600 98.6 60 18 130/80 08/08 1600 97 Room Air 08/08 1600 98.6 60 18 130/80 97 Room Air 08/08 1400 98.0 82 19 137/87 08/08 1200 98.0 84 18 111/83 08/08 1200 98.0 84 18 111/83 08/08 1200 97 Nasal 2.0L Cannula Intake & Output 08/09 1600 08/09 0800 08/09 0000 Intake Total 1080 1560 Output Total 600 800 Balance 480 760 Intake, IV 1080 1200 Intake, Oral 0 360 Number 1 2 Bowel Movements Output, Urine 600 800 Exam Other Physical Findings: Gen - lethargic HEENT - NCAT CVS - S1, S2, no murmurs, rubs or gallops Lungs - clear to auscultation bilaterally Abdomen - soft, non-tender, bs+ Ext - no edema, no cyanosis Results Last 24 Hrs of Lab Results: Laboratory Tests 08/09/16 0429: Anion Gap 14, Estimated GFR > 60, Glucose 93, Calcium 8.6, Phosphorus 5.2 H, Magnesium 2.0, Total Bilirubin 0.5, AST 31, ALT 68, C-Reactive Prot, Quant 5.7 H, C-React Prot High Sens > 15.0 H, Albumin 2.9 L, Lipase 1268 H, CBC w Diff NO MAN DIFF REQ, RBC 3.86 L, MCV 93.4, MCH 31.8 H, RDW 12.8, MPV 7.2 L, Gran % 71.3, Lymphocytes % 16.3 L, Monocytes % 8.6, Eosinophils % 2.6, Basophils % 1.2, Absolute Granulocytes 10.6 H, Absolute Lymphocytes 2.4, Absolute Monocytes 1.3 H, Absolute Eosinophils 0.4, Absolute Basophils 0.2, PUBS MCHC 34.0 Impression/Plan Impression/Plan Impression/Plan: Impression 31-year-old man * Acute alcohol withdrawal requiring Ativan drip in ICU monitoring * Acute pancreatitis and gastroenteritis * Leukocytosis * Thrombocytopenia likely secondary to alcoholism * Improved transaminitis with elevated bilirubins * Subsegmental atelectasis Plan -CIWA protocol and Ativan drip -Pain control -Alimentary status per GI -Incentive spirometry -Leukocytosis likely reactive is currently being monitored off antibiotics -lipase trended down -GI consultation appreciated, please f/u recommendations - lipase stable TTS 35 min
--- NOTE | 2016-08-09 12:52 | NUR ---
PT DOWNGRADED TO GM. VSS, ALERT & 0 X 2 W OCCASIONAL FORGETFULNESS, EASY TO REORIENT. IMPULSIVE AT TIMES. CIWA 2-6. LIBRIUM 25 TID. PT PROGRESSED TO FULL LIQUID DIET. PT STILL C/O OF ABDOMINAL PAIN-GENERALIZED. ON DILAUDID 1MG WITH GOOD RELIEF. PASSING GAS AND BM. IVF DECREASED TO 100/HR.
[2016-08-10 00:17] VITALS: BP 126/84
--- NOTE | 2016-08-10 07:23 | Transfer of Care Summary ---
Hospital Course Course Hospital Course: Mr. Coleman is 31 year old male with past medical history significant for childhood asthma. He was admitted on 07/31/16 to general medical floor for intractable abdominal pain associated with profuse watery nonbloody diarrhea, nausea and nonbloody and non-pylorus vomiting after consumption of "old [place] food, pork and rice" 2 days prior to initial evaluation. Patient also has history of alcohol consumption of 3-4 cans of beer multiple days a week with occasional use of hard liquor. CT abdomen/pelvis demonstrated findings suggestive of acute pancreatitis. WBC 16.3. Lipase 1237, triglycerides 410. Urine toxicology was positive for opiates. Hepatitis panel was negative. Patient denied history of any tobacco or illicit drug use. Reported no history of previous hospitalization for alcohol intoxication or alcohol related seizures. Patient was initially admitted to general medical floor and was started on D5-lactated Ringer at a rate of 250 mL/h, which was then decreased to 150 cc/hour, maintained nothing by mouth with some water sips allowed, received Bentyl 20 mg by mouth 4 times a day as an antispasmodic, and Zofran for nausea and dilaudid as needed for severe pain. Patient continued to have severe abdominal pain with increased dilaudid requirement. Also patient had distended abdomen; there was a question of necrotizing pancreatitis versus abdominal compartment syndrome for which CT scan with IV contrast was obtained and revealed no evidence of pancreatic necrosis and reported 'mild thickening of the ascending colon and descending colon', which was new compared to the previous examination from 08/02. An NG tube was placed with slight decrease in distention, NG tube drained bilious fluid. For alcohol withdrawal, initially during hospitalization patient refused PRN Ativan. He continued to have withdrawal symptoms including tremors and hallucination with CIWA max 34 and required Ativan drip for which he was transferred to ICU on 08/04/16. The following were addressed during his stay in the ICU: Acute Pancreatitis Patient was kept NPO with NGT in place until 08/07/16, he was then started on clear liquids and NGT tube was discontinued. He was switched to full liquid diet on 08/09/16. We continued his IV fluids and gradually decreased it to D5W-LR at 100 cc/hr, continued IV protonix and Zofran PRN for nausea. We also added bowel regimen (Senokot S and Miralax) to help with bowel movements. His WBC remains elevated but decreased from 16.3 on admission to 14.9, CRP is decreased from >9 to to 5.7 and lipase remains high at 1268. Patient is clinically much improved with minimal abdominal pain and nausea. His abdominal pain was initially controlled with scheduled dilaudid for 24 hours which was then switched to PRN upon improvement of the abdominal pain. * advance diet further as tolerated * continue IV D5-RL at 100 cc/hour and taper * continue to monitor WBC, CRP, lipase * continue with dilaudid and zofran as needed Alcohol withdrawal * continue Ativan PRN per CIWA and taper down librium, currently he is on Librium 25 mg Q8 * continue multivitamins, folic acid, thiamine Hypertension Transient, resolved. BP max 160/90 on 08/08/16. Possibly due to pain and alcohol withdrawal. * Continue close monitoring Oral thrush * continue Nystatin oral suspension as needed Diet: full liquids DVTppx: SC heparin Full code Assessment/Plan: please see above.
--- NOTE | 2016-08-10 08:23 | PN- Housestaff ---
LISA STANLEY,EDGAR 08/10/16 0807: Subjective Follow-up For: pancreatitis gastritis alcohol dependance Complaints: c/o abd. pain 7/10 epigastric Tele-Events Since Last Visit: off telemetry Subjective: Patient is comfortably lying in bed. C/o crampy epigastric abd. pain 7/10 in severity which improves to 2/10 after getting dilaudid. Also c/o abd. bloating on food intake. Able to tolerate full liquid diet. Denies nausea, vomiting, constipation. Able to move bowel and pass gas. denies cp, sob, longoria, leg swelling. Review of Systems Constitutional: Reports: see HPI. Objective Last 24 Hrs of Vital Signs/I&O Vital Signs Date Time Temp Pulse Resp B/P B/P Pulse O2 O2 Flow FiO2 Mean Ox Delivery Rate 08/10 0017 98.4 71 12 126/84 96 Room Air 08/09 2000 97.4 88 16 138/70 08/09 1935 96 Room Air Room Air 08/09 1600 Room Air 08/09 1600 97.4 84 20 102/72 08/09 1600 97.4 81 20 102/72 96 Room Air 08/09 1200 98.0 90 20 140/54 08/09 1000 98.4 96 12 129/71 08/09 0858 95 Room Air Room Air Intake & Output 08/10 1600 08/10 0800 08/10 0000 Intake Total 1280 600 Output Total 100 600 Balance 1180 0 Intake, IV 800 Intake, Oral 480 600 Number 0 4 Bowel Movements Output, Urine 100 600 Physical Exam General Appearance: Alert, Oriented X3, Cooperative, No Acute Distress Skin: No Rashes Skin Temp/Moisture Exam: Warm/Dry Sepsis Skin Exam (color): Normal for Ethnicity HEENT: Atraumatic, PERRLA, EOMI, Mucous Membr. moist/pink Neck: Supple, No JVD Cardiovascular: Regular Rate, Normal S1, Normal S2, No Murmurs Lungs: Clear to Auscultation, Normal Air Movement Abdomen: Normal Bowel Sounds, No Tenderness, distended abdomen Neurological: Normal Speech, Strength at 5/5 X4 Ext, Normal Tone, Sensation Intact, Cranial Nerves 3-12 NL Extremities: No Edema Vascular: Normal Pulses, Pulses Symmetrical Sepsis Peripheral Pulse Location: Dorsalis Pedis Lines/Diet/Fluids Zaragoza Still Needed? No Assessment/Plan Assessment: This 31 year old man presented with abd. pain, n/vomiting and diarrhea found to have elevated pancreatic enzymes with CT evidence of pancreatitis. His serial CT Abdomen/Pelvis ruled out any obstruction or evidence pancreatic psudocyst/ necrosis. His pain is no longer controlled with the previous dose of intravenous dilaudid, which was increased today. He tolerates full lquid diet well does c/o some abdominal fullness. Acute pancreatitis/gastroenteritis Patient reports consumption of "old [place] food" 2 days prior to initial evaluation for which she developed multiple episodes of explosive watery nonbloody diarrhea with further multiple episodes of nonbloody nonbilious emesis. He also admits to get her alcohol consumption of 3-4 cans of beer multiple days a week with occasional use of hard liquor. CT abdomen/pelvis demonstrated findings suggestive of acute pancreatitis with homogenous pancreatic parenchyma and no rim-enhancing fluid collection with hepatic steatosis. WBC 16.3. Lipase 1237, triglycerides 410. Urine toxicology was positive for opiates. Hepatitis panel negative. -Gen. medicine -full liquid diet, may advance to regular -D5 Lactated Ringer's, may discontinue -Bentyl 20 mg by mouth 4 times a day -Zofran 4 mg IV every 6 hours as needed for nausea -Dilaudid 1 mg IV every 4 hours as needed for severe pain EtOH dependence Patient reports consumption of 3-4 cans of beer several days a week with addition of hard liquor occasionally. He denies admission to hospital or ICU for alcohol-related disease or withdrawal. -CIWA protocol, ciwa 0-6 -Ativan per CIWA and librium 25mg Q8 Anxiety - Consult psychiatry , consider start SSRI Pain plan-Percocet/Dilaudid Diet-nothing by mouth, sips of water as tolerated DVT prophylaxis-subcutaneous heparin CODE STATUS-full code Problem List: 1. Acute pancreatitis 2. Gastroenteritis 3. Alcohol withdrawal Pain Ratin Pain Location: epigastric Pain Goal: Pain 4 or less Pain Plan: dilaudid, Tomorrow's Labs & Rationales: ALBERT CALLAHAN MD 08/10/16 0950: Attending MD Review Statement Attending Statement Attending MD Statement: examined this patient, discuss w/resident/PA/GIFT SHOP ASSISTANT, agreed w/resident/PA/GIFT SHOP ASSISTANT, reviewed EMR data (avail) Attending Assessment/Plan: 31M admitted initially to ICU with alcohol withdrawal delirium requiring Ativan drip and acute pancreatitis. Now on Librium taper and doing well, hemodynamically stable. Today patient still feels bloating and pain with solid foods. He experiences intermittent nausea but still has an appetite. No tenderness on abdominal exam. No tremors or tongue fasciculations. Patient is very anxious. 1. Alcohol withdrawal with delirium 2. Acute pancreatitis 3. Anxiety Plan - Discontinue telemetry - Remove Zaragoza catheter - Discontinue IV fluids - Continue PRN Dilaudid - Continue Librium taper, 25q8h today, 25mg q12h tomorrow - Ativan per CIWA - Continue vitamin supplementation - Psychiatry consult - No further labs - Continue home medications - DVT PPx
[2016-08-10 08:25] VITALS: BP 148/100
[2016-08-10 09:18] LABS: ABSOLUTE BASOPHIL COUNT 0.1 /CUMM (0.0-0.2); ABSOLUTE EOSINOPHIL COUNT 0.4 /CUMM (0.0-0.7); ABSOLUTE GRANULOCYTE CT 11.7 /CUMM (1.4-6.5); ABSOLUTE LYMPH COUNT 2.3 /CUMM (1.2-3.4); BASOPHIL % 0.5 % (0.0-2.0); EOSINOPHIL % 2.3 % (0-5); HEMATOCRIT 38.5 % (42-52); MEAN CORPUSCULAR HGB 31.4 PG (27.0-31.0); MEAN CORPUSCULAR HGB CONC 33.6 G/DL (33.0-37.0); MEAN CORPUSCULAR VOLUME 93.4 FL (80.0-94.0); MEAN PLATELET VOLUME 6.7 FL (7.4-10.4); PLATELET COUNT 318 /CUMM (130-400); RBC DISTRIBUTION WIDTH 12.7 % (11.5-14.5); RED BLOOD CELL CT 4.12 /CUMM (4.70-6.10); WHITE BLOOD CELL COUNT 15.4 /CUMM (4.8-10.8)
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
--- NOTE | 2016-08-10 15:33 | Patient Discharge Instructions ---
Discharge Instructions General Discharge Information You were seen/treated for: ACUTE PANCREATITIS Acute gastritis Alcohol dependance Watch for these problems: Abd. pain, nausea, vomiting, diarrhea, fever, chills Special Instructions: Please follow up with PCP in a week of discharge. Please follow up with Gastroenterology Dr. Aguero within a week of discharge. Follow-up appointment at [facility] with Jane Saez LCSW on 08/24/2016 at 1:00PM. Located at [address] [place] [address] in [place], please arrived 15 minutes early. Diet Recommended Diet: Regular Activity Additional ACTIVITY Info: As tolerated Acute Coronary Syndrome Inclusion Criteria At DC or during hospital stay patient has or had the following: ACS DIAGNOSIS No Discharge Core Measures Meds if any: Prescribed or Continued at Discharge Meds if any: NOT Prescribed or Continued at Discharge Congestive Heart Failure Inclusion Criteria At DC or during hospital stay patient has or had the following: CHF DIAGNOSIS No Discharge Core Measures Meds if any: Prescribed or Continued at Discharge Meds if any: NOT Prescribed or Continued at Discharge Cerebrovascular accident Inclusion Criteria At DC or during hospital stay patient has or had the following: CVA/TIA Diagnosis No Discharge Core Measures Meds if any: Prescribed or Continued at Discharge Meds if any: NOT Prescribed or Continued at Discharge Venous thromboembolism Inclusion Criteria VTE Diagnosis No VTE Type NONE VTE Confirmed by (Test) NONE Discharge Core Measures - Per Current guidelines, there needs to be overlap - treatment for the first 5 days of Warfarin therapy. - If discharged on Warfarin prior to 5 days of - overlap therapy, the patient will need to be - assessed for post discharge needs including - *Post discharge parental anticoagulation - *Warfarin and/or parental anticoagulation education - *Follow up date to check INR post discharge At least 5 days overlap therapy as Inpatient No Meds if any: Prescribed or Continued at Discharge Note: Overlap Therapy is Warfarin and Anticoagulant Meds if any: NOT Prescribed or Continued at Discharge
[2016-08-10] MEDS ORDERED: GABAPENTIN300 M2 PO (15:38)
[2016-08-10] MEDS ORDERED: ZOLOFT50 M1 PO (15:38)
[2016-08-10 16:48] VITALS: BP 128/86
[2016-08-10 22:00] VITALS: BP 126/80
--- NOTE | 2016-08-10 23:01 | NUR ---
PT ARRIVED TO FLOOR AT 2145. PT A/OX3, VSS, INDEPENDENT, PAIN 05/25, ON ROOM AIR. WILL CONTINUE TO MONITOR.
[2016-08-11] VITALS (11 sets, daily range): BP systolic 112–146; BP diastolic 60–88
--- NOTE | 2016-08-11 08:17 | PN- Housestaff ---
RADHA STANLEY,JHONY 08/11/16 0816: Subjective Follow-up For: 1- Acute pancreatitis 2- Alcohol withdrawal Subjective: Patient seen and examined at bedside. He tried some regular diet yesterday but threw up right away after a few bites. He tolerated cereal for breakfast however and it went well. Would like to continue liquid diet for now and then maybe try some salads for dinner. Otherwise he feels improving overall although abdominal pain persists, and he would like to receive additional pain medications. He prefers Percocet to be given in between his Dilaudids. Denies any f/c, chest pain, dyspnea, palpitations, dizziness/lightheadedness, abdominal pain, n/v/c/d. No events reported overnight. Review of Systems Constitutional: Reports: see HPI. Objective Last 24 Hrs of Vital Signs/I&O Vital Signs Date Time Temp Pulse Resp B/P B/P Pulse O2 O2 Flow FiO2 Mean Ox Delivery Rate 08/11 0600 98.7 76 18 128/76 98 Room Air 08/11 0200 98.7 72 18 124/76 98 Room Air 08/10 2200 97.8 74 18 126/80 98 Room Air 08/10 1648 98.0 74 18 128/86 97 Room Air 08/10 1642 97 Room Air Room Air Intake & Output 08/11 1600 08/11 0800 08/11 0000 Intake Total 450 600 Output Total Balance 450 600 Intake, Oral 450 600 Physical Exam General Appearance: Alert, Cooperative, No Acute Distress Other Physical Findings: Head: atraumatic, normal appearance Ears, Nose, Throat: normal pharynx, normal ENT inspection Neck: normal inspection, supple, full range of motion Respiratory: normal breath sounds, chest non-tender Cardiovascular: regular rate/rhythm Gastrointestinal: soft, slight tenderness on the hypogaster Extremities: normal inspection, normal capillary refill Cranial Nerves: normal speech, PERRL Skin: intact Skin Temp/Moisture Exam: Warm/Dry Sepsis Skin Exam (color): Normal for Ethnicity Back: normal range of motion Current Medications: Current Medications Sig/Brynn Start time Last Medication Dose Route Stop Time Status Admin Acetaminophen 650 MG Q4P PRN 08/09 1200 AC 08/11 PO 0538 Acetaminophen 1,000 MG Q6P PRN 08/04 0845 AC 08/04 N/A 1 UNIT IV 1619 Albuterol Sulfate 3 ML BID 08/08 2200 AC 08/10 INH 1639 Chlordiazepoxide HCl 25 MG BID 08/11 1000 AC 08/11 PO 0830 Chlordiazepoxide HCl 25 MG Q8 08/09 1400 DC 08/10 PO 08/11 0000 2136 Dextrose/Lactated 1,000 ML Q6H 08/02 0915 DC 08/10 Ringer's IV 0927 Docusate Sodium 100 MG DAILY 08/03 1000 AC 08/11 PO 0830 Gabapentin 300 MG Q8P PRN 08/10 1445 AC PO Heparin Sodium 5,000 UNIT Q8 08/01 0600 AC 08/11 (Porcine) SC 0449 Hydromorphone HCl 1 MG Q4P PRN 08/10 0830 AC 08/11 IV 0356 Lorazepam 0 Q1P PRN 07/31 2315 AC 08/08 IV 1350 Melatonin 5 MG AT BEDTIME PRN 08/01 0030 AC 08/09 PO 2342 Nystatin 5 ML 4 TIMES/DAY 08/06 1815 DC 08/10 PO 1734 Ondansetron HCl 4 MG .STK-MED ONE 08/10 1744 DC IM 08/10 1745 Ondansetron HCl 4 MG Q6P PRN 07/31 2315 AC 08/11 IV 0448 Pantoprazole Sodium 40 MG DAILY 08/04 1445 AC 08/11 IV 0827 Polyethylene Glycol 17 GM DAILY 08/03 1000 AC 08/11 PO 0824 Senna/Docusate Sodium 1 TAB BID PRN 08/03 0830 AC PO Sertraline HCl 25 MG DAILY 08/10 1445 AC 08/11 PO 0830 Last 24 Hrs of Lab/Mike Results Last 24 Hrs of Labs/Mics: Laboratory Tests 08/10/16 0906: Anion Gap 13, Estimated GFR > 60, BUN/Creatinine Ratio 5.0 L, Magnesium 2.1, CBC w Diff NO MAN DIFF REQ, RBC 4.12 L, MCV 93.4, MCH 31.4 H, RDW 12.7, MPV 6.7 L, Gran % 76.0 H, Lymphocytes % 14.8 L, Monocytes % 6.4, Eosinophils % 2.3, Basophils % 0.5, Absolute Granulocytes 11.7 H, Absolute Lymphocytes 2.3, Absolute Monocytes 1.0 H, Absolute Eosinophils 0.4, Absolute Basophils 0.1, PUBS MCHC 33.6 Assessment/Plan Assessment: This 31 year old man presented with abd. pain, n/vomiting and diarrhea found to have elevated pancreatic enzymes with CT evidence of pancreatitis. His serial CT Abdomen/Pelvis ruled out any obstruction or evidence pancreatic psudocyst/ necrosis. His pain is no longer controlled with the previous dose of intravenous dilaudid, which was increased today. He tolerates full lquid diet well does c/o some abdominal fullness. Acute pancreatitis/gastroenteritis Patient reports consumption of "old [place] Citizen food" 2 days prior to initial evaluation for which he developed multiple episodes of explosive watery nonbloody diarrhea with further multiple episodes of nonbloody nonbilious emesis. He also admits to get her alcohol consumption of 3-4 cans of beer multiple days a week with occasional use of hard liquor. CT abdomen/pelvis demonstrated findings suggestive of acute pancreatitis with homogenous pancreatic parenchyma and no rim-enhancing fluid collection with hepatic steatosis. Hepatitis panel negative. -Cont liquid diet for now and advance to regular as tolerated -Bentyl 20 mg by mouth 4 times a day -Zofran 4 mg IV every 6 hours as needed for nausea -Dilaudid 1 mg IV every 4 hours as needed for severe pain -Add Percocet 1 tab Q6P for moderate pain EtOH dependence Patient reports consumption of 3-4 cans of beer several days a week with addition of hard liquor occasionally. He denies admission to hospital or ICU for alcohol-related disease or withdrawal. -Cont CIWA protocol -Ativan per CIWA and librium 25mg Q8 Anxiety - Appreciate psychiatry Pain plan-Percocet/Dilaudid Diet-nothing by mouth, sips of water as tolerated DVT prophylaxis-subcutaneous heparin CODE STATUS-full code Problem List: 1. Alcohol withdrawal 2. Acute pancreatitis Pain Ratin Pain Location: abdomen Pain Goal: Pain 4 or less Pain Plan: Moderate pathway Tomorrow's Labs & Rationales: CBC (leukocytosis) BEP , Mg (monitor elevctrolytes) OTILIA STANLEY,JAMES 08/11/16 1400: Attending MD Review Statement Attending Statement Attending MD Statement: examined this patient, discuss w/resident/PA/TON CYLINDER INSPECTOR, agreed w/resident/PA/TON CYLINDER INSPECTOR, discussed with family, reviewed EMR data (avail), discussed with nursing, reviewed images, amended to note
[2016-08-11 11:26] LABS: ABSOLUTE BASOPHIL COUNT 0 /CUMM (0.0-0.2); ABSOLUTE EOSINOPHIL COUNT 0.3 /CUMM (0.0-0.7); ABSOLUTE GRANULOCYTE CT 10.2 /CUMM (1.4-6.5); ABSOLUTE MONOCYTE COUNT 0.9 /CUMM (0.10-0.60); BASOPHIL % 0.3 % (0.0-2.0); EOSINOPHIL % 2.5 % (0-5); GRANULOCYTE % 75.5 % (42.2-75.2); MEAN CORPUSCULAR HGB 31.3 PG (27.0-31.0); MEAN CORPUSCULAR HGB CONC 33.5 G/DL (33.0-37.0); MEAN CORPUSCULAR VOLUME 93.5 FL (80.0-94.0); PLATELET COUNT 339 /CUMM (130-400); RBC DISTRIBUTION WIDTH 12.8 % (11.5-14.5); RED BLOOD CELL CT 4.17 /CUMM (4.70-6.10); WHITE BLOOD CELL COUNT 13.5 /CUMM (4.8-10.8)
[2016-08-12] VITALS (10 sets, daily range): BP systolic 102–150; BP diastolic 60–96
--- NOTE | 2016-08-12 04:40 | PN- Housestaff ---
SUE TEJEDA MD 08/12/16 0439: Subjective Follow-up For: Pancreatitis Alcohol withdrawal Subjective: Patient seen and examined. He is seen lying flat in bed resting comfortably. He appears to be in no acute distress. He reports that he did well with his regular diet for breakfast and lunch yesterday, however received some 'spoiled chocolate milk' that he drank 'in one gulp' and subsequently have an episode of vomiting. Since this time he has had worsening abdominal pain with mild nausea, and did not sleep well last night secondary to this. Otherwise he denies any fever, chills, chest pain, shortness of breath. No overnight events reported, other than above. Review of Systems Constitutional: Reports: see HPI. Objective Last 24 Hrs of Vital Signs/I&O Vital Signs Date Time Temp Pulse Resp B/P B/P Pulse O2 O2 Flow FiO2 Mean Ox Delivery Rate 08/12 0600 98.2 6 18 102/60 96 Room Air 08/12 0200 79 18 110/62 98 Room Air 08/11 2200 98.2 79 18 122/60 99 Room Air 08/11 1800 97.9 80 20 146/88 08/11 1600 97.9 68 20 112/72 08/11 1449 97.9 68 20 112/72 96 Room Air 08/11 1400 98.2 76 20 128/77 08/11 1200 98.2 76 20 128/77 08/11 1109 95 Room Air Room Air 08/11 1032 98.2 76 20 128/77 98 Room Air 08/11 1000 98.7 76 18 128/76 Intake & Output 08/12 1600 08/12 0800 08/12 0000 Intake Total 450 450 Output Total Balance 450 450 Intake, Oral 450 450 Physical Exam General Appearance: Alert, Oriented X3, Cooperative, No Acute Distress Assessment/Plan Assessment: 31 year old man with past medical history of asthma seen for evaluation of intractible abdominal pain with associated nausea nonbloody nausea/vomiting. Symptoms started after he ate some refrigerated spanish food that was 2 days old. Patient has an extensive alcohol consumption history admitting to drinking 3-4 cans of beer most 4 days per week. Vital signs in the ED were significant only for tachy cardia. Physical examination was remarkable for diffuse abdominal tenderness with distention. Labs/Imaging demonstrated leukocytosis and mildly elevated liver function tests, lipase 1237, Triglycerides 410, CT Abdomen/Pelvis - suggestive of pancreatitis. Patient was started on intravenous fluids and narcotic pain medications and admitted to the general medicine floor for further evaluation. Hospital Day 12 Patient did well with regular food yesterday and endorses an adequate diet; however had a reported episode of vomiting due to consumption of ' chocolate milk'. Patient is to be discharged to home today as he tolerated his lunch this afternoon and otherwise felt well. He is to be given one tablet of librium to finish his taper, prescriptions for gabapentin/sertraline, a short prescription for percocet for pain relief (CT HR SYSTEMS ANALYST checked). He is to follow up with Dr. Chowdhury and Benji RODRÍGUEZ after discharge. Acute pancreatitis/gastroenteritis Patient reports consumption of "old [place] food" 2 days prior to initial evaluation for which he developed multiple episodes of explosive watery nonbloody diarrhea with further multiple episodes of nonbloody nonbilious emesis. He also admits to get her alcohol consumption of 3-4 cans of beer multiple days a week with occasional use of hard liquor. CT abdomen/pelvis demonstrated findings suggestive of acute pancreatitis with homogenous pancreatic parenchyma and no rim-enhancing fluid collection with hepatic steatosis. Hepatitis panel negative. -General Medicine -Pain Control -Regular Diet -Bentyl 20 mg PO Q6H -Zofran 4 mg IV Q6H PRN-nausea -Dilaudid 1 mg IV Q4H PRN-severe pain EtOH dependence Patient reports consumption of 3-4 cans of beer several days a week with addition of hard liquor occasionally. He denies admission to hospital or ICU for alcohol-related disease or withdrawal. Patient developed hallucinations during his hospital stay after refusing several scheduled doses of his intravenous ativan for which he was transferred to the intensive care unit and placed on an ativan drip. -CIWA protocol -Ativan per CIWA -Librium 25mg PO BID Anxiety Patient endorses a history of anxiety for which he consumes alcohol and marijuana. He denies any other known psychiatric history. -Zoloft 25mg PO x3 days, then increase to 50mg daily -Gabapentin 300mg PO Q6H PRN anxiety -Psychiatry consult Pain plan-Percocet/Dilaudid Diet-Regular Diet DVT prophylaxis-subcutaneous heparin CODE STATUS-full code Problem List: 1. Acute pancreatitis 2. Gastroenteritis 3. Alcohol withdrawal Pain Ratin Pain Location: Abdomen Pain Goal: Pain 7 or less Pain Plan: See assessment Tomorrow's Labs & Rationales: None JAMES BINGHAM MD 08/12/16 1617: Attending MD Review Statement Attending Statement Attending MD Statement: examined this patient, discuss w/resident/PA/EXTRUSION MANAGER, agreed w/resident/PA/EXTRUSION MANAGER, reviewed EMR data (avail), discussed with nursing, discussed with case mgmt, reviewed images, amended to note Attending Assessment/Plan: 31-year-old obese male with past medical history significant for alcohol abuse and anxiety/depression who has been admitted to the floor for alcohol detox. Patient was initially admitted to the ICU as he was requiring continuous 80 when drip with acute pancreatitis without evidence of necrosis and infection. On stabilization patient was transferred over to the floor. He he was gradually started on IV fluids and advanced as he continued to tolerate food. He was switched over to Librium and gradually tapered down. Patient is stable this afternoon, is tolerating food and is ready to be discharged. Patient was strictly advised to follow up with his primary care physician and get enrolled in AA.
--- NOTE | 2016-08-12 11:26 | PN- Student ---
Subjective Subjective: Patient was seen and examined this morning. He reports having "spoiled chocolate milk" for dinner where he immediately vomited in the bathroom sink upon digesting it. He also reports that his pain is still bothering him and in between his Dilaudid the PRN Percocet seems to be working well. Patient understands that after this morning he will no longer receive IV Diladud. He reports not having breakfast this morning as his stomach was in pain however he plans to have a light lunch. Patient denies any other fever, nausea, vomiting, headache, blurry vision, numbness, tingling, loose or bloody stools. Objective Objective: Vital Signs Date Time Temp Pulse Resp B/P B/P Pulse O2 O2 Flow FiO2 Mean Ox Delivery Rate 08/12 1107 97.7 80 16 109/70 96 Room Air 08/12 0600 98.2 6 18 102/60 96 Room Air 08/12 0200 79 18 110/62 98 Room Air 08/11 2200 98.2 79 18 122/60 99 Room Air 08/11 1800 97.9 80 20 146/88 08/11 1600 97.9 68 20 112/72 08/11 1449 97.9 68 20 112/72 96 Room Air 08/11 1400 98.2 76 20 128/77 08/11 1200 98.2 76 20 128/77 Intake & Output 08/12 1600 08/12 0800 08/12 0000 Intake Total 450 450 Output Total Balance 450 450 Intake, Oral 450 450 Physical Exam General- well-appearing, overweight male in NAD HEENT- NCAT, PERRL, EOMI Neck- supple, no lymphadenopathy Cardio- Normal S1 & S2 sounds with no M/G/R Resp- lung sounds CTA bilaterally Abdomen- visual bruising from heparin injections, distended abdomen with no guarding or rigidity Results Results: Laboratory Tests 08/11/16 1101: CBC w Diff NO MAN DIFF REQ, RBC 4.17 L, MCV 93.5, MCH 31.3 H, RDW 12.8, MPV 7.0 L, Gran % 75.5 H, Lymphocytes % 15.1 L, Monocytes % 6.6, Eosinophils % 2.5, Basophils % 0.3, Absolute Granulocytes 10.2 H, Absolute Lymphocytes 2.0, Absolute Monocytes 0.9 H, Absolute Eosinophils 0.3, Absolute Basophils 0, PUBS MCHC 33.5 08/11/16 0844: Sodium Cancelled, Potassium Cancelled, Chloride Cancelled, Carbon Dioxide Cancelled, Anion Gap Cancelled, BUN Cancelled, Creatinine Cancelled, BUN/ Creatinine Ratio Cancelled 08/10/16 0906: Anion Gap 13, Estimated GFR > 60, BUN/Creatinine Ratio 5.0 L, Magnesium 2.1, CBC w Diff NO MAN DIFF REQ, RBC 4.12 L, MCV 93.4, MCH 31.4 H, RDW 12.7, MPV 6.7 L, Gran % 76.0 H, Lymphocytes % 14.8 L, Monocytes % 6.4, Eosinophils % 2.3, Basophils % 0.5, Absolute Granulocytes 11.7 H, Absolute Lymphocytes 2.3, Absolute Monocytes 1.0 H, Absolute Eosinophils 0.4, Absolute Basophils 0.1, PUBS MCHC 33.6 Assessment/Plan Assessment: Patient is a 31 year old man presented with abdominal pain, nausea/vomiting/ diarrhea found to have elevated pancreatic enzymes with CT evidence of pancreatitis. Patient was recently transfered from the ICU where he required an ativan drip due hallucinations suggestive of early DT. Plan: Acute Pancreatitis -regular diet as tolerated -Bentyl 20 mg by mouth 4 times a day -Zofran for Nausea -D/C IV Dilaudid -Add Percocet 1 tab Q6P for moderate pain EtOH withdrawal -CIWA protocol has been 0 for over 12 hours, discontinue CIWA DVT ppx- subcutaneous heparin Code status- Full code
[2016-08-12] MEDS ORDERED: CHLORDIAZEPOXID25 M3 PO ×2 (16:09→16:25)
[2016-08-12] MEDS ORDERED: ZOFRAN ODT4 M1 SL (16:09)
[2016-08-12] MEDS ORDERED: PERCOCET 5-3251 EACH PO (16:09)
--- NOTE | 2016-08-24 07:58 | Discharge Summary ---
Visit Information Visit Dates Admission Date: 07/31/16 Discharge Date: 08/12/16 Hospital Course Course Attending Physician: ALBERT KOROMA MD Primary Care Physician: JAGRUTI PEREZ DO Consulting Request: 1 Consulting Specialty: Critical Care Consulting Request: 2 Consulting Specialty: Gastroenterology Consulting Request: 3 Consulting Specialty: Psychiatry Hospital Course: 31 year old man with past medical history of asthma seen for evaluation of intractible abdominal pain and associated profuse watery diarrhea with nausea and vomiting. Patient reports eating "old [place] food" two days prior resulting in multiple episodes of nonbloody vomiting and diarrhea. He denied any recent consumption of undercooked/raw foods, sick contacts, or recent travel. He admits to drinking 3-4 cans of bear most days of the week. ED Course -Vitals: Temp 96.4-98.0, HR 66-74, RR 16, BP 158-188/73-88, O2 97-99% on Room air -Significant Labs: WBC 16.3, Hgb/Hct 17.0/49.9, Plt 151, T. Gavin 1.5, D. Gavin 0.6, AST/ALT 73/106, ALK 91, Triglycerids 410, Amylase/Lipase , Serum EtOH < 10.0, -Studies: CT Abd/pelvis - pancreatitis and hepatic steatosis -Interventions: NaCl 1L, Morphine 4mg IV, Toradol, Zofran Problem List -Acute Pancreatitis -Gastroenteritis -EtOH withdrawal -Anxiety / Depression Patient with no signficant gastrointestinal history but with extensive alcohol use history seen for evaluation of abdominal pain with associated diarrhea/ vomiting/nausea after consumption of old [place] food. Patient denied having ever been admitted for alcohol related disease. Clinically patients physical exam, elevated lipase and CT imaging was highly suggestive of pancreatitis in addition to a food related gastroenteritis. Patient was admitted to the general medicine floor and kept NPO, given intravenous fluid resuscitation with lactated ringers, and given intravenous narcotics and antiemtics for pain/nausea relief. Patient was started on CIWA protocol for his history of EtOH consumption. Patients abdominal examination demonstrated a mildly tender distended abdominal with good bowel sounds and reported passage of flatus. Patient was unable to tolerate a clear liquid diet, and soon reported worening tremor, however with consistently low CIWA scores. He was begun and a scheduled intravenous Ativan regimen in additional to ativan as needed per CIWA. He declined to receive several doses of intravenous ativan stating that he 'didn't need it'. He soon after because confused and began to hallucinate for which he was transferred to the intensive care unit. Patient was started on an ativan drip and placed with an NG tube for gastric decompression, GI consult was placed and repeat CT imaging did not demonstrate any worsening of his pancreatitis or abdominal compartment syndrome. He was begun on an intravenous PPI. Patient was continued on the ativan drip and followed by the ICU team and GI physician practice consultant without any new events, he was transitioned to an oral Librium taper and transfered back to the general medicine floor after his symptoms of withdrawal have resolved and his abdominal examination improved. Patient completed tolerated his Librium taper well on the general medicine floor and was able to tolerated a regular diet prior to discharge. Patient was seen and evaluated by psychiatry prior to discharge and was set up with an outpatient appointment for further evaluation of his alcohol use. He was started on gabapentin for anxiety and zoloft for depression. Patient was discharged to home with prescriptions for Zoloft, Gabapentin, Percocet, Zofran, and 1 capsule of Librium to complete his taper and instructed to follow up with his PCP, Dr. Aguero (gastroenterology), and his [facility] appointment after discharge. Allergies: Coded Allergies: No Known Allergies (01/06/16) Significant Procedures: SERVICE DATE: 07/31/16 EXAM TYPE: CAT - CT ABD & PELVIS W IV CONTRAST IMPRESSION: 1. Findings most suggestive of pancreatitis. Homogenous pancreatic parenchyma. No rim-enhancing fluid collection. 2. Hepatic steatosis. SERVICE DATE: 08/01/16 EXAM TYPE: US - US-COMPLETE ABDOMEN IMPRESSION: 1. Pancreas not adequately assessed on this exam. Known pancreatitis is not appreciated. 2. No peripancreatic collections are seen. Pancreatic duct is borderline dilated. 3. No abnormal dilatation of the biliary tree. 4. No choledocholithiasis or cholecystitis. 5. Hepatic steatosis. SERVICE DATE: 08/02/16- EXAM TYPE: CAT - CT ABD & PELVIS W IV CONTRAST IMPRESSION: Progressive acute pancreatitis with increasing pancreatic effusions in multiple compartments as described above. Small amount of pancreatic ascites. No sign of pancreatic necrosis. No pseudocyst formation or abscess is detected SERVICE DATE: 08/02/16 EXAM TYPE: RAD - [id number] VIEWS IMPRESSION: Nonobstructive bowel gas pattern. SERVICE DATE: 08/03/16 EXAM TYPE: RAD - XRY-PORTABLE ABDOMEN IMPRESSION: Nonobstructive bowel gas pattern. This portable study is somewhat limited due to underpenetration. SERVICE DATE: 08/03/16 EXAM TYPE: RAD - XRY-PORTABLE ABDOMEN IMPRESSION: Limited examination reveals no evidence to suggest small bowel obstruction. SERVICE DATE: 08/04/16- EXAM TYPE: CAT - CT ABD & PELVIS W IV CONTRAST IMPRESSION: Changes related to acute appendicitis are redemonstrated. No evidence of pancreatic necrosis. There is mild thickening of the ascending colon and descending colon that is new when compared to the previous examination from 08/02/2016 which is presumably related to reactive inflammation related to fluid within the paracolic gutters. Otherwise stable examination. SERVICE DATE: 08/04/16- EXAM TYPE: RAD - XRY-PORTABLE CHEST XRAY IMPRESSION: New retrocardiac consolidation which could represent atelectasis, aspiration, or pneumonia. SERVICE DATE: 08/04/16 EXAM TYPE: RAD - XRY-PORTABLE CHEST XRAY IMPRESSION: NG tube with tip likely within the stomach. The tube could be advanced 5 to 10 cm for optimal positioning. SERVICE DATE: 08/05/16 EXAM TYPE: RAD - XRY-PORTABLE CHEST XRAY IMPRESSION: Limited visualization of the enteric tube secondary to the exposure of the study. The tip cannot be confirmed on this study. The tube extends at least knee on the diaphragm. No acute pulmonary findings. Low lung volumes. SERVICE DATE: 08/05/16 EXAM TYPE: RAD - XRY-PORTABLE CHEST XRAY IMPRESSION: Nasogastric tube in place. No significant acute parenchymal disease identified. SERVICE DATE: 08/08/16 EXAM TYPE: US - US-LIMITED ABDOMEN IMPRESSION: 1. Suboptimally visualized pancreas, however, there is no sonographic evidence of a fluid collection suggestive of a pseudocyst identified within and around the pancreatic bed. A followup contrast-enhanced CT scan of the abdomen and pelvis may be considered for a further full detailed evaluation, if clinically appropriate. 2. Diffuse abnormal echotexture within the liver, consistent with diffuse liver disease likely secondary to hepatic steatosis or hepatocellular disease or a combination thereof. 3. No sonographic evidence of cholelithiasis and/or biliary obstruction. Disposition Summary Disposition Principal Diagnosis: Acute Pancreatitis EtOH Dependence / Withdrawal Gastroenteritis Additional Diagnosis: Anxiety / Depression Discharge Disposition: home or self care Discharge Instructions General Discharge Information Code Status: Full Code Patient's Diet: Regular Diet Patient's Activity: Return to full activity as tolerated Follow-Up Instructions/Appts: Please follow up with PCP in a week of discharge. Please follow up with Gastroenterology Dr. Aguero within a week of discharge. Follow-up appointment at [facility] with Félix Saez LCSW on 08/24/2016 at 1:00PM. Located at [address] [place] [address] in [place], please arrived 15 minutes early. Medications at Discharge Discharge Medications: Start taking the following new medications: Chlordiazepoxide HCl (Chlordiazepoxide HCl) 25 MG CAPSULE 1 Capsule ORAL DAILY Qty = 1 No Refills Instructions: TAKE THIS PILL ON 08/13/16 Comments: Last Taken:08/12/16 Time:9:17AM Gabapentin (Gabapentin) 300 MG CAPSULE 300 Milligram ORAL EVERY 8 HOURS NEEDED as needed for ANXIETY Qty = 45 No Refills Comments: NOT GIVEN IN HOSPITAL Sertraline HCl (Zoloft) 50 MG TABLET 1 Tablet ORAL DAILY Qty = 30 No Refills Comments: Last Taken:08/12/16 Time:9:17AM Oxycodone HCl/Acetaminophen (Percocet 5-325 MG Tablet) 5 MG-325 MG TABLET 1 Tablet ORAL TWICE DAILY Qty = 10 No Refills Comments: Last Taken:08/12/16 Time:5:45 Ondansetron (Zofran Odt) 4 MG TAB.RAPDIS 1 Tablet SUBLINGUAL THREE TIMES DAILY as needed for NAUSEA Qty = 10 No Refills Comments: Last Taken:08/11/16 Time:4:48AM Copies To: RANDY PEREZ DO, LCSW,FÉLIX; HAN STANLEY,IVONNE Portillo
== END 2016-08-12 18:10 | DRG 282 ==
LOC: ENRESERVDT → ENRESERVTM → ERH 18:52 → 2NA 22:49 → ERHI 22:49 → CRI 22:49 → 2NA 23:47 → CRI 08-03 21:04 → 1NO 08-09 22:03 → 2NB 08-10 22:02
PROVIDERS: Internal Medicine; Internal Medicine Interventional Cardiology; Internal Medicine Nephrology; Ophthalmology; Physician Assistant; Student in an Organized Health Care Education/Training Program; ADMIT Internal Medicine
PROC: 0D9670Z Drainage of Stomach with Drainage Device, Via Natural or Artificial Opening (ICD-10-PCS; principal; 2016-08-03)
DX: K85.90 Acute pancreatitis without necrosis or infection, unspecified (principal); D69.6 Thrombocytopenia, unspecified; K56.7 Ileus, unspecified; R16.0 Hepatomegaly, not elsewhere classified; K52.9 Noninfective gastroenteritis and colitis, unspecified; F10.239 Alcohol dependence with withdrawal, unspecified; D72.829 Elevated white blood cell count, unspecified; R74.0 Nonspecific elevation of levels of transaminase and lactic acid dehydrogenase [LDH]; J98.11 Atelectasis; I10 Essential (primary) hypertension; E78.5 Hyperlipidemia, unspecified; F41.9 Anxiety disorder, unspecified
CPT/HCPCS: 1NSP; 2NAP; 2NSBP; CCU; 36415; 74000; 74020; 74177; 80307; 81001; 82436; 87040; 87045; 87086; 96361; 96374; 96375; 99291; G0480; J0131; J1170; J1644; J1885; J2060; J2405; J3490; J7120

== ENCOUNTER 2017-09-20 09:46 | Inpatient (IN) | payer OTHER ==
[~2017-09-20] VITALS: Ht 170.2 cm; Wt 92.2 kg
[~2017-09-20 09:46] MED LIST changes: +CHLORDIAZEPOXID25 M3 PO; +GABAPENTIN300 M2 PO; +ZOFRAN ODT4 M1 SL; +ZOLOFT50 M1 PO
--- NOTE | 2017-09-20 10:22 | ED GI/GU/ABDOMINAL COMPLAINT ---
History of Present Illness General Chief Complaint: Abdominal Pain/Flank Pain Stated Complaint: ABD PAIN, +NVD, ON NEW ANTIBOITIC Source: patient Exam Limitations: no limitations Vital Signs & Intake/Output Vital Signs & Intake/Output Vital Signs Date Time Temp Pulse Resp B/P B/P Pulse O2 O2 Flow FiO2 Mean Ox Delivery Rate 09/20 1325 97.4 46 18 181/85 98 09/20 1106 97.5 48 18 169/94 99 Room Air 09/20 0949 97.7 47 15 168/90 98 Room Air Room Air Allergies Coded Allergies: No Known Allergies (09/20/17) Reconcile Medications Albuterol Sulfate (Proair Hfa) 90 MCG HFA.AER.AD 2 PUF INH Q4-6 PRN PRN SHORTNESS OF BREATH (Reported) Azithromycin 250 MG TABLET 1 DP PO DAILY ANTIBIOTIC, INFECTION (Reported) 2 the first day followed by 1 for days 2-5 Melatonin 5 MG TABLET 1 TAB PO QPM SLEEP (Reported) Montelukast Sodium 10 MG TABLET 1 TAB PO DAILY ALLERGIES (Reported) Prednisone 20 MG TABLET 1 TAB PO TID STEROID (Reported) Triage Note: PT TO ED FOR C/C OF MID ABD PAIN THAT RADIATES INTO MID LOWER BACK, +NAUSEA AND VOMITING, DENIES FEVERS, +CHILLS, +DIARRHEA (DENIES BLOOD). PT REPORTS HE IS BEING TREATED FOR BRONCHITIS AND IS ON ZITHROMAX SINCE YESTERDAY (RECENT CHANGE IN ANTIBIOTICS), AND ABD CRAMPING, N/V/D STARTED LAST NIGHT. Triage Nurses Notes Reviewed? yes Onset: Abrupt Duration: hour(s): Timing: recent history Quality/Severity: cramping Location: generalized abdomen Radiation: no radiation Activities at Onset: none No Modifying Factors: none HPI: 32-year-old male comes into the emergency room with sudden onset epigastric pain nausea vomiting that began around 2 AM this morning. History of pancreatitis. History of heavy EtOH use but he denies any alcohol in a long time. Nothing seems to make the symptoms better or worse. Comes in for further evaluation. (Yogi Cox) Past History Travel History Traveled to [place] past 21 day No Medical History Any Pertinent Medical History? see below for history Neurological: NONE EENT: NONE Cardiovascular: NONE Respiratory: asthma Gastrointestinal: NONE Hepatic: NONE Renal: NONE Musculoskeletal: sciatica Psychiatric: NONE Endocrine: NONE Blood Disorders: NONE Cancer(s): NONE History of MRSA: No History of VRE: No History of CDIFF: No Tetanus Vaccine: 11/06/14 Surgical History Surgical History: NO ABDOMINAL SURGERIES Psychosocial History Who do you live with Mother What is your primary language Urdu Tobacco Use: Quit >30 days ago ETOH Use: denies use Illicit Drug Use: denies illicit drug use Family History Hx Contributory? No (Yogi Cox) Review of Systems Review of Systems Constitutional: Reports: no symptoms. EENTM: Reports: no symptoms. Respiratory: Reports: no symptoms. Cardiovascular: Reports: no symptoms. GI: Reports: see HPI. Genitourinary: Reports: no symptoms. Musculoskeletal: Reports: no symptoms. Skin: Reports: no symptoms. Neurological/Psychological: Reports: no symptoms. Hematologic/Endocrine: Reports: no symptoms. Immunologic/Allergic: Reports: no symptoms. All Other Systems: Reviewed and Negative (Yogi Cox) Physical Exam Physical Exam General Appearance: well developed/nourished, alert, awake, mild distress Head: atraumatic Eyes: Bilateral: normal appearance. Ears, Nose, Throat, Mouth: hearing grossly normal, moist mucous membrane Neck: normal inspection Respiratory: normal breath sounds, no respiratory distress Cardiovascular: regular rate/rhythm Gastrointestinal: soft, tenderness (epigastric) Back: normal inspection Extremities: normal range of motion Neurologic/Psych: awake, alert, oriented x 3 Skin: intact Core Measures ACS in differential dx? No Sepsis Present: No Sepsis Focused Exam Completed? No (Yogi Cox) Progress Differential Diagnosis: appendicitis, bowel obstruction, diverticulitis, pancreatitis, PUD/GERD Plan of Care: Orders Procedure Date/time Status Misc Message 09/20 1334 Active ED Holding Orders 09/20 1334 Active Admit to inpatient 09/20 1334 Active Vital Signs 09/20 1334 Active Code Status 09/20 1334 Active Patient Data 09/20 1325 Active LACTIC ACID 09/20 1321 Active Add-on Test (ER Only) 09/20 1320 Active Add-on Test (ER Only) 09/20 1314 Active TRIGLYCERIDES 09/20 1027 Active ETHANOL 09/20 1027 Active LIPASE 09/20 1021 Active LACTIC ACID 09/20 1021 Active COMPREHENSIVE METABOLIC PANEL 09/20 1021 Active CBC WITHOUT DIFFERENTIAL 09/20 1021 Complete AMYLASE 09/20 1021 Active Current Medications Sig/Brynn Start time Last Medication Dose Stop Time Status Admin Lactated Ringer's 1,000 ML ONCE ONE 09/20 1300 AC 09/20 (Lactated Ringers) 09/20 1659 1315 Laboratory Tests 09/20/17 1027: Anion Gap 14, Estimated GFR > 60, BUN/Creatinine Ratio 15.0, Glucose 109 H, Lactic Acid 2.8 H, Calcium 8.8, Total Bilirubin 0.5, AST 122 H, ALT 122 H, Alkaline Phosphatase 84, Total Protein 7.0, Albumin 4.0, Globulin 3.0, Albumin/ Globulin Ratio 1.3, Triglycerides Pending, Amylase 65, Lipase 783 H, CBC w Diff MAN DIFF ORDERED, RBC 5.04, MCV 92.2, MCH 32.0 H, MCHC 34.7, RDW 12.7, MPV 7.4, Gran % 77.7 H, Lymphocytes % 16.0 L, Monocytes % 6.0, Eosinophils % 0, Basophils % 0.3, Absolute Granulocytes 13.5 H, Absolute Lymphocytes 2.8, Absolute Monocytes 1.1 H, Absolute Eosinophils 0, Absolute Basophils 0, Platelet Estimate ADEQUATE, Normocytic RBCs VERIFIED, Normochromic RBCs VERIFIED , Serum Alcohol Pending Diagnostic Imaging: Viewed by Me: CT Scan. Discussed w/RAD: CT Scan. Radiology Impression: PATIENT: SOHEILA BISHOP JR PRESENT AGE: 32 PATIENT ACCOUNT NO: [id number] : 87 LOCATION: [facility] ORDERING PHYSICIAN: Yogi GARCIA SERVICE DATE: 09/20/17 EXAM TYPE : CAT - CT ABD & PELVIS W IV CONTRAST EXAMINATION: CT ABDOMEN AND PELVIS WITH CONTRAST CLINICAL INFORMATION: Abdominal pain, vomiting, history of pancreatitis COMPARISON: CT abdomen and pelvis 08/04/2016 TECHNIQUE: Multidetector volumetric imaging was performed of the abdomen and pelvis following IV administration of 94 mL of Optiray 320 intravenous contrast. Sagittal and coronal reformatted images were obtained on the technologist's workstation. DLP: 426 mGy-cm FINDINGS : LUNG BASES: Right lower lobe subsegmental atelectasis. No pleural or pericardial effusion. LIVER, GALLBLADDER, AND BILIARY TREE: The liver is enlarged measuring 21.6 cm in craniocaudal span. Relative low attenuation of the parenchyma suggests steatosis. No focal lesions. No biliary ductal dilation. The gallbladder is unremarkable with no evidence of radiopaque gallstones, gallbladder wall thickening, or obvious pericholecystic inflammatory changes. PANCREAS: There is recurrent peripancreatic inflammation centered around the pancreatic head and uncinate process. This is decreased in extent when compared to CT from 08/04/2016. There is mild parenchymal heterogeneity in the pancreatic head without evidence of necrosis. No peripancreatic fluid collections. SPLEEN: Unremarkable. ADRENAL GLANDS: Unremarkable. KIDNEYS AND URETERS: The kidneys are normal in size, shape, and attenuation. No hydronephrosis, hydroureter, or calculi seen. No perinephric stranding. BLADDER: Unremarkable. GASTROINTESTINAL TRACT: The stomach, small bowel, and colon are nondilated. There is reactive inflammation of the duodenum. The appendix is normal. ABDOMINAL WALL: Small fat- containing umbilical hernia and right inguinal hernia. LYMPH NODES: Normal. VASCULAR: The portal vein, SMV, and splenic vein demonstrate normal enhancement. The abdominal aorta is normal in caliber. Incidentally noted accessory right renal artery to the upper pole. PELVIC VISCERA: Unremarkable. No free fluid. OSSEOUS STRUCTURES: Unremarkable. IMPRESSION: Recurrent acute interstitial edematous pancreatitis with inflammation centered around the pancreatic head and uncinate process. Reactive inflammation of the duodenum. This is less extensive than on the prior CTs from July 2016. No associated complicating features are identified. Hepatomegaly and steatosis. DICTATED BY: Octavia Child MD DATE/TIME DICTATED:09/20/171238 CHECK VIEWER:TORIBIO DATE/TIME TRANSCRIBED:1238 CONFIDENTIAL, DO NOT COPY WITHOUT APPROPRIATE AUTHORIZATION. < Electronically signed in Other Vendor System> SIGNED BY: Octavia Child MD 09/20/17 1306 Initial ED EKG: none (Yogi Cox) Departure Departure Disposition: STILL A PATIENT Condition: Stable Clinical Impression Primary Impression: Acute pancreatitis Referrals: Unknown (PCP/Family) Departure Forms: Customer Survey General Discharge Information Admission Note Spoke With: Raymond Bingham MD Documentation of Exam: Documentation of any treatments & extenuating circumstances including Concerns Regarding Discharge (functional status, medication knowledge or non-compliance, living conditions, etc.) that warrant an admission rather than observation: IV fluids. Bowel rest. IV pain control. GI consultation. (Yogi Cox) PA/TRANSVERSE ABDOMINAL MUSCLE SURGEON Co-Sign Statement Statement: ED Attending supervision documentation- [X] I saw and evaluated the patient. I have also reviewed all the pertinent lab results and diagnostic results. I agree with the findings and the plan of care as documented in the PA's/TRANSVERSE ABDOMINAL MUSCLE SURGEON's documentation. Patient presents for evaluation of severe epigastric abdominal pain. Physical examination reveals epigastric tenderness with brief voluntary guarding but no rebound. [] I have reviewed the ED Record and agree with the PA's/TRANSVERSE ABDOMINAL MUSCLE SURGEON's documentation. [] Additions or exceptions (if any) to the PAs/TRANSVERSE ABDOMINAL MUSCLE SURGEON's note and plan are summarized below: [] (Alecia STANLEY,Romario Chappell) Critical Care Note Critical Care Note Critical Care Time: 30-74 min (40) (Yogi Cox)
[2017-09-20 10:35] LABS: ABSOLUTE BASOPHIL COUNT 0 /CUMM (0.0-0.2); ABSOLUTE EOSINOPHIL COUNT 0 /CUMM (0.0-0.7); ABSOLUTE GRANULOCYTE CT 13.5 /CUMM (1.4-6.5); ABSOLUTE LYMPH COUNT 2.8 /CUMM (1.2-3.4); ABSOLUTE MONOCYTE COUNT 1.1 /CUMM (0.10-0.60); BASOPHIL % 0.3 % (0.0-2.0); EOSINOPHIL % 0 % (0-5); GRANULOCYTE % 77.7 % (42.2-75.2); HEMATOCRIT 46.5 % (42-52); MEAN CORPUSCULAR HGB CONC 34.7 G/DL (33.0-37.0); MEAN CORPUSCULAR VOLUME 92.2 FL (80.0-94.0); MEAN PLATELET VOLUME 7.4 FL (7.4-10.4); PLATELET COUNT 187 /CUMM (130-400); RBC DISTRIBUTION WIDTH 12.7 % (11.5-14.5); RED BLOOD CELL CT 5.04 /CUMM (4.70-6.10); WHITE BLOOD CELL COUNT 17.4 /CUMM (4.8-10.8)
--- NOTE | 2017-09-20 13:06 | CT SCAN REPORT ---
EXAMINATION: CT ABDOMEN AND PELVIS WITH CONTRAST CLINICAL INFORMATION: Abdominal pain, vomiting, history of pancreatitis COMPARISON: CT abdomen and pelvis 08/04/2016 TECHNIQUE: Multidetector volumetric imaging was performed of the abdomen and pelvis following IV administration of 94 mL of Optiray 320 intravenous contrast. Sagittal and coronal reformatted images were obtained on the technologist's workstation. DLP: 426 mGy-cm FINDINGS: LUNG BASES: Right lower lobe subsegmental atelectasis. No pleural or pericardial effusion. LIVER, GALLBLADDER, AND BILIARY TREE: The liver is enlarged measuring 21.6 cm in craniocaudal span. Relative low attenuation of the parenchyma suggests steatosis. No focal lesions. No biliary ductal dilation. The gallbladder is unremarkable with no evidence of radiopaque gallstones, gallbladder wall thickening, or obvious pericholecystic inflammatory changes. PANCREAS: There is recurrent peripancreatic inflammation centered around the pancreatic head and uncinate process. This is decreased in extent when compared to CT from 08/04/2016. There is mild parenchymal heterogeneity in the pancreatic head without evidence of necrosis. No peripancreatic fluid collections. SPLEEN: Unremarkable. ADRENAL GLANDS: Unremarkable. KIDNEYS AND URETERS: The kidneys are normal in size, shape, and attenuation. No hydronephrosis, hydroureter, or calculi seen. No perinephric stranding. BLADDER: Unremarkable. GASTROINTESTINAL TRACT: The stomach, small bowel, and colon are nondilated. There is reactive inflammation of the duodenum. The appendix is normal. ABDOMINAL WALL: Small fat-containing umbilical hernia and right inguinal hernia. LYMPH NODES: Normal. VASCULAR: The portal vein, SMV, and splenic vein demonstrate normal enhancement. The abdominal aorta is normal in caliber. Incidentally noted accessory right renal artery to the upper pole. PELVIC VISCERA: Unremarkable. No free fluid. OSSEOUS STRUCTURES: Unremarkable. IMPRESSION: Recurrent acute interstitial edematous pancreatitis with inflammation centered around the pancreatic head and uncinate process. Reactive inflammation of the duodenum. This is less extensive than on the prior CTs from July 2016. No associated complicating features are identified. Hepatomegaly and steatosis.
[2017-09-20] MEDS ORDERED: PREDNISONE20 M1 PO (13:22)
[2017-09-20] MEDS ORDERED: MONTELUKAST SOD10 M1 PO (13:22)
[2017-09-20] MEDS ORDERED: MELATONIN5 M7 PO (13:23)
[2017-09-20] MEDS ORDERED: AZITHROMYCIN250 M1 PO (13:23)
[2017-09-20] MEDS ORDERED: PROAIR HFA8.5 GM INH (13:24)
--- NOTE | 2017-09-20 13:52 | History & Physical ---
Stephen Panchal MD 09/20/17 9222: General Information and HPI MD Statement: I have seen and personally examined SOHEILA BISHOP JR and documented this H&P. The patient is a 32 year old M who presented with a patient stated chief complaint of abdominal pain. Source of Information: patient, old records Exam Limitations: no limitations History of Present Illness: 32 year old male with past medical history significant for asthma, previous smoking, social EtOH, and previously admitted for pancreatitis in 07/2016 secondary to EtOH, and EtOH withdrawal requiring Ativan drip presents with acute severe abdominal pain after a recent upper respiratory tract infection. The patient was in his usual state of health until five days ago when he developed symptoms of an upper respiratory tract infection (rhinorrhea, sore throat, sneezing) that became a minimally productive cough. His mother reportedly had the same symptoms and he went for evaluation at a walk in clinic. He was given a short course of steroids, albuterol, and singulair. He still didn't feel well and went to the clinic again and was given azithromycin of which he took one dose that day. He then developed nausea, vomiting, and diarrhea (4-5 episodes in 24 hours). He mostly had dry heaves but did have several episodes of non bloody bilious vomiting not attributable to sick contacts or dietary intake. He then developed severe epigastric abdominal pain about 12 hours prior to arrival. He describes it as sharp 9-10/10 in severity, radiating to the back without identifiable aggravating or relieving factors. He states it feels exactly how his prior episode of pancreatitis felt. He states he quit smoking after his previous episode of pancreatitis but uses vaporized marijuana illicitly for anxiety/PTSD. He still drinks alcohol socially but has substantially cut down, approximately 3 beers every couple weeks, and no hard alcohol. His URI symptoms are improved and his cough is almost better. He has had poor intake for the past two days, has no appetite, and has been vomiting any liquids but prior to that was staying well hydrated. In the emergency department, he was given morphine and dilaudid without any significant improvement in his abdominal pain and had CT imaging done consistent with pancreatitis and was admitted for treatment. Allergies/Medications Allergies: Coded Allergies: No Known Allergies (09/20/17) Home Med list Albuterol Sulfate (Proair Hfa) 90 MCG HFA.AER.AD 2 PUF INH Q4-6 PRN PRN SHORTNESS OF BREATH (Reported) Azithromycin 250 MG TABLET 1 DP PO DAILY ANTIBIOTIC, INFECTION (Reported) 2 the first day followed by 1 for days 2-5 Melatonin 5 MG TABLET 1 TAB PO QPM SLEEP (Reported) Montelukast Sodium 10 MG TABLET 1 TAB PO DAILY ALLERGIES (Reported) Prednisone 20 MG TABLET 1 TAB PO TID STEROID (Reported) Compliance With Home Meds: GOOD Past History Travel History Traveled to [place] past 21 day No Medical History Neurological: NONE EENT: NONE Cardiovascular: NONE Respiratory: asthma Gastrointestinal: pancreatitis Hepatic: NONE Renal: NONE Musculoskeletal: sciatica Psychiatric: NONE Endocrine: NONE Blood Disorders: NONE Cancer(s): NONE History of MRSA: No History of VRE: No History of CDIFF: No Tetanus Vaccine: 11/06/14 Surgical History Surgical History: NO ABDOMINAL SURGERIES, septoplasty Past Family/Social History Family History Relations & Conditions if any MOTHER FH: alcoholism FH: COPD (chronic obstructive pulmonary disease) FATHER FH: alcoholism maternal grandmother FH: CAD (coronary artery disease) Psychosocial History Smoking Status: Former Smoker ETOH Use: occasional use Illicit Drug Use: marijuana Functional Ability ADLs Independent: dressing, eating, toileting, bathing. Ambulation: independent IADLs Independent: shopping, housework, finances, food prep, telephone, transportation , medication admin. Employment History Employment Employed Review of Systems Review of Systems Constitutional: Reports: chills, diaphoresis. Denies: fever. EENTM: Reports: nasal congestion. Cardiovascular: Denies: chest pain, palpitations, peripheral edema. Respiratory: Reports: cough, short of breath, sputum production. GI: Reports: abdominal pain, diarrhea, nausea, vomiting. Denies: melena. Genitourinary: Reports: no symptoms. Denies: dysuria, frequency. Musculoskeletal: Reports: no symptoms. Skin: Reports: no symptoms. Neurological/Psychological: Reports: no symptoms. Hematologic/Endocrine: Reports: no symptoms. Immunologic/Allergic: Reports: no symptoms. All Other Systems: Reviewed and Negative Exam & Diagnostic Data Last 24 Hrs of Vital Signs/I&O Vital Signs Date Time Temp Pulse Resp B/P B/P Pulse O2 O2 Flow FiO2 Mean Ox Delivery Rate 09/20 1447 97.8 48 20 166/78 98 09/20 1325 97.4 46 18 181/85 98 09/20 1106 97.5 48 18 169/94 99 Room Air 09/20 0949 97.7 47 15 168/90 98 Room Air Room Air Intake & Output 09/20 1600 09/20 0800 06 0000 Intake Total 0 Output Total Balance 0 Intake, Oral 0 Patient 86.183 kg Weight Weight Reported by Patient Measurement Method Physical Exam General Appearance Alert, Oriented X3, Cooperative, No Acute Distress Cardiovascular Regular Rate, Normal S1, Normal S2, No Murmurs Lungs bibasilar expiratory wheeze Abdomen Normal Bowel Sounds, Soft, No Masses, epigastric tenderness on light palpation, no rebound or guarding Extremities No Clubbing, No Cyanosis, No Edema, Normal Pulses Last 24 Hrs of Labs/Mike: Laboratory Tests 09/20/17 1445: Lactic Acid 2.6 H 09/20/17 1357: CBC w Diff Cancelled, WBC Cancelled, RBC Cancelled, Hgb Cancelled, Hct Cancelled , MCV Cancelled, MCH Cancelled, MCHC Cancelled, RDW Cancelled, Plt Count Cancelled, MPV Cancelled 09/20/17 1027: Anion Gap 14, Estimated GFR > 60, BUN/Creatinine Ratio 15.0, Glucose 109 H, Lactic Acid 2.8 H, Calcium 8.8, Magnesium Pending, Total Bilirubin 0.5, AST 122 H, ALT 122 H, Alkaline Phosphatase 84, Troponin I Pending, Total Protein 7.0, Albumin 4.0, Globulin 3.0, Albumin/Globulin Ratio 1.3, Triglycerides 362 H, Amylase 65, Lipase 783 H, CBC w Diff MAN DIFF ORDERED, RBC 5.04, MCV 92.2, MCH 32.0 H, MCHC 34.7, RDW 12.7, MPV 7.4, Gran % 77.7 H, Lymphocytes % 16.0 L, Monocytes % 6.0, Eosinophils % 0, Basophils % 0.3, Absolute Granulocytes 13.5 H , Absolute Lymphocytes 2.8, Absolute Monocytes 1.1 H, Absolute Eosinophils 0, Absolute Basophils 0, Platelet Estimate ADEQUATE, Normocytic RBCs VERIFIED, Normochromic RBCs VERIFIED, Serum Alcohol < 10.0 Microbiology 09/20 144 BLOOD: Blood Culture - RECD 09/20 141 URINE ROUT: Urine Culture - ORD 09/20 141 BLOOD: Blood Culture - ORD Diagnostic Data EKG Results sinus bradycardia without ischemic ekg changes CXR Results pending Other Results CT abdomen pelvis The liver is enlarged measuring 21.6 cm in craniocaudal span. Relative low attenuation of the parenchyma suggests steatosis. No focal lesions. No biliary ductal dilation. The gallbladder is unremarkable with no evidence of radiopaque gallstones, gallbladder wall thickening, or obvious pericholecystic inflammatory changes. PANCREAS: There is recurrent peripancreatic inflammation centered around the pancreatic head and uncinate process. This is decreased in extent when compared to CT from 08/04/2016. There is mild parenchymal heterogeneity in the pancreatic head without evidence of necrosis. No peripancreatic fluid collections. Assessment/Plan Assessment: 32 year old male with past medical history significant for asthma, previous smoking, social EtOH, previous pancreatitis in 07/2016 secondary to EtOH, and EtOH withdrawal requiring Ativan drip at that time, presents with acute severe abdominal pain after a recent upper respiratory tract infection. His severe abdominal pain, elevated lipase, and CT imaging consistent with acute pancreatitis likely secondary to alcohol, acute viral illness, and component of hypertriglyceridemia. Bradycardia: Patient had a heart rate in the 40s, inconsistent with young male in severe pain 12 lead EKG revealed sinus bradycardia Not taking any negative chronotropic medications Monitor on telemetry for 24 hours Consider cardiology consultation Pancreatitis: Severe epigastric abdominal pain, elevated lipase to 783, and CT with pancreatic inflammation, no evidence of cholelithiasis or biliary disease, hepatosteatosis on CT CT Abdomen pelvis without contrast The liver is enlarged measuring 21.6 cm. Relative low attenuation of the parenchyma suggests steatosis. No focal lesions. No biliary ductal dilation. The gallbladder is unremarkable with no evidence of radiopaque gallstones, gallbladder wall thickening, or obvious pericholecystic inflammatory changes. There is recurrent peripancreatic inflammation centered around the pancreatic head and uncinate process. This is decreased in extent when compared to CT from 08/04/2016. There is mild parenchymal heterogeneity in the pancreatic head without evidence of necrosis. No peripancreatic fluid collections. Bowel rest, NPO LR bolus and then 150cc/hr Morphine and Dilaudid IV for analgesia Likely secondary to recent alcohol intake vs viral infection Transaminitis both ALT/AST 122, not typical ratio for EtOH Triglycerides are elevated to 362, were also previously elevated Consider starting statin or fibrate therapy Consider gastroenterology consultation EtOH: Reportedly minimal intake Monitor CIWA protocol given previous history of EtOH dependence and withdrawal MVT/thiamine/folate Recent URI/asthma: Afebrile Check chest x-ray Stop azithromycin Leukocytosis to 17.4 without bandemia, on steroids Elevated lactic acidemia likely related to N/V/D hypovolemia and hypoperfusion rather than sepsis, trend lactic acid, expected to normalize after fluid bolus Repeat CBC tomorrow Check blood cultures Continue albuterol Normal SpO2 on room air, no respiratory distress NPO DVT ppx-ALPS and lovenox subcutaneous Full code As Ranked By This Provider Problem List: 1. Acute pancreatitis 2. Bradycardia Core Measures/Misc (12/30) Acute Coronary Syndrome ACS Diagnosis: No Congestive Heart Failure Congestive Heart Failure Diagnosis No Cerebrovascular Accident CVA/TIA Diagnosis: No VTE (View Protocol) VTE Risk Factors Age>40 No Mechanical VTE Prophylaxis d/t N/A MechProphylax Ordered No VTE Pharm Prophylaxis d/t NA PharmProphylax ordered Sepsis (View protocol) Sepsis Present: No If YES complete Sepsis Event Note If YES complete Sepsis Event Note Lali Ruth 09/20/17 1450: Core Measures/Misc (12/30) Sepsis (View protocol) If YES complete Sepsis Event Note If YES complete Sepsis Event Note Resident Review Statement Other Findings: Patient is 32-year-old male with past medical history of acute alcoholic pancreatitis came with a chief complaint of nausea vomiting and abdominal pain. Patient was admitted to [facility] last year, for alcohol detox and acute paracolic pancreatitis, he was transferred to ICU at that time for Ativan drip, he was also evaluated for acute pancreatitis by gastroneurology service. Patient states that he has been abstaining from alcohol since then, his last drink was on 09/14/17, when he had 3 beers. Patient states that on 09/16/17, he had asthma exacerbation and followed up with an urgent care center, where he was prescribed prednisone taper and azithromycin. He only took 1 dose of azithromycin on 09/19/2017. And states that last night around 2 AM, he started having epigastric abdominal pain, sharp, radiating to back, 12/23. Patient states that nothing helps him with the pain and eating makes it worse. Patient hasn't eaten anything this morning, and generally his appetite has been low since past week. Patient also reported of diarrhea since yesterday. His review of systems was positive for dizziness. He reports that his difficulty breathing has improved considerably, his mother had similar complains of difficulty breathing. CAT scan significant for interstitial edematous pancreatic head. His labs showed leukocytosis 17.4 possibly due to being on steroids, AST is elevated to 122, lactic acid 2.8, triglycerides 362, lipase 783. Problem list Acute pancreatitis Bradycardia Monitor for alcohol detox Transaminitis Asthma exacerbation-now improved Assessment and plan We'll admit the patient on general medicine floor for acute pancreatitis for conservative management, will start IV fluids, nothing by mouth status. Patient is a 32-year-old man and has never had bradycardia (46-49), will obtain EKG and evaluate for any heart blocks. Will start the patient on CIWA scale and when necessary Ativan. No need of [id number] Ativan for now as he denies alcohol abuse. Will obtain chest x-ray to evaluate possible etiology of diffuse extra wheezes. And continue 10 prednisone today as his last dose of taper from urgent care. Patient has transaminitis, will obtain INR to assess liver function. Pain management, severe pain 1 mg Dilaudid every 4 when necessary, moderate pain 2 mg morphine every 6 when necessary, mild pain 400 ibuprofen every 6 when necessary. DVT prophylaxis Lovenox Patient is full code Omero STANLEY,Cheikh 09/20/17 1757: Core Measures/Misc (12/30) Sepsis (View protocol) If YES complete Sepsis Event Note If YES complete Sepsis Event Note Attending MD Review Statement Attending Statement Attending MD Statement: examined this patient, discuss w/resident/PA/SANE NURSE, agreed w/resident/PA/SANE NURSE, discussed with family, reviewed EMR data (avail), discussed with nursing, amended to note Attending Assessment/Plan: 32-year-old male with history of asthma history of alcohol abuse with alcohol- related pancreatitis in the past presents to the emergency room with complaints of acute onset abdominal pain. Found to have elevated lipase levels and CT imaging suggestive of pancreatitis. Inciting agent appears to be alcohol use. Reports only occasional alcohol use monthly but admits to using alcohol previous prior to symptoms starting. CT imaging shows no evidence of cholelithiasis or choledocholithiasis. In the emergency room he was noted to be bradycardic with heart rate in the 40s. EKG shows sinus bradycardia. Patient denies chest pain or shortness of breath. Denies palpitations. He does admit to dizziness. Records reviewed and his heart rate has been within normal limits in the past. 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 On examination he is alert and oriented 3. He is not in any respiratory distress. Complains of diffuse abdominal pain. Heart sounds are regular but bradycardic. Lungs are clear to auscultation bilaterally. Abdomen is soft with diffuse tenderness no rebound or guarding. No peripheral edema. Plan: Admit to the inpatient medical service. Keep n.p.o. and hydrate with intravenous fluids. Continue current analgesic therapy. Recommend telemetry monitoring for his bradycardia. Check TSH level. Obtain echocardiogram and cardiology consultation. Check serology for Lyme's disease. Monitor closely for alcohol withdrawal.
--- NOTE | 2017-09-20 14:59 | Admission Certification ---
Admission Certification Certification Statement - As attending physician, I certify that at the time of - admission, based on clinical presentation, severity of - symptoms, need for further diagnostic testing and - therapeutic interventions, and risk of adverse outcomes - without in-hospital treatment, in my clinical assessment, - this patient requires an acute hospital stay for a minimum - of two nights or longer. I have also considered psychsocial - factors such as support system, advanced age, financial - issues, cognitive issues, and failed out-patient treatments, - past re-admission history, safety of patient, and lack of - compliance as applicable. Specific rationale supporting this admission is: Hospitalizations required for further management of patient's acute pancreatitis and further workup of the sinus bradycardia
--- NOTE | 2017-09-20 15:54 | RADIOLOGY REPORT ---
EXAMINATION: XR CHEST CLINICAL INFORMATION: Evaluate for bilateral wheezes. COMPARISON: Several prior chest x-rays, most recent of which is dated 08/05/2016. TECHNIQUE: 2 views of the chest were obtained. FINDINGS: The cardiomediastinal silhouette is within normal limits in size. Lungs bilaterally are symmetrically hypoexpanded with minimal subsegmental atelectasis in the right lung base. Slight thickening of the central airways is seen. No focal consolidation, effusion or pneumothorax is seen. Bony structures are unremarkable. IMPRESSION: 1. Mild subsegmental atelectasis in right lung base. 2. Slightly thickened central airways, consistent with reactive airways disease or bronchitis. No focal pneumonia.
[2017-09-20 16:30] LABS: PT 10.3 SEC (9.4-12.5)
[2017-09-20 16:55] VITALS: BP 160/86
[2017-09-20 17:16] VITALS: BP 160/86
[2017-09-20 21:13] VITALS: BP 180/104
[2017-09-20 23:00] VITALS: BP 174/64
[2017-09-21 06:45] VITALS: BP 168/100
--- NOTE | 2017-09-21 08:15 | PN- Att Addend ---
Attending Addendum Attending Brief Note Patient seen and examined. Overnight blood pressure has been elevated requiring as needed doses of hydralazine. He has been in sinus bradycardia with heart rate mostly in the 40s and going as low as 39. Reports that abdominal pain has improved with analgesic therapy overnight. Denies any further dizziness at present. Denies chest pain. Denies palpitations. Denies nausea vomiting. Vital Signs Date Time Temp Pulse Resp B/P B/P Pulse O2 O2 Flow FiO2 Mean Ox Delivery Rate 09/21 0545 97.9 49 20 168/100 98 Room Air 09/20 2322 47 174/94 09/20 2300 44 174/64 09/20 2158 41 190/102 09/20 2113 98.0 42 18 180/104 98 Room Air 09/20 2002 Room Air Room Air 09/20 1716 98.0 42 18 160/86 98 Room Air 09/20 1655 98.0 42 18 160/86 / 1447 97.8 48 20 166/78 98 /08 1325 97.4 46 18 181/85 98 /08 1106 97.5 48 18 169/94 99 Room Air 09/20 0949 97.7 47 15 168/90 98 Room Air Room Air General appearance: Well-developed and not in any acute distress. HEENT: Anicteric, no pallor, pupils equal and reactive. Neck: Supple with no jugular venous distention. Heart: S1-S2 bradycardic with no audible murmur. Lungs: Adequate and symmetric air entry bilaterally with no added sounds. Abdomen: Nondistended with normal bowel sounds. Soft, mild diffuse tenderness with no palpable masses. Extremities: No pedal edema. No cyanosis. Skin: Intact Laboratory Tests 09/21/17 0645: Anion Gap 12, Estimated GFR > 60, BUN/Creatinine Ratio 14.3, CBC w Diff Pending, WBC Pending, RBC Pending, Hgb Pending, Hct Pending, MCV Pending, MCH Pending, MCHC Pending, RDW Pending, Plt Count Pending, MPV Pending 09/20/17 2300: Lactic Acid 2.0 09/20/172014: Lactic Acid 2.4 H 09/20/17 1745: Lactic Acid 2.5 H 09/20/17 1650: Urinalysis PACKD H, Urine Color YEL, Urine Clarity CLEAR, Urine pH 8.5 H, Ur Specific [place] 1.010, Urine Protein TRACE H, Urine Ketones NEG, Urine Nitrite NEG, Urine Bilirubin NEG, Urine Urobilinogen 0.2, Ur Leukocyte Esterase NEG, Ur Microscopic SEDIMENT EXAMINED, Ur Epithelial Cells RARE, Urine Mucus RARE, Urine Hemoglobin NEG, Urine Glucose NEG 09/20/17 1605: PT 10.3, INR 0.95 09/20/17 1445: Lactic Acid 2.6 H 09/20/17 1357: CBC w Diff Cancelled, WBC Cancelled, RBC Cancelled, Hgb Cancelled, Hct Cancelled , MCV Cancelled, MCH Cancelled, MCHC Cancelled, RDW Cancelled, Plt Count Cancelled, MPV Cancelled 09/20/17 1027: Anion Gap 14, Estimated GFR > 60, BUN/Creatinine Ratio 15.0, Glucose 109 H, Lactic Acid 2.8 H, Calcium 8.8, Magnesium 1.9, Total Bilirubin 0.5, AST 122 H, ALT 122 H, Alkaline Phosphatase 84, Troponin I < 0.01, Total Protein 7.0, Albumin 4.0, Globulin 3.0, Albumin/Globulin Ratio 1.3, Triglycerides 362 H, Amylase 65, Lipase 783 H, TSH 2.620, CBC w Diff MAN DIFF ORDERED, RBC 5.04, MCV 92.2, MCH 32.0 H, MCHC 34.7, RDW 12.7, MPV 7.4, Gran % 77.7 H, Lymphocytes % 16.0 L, Monocytes % 6.0, Eosinophils % 0, Basophils % 0.3, Absolute Granulocytes 13.5 H, Absolute Lymphocytes 2.8, Absolute Monocytes 1.1 H, Absolute Eosinophils 0, Absolute Basophils 0, Platelet Estimate ADEQUATE, Normocytic RBCs VERIFIED, Normochromic RBCs VERIFIED, Lyme Disease Antibody Pending, Serum Alcohol < 10.0 Microbiology 09/20 165 URINE ROUT: Urine Culture - RECD 09/20 160 BLOOD: Blood Culture - RECD 09/20 144 BLOOD: Blood Culture - RECD Problems: 1. Recurrent pancreatitis 2. Bradycardia 3. Transaminitis 4. Asthma exacerbation Plan: -Continue IV hydration. -Pain management with Dilaudid 2 mg orally every 4 hours as needed pain. -Begin patient on clear liquid diet. -Repeat LFTs in a.m. to ensure his transaminases are trending down. -Continue telemetry monitoring due to his ongoing bradycardia. Follow-up echocardiogram. -Awaiting cardiology consultation. -Follow-up Lyme serology. -Begin patient on lisinopril 20 mg orally daily for blood pressure control. -Continue bronchodilator therapy. Complete prednisone taper. -Begin patient on tricor for his elevated triglycerides.
[2017-09-21 08:27] LABS: ABSOLUTE BASOPHIL COUNT 0.1 /CUMM (0.0-0.2); ABSOLUTE EOSINOPHIL COUNT 0 /CUMM (0.0-0.7); ABSOLUTE GRANULOCYTE CT 14.7 /CUMM (1.4-6.5); ABSOLUTE LYMPH COUNT 2.6 /CUMM (1.2-3.4); ABSOLUTE MONOCYTE COUNT 0.8 /CUMM (0.10-0.60); BASOPHIL % 0.3 % (0.0-2.0); EOSINOPHIL % 0.2 % (0-5); GRANULOCYTE % 80.8 % (42.2-75.2); HEMATOCRIT 47.2 % (42-52); MEAN CORPUSCULAR HGB CONC 34.6 G/DL (33.0-37.0); MEAN CORPUSCULAR VOLUME 92.4 FL (80.0-94.0); PLATELET COUNT 162 /CUMM (130-400); RBC DISTRIBUTION WIDTH 12.5 % (11.5-14.5); RED BLOOD CELL CT 5.11 /CUMM (4.70-6.10); WHITE BLOOD CELL COUNT 18.2 /CUMM (4.8-10.8)
--- NOTE | 2017-09-21 08:40 | PN- Housestaff ---
Subjective Follow-up For: Acute pancreatitis Bradycardia Monitor for alcohol detox Transaminitis Asthma exacerbation-now improved Tele-Events Since Last Visit: Sinus bradycardia, heart rate in the 40s Subjective: Patient was seen and examined at bedside he continues to complain of abdominal pain 7.5 in severity, his blood pressure was running high and required multiple doses of hydralazine, denies any dizziness, chest pain, palpitation, nausea or vomiting Review of Systems Constitutional: Reports: see HPI. Objective Last 24 Hrs of Vital Signs/I&O Vital Signs Date Time Temp Pulse Resp B/P B/P Pulse O2 O2 Flow FiO2 Mean Ox Delivery Rate 09/21 1004 46 140/80 09/21 0800 42 09/21 0645 97.9 49 20 168/100 98 Room Air 09/20 2322 47 174/94 09/20 2300 44 174/64 09/20 2158 41 190/102 09/20 2113 98.0 42 18 180/104 98 Room Air 09/20 2002 Room Air Room Air 09/20 1716 98.0 42 18 160/86 98 Room Air 09/20 1655 98.0 42 18 160/86 09/20 1447 97.8 48 20 166/78 98 /08 1325 97.4 46 18 181/85 98 Intake & Output 09/21 1600 09/21 0800 09/21 0000 Intake Total 1050 450 Output Total Balance 1050 450 Intake, IV 1050 450 Patient 202 lb Weight Weight Bed scale Measurement Method Physical Exam General Appearance: Alert, Oriented X3, Cooperative HEENT: Atraumatic, PERRLA, EOMI, Mucous Membr. moist/pink Neck: Supple, No JVD Cardiovascular: Normal S1, Normal S2, No Murmurs Lungs: Normal Air Movement Abdomen: Normal Bowel Sounds, Soft Extremities: No Cyanosis, No Edema, Normal Pulses Vascular: Normal Pulses Assessment/Plan Assessment: 32 year old male with past medical history significant for asthma, previous smoking, social EtOH, previous pancreatitis in 07/2016 secondary to EtOH, and EtOH withdrawal requiring Ativan drip at that time, presents with acute severe abdominal pain after a recent upper respiratory tract infection. His severe abdominal pain, elevated lipase, and CT imaging consistent with acute pancreatitis likely secondary to alcohol, acute viral illness, and component of hypertriglyceridemia. Bradycardia: Patient had a heart rate in the 40s, inconsistent with young male in severe pain 12 lead EKG revealed sinus bradycardia Not taking any negative chronotropic medications Monitor on telemetry for 24 hours Follow-up on cardiology recommendation Follow-up on Lyme teeters Pain management with Dilaudid decreased to 2 1 mg q. 6 for bradycardia Hypertension: Start lisinopril 20 daily Pancreatitis: Severe epigastric abdominal pain, elevated lipase to 783, and CT with pancreatic inflammation, no evidence of cholelithiasis or biliary disease, hepatosteatosis on CT CT Abdomen pelvis without contrast The liver is enlarged measuring 21.6 cm. Relative low attenuation of the parenchyma suggests steatosis. No focal lesions. No biliary ductal dilation. The gallbladder is unremarkable with no evidence of radiopaque gallstones, gallbladder wall thickening, or obvious pericholecystic inflammatory changes. There is recurrent peripancreatic inflammation centered around the pancreatic head and uncinate process. This is decreased in extent when compared to CT from 08/04/2016. There is mild parenchymal heterogeneity in the pancreatic head without evidence of necrosis. No peripancreatic fluid collections. Start clear liquid Hyponatremia, start IV hydration with normal saline DC LR Morphine and Dilaudid IV for analgesia Likely secondary to recent alcohol intake vs viral infection Transaminitis both ALT/AST 122, not typical ratio for EtOH Triglycerides are elevated to 362, were also previously elevated Consider starting statin or fibrate therapy Consider gastroenterology consultation EtOH: Reportedly minimal intake Monitor CIWA protocol given previous history of EtOH dependence and withdrawal MVT/thiamine/folate Recent URI/asthma: Afebrile Check chest x-ray Stop azithromycin Leukocytosis to 17.4 without bandemia, on steroids Elevated lactic acidemia likely related to N/V/D hypovolemia and hypoperfusion rather than sepsis, trend lactic acid, expected to normalize after fluid bolus Repeat CBC tomorrow Check blood cultures Continue albuterol Normal SpO2 on room air, no respiratory distress Clear liquid diet DVT ppx-ALPS and lovenox subcutaneous Full code Problem List: 1. Bradycardia 2. Alcohol withdrawal 3. Acute pancreatitis Pain Ratin Pain Location: Abdomen Pain Goal: Pain 4 or less Pain Plan: Pathway Tomorrow's Labs & Rationales: CBC BEP LFT
--- NOTE | 2017-09-21 13:37 | Cons- Cardiology ---
General Information and HPI Consulting Request Date of Consult: 09/21/17 Requested By: Cheikh Jamil MD Reason for Consult: Sinus bradycardia. Source of Information: patient, old records Exam Limitations: no limitations History of Present Illness: Mr. Cisco Coleman is a 32-year-old male with a history of former light tobacco use, childhood asthma, "social" EtOH, last admitted to (07/31-2016) with EtOH withdrawal requiring Ativan drip with associated pancreatitis, and recent bronchitis treated with steroids, inhalers, and the initiation of Zithromax who presented to the ED 09/20/2017 after the sudden onset of lower abdominal pain the night before with associated nausea, vomiting, diarrhea, chills without fever that was treated with IV morphine sulfate and hydromorphone who we are asked to evaluate and help manage in regard to sinus bradycardia. Mr. Coleman reports being in his usual state of health until five days prior to admission when he developed symptoms of an upper respiratory tract infection ( rhinorrhea, sneezing, sore throat, minimally productive cough, etc.) for which he sought medical attention at a walk-in clinic and was prescribed a short course of steroids, albuterol, and singulair. Continuing to feel poorly he returned to the clinic again on , 2017 and was given azithromycin. He subsequently developed the above-described GI symptoms which he described as feeling similar to when he had the pancreatitis. He reports significantly cutting down on his EtOH use since his previous episode of pancreatitis and discontinued smoking cigars. He does admit to occasional marijuana use. He denies any known history of coronary, valvular, dysrhythmic/conduction disease, or cardiomyopathy. Allergies/Medications Allergies: Coded Allergies: No Known Allergies (09/20/17) Home Med List: Albuterol Sulfate (Proair Hfa) 90 MCG HFA.AER.AD 2 PUF INH Q4-6 PRN PRN SHORTNESS OF BREATH (Reported) Azithromycin 250 MG TABLET 1 DP PO DAILY ANTIBIOTIC, INFECTION (Reported) 2 the first day followed by 1 for days 2-5 Melatonin 5 MG TABLET 1 TAB PO QPM SLEEP (Reported) Montelukast Sodium 10 MG TABLET 1 TAB PO DAILY ALLERGIES (Reported) Prednisone 20 MG TABLET 1 TAB PO TID STEROID (Reported) Past History Travel History Traveled to [place] past 21 day No Medical History Blood Transfusion Hx: No Neurological: NONE EENT: NONE Cardiovascular: NONE Respiratory: asthma Gastrointestinal: pancreatitis Hepatic: NONE Renal: NONE Musculoskeletal: sciatica Psychiatric: NONE Endocrine: NONE Blood Disorders: NONE Cancer(s): NONE Surgical History Surgical History: NO ABDOMINAL SURGERIES septoplasty Family History Relations & Conditions If Any: MOTHER FH: alcoholism FH: COPD (chronic obstructive pulmonary disease) FATHER FH: alcoholism maternal grandmother FH: CAD (coronary artery disease) Psychosocial History Where Do You Live? Home Services at Home: None Smoking Status: Current Some Day Smoker ETOH Use: occasional use Illicit Drug Use: marijuana Functional Ability ADLs Independent: dressing, eating, toileting, bathing. Ambulation: independent IADLs Independent: shopping, housework, finances, food prep, telephone, transportation , medication admin. Employment History Employment: Employed Exam & Diagnostic Data Vital Signs and I&O Vital Signs Date Time Temp Pulse Resp B/P B/P Pulse O2 O2 Flow FiO2 Mean Ox Delivery Rate 09/21 1200 58 09/21 1004 46 140/80 09/21 1000 64 09/21 0800 42 09/21 0645 97.9 49 20 168/100 98 Room Air 09/20 2322 47 174/94 09/20 2300 44 174/64 09/20 2158 41 190/102 09/20 2113 98.0 42 18 180/104 98 Room Air 09/20 2002 Room Air Room Air 09/20 1716 98.0 42 18 160/86 98 Room Air 09/20 1655 98.0 42 18 160/86 09/20 1447 97.8 48 20 166/78 98 Intake & Output 09/21 1600 09/21 0809/21 0000 09/20 1600 09/20 0800 09/20 0000 Intake Total 1050 450 0 Output Total Balance 1050 450 0 Intake, IV 1050 450 Intake, Oral 0 Patient 202 lb 190 lb Weight Weight Bed scale Reported by Patient Measurement Method Physical Exam: Well-developed, well-nourished male in no acute distress. Vital signs: See above. HEENT: Normocephalic, atraumatic, EOMI, slightly dry mucous membranes. Neck: No JVD, no bruits. Lungs: Clear to auscultation bilaterally except for a mild expiratory wheeze. Abdomen: Soft, positive bowel sounds, pain to palpation. Extremities: No edema. Peripheral pulses: Symmetrical/intact. Labs/Mike Results: Laboratory Tests 09/21 09/20 09/20 09/20 0645 2299 2014 174 Chemistry Sodium (137 - 145 mmol/L) 133 L Potassium (3.5 - 5.1 mmol/L) 4.2 Chloride (98 - 107 mmol/L) 98 Carbon Dioxide (22 - 30 mmol/L) 24 Anion Gap (5 - 16) 12 BUN (9 - 20 mg/dL) 10 Creatinine (0.7 - 1.2 mg/dL) 0.7 Estimated GFR (>60 ml/min) > 60 BUN/Creatinine Ratio (7 - 25 %) 14.3 Lactic Acid (0.7 - 2.1 mmol/L) 2.0 2.4 H 2.5 H Hematology CBC w Diff NO MAN DIFF REQ WBC (4.8 - 10.8 /CUMM) 18.2 H RBC (4.70 - 6.10 /CUMM) 5.11 Hgb (14.0 - 18.0 G/DL) 16.3 Hct (42 - 52 %) 47.2 MCV (80.0 - 94.0 FL) 92.4 MCH (27.0 - 31.0 PG) 32.0 H MCHC (33.0 - 37.0 G/DL) 34.6 RDW (11.5 - 14.5 %) 12.5 Plt Count (130 - 400 /CUMM) 162 MPV (7.4 - 10.4 FL) 8.0 Gran % (42.2 - 75.2 %) 80.8 H Lymphocytes % (20.5 - 51.1 %) 14.3 L Monocytes % (1.7 - 9.3 %) 4.4 Eosinophils % (0 - 5 %) 0.2 Basophils % (0.0 - 2.0 %) 0.3 Absolute Granulocytes (1.4 - 6.5 /CUMM) 14.7 H Absolute Lymphocytes (1.2 - 3.4 /CUMM) 2.6 Absolute Monocytes (0.10 - 0.60 /CUMM) 0.8 H Absolute Eosinophils (0.0 - 0.7 /CUMM) 0 Absolute Basophils (0.0 - 0.2 /CUMM) 0.1 09/20 09/20 09/20 1650 1605 1445 Chemistry Lactic Acid (0.7 - 2.1 mmol/L) 2.6 H Coagulation PT (9.4 - 12.5 SEC) 10.3 INR (0.90 - 1.17) 0.95 Urines Urinalysis PACKD H Urine Color (YEL,AMB,STR) YEL Urine Clarity (CLEAR) CLEAR Urine pH (5.0 - 8.0) 8.5 H Ur Specific [place] (1.001 - 1.035) 1.010 Urine Protein (NEG,<30 MG/DL) TRACE H Urine Ketones (NEG) NEG Urine Nitrite (NEG) NEG Urine Bilirubin (NEG) NEG Urine Urobilinogen (0.1 - 1.0 EU/dl) 0.2 Ur Leukocyte Esterase (NEG) NEG Ur Microscopic SEDIMENT EXAMINED Ur Epithelial Cells (NONE,FEW) RARE Urine Mucus (FEW,NONE) RARE Urine Hemoglobin (NEG) NEG Urine Glucose (N MG/DL) NEG 09/20 09/20 1357 1027 Chemistry Sodium (137 - 145 mmol/L) 139 Potassium (3.5 - 5.1 mmol/L) 3.6 Chloride (98 - 107 mmol/L) 98 Carbon Dioxide (22 - 30 mmol/L) 28 Anion Gap (5 - 16) 14 BUN (9 - 20 mg/dL) 12 Creatinine (0.7 - 1.2 mg/dL) 0.8 Estimated GFR (>60 ml/min) > 60 BUN/Creatinine Ratio (7 - 25 %) 15.0 Glucose (65 - 99 mg/dL) 109 H Lactic Acid (0.7 - 2.1 mmol/L) 2.8 H Calcium (8.4 - 10.2 mg/dL) 8.8 Magnesium (1.6 - 2.3 mg/dL) 1.9 Total Bilirubin (0.2 - 1.3 mg/dL) 0.5 AST (17 - 59 U/L) 122 H ALT (21 - 72 U/L) 122 H Alkaline Phosphatase (< 127 U/L) 84 Troponin I (<0.11 ng/ml) < 0.01 Total Protein (6.3 - 8.2 g/dL) 7.0 Albumin (3.5 - 5.0 g/dL) 4.0 Globulin (1.9 - 4.2 gm/dL) 3.0 Albumin/Globulin Ratio (1.1 - 2.2 %) 1.3 Triglycerides (<150 mg/dL) 362 H Amylase (30 - 110 U/L) 65 Lipase (23 - 300 U/L) 783 H TSH (0.270 - 4.200 uIU/mL) 2.620 Hematology CBC w Diff Cancelled MAN DIFF ORDERED WBC (4.8 - 10.8 /CUMM) Cancelled 17.4 H RBC (4.70 - 6.10 /CUMM) Cancelled 5.04 Hgb (14.0 - 18.0 G/DL) Cancelled 16.1 Hct (42 - 52 %) Cancelled 46.5 MCV (80.0 - 94.0 FL) Cancelled 92.2 MCH (27.0 - 31.0 PG) Cancelled 32.0 H MCHC (33.0 - 37.0 G/DL) Cancelled 34.7 RDW (11.5 - 14.5 %) Cancelled 12.7 Plt Count (130 - 400 /CUMM) Cancelled 187 MPV (7.4 - 10.4 FL) Cancelled 7.4 Gran % (42.2 - 75.2 %) 77.7 H Lymphocytes % (20.5 - 51.1 %) 16.0 L Monocytes % (1.7 - 9.3 %) 6.0 Eosinophils % (0 - 5 %) 0 Basophils % (0.0 - 2.0 %) 0.3 Absolute Granulocytes (1.4 - 6.5 /CUMM) 13.5 H Absolute Lymphocytes (1.2 - 3.4 /CUMM) 2.8 Absolute Monocytes (0.10 - 0.60 /CUMM) 1.1 H Absolute Eosinophils (0.0 - 0.7 /CUMM) 0 Absolute Basophils (0.0 - 0.2 /CUMM) 0 Platelet Estimate (ADEQUATE) ADEQUATE Normocytic RBCs VERIFIED Normochromic RBCs VERIFIED Serology Lyme Disease Antibody Pending Toxicology Serum Alcohol (<10 MG/DL) < 10.0 Diagnostic Data EKG Results 09/20/2017: Sinus bradycardia at 42 bpm with an rSR' conduction pattern in leads V1, V2. CXR Results 09/20/2017: 1. Mild subsegmental atelectasis in right lung base. 2. Slightly thickened central airways, consistent with reactive airways disease or bronchitis. No focal pneumonia. Other Results CT abdomen/pelvis 09/20/2017: 1. Recurrent acute interstitial edematous pancreatitis with inflammation centered around the pancreatic head and uncinate process. Reactive inflammation of the duodenum. This is less extensive than on the prior CTs from July 2016. No associated complicating features are identified. 2. Hepatomegaly and steatosis. Assessment/Plan Assessment/Plan 32-y-o-w-m w/ hx fmr light tob use, childhood asthma, "social" EtOH, last adm to (07/31-08/12/2016) w/ EtOH withdrawal requiring Ativan drip w/ assoc pancreatitis, & recent bronchitis Rx'd w/a short course of steroids, albuterol, & singulair who presented to the ED 09/20/2017 after the sudden onset of lower abd pain the night before w/ assoc N/V/D, & chills w/o fever that was Rx'd w/ IV morphine sulfate and hydromorphone who we are asked to evaluate and help manage in regard to SB. Suspect that the sinus bradycardia is on the basis of abdominal pain management w/morphine sulfate & hydromorphone +/-increased vagal tone from his repeated vomiting. Agree w/ discontinuing these agents. Do, however, need to consider other potential etiologies for sinus bradycardia including cardiomyopathy, collagen vascular disease, viral myocarditis, Lyme disease, familial sinus node dysfunction, sick sinus syndrome, obstructive sleep apnea, hypothyroidism, etc. Would consider using hydrocodone or tramadol for pain management, as these are less likely to cause bradyarrhythmias, however, both have a reported less than 1 % potential in postmarketing analysis and/or case reports, to cause pancreatitis , so would clear their use with gastroenterology before starting therapy. Management was discussed with the housestaff last evening and prophylactic transcutaneous pacemaker pads were placed, but have not been needed as Mr. Coleman has not had any symptoms from the bradycardia. Further recommendations will follow, Thank you. Consult Acknowledgment - Thank you for your consult request.
[2017-09-21 15:00] VITALS: BP 160/100
[2017-09-21 20:57] VITALS: BP 152/104
[2017-09-21 22:13] VITALS: BP 136/68
[2017-09-21 22:45] VITALS: BP 154/90
[2017-09-22 00:30] VITALS: BP 160/100
[2017-09-22 06:55] VITALS: BP 148/98
[2017-09-22 07:57] LABS: ABSOLUTE BASOPHIL COUNT 0 /CUMM (0.0-0.2); ABSOLUTE EOSINOPHIL COUNT 0 /CUMM (0.0-0.7); ABSOLUTE GRANULOCYTE CT 16.7 /CUMM (1.4-6.5); ABSOLUTE LYMPH COUNT 0.6 /CUMM (1.2-3.4); ABSOLUTE MONOCYTE COUNT 0.9 /CUMM (0.10-0.60); BASOPHIL % 0.1 % (0.0-2.0); EOSINOPHIL % 0 % (0-5); GRANULOCYTE % 91.7 % (42.2-75.2); MEAN CORPUSCULAR HGB 31.2 PG (27.0-31.0); MEAN CORPUSCULAR HGB CONC 33.8 G/DL (33.0-37.0); MEAN CORPUSCULAR VOLUME 92.3 FL (80.0-94.0); MEAN PLATELET VOLUME 7.8 FL (7.4-10.4); PLATELET COUNT 175 /CUMM (130-400); RED BLOOD CELL CT 5.88 /CUMM (4.70-6.10); WHITE BLOOD CELL COUNT 18.2 /CUMM (4.8-10.8)
--- NOTE | 2017-09-22 09:02 | PN- Att Addend ---
Attending Addendum Attending Brief Note Apparently yesterday CIWA score was started to increase. Patient has required significant amounts of benzodiazepine therapy overnight. On questioning today he admits to drinking significantly more alcohol that he initially ltd on. He is now requesting assistance and abstaining from alcohol use. Continues complain of diffuse abdominal pain. Denies nausea vomiting. Was initially placed on telemetry monitoring due to concerns for bradycardia. However overnight he has been in sinus tachycardia. Likely related to his alcohol withdrawal. Vital Signs Date Time Temp Pulse Resp B/P B/P Pulse O2 O2 Flow FiO2 Mean Ox Delivery Rate 09/22 0846 126 150/76 09/22 0655 98.0 122 22 148/98 95 Room Air 09/22 0030 97.9 109 22 160/100 97 Room Air 09/21 2300 97 Room Air 09/21 2245 98.2 90 22 154/90 09/21 2213 98.3 88 26 136/68 96 09/21 2057 97.7 97 20 152/104 97 Room Air 09/21 2003 62 09/21 1800 49 09/21 1503 60 09/21 1500 98.2 57 20 160/100 96 09/21 1200 58 / 1004 46 140/80 09/21 1000 64 General appearance: Well-developed mildly tremulous. HEENT: Anicteric, no pallor, pupils equal and reactive. Neck: Supple with no jugular venous distention. Heart: S1-S2 regular with no audible murmur. Lungs: Adequate and symmetric air entry bilaterally with no added sounds. Abdomen: Mildly distended, soft, diffuse tenderness with no rebound or guarding. Normal bowel sounds. Extremities: No pedal edema. No cyanosis. Skin: Intact Problems: 1. Alcohol withdrawal syndrome 2. Recurrent alcoholic pancreatitis 3. Bradycardia; now resolved 4. Leukocytosis Plan: -His leukocytosis and elevated hemoglobin levels continue to raise concern for hemoconcentration. Continue with IV hydration. Increase fluid rate to 200 cc an hour. -Discontinue ibuprofen to avoid developing gastritis particularly with his alcohol use history. -Continue pain management with Dilaudid. There is less concern for bradycardia now given his significantly elevated heart rate. -Increase Ativan to 2 mg orally every 4 hours [id number]. Continue as needed Ativan procedure was scale. -repack room worker evaluation.
[2017-09-22 09:06] LABS: HEMATOCRIT 54.2 % (42-52)
--- NOTE | 2017-09-22 09:32 | PN- Housestaff ---
Subjective Follow-up For: Pancreatitis, alcohol withdrawal Tele-Events Since Last Visit: Sinus rhythm, 100-120s Subjective: No overnight events. Patient is complaining of diaphoresis, chest pain, anxiety , and generalized pain. His last drink was on . It seems like he was drinking more than 10 drinks per day previously. No other complaints. Review of Systems Constitutional: Reports: no symptoms. EENTM: Reports: no symptoms. Cardiovascular: Reports: see HPI. Respiratory: Reports: no symptoms. Gastrointestinal: Reports: no symptoms. Genitourinary: Reports: no symptoms. Musculoskeletal: Reports: no symptoms. Skin: Reports: no symptoms. Neurological/Psychological: Reports: see HPI. Hematologic/Endocrine: Reports: no symptoms. Immunologic/Allergic: Reports: no symptoms. Objective Last 24 Hrs of Vital Signs/I&O Vital Signs Date Time Temp Pulse Resp B/P B/P Pulse O2 O2 Flow FiO2 Mean Ox Delivery Rate 09/22 0858 126 09/22 0846 126 150/76 09/22 0800 122 09/22 0655 98.0 122 22 148/98 95 Room Air 09/22 0030 97.9 109 22 160/100 97 Room Air 09/21 2300 97 Room Air 09/21 2245 98.2 90 22 154/90 09/21 2213 98.3 88 26 136/68 96 09/21 2057 97.7 97 20 152/104 97 Room Air 09/21 2003 62 09/21 1800 49 09/21 1503 60 09/21 1500 98.2 57 20 160/100 96 09/21 1400 134 09/21 1200 58 09/21 1004 46 140/80 09/21 1000 64 Intake & Output 09/22 1600 09/22 0800 09/22 0000 Intake Total 875 375 Output Total Balance 875 375 Intake, IV 875 375 Patient 90.038 kg Weight Weight Bed scale Measurement Method Physical Exam General Appearance: Alert, Oriented X3, Cooperative, Mild Distress Cardiovascular: Regular Rate, Normal S1, Normal S2 Lungs: Clear to Auscultation Current Medications: Current Medications Sig/Brynn Start time Last Medication Dose Route Stop Time Status Admin Albuterol Sulfate 2 PUF Q4-6 PRN PRN 09/20 1400 AC INH Atropine Sulfate 1 MG ONE PRN 09/20 2000 AC IV Enoxaparin Sodium 40 MG DAILY 09/20 1354 AC 09/22 SC 0845 Fenofibrate 48 MG DAILY 09/21 1342 AC 09/21 PO 1418 Folic Acid 1 MG DAILY 09/20 1400 DC 09/22 PO 09/22 0901 0845 Hydromorphone HCl 1 MG Q4P PRN 09/21 1030 AC PO Hydromorphone HCl 2 MG Q4P PRN 09/21 0900 DC PO Ibuprofen 400 MG Q6P PRN 09/20 1515 DC 09/21 PO 0847 Lisinopril 20 MG DAILY 09/21 09 AC 09/22 PO 0846 Lorazepam 2 MG Q4 09/22 1000 AC PO Lorazepam 2 MG 0300,0900,1500,2100 09/22 09 DC 09/22 PO 0845 Lorazepam 2 MG Q6 09/22 0300 DC 09/22 PO 0320 Lorazepam 2 MG Q6 09/21 2015 DC 09/21 IV 2052 Lorazepam 2 MG Q6 09/21 1800 CAN PO Lorazepam 0 Q1P PRN 09/21 1745 AC 09/22 IV 0525 Multivitamins 1 TAB DAILY 09/20 1400 AC 09/22 PO 0846 Ondansetron HCl 4 MG ONCE ONE 09/21 1400 DC 09/21 IV 09/21 1401 1418 Sodium Chloride 1,000 ML Q5H 09/22 0930 AC IV Sodium Chloride 1,000 ML Q8H 09/21 1515 DC 09/22 IV 0850 Sodium Chloride 1,000 ML Q10H 09/21 0845 DC 09/21 IV 0853 Thiamine HCl 100 MG DAILY 09/20 1400 DC 09/22 PO 09/22 0901 0845 Trimethobenzamide HCl 200 MG 4 TIMES/DAY PRN 09/21 1715 09/22 IM 0203 Last 24 Hrs of Lab/Mike Results Last 24 Hrs of Labs/Mics: Laboratory Tests 09/22/17 0624: Anion Gap 15, Estimated GFR > 60, BUN/Creatinine Ratio 21.4, Total Bilirubin 1.6 H, Direct Bilirubin 0.6 H, AST 83 H, ALT 74 H, Alkaline Phosphatase 79, Total Protein 6.6, Albumin 3.8, CBC w Diff MAN DIFF ORDERED, RBC 5.88, MCV 92.3, MCH 31.2 H, MCHC 33.8, RDW 13.0, MPV 7.8, Gran % 91.7 H, Lymphocytes % 3.1 L, Monocytes % 5.1, Eosinophils % 0, Basophils % 0.1, Absolute Granulocytes 16.7 H , Segmented Neutrophils 74, Band Neutrophils 11 H, Absolute Lymphocytes 0.6 L, Lymphocytes 3 L, Monocytes 12 H, Absolute Monocytes 0.9 H, Absolute Eosinophils 0, Absolute Basophils 0, Normocytic RBCs VERIFIED, Normochromic RBCs VERIFIED Assessment/Plan Assessment: 32 year old male with past medical history significant for asthma, previous smoking, social EtOH, previous pancreatitis in 07/2016 secondary to EtOH, and EtOH withdrawal requiring Ativan drip at that time, presents with acute severe abdominal pain after a recent upper respiratory tract infection. His severe abdominal pain, elevated lipase, and CT imaging consistent with acute pancreatitis likely secondary to alcohol, acute viral illness, and component of hypertriglyceridemia. Bradycardia: Resolved. Hypertension: lisinopril 20 daily Pancreatitis: Severe epigastric abdominal pain, elevated lipase to 783, and CT with pancreatic inflammation, no evidence of cholelithiasis or biliary disease, hepatosteatosis on CT Increase fluids to [address] Abdomen pelvis without contrast The liver is enlarged measuring 21.6 cm. Relative low attenuation of the parenchyma suggests steatosis. No focal lesions. No biliary ductal dilation. The gallbladder is unremarkable with no evidence of radiopaque gallstones, gallbladder wall thickening, or obvious pericholecystic inflammatory changes. There is recurrent peripancreatic inflammation centered around the pancreatic head and uncinate process. This is decreased in extent when compared to CT from 08/04/2016. There is mild parenchymal heterogeneity in the pancreatic head without evidence of necrosis. No peripancreatic fluid collections. Hyponatremia, start IV hydration with normal saline Morphine and Dilaudid IV for analgesia Likely secondary to recent alcohol intake vs viral infection Transaminitis both ALT/AST 122, not typical ratio for EtOH Triglycerides are elevated to 362, were also previously elevated Consider starting statin or fibrate therapy Consider gastroenterology consultation Tachycardia likely secondary to alcohol withdrawal EtOH: CIWA highest in the last 24 hours was 19. He received 9 mg of Ativan since midnight. Increase Lorazepam to 2 mg every 4 hours. Monitor CIWA protocol given previous history of EtOH dependence and withdrawal MVT/thiamine/folate Recent URI/asthma: Afebrile Check chest x-ray Stop azithromycin Leukocytosis to 17.4 without bandemia, on steroids Elevated lactic acidemia likely related to N/V/D hypovolemia and hypoperfusion rather than sepsis, trend lactic acid, expected to normalize after fluid bolus Repeat CBC tomorrow Check blood cultures Continue albuterol Normal SpO2 on room air, no respiratory distress Clear liquid diet DVT ppx-ALPS and lovenox subcutaneous Full code Problem List: 1. Alcohol withdrawal 2. Acute pancreatitis Pain Ratin Pain Location: no Pain Goal: Remain pain free Pain Plan: see a/p Tomorrow's Labs & Rationales: bep cbc
--- NOTE | 2017-09-22 10:50 | ECHOCARDIOGRAM REPORT ---
SOHEILA BISHOP Age: 32 : 1985 Gender: M Exam Date: 09/21/2017 08:15 Exam Location: [address] Ht (in): 67 Wt (lb): 205 BSA: 2.13 BP: 168 / 100 Ordering Physician: Amparo Rodriguez MD Referring Physician: Amparo Rodriguez MD Technologist: Deb Eubanks [facility] Room Number: 180-02 Indications: Rhythm: Technical Quality: FINDINGS Left Ventricle Right Ventricle Right Atrium Left Atrium Mitral Valve Aortic Valve Tricuspid Valve Pulmonic Valve Pericardium Great Vessels CONCLUSIONS Rehan Das M.D. (Electronically Signed) Final Date: 22 September 2017 10:49 MEASUREMENTS (Male / Female) Normal Values 2D ECHO LV Diastolic Diameter PLAX 4.9 cm 4.2 - 5.9 / 3.9 - 5.3 cm LV Systolic Diameter PLAX 2.7 cm 2.1 - 4.0 cm LV Fractional Shortening PLAX 44.9 % 25 - 46 % LV Ejection Fraction 2D Teich 76.1 % IVS Diastolic Thickness 1.0 cm LVPW Diastolic Thickness 1.0 cm LV Relative Wall Thickness 0.4 LVOT Diameter 2.1 cm Aortic Root Diameter 3.0 cm LA Systolic Diameter LX 4.0 cm 3.0 - 4.0 / 2.7 - 3.8 cm LV Ejection Fraction MOD BP 57.6 % >= 55 % LV Diastolic Length 4C 8.8 cm 6.9 - 10.3 cm LV Diastolic Area 4C 38.2 cm LV Diastolic Volume MOD 4C 138.0 cm LV Ejection Fraction MOD 4C 57.2 % LV Stroke Volume MOD 4C 79.0 cm LV Systolic Length 4C 7.8 cm LV Systolic Area 4C 23.2 cm LV Systolic Volume MOD 4C 59.0 cm LV Ejection Fraction MOD 2C 62.3 % LV Diastolic Volume 4C AL 140.5 cm 85 - 139 / 69 - 109 cm LV Systolic Volume 4C AL 58.7 cm LV Ejection Fraction 4C AL 58.2 % LV Stroke Volume 4C AL 81.8 cm LV Ejection Fraction 2C AL 63.1 % LA Volume 55.0 cm 18 - 58 / 22 - 52 cm DOPPLER AV Peak Velocity 181.0 cm/s AV Peak Gradient 13.1 mmHg LVOT Peak Velocity 119.0 cm/s LVOT Peak Gradient 5.7 mmHg AV Area Cont Eq pk 2.3 cm MV Peak Velocity 135.0 cm/s MV Peak Gradient 7.3 mmHg MV Mean Velocity 55.6 cm/s MV Mean Gradient 2.0 mmHg Mitral E Point Velocity 98.2 cm/s Mitral A Point Velocity 67.6 cm/s Mitral E to A Ratio 1.5 MV Deceleration Time 746.0 ms TV Peak Velocity 271.0 cm/s PV Peak Velocity 140.0 cm/s PV Peak Gradient 7.8 mmHg LV E' Lateral Velocity 14.4 cm/s Mitral E to LV E' Lateral Ratio 6.8 LV E' Septal Velocity 9.5 cm/s Mitral E to LV E' Septal Ratio 10.4
[2017-09-22 13:50] VITALS: BP 148/80
[2017-09-22 22:09] VITALS: BP 132/78
--- NOTE | 2017-09-22 22:46 | PN- Cardiology ---
Subjective Subjective: Continues to complain of abdominal pain for which she is receiving Dilaudid. CIWA score elevated and c/w with EtOH for which he is requiring benzodiazepines. Telemetry now reveals sinus tachycardia. No complaints of chest discomfort, palpitations, shortness of breath, etc. Objective Vital Signs and I&Os Vital Signs Date Time Temp Pulse Resp B/P B/P Pulse O2 O2 Flow FiO2 Mean Ox Delivery Rate 09/22 2208 99.0 128 18 132/78 95 Room Air 09/22 1800 124 09/22 1600 120 09/22 1400 114 09/22 1350 98.3 120 20 148/80 96 09/22 1200 118 09/22 1000 124 09/22 0858 126 09/22 0846 126 150/76 09/22 0800 122 09/22 0655 98.0 122 22 148/98 95 Room Air 09/22 0030 97.9 109 22 160/100 97 Room Air 09/21 2300 97 Room Air Intake & Output 09/22 1600 09/22 0800 09/22 0000 09/21 1600 09/21 0800 09/21 0000 Intake Total 1200 875 034 858 7037 450 Output Total 200 Balance 1200 875 797 216 2232 450 Intake, IV 1000 875 528 166 8543 450 Intake, Oral 200 400 Output, 200 Emesis Patient 199 lb 202 lb Weight Weight Bed scale Bed scale Measurement Method Physical Exam: Well-developed, well-nourished male in no acute distress. Vital signs: See above. HEENT: Normocephalic, atraumatic, EOMI, slightly dry mucous membranes. Neck: No JVD, no bruits. Lungs: Clear to auscultation bilaterally except for a mild expiratory wheeze. Abdomen: Soft, positive bowel sounds, pain to palpation. Extremities: No edema. Peripheral pulses: Symmetrical/intact. Current Medications: Current Medications Sig/Brynn Start time Last Medication Dose Route Stop Time Status Admin Albuterol Sulfate 2 PUF Q4-6 PRN PRN 09/20 1400 AC 09/22 INH 2216 Atropine Sulfate 1 MG ONE PRN 09/20 2000 AC IV Enoxaparin Sodium 40 MG DAILY 09/20 1354 AC 09/22 SC 0845 Fenofibrate 48 MG DAILY 09/21 1342 AC 09/22 PO 1339 Folic Acid 1 MG DAILY 09/20 1400 DC 09/22 PO 09/22 0901 0845 Hydromorphone HCl 1 MG Q4P PRN 09/21 1030 AC 09/22 PO 1854 Ibuprofen 400 MG Q6P PRN 09/20 1515 DC 09/21 PO 0847 Lisinopril 20 MG DAILY 09/21 0900 AC 09/22 PO 0846 Lorazepam 2 MG Q4H 09/22 1300 AC 09/22 PO 2037 Lorazepam 2 MG Q4 09/22 1000 DC PO Lorazepam 2 MG 0300,0900,1500,2100 09/22 0900 DC 09/22 PO 0845 Lorazepam 2 MG Q6 09/22 0300 DC 09/22 PO 0320 Lorazepam 0 Q1P PRN 09/21 1745 AC 09/22 IV 0525 Multivitamins 1 TAB DAILY 09/20 1400 AC 09/22 PO 0846 Sodium Chloride 1,000 ML Q5H 09/22 0930 AC 09/22 IV 2037 Sodium Chloride 1,000 ML Q8H 09/21 1515 DC 09/22 IV 0850 Thiamine HCl 100 MG DAILY 09/20 1400 DC 09/22 PO 09/22 0901 0845 Trimethobenzamide HCl 200 MG 4 TIMES/DAY PRN 09/21 1715 AC 09/22 IM 0203 Results Last 48 Hrs of Labs/Mics: Laboratory Tests 09/22/17 0624: Anion Gap 15, Estimated GFR > 60, BUN/Creatinine Ratio 21.4, Total Bilirubin 1.6 H, Direct Bilirubin 0.6 H, AST 83 H, ALT 74 H, Alkaline Phosphatase 79, Total Protein 6.6, Albumin 3.8, CBC w Diff MAN DIFF ORDERED, RBC 5.88, MCV 92.3, MCH 31.2 H, MCHC 33.8, RDW 13.0, MPV 7.8, Gran % 91.7 H, Lymphocytes % 3.1 L, Monocytes % 5.1, Eosinophils % 0, Basophils % 0.1, Absolute Granulocytes 16.7 H , Segmented Neutrophils 74, Band Neutrophils 11 H, Absolute Lymphocytes 0.6 L, Lymphocytes 3 L, Monocytes 12 H, Absolute Monocytes 0.9 H, Absolute Eosinophils 0, Absolute Basophils 0, Normocytic RBCs VERIFIED, Normochromic RBCs VERIFIED 09/21/17 0645: Anion Gap 12, Estimated GFR > 60, BUN/Creatinine Ratio 14.3, CBC w Diff NO MAN DIFF REQ, RBC 5.11, MCV 92.4, MCH 32.0 H, MCHC 34.6, RDW 12.5, MPV 8.0, Gran % 80.8 H, Lymphocytes % 14.3 L, Monocytes % 4.4, Eosinophils % 0.2, Basophils % 0.3, Absolute Granulocytes 14.7 H, Absolute Lymphocytes 2.6, Absolute Monocytes 0.8 H, Absolute Eosinophils 0, Absolute Basophils 0.1 09/20/17 2300: Lactic Acid 2.0 Assessment/Plan Assessment/Plan 32-y-o-w-m w/ hx fmr light tob use, childhood asthma, "social" EtOH, last adm to (07/31-08/12/2016) w/ EtOH withdrawal requiring Ativan drip w/ assoc pancreatitis, & recent bronchitis Rx'd w/a short course of steroids, albuterol, & singulair who presented to the ED 09/20/2017 after the sudden onset of lower abd pain the night before w/ assoc N/V/D, & chills w/o fever that was Rx'd w/ IV morphine sulfate and hydromorphone who we are asked to evaluate and help manage in regard to SB and has resolved. Elevated CIWA score c/w EtOH withdrawal for which he is now on benzodiazepines. Abdominal pain secondary to pancreatitis for which he is on Dilaudid. Continue on telemetry. EtOH counseling pending. DVT prophylaxis. Continue telemetry? Yes
[2017-09-23 07:02] VITALS: BP 134/64
--- NOTE | 2017-09-23 07:36 | PN- Housestaff ---
See Addendum Subjective Follow-up For: Pancreatitis Alcohol withdrawal Tele-Events Since Last Visit: Sinus tachycardia up to 125 Subjective: Patient seen and examined. No overnight acute events noted. Continues to complain of diffuse abdominal pain 8 out of 10. States pain medications are somewhat helping. CIWA scores are coming down with max of 6. Did not require any as needed Ativan currently on 2 mg every 4 Review of Systems Constitutional: Reports: see HPI. Objective Last 24 Hrs of Vital Signs/I&O Vital Signs Date Time Temp Pulse Resp B/P B/P Pulse O2 O2 Flow FiO2 Mean Ox Delivery Rate 09/23 0816 134/64 09/23 0702 98.9 122 18 134/64 96 Room Air 09/23 0000 Room Air 09/22 2209 99.0 128 18 132/78 95 Room Air 09/22 1800 124 09/22 1600 120 09/22 1400 114 09/22 1350 98.3 120 20 148/80 96 09/22 1200 118 09/22 1000 124 09/22 0858 126 09/22 0846 126 150/76 Intake & Output 09/23 1600 09/23 0800 09/23 0000 Intake Total 1400 600 Output Total 200 Balance 1200 600 Intake, IV 1400 600 Output, Urine 200 Patient 201 lb Weight Weight Bed scale Measurement Method Physical Exam General Appearance: Alert, Oriented X3, Cooperative Cardiovascular: Normal S1, Normal S2 Lungs: Clear to Auscultation Abdomen: DIFFUSE ABD PAIN Neurological: Normal Speech Extremities: No Edema Current Medications: Current Medications Sig/Brynn Start time Last Medication Dose Route Stop Time Status Admin Albuterol Sulfate 2 PUF Q4-6 PRN PRN 09/20 1400 AC 09/22 INH 2216 Atropine Sulfate 1 MG ONE PRN 09/20 2000 AC IV Enoxaparin Sodium 40 MG DAILY 09/20 1354 AC 09/23 SC 0816 Fenofibrate 48 MG DAILY 09/21 1342 AC 09/23 PO 0816 Folic Acid 1 MG DAILY 09/20 1400 DC 09/22 PO 09/22 0901 0845 Hydromorphone HCl 1 MG Q4P PRN 09/21 1030 AC 09/23 PO 0816 Ibuprofen 400 MG Q6P PRN 09/20 1515 DC 09/21 PO 0847 Lisinopril 20 MG DAILY 09/21 0900 AC 09/23 PO 0816 Lorazepam 2 MG Q4H 09/22 1300 AC 09/23 PO 0543 Lorazepam 2 MG Q4 09/22 1000 DC PO Lorazepam 2 MG 0300,0900,1500,2100 09/22 0900 DC 09/22 PO 0845 Lorazepam 0 Q1P PRN 09/21 1745 AC 09/22 IV 0525 Multivitamins 1 TAB DAILY 09/20 1400 AC 09/23 PO 0816 Sodium Chloride 1,000 ML Q6H 09/23 0830 AC 09/23 IV 0823 Sodium Chloride 1,000 ML Q5H 09/22 0930 DC 09/23 IV 0210 Sodium Chloride 1,000 ML Q8H 09/21 1515 DC 09/22 IV 0850 Thiamine HCl 100 MG DAILY 09/20 1400 DC 09/22 PO 09/22 0901 0845 Trimethobenzamide HCl 200 MG 4 TIMES/DAY PRN 09/21 1715 AC 09/23 IM 0212 Last 24 Hrs of Lab/Mike Results Last 24 Hrs of Labs/Mics: Laboratory Tests 09/23/17 0615: Anion Gap 11, CBC w Diff MAN DIFF ORDERED, WBC Pending, RBC Pending, Hgb Pending , Hct Pending, MCV Pending, MCH Pending, MCHC Pending, RDW Pending, Plt Count Pending, MPV Pending, Gran % Pending, Lymphocytes % Pending, Monocytes % Pending , Eosinophils % Pending, Basophils % Pending, Absolute Granulocytes Pending, Segmented Neutrophils Pending, Absolute Lymphocytes Pending, Absolute Monocytes Pending, Absolute Eosinophils Pending, Absolute Basophils Pending Microbiology 09/23 410 LOWER RESP: Respiratory Culture - COLB 09/23 410 LOWER RESP: Gram Stain - COLB Assessment/Plan Assessment: 32 year old male with past medical history significant for asthma, previous smoking, social EtOH, previous pancreatitis in 07/2016 secondary to EtOH, and EtOH withdrawal requiring Ativan drip at that time, presents with acute severe abdominal pain after a recent upper respiratory tract infection. His severe abdominal pain, elevated lipase, and CT imaging consistent with acute pancreatitis likely secondary to alcohol, acute viral illness, and component of hypertriglyceridemia. #Pancreatitis: Severe epigastric abdominal pain, elevated lipase to 783, and CT with pancreatic inflammation, no evidence of cholelithiasis or biliary disease, hepatosteatosis on CT. Likely secondary to recent alcohol intake -Normal saline at the rate of 150 mL/h -Dilaudid for analgesia increased to every 3 hours -Triglycerides are elevated to 362, were also previously elevated, consider starting statin or fibrate therapy -I am concerned about patient's persistently elevated WBC count especially in setting of bands. Patient was taking steroids for presumed bronchitis apparently which could explain the white count however elevatedn bands are concerning. -If there is change in patient's clinical picture increase abdominal pain then admission, spiking a fever, continuously rising bands, we should repeat imaging to look for pancreatitis complications #Hyponatremia,change IV fluids to normal saline #Transaminitis both ALT/AST 122, not typical ratio for EtOHncreasing again concerning for obstruction by pancreatitis complication like pseudocyst -Transaminitis is resolving however bilirubin total and direct both are going up likely secondary to compression of bile duct by pancreatic edema #EtOH Detoxification: CIWA highest in the last 24 hours was 6. Currently on Lorazepam to 2 mg every 4 hours. -Monitor CIWA protocol given previous history of EtOH dependence and withdrawal -Taper Ativan accordingly will decrease to 1.5 q. 4 -MVT/thiamine/folate #Bradycardia: Resolved.likely because abdominal pain management w/morphine sulfate & hydromorphone and now increased vagal tone from his repeated vomiting now -Tachycardic likely secondary to alcohol withdrawal. #Recent URI/asthma: -No focal pneumonia on CXR -TRC -Normal SpO2 on room air, no respiratory distress #Hypertension: lisinopril 20 daily #Lactic acidosis- resovled Elevated lactic acidemia likely related to N/V/D hypovolemia and hypoperfusion rather than sepsis, trended lactic acid, normalized after fluid bolus #Clear liquid diet/DVT ppx-ALPS and lovenox subcutaneous/Full code Problem List: 1. Alcohol withdrawal 2. Acute pancreatitis Pain Ratin Pain Location: diffues abd pain Pain Goal: Pain 4 or less Pain Plan: prn Tomorrow's Labs & Rationales: cbc bep lfts
[2017-09-23 07:49] LABS: ABSOLUTE BASOPHIL COUNT 0 /CUMM (0.0-0.2); ABSOLUTE EOSINOPHIL COUNT 0 /CUMM (0.0-0.7); ABSOLUTE GRANULOCYTE CT 16.1 /CUMM (1.4-6.5); ABSOLUTE LYMPH COUNT 1.1 /CUMM (1.2-3.4); ABSOLUTE MONOCYTE COUNT 1.4 /CUMM (0.10-0.60); BASOPHIL % 0 % (0.0-2.0); EOSINOPHIL % 0 % (0-5); GRANULOCYTE % 86.5 % (42.2-75.2); MEAN CORPUSCULAR HGB 32.1 PG (27.0-31.0); MEAN CORPUSCULAR HGB CONC 34.4 G/DL (33.0-37.0); MEAN CORPUSCULAR VOLUME 93.2 FL (80.0-94.0); MEAN PLATELET VOLUME 7.7 FL (7.4-10.4); PLATELET COUNT 137 /CUMM (130-400); RBC DISTRIBUTION WIDTH 12.7 % (11.5-14.5); RED BLOOD CELL CT 5.07 /CUMM (4.70-6.10); WHITE BLOOD CELL COUNT 18.6 /CUMM (4.8-10.8)
[2017-09-23 08:16] LABS: HEMATOCRIT 47.3 % (42-52)
--- NOTE | 2017-09-23 11:41 | PN- Cardiology ---
Subjective Subjective: Still complaining of abdominal pain. Sinus tachycardia on telemetry. Objective Vital Signs and I&Os Vital Signs Date Time Temp Pulse Resp B/P B/P Pulse O2 O2 Flow FiO2 Mean Ox Delivery Rate 09/23 1000 114 09/23 0816 134/64 09/23 0800 102 / 0702 98.9 122 18 134/64 96 Room Air 09/23 0000 Room Air 09/22 2209 99.0 128 18 132/78 95 Room Air 09/22 1800 124 09/22 1600 120 09/22 1400 114 09/22 1350 98.3 120 20 148/80 96 09/22 1200 118 Intake & Output 09/23 1600 09/23 0800 09/23 0000 09/22 1600 09/22 0800 09/22 0000 Intake Total 7870 975 8801 875 375 Output Total 200 Balance 2436 061 1291 875 375 Intake, IV 7260 236 7764 875 375 Intake, Oral 200 Output, Urine 200 Patient 201 lb 199 lb Weight Weight Bed scale Bed scale Measurement Method Physical Exam: Well-developed, well-nourished male in no acute distress. Vital signs: See above. HEENT: Normocephalic, atraumatic, EOMI, slightly dry mucous membranes. Neck: No JVD, no bruits. Lungs: Clear to auscultation bilaterally except for a mild expiratory wheeze. Abdomen: Soft, positive bowel sounds, pain to palpation. Extremities: No edema. Peripheral pulses: Symmetrical/intact. Current Medications: Current Medications Sig/Brynn Start time Last Medication Dose Route Stop Time Status Admin Albuterol Sulfate 2 PUF Q4-6 PRN PRN 09/20 1400 AC 09/22 INH 2216 Atropine Sulfate 1 MG ONE PRN 09/20 2000 AC IV Enoxaparin Sodium 40 MG DAILY 09/20 1354 AC 09/23 SC 0816 Fenofibrate 48 MG DAILY 09/21 1342 AC 09/23 PO 0816 Hydromorphone HCl 1 MG Q3P PRN 09/23 1145 AC PO Hydromorphone HCl 1 MG Q4P PRN 09/21 1030 DC 09/23 PO 0816 Lisinopril 20 MG DAILY 09/21 0900 AC 09/23 PO 0816 Lorazepam 1.5 MG Q4H 09/23 1300 AC PO Lorazepam 2 MG Q4H 09/22 1300 DC 09/23 PO 0915 Lorazepam 0 Q1P PRN 09/21 1745 AC 09/22 IV 0525 Multivitamins 1 TAB DAILY 09/20 1400 AC 09/23 PO 0816 Sodium Chloride 1,000 ML Q6H 09/23 0830 AC 09/23 IV 0823 Sodium Chloride 1,000 ML Q5H 09/22 0930 DC 09/23 IV 0210 Trimethobenzamide HCl 200 MG .STK-MED ONE 09/23 210 DC IM 09/23 021 Trimethobenzamide HCl 200 MG 4 TIMES/DAY PRN 09/21 1715 AC 09/23 IM 0212 Results Last 48 Hrs of Labs/Mics: Laboratory Tests 09/23/1715: Anion Gap 11, Direct Bilirubin 2.1 H, AST 89 H, ALT 56, Alkaline Phosphatase 71, CBC w Diff MAN DIFF ORDERED, RBC 5.07, MCV 93.2, MCH 32.1 H, MCHC 34.4, RDW 12.7, MPV 7.7, Gran % 86.5 H, Lymphocytes % 6.2 L, Monocytes % 7.3, Eosinophils % 0, Basophils % 0, Absolute Granulocytes 16.1 H, Segmented Neutrophils 66, Band Neutrophils 20 H, Absolute Lymphocytes 1.1 L, Lymphocytes 10 L, Monocytes 4, Absolute Monocytes 1.4 H, Absolute Eosinophils 0, Absolute Basophils 0, Platelet Estimate VERIFIED BY SMEAR, Normocytic RBCs VERIFIED, Normochromic RBCs VERIFIED 09/22/17 0624: Anion Gap 15, Estimated GFR > 60, BUN/Creatinine Ratio 21.4, Total Bilirubin 1.6 H, Direct Bilirubin 0.6 H, AST 83 H, ALT 74 H, Alkaline Phosphatase 79, Total Protein 6.6, Albumin 3.8, CBC w Diff MAN DIFF ORDERED, RBC 5.88, MCV 92.3, MCH 31.2 H, MCHC 33.8, RDW 13.0, MPV 7.8, Gran % 91.7 H, Lymphocytes % 3.1 L, Monocytes % 5.1, Eosinophils % 0, Basophils % 0.1, Absolute Granulocytes 16.7 H , Segmented Neutrophils 74, Band Neutrophils 11 H, Absolute Lymphocytes 0.6 L, Lymphocytes 3 L, Monocytes 12 H, Absolute Monocytes 0.9 H, Absolute Eosinophils 0, Absolute Basophils 0, Normocytic RBCs VERIFIED, Normochromic RBCs VERIFIED Assessment/Plan Assessment/Plan 32-y-o-w-m w/ hx fmr light tob use, childhood asthma, "social" EtOH, last adm to (07/31-08/12/2016) w/ EtOH withdrawal requiring Ativan drip w/ assoc pancreatitis, & recent bronchitis Rx'd w/a short course of steroids, albuterol, & singulair who presented to the ED 09/20/2017 after the sudden onset of lower abd pain the night before w/ assoc N/V/D, & chills w/o fever that was Rx'd w/ IV morphine sulfate and hydromorphone who we are asked to evaluate and help manage in regard to SB and has resolved. Elevated CIWA score c/w EtOH withdrawal for which he is now on benzodiazepines. Abdominal pain secondary to pancreatitis for which he is on Dilaudid. Continue on telemetry. EtOH counseling pending. DVT prophylaxis. Continue telemetry? Yes
[2017-09-23 13:55] LABS: PT 13.3 SEC (9.4-12.5)
[2017-09-23 14:31] VITALS: BP 130/68
--- NOTE | 2017-09-23 15:04 | ULTRASOUND REPORT ---
EXAMINATION: US ABDOMEN LIMITED CLINICAL INFORMATION: Increasing bilirubin. Patient currently being treated for pancreatitis.. COMPARISON: CT abdomen pelvis 09/20/2017 and abdominal ultrasound 08/08/2016. TECHNIQUE: Real-time imaging of the right upper quadrant abdominal viscera. Examination limited secondary to patient body habitus, overlying bowel gas and patient's inability to follow breathing instructions. FINDINGS: PANCREAS: The pancreas is not clearly visualized. LIVER: The liver is enlarged. Evaluation of the liver is limited secondary to overlying bowel gas. No gross hepatic abnormality identified. GALLBLADDER: Normal. The gallbladder is physiologically distended without evidence of stones, sludge, polyps, wall thickening or pericholecystic fluid. COMMON BILE DUCT: Normal in caliber measuring 0.4 cm in diameter. RIGHT KIDNEY: Normal. No hydronephrosis. No renal calculi or focal parenchymal lesions. The kidney measures 11.4 cm in maximum dimension. FREE FLUID: None. IMPRESSION: Limited examination secondary to patient body habitus, overlying bowel gas and patient's inability to follow breathing instructions. Pancreas was not clearly visualized and the liver was incompletely visualized. Further evaluation with cross-sectional imaging is recommended.
--- NOTE | 2017-09-23 16:49 | MRI REPORT ---
EXAMINATION: MR ABDOMEN AND MRCP WITHOUT CONTRAST CLINICAL INFORMATION: Alcoholic pancreatitis. Elevated LFTs. Fever. MRCP COMPARISON: CT abdomen and pelvis dated 09/20/2017 TECHNIQUE: MR abdomen without contrast was obtained using routine sequences. FINDINGS: Lung bases: Interval development of small bilateral pleural effusions. Liver, gallbladder and biliary tree: No gross evidence of hepatic steatosis based on dual echo images. No focal hepatic parenchymal abnormality on the noncontrast images. Perihepatic fluid/ascites demonstrates an interval change. No evidence of gallstones. Common bile duct is within normal limits. No evidence of intrahepatic biliary ductal dilatation. Fluid in the gallbladder fossa and pericholecystic fluid due to to the presence of ascites. Pancreas: Compared to the recent CT images, there has been interval increase in pancreatic edema and peripancreatic edema and fluid. More loculated fluid collection noted anterior to the body of the pancreas (series 7 image 17) measures approximately 5.6 x 4.4 x 4.3 cm. This represents an interval change. Infected fluid collection cannot be entirely excluded in the absence of IV contrast. There is stranding and edema noted in the peripancreatic mesentery (series 7 image 19). Smaller fluid collection noted anterior to the tail of the pancreas (series 7 image 17) this is likely due to free fluid. Free fluid is also tracking along the lateroconal fascia. Assessment of the pancreas for necrotizing pancreatitis is limited without IV contrast. Given the interval increase in the severity of the pancreatitis, further assessment with contrast-enhanced CT scan or postgadolinium MRI images are recommended. No gross evidence of pancreatic ductal dilatation. Spleen: No gross parenchymal abnormality. Trace perisplenic fluid. Adrenal glands: Unremarkable. Kidneys: Unremarkable. GI tract: No gross abnormality of the visualized GI tract. Mild dilatation of the third portion of duodenum likely represents reactive change due to adjacent severe pancreatitis. (Series 2 image 9). Lymphovascular structures: Assessment is limited due to patient motion. Signal void noted in the portal venous system. Osseous structures: Unremarkable. IMPRESSION: 1. There has been significant interval worsening of pancreatitis with diffuse pancreatic edema, interval development of ascites and pleural effusion. Findings may represent severe acute edematous interstitial pancreatitis. Assessment for necrotizing pancreatitis is limited without IV contrast. Given the significant interval worsening of the overall pancreatitis, further assessment with contrast-enhanced CT scan or postgadolinium MRI images are recommended. 2. Interval development of a loculated extrapancreatic fluid collection anterior to the body of the pancreas measuring approximately 5.6 x 4.4 x 4.3 cm likely represents of acute peripancreatic fluid collection. Infected fluid collection cannot be entirely excluded without intravenous contrast. No gross evidence of debris identified within the fluid collection on the MRI images. It is too early for formation of pseudocyst. 3. No evidence of cholelithiasis or choledocholithiasis. No evidence of biliary ductal dilatation. Critical results were discussed with Dr. Rodriguez at 4:40 PM on 09/23/2017.
--- NOTE | 2017-09-23 16:54 | Event Note ---
Event Note Event Note: S: worsening clinical status, concerning for complication of pancreatitis B: Patient is a 32-year-old gentleman with past medical history of asthma who is currently being treated for alcohol detox along with pancreatitis secondary to alcohol abuse. -The patient had bandemia worsening from yesterday labs concerning for worsening of pancreatitis. and he continued to complain of diffuse abdominal pain mostly concentrated in the mid abd. -We decided to check patient's LFTs, which showed up trending bilirubin both total (3)and direct (2) -Right upper quadrant ultrasound was ordered which was nonconclusive -GI consult was placed, after talking with Dr. Anton I ordered an MRCP and chest x-ray. He spiked a fever of 101.4 -I received a call from radiologist that MRCP results are positive for significant interval worsening and concerning for necrotizing pancreatitis however it cannot be confirmed because of lack of contrast -Order for CT scan with IV contrast was placed. I called Dr. Anton over the phone and informed him about possible MRCP findings and we agreed to proceeding with CT scan with IV contrast -CT scan IV contrast is positive for severe acute necrotizing pancreatitis A/P -GI evaluation pending for now -Attending Dr. Del Castillo was informed over the phone, if there is any change in clinical picture are there is any hemodynamic instability the patient be transferred to ICU and started on broad coverage meropenem -At present patient is hemodynamically stable, blood pressure is running on the softer side, currently patient is sleeping -Patient will be transferred to ICU for closer monitoring -Surgical consult -ID consult -Maintain n.p.o. for now
--- NOTE | 2017-09-23 17:04 | RADIOLOGY REPORT ---
EXAMINATION: XR CHEST CLINICAL INFORMATION: Fever. Bandemia. Suspected aspiration. COMPARISON: Chest done on 09/20/2017. TECHNIQUE: 2 views of the chest were obtained. FINDINGS: Low lung volume and linear airspace disease is noted at both lung bases, new since prior study. Trace amount of right-sided pleural effusion is also noted, new since prior study. The cardiomediastinal silhouette is within normal limits. The visualized upper abdomen is unremarkable. IMPRESSION: Low lung volume and nonspecific bibasilar airspace disease and small right-sided pleural effusion, new since prior study dated 09/20/2017.
--- NOTE | 2017-09-23 17:21 | Cons- Gastroenterology ---
General Information and HPI Consulting Request Date of Consult: 09/23/17 Requested By: Heydi Del Castillo MD Reason for Consult: I was called approximately 2 & 1/2 hours ago by the hospitalist service, to assess this alcoholic patient with pancreatitis, fever, & elevated LFTs, HD #4. I initially advised MRCP to clear the CBD, followed by a repeat CT pancreas with pancreatic protocol, as the radiologist apparently thought there might be an area suspicious for pancreatic necrosis on the MRCP (no gadolinium with MRCP). * The pt was repeatedly off the floor for imaging studies. Source of Information: patient, old records Exam Limitations: no limitations History of Present Illness: (*Please refer to previous inpt GI consult by Dr. Tanner Aguero, of 08/04/16. The patient was supposed to have followed up with him in the office 1 month later. He had a scheduled appointment, but never showed up). *Extensive labs & imaging studies reviewed, HD #4. 32 y/o male, non-HTN, non-DM, asthma, obesity, anxiety, depression, PTSD, without prior abdominal surgery, no hx PUD or GBD, ex-cigar smoker (D/C 2016), + cannabis (denies other illicit drugs or IVDA), hx EtOH abuse x 10 yrs,last admitted to [facility] 07/31/16-08/12/16 with his initial bout of pancreatitis, with TG 410 then. He developed EtOH withdrawal & was transferred from general medicine to the ICU then, requiriing benzodiazepines. Imaging studies then showed fatty liver. Although there was acute pancreatitis then by CT, there was no evidence of necrosis, pseudocyst, or abscess formation then. He had never been on lipid lowering medications. He claimed he stopped smoking & drinking EtOH then, but resumed heavy drinking in 09/2017, on a daily basis. 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 He went to a walk-in clinic in [place], [place], & was given a short course of steroids, albuterol, & Singulair. 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 He does not have a PMD. His mother had similar URI sx then (smoker), & was admitted to [facility] for bronchitis. The patient last drank EtOH 1 day [employer]OOK DES[employer]ER, on 09/19/17. After this, he developed GI symptoms, prompting him to present to the [facility] ER 09/20/17 at 9:46 a.m., complaining of sharp mid-abdominal pain, radiating to the mid-low back, "9 out of 10," with nausea & vomiting-> bilious. There was no hematemesis melena, or rectal bleeding. He initially denied any fevers, but had chills. He had non-bloody diarrhea then, which had since subsided. Upon arrival , BP 168/90. P 47, R 15, T 97.7, O2 sat RA 98%. He was txd in the ER with IV NS, Zofran, Toradol, MS, & Dilaudid. IVF were switched to Lactated Ringers in the ER. *Upon admission, he had 1 Grave sign by Anna criteria, namely elevated WBC, but no LDH was sent. Upon admission, he had 0 Grave signs by BiSAP criteria. Admission CXR failed to reveal any pleural effusions, CHF, or focal PNA. Initially, there was no jaundice, but over the past few days as an inpt, he noted mild scleral icterus & dark urine, but no light stools or pruritus. He denied any confusion. He still had some URI sx, which were improving, but denied any sx UTI. His CIWA over the past 48 hrs prior to my GI consult ranged from 0- 6. He denied any NSAID use. His URI sx were slowly improving. Despit getting narcotic analgesics in the ER, his sx persisted. Admission CT-> pancreatitis (* see imaging studies), & he was admitted. He has been NPO since. *There was some lab evidence of hemoconcentration (09/21/17: Hgb 16.3-> 09/22/17: Hgb 18.4, but this has since improved. He remains with leukocytosis & a left shift. This, along with fevers, chills, abdominal pain, & higher LFTs, prompted the GI consult of 09/23/17, at which point, I advised a repeat CXR, MRCP (to clear the bile ducts), & repeat CT abdomen with pancreatic protocol to r/o necrosis. There is no FHx inherited pancreatitis, inherited liver disease, GI disease, or GI Ca. The patient was seen by cardiology 09/21/17 for asx sinus bradycardia. It was felt that most likely, the bradycardia was from MS or Hydromorphone, pus increased vagal tone from vomiting. Lyme titer was negative, with nl TSH & troponin- neg. Admission echocardiogram was essentially normal. *Subsequent imaging studies on 09/23/17, including MRCP followed by CT AP with pancreatic protocol, were suggestive of necrotizing pancreatitis, prompting the GI consult (*see imaging section). *As of 09/23/17, the patient's main complaint was abdominal pain "9 out of 10". The vomiting had mostly subsided. He had mild nausea. He did note intermittent fevers & chills, with occasional hiccups. His diarrhea had resolved. There was no CP or SOB. There was no hx of abdominal trauma. He denied any unintentional weight loss. His appetite was fair. He denied any GERD, odynophagia, or dysphagia. There was perhaps some minimal early satiety. He was getting a little constipated from narcotic analgesics. There was no obstipation. *As of 09/23/17, he had a stable BP 110/76, but was tachycardic 122, R 26, Tm 102, O2 sat RA 93%. 07/31/16: *Hep A Ab, Hep Bs Ag, Hep B core Ab, & Hep C Ab- all neg. 09/20/17: 1027- Admission WBC 17.4, H/H 16.1/46.5, MCV 92.2, RDW 12.7, PLT 187, Lyme 0.20, glu 109, BUN/Cr 12/0.8, GFR > 60, Na 139, K 3.6, HCO3 28, AG 14, *lactate 2.8 (- >2.6->2.5->2.4->2.0), amylase 65, *lipase 783, Mg 1.9, Ca 8.8, alb 4.0, glob 3.0 , TBil 0.5, alk phos 84, AST 122, ALT 122, troponin < 0.01, TSH 2.62, [EtOH] < 10, *TG 362 09/20/17: U/A- clear yellow, 1.010, 8.5, packed amorph, tr prot, 0.2 urobil; neg nitrite, neg esterase. 09/20/17: Utox: + OP/MS 2836, + cannabis > 80. 09/21/17: 0645- WBC 18.2, H/H 16.3/47.2, PLT 162, BUN/Cr 10/0.7, GFR > 60, Na 133, K 4.2, HCO3 24, AG 12 09/22/17: 0624- WBC 18.2 (74S/11B/3L/12M), H/H 18.4/54.2, PLT 175, BUN/Cr 15/0.7 , GFR > 60, Na 133, K 3.9, HCO3 21, AG 15, alb 3.8, glob 2.8, TBil 1.6, DBil 0.6 , alk phos 79, AST 83, ALT 74 09/23/17: 0615- WBC 18.6 (66S/20B/10L/4M), H/H 16.3/47.3, PLT 137, Na 130, K 3.7 , HCO3 22, AG 11, alb 2.9, glob 2.6, TBil 3.5, DBil 2.1, alk phos 71, AST 89, ALT 56. 09/23/17: 1337- PT 13.3, INR 1.22 09/23/17: 2229- WBC 19.9 (58S/33B/5L/4M), H/H 14.2/41.6, PLT 124, BUN/Cr 18/1.0, GFR > 60, Na 131, K 4.1, HCO3 22, AG 10, Mg 2.1, Ca 7.6, PO4 2.0, alb 2.5, glob 2.6, TBil 4.8, DBil 3.1, alk phos 73, AST 75, ALT 44, * CRP > 9.0, TChol 108, TG 131, HDL 35, LDL 47 09/23/17: U/A- hazy nohemi, > 1.030, 6.0, 3-5 RBC, 3-5 WBC, rare gran cast, few bact, mod amorph, large Hgb, neg icto, 100+ prot, > 8.0 urobil; + nitrite, neg esterase. 09/20/17: BC x 2- neg. 09/20/17: UC- neg. 09/23/17: BC x 2- pending. Allergies/Medications Allergies: Coded Allergies: No Known Allergies (09/20/17) Home Med List: Albuterol Sulfate (Proair Hfa) 90 MCG HFA.AER.AD 2 PUF INH Q4-6 PRN PRN SHORTNESS OF BREATH (Reported) Azithromycin 250 MG TABLET 1 DP PO DAILY ANTIBIOTIC, INFECTION (Reported) 2 the first day followed by 1 for days 2-5 Melatonin 5 MG TABLET 1 TAB PO QPM SLEEP (Reported) Montelukast Sodium 10 MG TABLET 1 TAB PO DAILY ALLERGIES (Reported) Prednisone 20 MG TABLET 1 TAB PO TID STEROID (Reported) Current Medications: Current Medications Sig/Brynn Start time Last Medication Dose Route Stop Time Status Admin Acetaminophen 500 MG ONCE ONE 09/23 1445 DC 09/23 PO 09/23 1446 1448 Albuterol Sulfate 3 ML Q4P PRN 09/23 1345 AC INH Albuterol Sulfate 2 PUF Q4-6 PRN PRN 09/20 1400 AC 09/22 INH 2216 Atropine Sulfate 1 MG ONE PRN 09/20 2000 AC IV Enoxaparin Sodium 40 MG DAILY 09/20 1354 AC 09/23 SC 0816 Fenofibrate 48 MG DAILY 09/21 1342 AC 09/23 PO 0816 Hydromorphone HCl 2 MG ONCE PRN 09/23 2215 AC IV Hydromorphone HCl 1 MG Q3P PRN 09/23 1145 AC 09/23 PO 2130 Hydromorphone HCl 1 MG Q4P PRN 09/21 1030 DC 09/23 PO 0816 Ketorolac 30 MG ONCE ONE 09/23 2145 DC 09/23 Tromethamine IV 09/23 2146 2147 Lactated Ringer's 1,000 ML Q6H 09/23 2145 r IV Lactated Ringer's 500 ML .Q1H 09/23 2145 DC 09/23 IV 09/23 2244 2149 Lisinopril 20 MG DAILY 09/21 0900 AC 09/23 PO 0816 Lorazepam 1.5 MG Q4H 09/23 1300 AC 09/23 PO 2149 Lorazepam 2 MG Q4H 09/22 1300 DC 09/23 PO 0915 Lorazepam 0 Q1P PRN 09/21 1745 AC 09/22 IV 0525 Meropenem 1 GM IQ8 09/24 0000 CAN IV Multivitamins 1 TAB DAILY 09/20 1400 AC 09/23 PO 0816 Sodium Chloride 1,000 ML Q6H 09/23 0830 DC 09/23 IV 0823 Sodium Chloride 1,000 ML Q5H 09/22 0930 DC 09/23 IV 0210 Trimethobenzamide HCl 200 MG .STK-MED ONE 09/23 0211 DC IM 09/23 0212 Trimethobenzamide HCl 200 MG 4 TIMES/DAY PRN 09/21 1715 09/23 IM 0212 Past History Travel History Traveled to [place] past 21 day No Medical History Blood Transfusion Hx: No Neurological: NONE EENT: NONE Cardiovascular: hypertension (? 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 Age 55. FH: alcoholism FH: COPD (chronic obstructive pulmonary disease) FATHER (pt estranged form father- pt's parents are ). Age 53. FH: alcoholism maternal grandmother (MA). , Age 74. FH: CAD (coronary artery disease) BROTHER, , Age Infancy; Cause: SIDS (sudden syndrome). SISTER (A&W). Age 23. Psychosocial History Where Do You Live? Home Who Do You Live With? parent (mother & occ girlfriend) Services at Home: None Primary Language: Singaporean Smoking Status: Former Smoker (D/C cigars 07/2016) ETOH Use: alcoholic (> 10 yrs, resumed 09/2017) Illicit Drug Use: marijuana Living Will? no Power of Consulting Solution Director/HCP? no Other Social History: Single. No children. Lives with mother, & occasionally his girlfriend (parents & estranged from father). Ex-cigar smoker, D/C 07/2016. EtOH abuse daily x > 10 yrs, starting in [place] Stopped EtOH 07/2016-> resumed in 09/2017. Smokes & vapes cannabis. No other illicit drugs. Denies IVDA. Old tattoos. Works in [employer]. Functional Ability ADLs Independent: dressing, eating, toileting, bathing. Ambulation: independent IADLs Independent: shopping, housework, finances, food prep, telephone, transportation , medication admin. Employment History Employment: Employed Profession/Employer: [employer] ECHO Results (as available) Date of last Echo 09/20/17 EF% 60 Review of Systems Review of Systems: Full 14 point ROS otherwise noncontributory & as above Review of Systems Constitutional: Reports: chills (intermittent), fever (intermittent). Denies: diaphoresis, malaise, weakness, unexplained weight loss. EENTM: Denies: blurred vision, double vision, visual changes, eye pain, eye drainage, eye tearing, icterus, ear discharge, ear pain, ear redness, hearing changes, nasal congestion, epistaxis, nasal pain, throat pain, throat swelling, mouth pain, tooth pain. Cardiovascular: Denies: chest pain, edema, orthopena, palpitations, peripheral edema, syncope. Respiratory: Reports: cough (improved), sputum production (minimal), wheezing (rare). Denies : hemoptysis, orthopnea, short of breath, stridor. GI: Reports: abdominal pain, diarrhea (resolved), nausea (improving), vomiting ( resolved). Denies: bloating, constipation, distention, bowel incontinence, melena, bloody stool, changes in stool, steatorrhea. Genitourinary: Reports: hematuria ("dark urine"). Denies: discharge, dysuria, frequency, hesitation, nocturia, pain, urgency. Musculoskeletal: Denies: back pain, gout, joint pain, joint swelling, muscle pain, muscle stiffness, neck pain. Skin: Reports: jaundice. Denies: cysts, change in skin color, change in hair/nails, dryness, erythema, lesions, lymphangitis, lumps, moles, rash. Neurological/Psychological: Reports: anxiety, depressed, emotional problems. Denies: ataxia, cognitive dysfunction, confusion, dementia, headache, numbness, paresthesia, pre-existing deficit, petit mal seizures, tingling, tremors, tonic-clonic seizures, unable to move lower ext, unable to move upper ext, weakness. Hematologic/Endocrine: Denies: bruising, bleeding, polyuria, polydipsia. Immunologic/Allergic: Denies: splenectomy, HIV/AIDS, lymphadenopathy. All Other Systems: Reviewed and Negative Exam & Diagnostic Data Vital Signs and I&O Vital Signs Date Time Temp Pulse Resp B/P B/P Pulse O2 O2 Flow FiO2 Mean Ox Delivery Rate 09/23 2041 102.0 122 26 110/76 93 09/23 1728 102/78 09/23 1448 101.4 09/23 1431 101.4 120 18 130/68 92 Room Air 09/23 1400 127 09/23 1200 128 09/23 1000 114 09/23 0816 134/64 09/23 0800 102 09/23 0702 98.9 122 18 134/64 96 Room Air 09/23 0000 Room Air 09/22 2209 99.0 128 18 132/78 95 Room Air Intake & Output 09/23 1600 09/23 0400 09/22 1600 09/22 0400 09/21 1600 09/21 0400 Intake Total 2520 600 2075 375 1850 450 Output Total 200 200 Balance 2320 600 2075 375 1650 450 Intake, IV 2500 600 2130 437 1713 450 Intake, Oral 20 200 400 Output, 200 Emesis Output, Urine 200 Patient 201 lb 201 lb 199 lb 202 lb Weight Weight Bed scale Bed scale Bed scale Measurement Method Physical Exam: Well-developed, slightl malnourished, obese male, in no apparent distress. Nontoxic appearing. Sclera icteric. Conjunctiva pink. Oropharynx clear. Dry mucus membranes. No oral thush. No apthous ulcers. There is no adenopathy, thyromegaly, or JVD. No peripheral stigmata of inflammatory bowel disease on exam. No spiders on the anterior chest wall. Mild gynecomastia B/L, without masses (? due to obesity > liver disease). No CVA tenderness. Lungs: clear to A &P, with decreased BS at bases B/L. No wheezing, rales, or rhonchi. Heart exam: regular rate, tachycardic S1 and S2, without any murmur. Abdominal exam: normal bowel sounds, obese, mildly distended belly, moderate diffuse tenderness on deep palpation, without guarding or rebound. No peritoneal signs. Reducible umbilical hernia & RIH. Otherwise, no mass. Enlarged liver 20 cm by percussion. No definite palpable spleen tip. Negative Segura sign. No definite fluid shift. No pulsatile mass. No epigastric bruit. Digital rectal exam: deferred by patient. Extremities: without C, C, or E. No palpable cords. Old tattoos UE B/ L. No acute arthropathy. No rash. No palmar erythema. No Dupuytren's contractures. Distal pulses 2+ bilaterally. DTRs 2+ bilaterally. Alert and oriented x 3. Right handed. CN II-XII intact. Motor: 5/5 B/L. No tremor. No asterixis. Results Pertinent Lab Results: Laboratory Tests 09/23 09/23 2229 2225 Blood Gas Bicarbonate Actual (22 - 26 MEQ/L) 16 L Mixed VBG pH (7.31 - 7.41 PH) 7.60 H Mixed VBG pCO2 (41 - 51 TORR) 16 L Mixed VBG O2 Saturation (35 - 45 TORR) 64 H Carboxyhemoglobin (1.5 - 5.0 %) 2.8 O2 Concentration % RA O2 Delivery Method RA Chemistry Sodium (137 - 145 mmol/L) 131 L Potassium (3.5 - 5.1 mmol/L) 4.1 Chloride (98 - 107 mmol/L) 99 Carbon Dioxide (22 - 30 mmol/L) 22 Anion Gap (5 - 16) 10 BUN (9 - 20 mg/dL) 18 Creatinine (0.7 - 1.2 mg/dL) 1.0 Estimated GFR (>60 ml/min) > 60 BUN/Creatinine Ratio (7 - 25 %) 18.0 Calcium (8.4 - 10.2 mg/dL) 7.6 L Phosphorus (2.5 - 4.5 mg/dL) 2.0 L Magnesium (1.6 - 2.3 mg/dL) 2.1 Total Bilirubin (0.2 - 1.3 mg/dL) 4.8 H Direct Bilirubin (< 0.4 mg/dL) 3.1 H AST (17 - 59 U/L) 75 H ALT (21 - 72 U/L) 44 Alkaline Phosphatase (< 127 U/L) 73 C-Reactive Prot, Quant (<1.0 mg/dL) Pending Total Protein (6.3 - 8.2 g/dL) 5.1 L Albumin (3.5 - 5.0 g/dL) 2.5 L Triglycerides (<150 mg/dL) Pending Cholesterol (< 200 MG/DL) Pending LDL Cholesterol, Calc (65 - 129 mg/dL) Pending HDL Cholesterol (40 - 60 mg/dL) Pending Cholesterol/HDL Ratio (0.00 - 4.88 %) Pending Hematology CBC w Diff MAN DIFF ORDERED WBC (4.8 - 10.8 /CUMM) 19.9 H RBC (4.70 - 6.10 /CUMM) 4.51 L Hgb (14.0 - 18.0 G/DL) 14.2 Hct (42 - 52 %) 41.6 L MCV (80.0 - 94.0 FL) 92.1 MCH (27.0 - 31.0 PG) 31.4 H MCHC (33.0 - 37.0 G/DL) 34.2 RDW (11.5 - 14.5 %) 13.1 Plt Count (130 - 400 /CUMM) 124 L MPV (7.4 - 10.4 FL) 7.6 Gran % (42.2 - 75.2 %) 88.0 H Lymphocytes % (20.5 - 51.1 %) 5.6 L Monocytes % (1.7 - 9.3 %) 6.1 Eosinophils % (0 - 5 %) 0 Basophils % (0.0 - 2.0 %) 0.3 Absolute Granulocytes (1.4 - 6.5 /CUMM) 17.5 H Segmented Neutrophils (42.2 - 75.2 %) 58 Band Neutrophils (0.0 - 5.0 %) 33 H Absolute Lymphocytes (1.2 - 3.4 /CUMM) 1.1 L Lymphocytes (20.5 - 51.1 %) 5 L Monocytes (1.7 - 9.3 %) 4 Absolute Monocytes (0.10 - 0.60 /CUMM) 1.2 H Absolute Eosinophils (0.0 - 0.7 /CUMM) 0 Absolute Basophils (0.0 - 0.2 /CUMM) 0.1 Platelet Estimate (ADEQUATE) VERIFIED BY SMEAR Polychromasia Miscellaneous Phlebotomy Draw Site R.FOREARM Other Body Source Fld Total RBCs Counted (%) 100 09/23 1337 1315 Chemistry Total Bilirubin Cancelled Direct Bilirubin Cancelled AST Cancelled ALT Cancelled Alkaline Phosphatase Cancelled Total Protein Cancelled Albumin Cancelled Coagulation PT (9.4 - 12.5 SEC) 13.3 H INR (0.90 - 1.17) 1.22 H Urines Urinalysis MOD H Urine Color (YEL,AMB,STR) NOHEMI Urine Clarity (CLEAR) HAZY H Urine pH (5.0 - 8.0) 6.0 Ur Specific [place] (1.001 - 1.035) >= 1.030 Urine Protein (NEG,<30 MG/DL) 100 H Urine Ketones (NEG) NEG Urine Nitrite (NEG) POS H Urine Bilirubin (NEG) NEG@ICTO Urine Urobilinogen (0.1 - 1.0 EU/dl) >=8.0 H Ur Leukocyte Esterase (NEG) NEG Ur Microscopic SEDIMENT EXAMINED Urine RBC (0 - 5 /HPF) 3-5 Urine WBC (0 - 2 /HPF) 3-5 H Urine Bacteria (NEG/NONE) FEW H Granular Casts (NONE /LPF) RARE H Urine Hemoglobin (NEG) LARGE H Urine Glucose (N MG/DL) NEG 09/23 09/22 0615 0624 Chemistry Sodium (137 - 145 mmol/L) 130 L 133 L Potassium (3.5 - 5.1 mmol/L) 3.7 3.9 Chloride (98 - 107 mmol/L) 97 L 97 L Carbon Dioxide (22 - 30 mmol/L) 22 21 L Anion Gap (5 - 16) 11 15 BUN (9 - 20 mg/dL) 15 Creatinine (0.7 - 1.2 mg/dL) 0.7 Estimated GFR (>60 ml/min) > 60 BUN/Creatinine Ratio (7 - 25 %) 21.4 Total Bilirubin (0.2 - 1.3 mg/dL) 3.5 H 1.6 H Direct Bilirubin (< 0.4 mg/dL) 2.1 H 0.6 H AST (17 - 59 U/L) 89 H 83 H ALT (21 - 72 U/L) 56 74 H Alkaline Phosphatase (< 127 U/L) 71 79 Total Protein (6.3 - 8.2 g/dL) 5.5 L 6.6 Albumin (3.5 - 5.0 g/dL) 2.9 L 3.8 Hematology CBC w Diff MAN DIFF ORDERED MAN DIFF ORDERED WBC (4.8 - 10.8 /CUMM) 18.6 H 18.2 H RBC (4.70 - 6.10 /CUMM) 5.07 5.88 Hgb (14.0 - 18.0 G/DL) 16.3 18.4 H Hct (42 - 52 %) 47.3 54.2 H MCV (80.0 - 94.0 FL) 93.2 92.3 MCH (27.0 - 31.0 PG) 32.1 H 31.2 H MCHC (33.0 - 37.0 G/DL) 34.4 33.8 RDW (11.5 - 14.5 %) 12.7 13.0 Plt Count (130 - 400 /CUMM) 137 175 MPV (7.4 - 10.4 FL) 7.7 7.8 Gran % (42.2 - 75.2 %) 86.5 H 91.7 H Lymphocytes % (20.5 - 51.1 %) 6.2 L 3.1 L Monocytes % (1.7 - 9.3 %) 7.3 5.1 Eosinophils % (0 - 5 %) 0 0 Basophils % (0.0 - 2.0 %) 0 0.1 Absolute Granulocytes (1.4 - 6.5 /CUMM) 16.1 H 16.7 H Segmented Neutrophils (42.2 - 75.2 %) 66 74 Band Neutrophils (0.0 - 5.0 %) 20 H 11 H Absolute Lymphocytes (1.2 - 3.4 /CUMM) 1.1 L 0.6 L Lymphocytes (20.5 - 51.1 %) 10 L 3 L Monocytes (1.7 - 9.3 %) 4 12 H Absolute Monocytes (0.10 - 0.60 /CUMM) 1.4 H 0.9 H Absolute Eosinophils (0.0 - 0.7 /CUMM) 0 0 Absolute Basophils (0.0 - 0.2 /CUMM) 0 0 Platelet Estimate (ADEQUATE) VERIFIED BY SMEAR Normocytic RBCs VERIFIED VERIFIED Normochromic RBCs VERIFIED VERIFIED 09/21 0645 Chemistry Sodium (137 - 145 mmol/L) 133 L Potassium (3.5 - 5.1 mmol/L) 4.2 Chloride (98 - 107 mmol/L) 98 Carbon Dioxide (22 - 30 mmol/L) 24 Anion Gap (5 - 16) 12 BUN (9 - 20 mg/dL) 10 Creatinine (0.7 - 1.2 mg/dL) 0.7 Estimated GFR (>60 ml/min) > 60 BUN/Creatinine Ratio (7 - 25 %) 14.3 Hematology CBC w Diff NO MAN DIFF REQ WBC (4.8 - 10.8 /CUMM) 18.2 H RBC (4.70 - 6.10 /CUMM) 5.11 Hgb (14.0 - 18.0 G/DL) 16.3 Hct (42 - 52 %) 47.2 MCV (80.0 - 94.0 FL) 92.4 MCH (27.0 - 31.0 PG) 32.0 H MCHC (33.0 - 37.0 G/DL) 34.6 RDW (11.5 - 14.5 %) 12.5 Plt Count (130 - 400 /CUMM) 162 MPV (7.4 - 10.4 FL) 8.0 Gran % (42.2 - 75.2 %) 80.8 H Lymphocytes % (20.5 - 51.1 %) 14.3 L Monocytes % (1.7 - 9.3 %) 4.4 Eosinophils % (0 - 5 %) 0.2 Basophils % (0.0 - 2.0 %) 0.3 Absolute Granulocytes (1.4 - 6.5 /CUMM) 14.7 H Absolute Lymphocytes (1.2 - 3.4 /CUMM) 2.6 Absolute Monocytes (0.10 - 0.60 /CUMM) 0.8 H Absolute Eosinophils (0.0 - 0.7 /CUMM) 0 Absolute Basophils (0.0 - 0.2 /CUMM) 0.1 Imaging/Other Studies: 09/20/17: EKG- SB @ 43, nl axis, nonspecific IVCD, flipped T in III. 09/22/17: EKG- ST @ 119, nl axis, ? RA abnl 09/20/17- ECHOCARDIOGRAM- Normal size left ventricle. Normal left ventricular wall thickness. No obvious regional wall motion abnormalities. Normal left ventricular ejection fraction visually estimated at >60 Normal left ventricular diastolic filling pattern for age. Normal right ventricular size and function. Normal atrial size. Trace mitral regurgitation. Mild tricuspid regurgitation. Dilated inferior vena cava. Rehan Das M.D. 09/20/17: CT ABD & PELVIS W IV CONTRAST- Recurrent acute interstitial edematous pancreatitis with inflammation centered around the pancreatic head and uncinate process. Reactive inflammation of the duodenum. This is less extensive than on the prior CTs from July 2016. No associated complicating features are identified. Hepatomegaly 21 cm & steatosis, without focal hepatic defect. Normal GB. Normal spleen. Small fat containing umbilical hernia & RIH. Normal kidneys. Normal PV, SMV, SV, & aorta. 09/20/17: XRY-CHEST XRAY, TWO VIEWS- 1. Mild subsegmental atelectasis in right lung base. 2. Slightly thickened central airways, consistent with reactive airways disease or bronchitis. No focal pneumonia. 09/23/17: US-LIMITED (RUQ) ABDOMEN- Limited examination secondary to patient body habitus, overlying bowel gas and patient's inability to follow breathing instructions. Pancreas was not clearly visualized and the liver was incompletely visualized. Enlarged liver. Normal GB. Normal CBD 4 mm. Normal right kidney. No free fluid. Further evaluation with cross-sectional imaging is recommended. 09/23/17: XRY-CHEST XRAY, TWO VIEWS- Low lung volume and nonspecific bibasilar airspace disease and small right-sided pleural effusion, new since prior study dated 09/20/2017. 09/23/17: MRI ABDOMEN WITHOUT CONTRAST/MRCP- 1. There has been significant interval worsening of pancreatitis with diffuse pancreatic edema, interval development of ascites and pleural effusion. Findings may represent severe acute edematous interstitial pancreatitis. Assessment for necrotizing pancreatitis is limited without IV contrast. Given the significant interval worsening of the overall pancreatitis, further assessment with contrast-enhanced CT scan or postgadolinium MRI images are recommended. 2. Interval development of a loculated extrapancreatic fluid collection anterior to the body of the pancreas measuring approximately 5.6 x 4.4 x 4.3 cm likely represents of acute peripancreatic fluid collection. Infected fluid collection cannot be entirely excluded without intravenous contrast. No gross evidence of debris identified within the fluid collection on the MRI images. It is too early for formation of pseudocyst. 3. No evidence of cholelithiasis or choledocholithiasis. No evidence of biliary ductal dilatation. Critical results were discussed with Dr. Rodriguez at 4:40 PM on 09/23/2017. 09/23/17: CT ABD & PELVIS W IV CONTRAST- Marked interval worsening. Small B/L pleural effusions & bibasilar atelectasis. CT evidence of severe acute necrotizing pancreatitis with lack of enhancement throughout the body and tail. There is extensive surrounding fat stranding and there are fluid collections, including a collection in the lesser sac, with mass effect upon the lesser curvature of stomach. There is no internal gas. Diffuse fatty liver. Mildly distended GB with ? sludge. No gallstones. No dilated ducts. RIH. Correlate with systemic inflammatory response markers. There is an amorphous 1 cm late enhancing abnormality near the hepatic artery. This is concerning for a small pseudoaneurysm. Short interval follow-up may be necessary. Depending upon the clinical circumstances follow-up might include CT angiography including late venous phase Assessment/Plan Assessment/Recommendations: (*Please refer to previous inpt GI consult by Dr. Tanner Aguero, of 08/04/16. The patient was supposed to have followed up with him in the office 1 month later. He had a scheduled appointment, but never showed up). *Extensive labs & imaging studies reviewed, HD #4. 32 y/o male, non-HTN, non-DM, asthma, obesity, anxiety, depression, PTSD, without prior abdominal surgery, no hx PUD or GBD, ex-cigar smoker (D/C 2016), + cannabis (denies other illicit drugs or IVDA), hx EtOH abuse x 10 yrs,last admitted to [facility] 07/31/16-08/12/16 with his initial bout of pancreatitis, with TG 410 then. He developed EtOH withdrawal & was transferred from general medicine to the ICU then, requiriing benzodiazepines. Imaging studies then showed fatty liver. Although there was acute pancreatitis then by CT, there was no evidence of necrosis, pseudocyst, or abscess formation then. He had never been on lipid lowering medications. He claimed he stopped smoking & drinking EtOH then, but resumed heavy drinking in 09/2017, on a daily basis. 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 He went to a walk-in clinic in [place], [place], & was given a short course of steroids, albuterol, & Singulair. 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 He does not have a PMD. His mother had similar URI sx then (smoker), & was admitted to [facility] for bronchitis. The patient last drank EtOH 1 day [employer], on 09/19/17. After this, he developed GI symptoms, prompting him to present to the [facility] ER 09/20/17 at 9:46 a.m., complaining of sharp mid-abdominal pain, radiating to the mid-low back, "9 out of 10," with nausea & vomiting-> bilious. There was no hematemesis melena, or rectal bleeding. He initially denied any fevers, but had chills. He had non-bloody diarrhea then, which had since subsided. Upon arrival , BP 168/90. P 47, R 15, T 97.7, O2 sat RA 98%. He was txd in the ER with IV NS, Zofran, Toradol, MS, & Dilaudid. IVF were switched to Lactated Ringers in the ER. *Upon admission, he had 1 Grave sign by Anna criteria, namely elevated WBC, but no LDH was sent. Upon admission, he had 0 Grave signs by BiSAP criteria. Admission CXR failed to reveal any pleural effusions, CHF, or focal PNA. Initially, there was no jaundice, but over the past few days as an inpt, he noted mild scleral icterus & dark urine, but no light stools or pruritus. He denied any confusion. He still had some URI sx, which were improving, but denied any sx UTI. His CIWA over the past 48 hrs prior to my GI consult ranged from 0- 6. He denied any NSAID use. His URI sx were slowly improving. Despit getting narcotic analgesics in the ER, his sx persisted. Admission CT-> pancreatitis (* see imaging studies), & he was admitted. He has been NPO since. *There was some lab evidence of hemoconcentration (09/21/17: Hgb 16.3-> 09/22/17: Hgb 18.4, but this has since improved. He remains with leukocytosis & a left shift. This, along with fevers, chills, abdominal pain, & higher LFTs, prompted the GI consult of 09/23/17, at which point, I advised a repeat CXR, MRCP (to clear the bile ducts), & repeat CT abdomen with pancreatic protocol to r/o necrosis. There is no FHx inherited pancreatitis, inherited liver disease, GI disease, or GI Ca. The patient was seen by cardiology 09/21/17 for asx sinus bradycardia. It was felt that most likely, the bradycardia was from MS or Hydromorphone, pus increased vagal tone from vomiting. Lyme titer was negative, with nl TSH & troponin- neg. Admission echocardiogram was essentially normal. *Subsequent imaging studies on 09/23/17, including MRCP followed by CT AP with pancreatic protocol, were suggestive of necrotizing pancreatitis, prompting the GI consult (*see imaging section). *As of 09/23/17, the patient's main complaint was abdominal pain "9 out of 10". The vomiting had mostly subsided. He had mild nausea. He did note intermittent fevers & chills, with occasional hiccups. His diarrhea had resolved. There was no CP or SOB. There was no hx of abdominal trauma. He denied any unintentional weight loss. His appetite was fair. He denied any GERD, odynophagia, or dysphagia. There was perhaps some minimal early satiety. He was getting a little constipated from narcotic analgesics. There was no obstipation. *As of 09/23/17, he had a stable BP 110/76, but was tachycardic 122, R 26, Tm 102, O2 sat RA 93%. 07/31/16: *Hep A Ab, Hep Bs Ag, Hep B core Ab, & Hep C Ab- all neg. 09/20/17: 1027- Admission WBC 17.4, H/H 16.1/46.5, MCV 92.2, RDW 12.7, PLT 187, Lyme 0.20, glu 109, BUN/Cr 12/0.8, GFR > 60, Na 139, K 3.6, HCO3 28, AG 14, *lactate 2.8 (- >2.6->2.5->2.4->2.0), amylase 65, *lipase 783, Mg 1.9, Ca 8.8, alb 4.0, glob 3.0 , TBil 0.5, alk phos 84, AST 122, ALT 122, troponin < 0.01, TSH 2.62, [EtOH] < 10, *TG 362 09/20/17: U/A- clear yellow, 1.010, 8.5, packed amorph, tr prot, 0.2 urobil; neg nitrite, neg esterase. 09/20/17: Utox: + OP/MS 2836, + cannabis > 80. 09/21/17: 0645- WBC 18.2, H/H 16.3/47.2, PLT 162, BUN/Cr 10/0.7, GFR > 60, Na 133, K 4.2, HCO3 24, AG 12 09/22/17: 0624- WBC 18.2 (74S/11B/3L/12M), H/H 18.4/54.2, PLT 175, BUN/Cr 15/0.7 , GFR > 60, Na 133, K 3.9, HCO3 21, AG 15, alb 3.8, glob 2.8, TBil 1.6, DBil 0.6 , alk phos 79, AST 83, ALT 74 09/23/17: 0615- WBC 18.6 (66S/20B/10L/4M), H/H 16.3/47.3, PLT 137, Na 130, K 3.7 , HCO3 22, AG 11, alb 2.9, glob 2.6, TBil 3.5, DBil 2.1, alk phos 71, AST 89, ALT 56. 09/23/17: 1337- PT 13.3, INR 1.22 09/23/17: 2229- WBC 19.9 (58S/33B/5L/4M), H/H 14.2/41.6, PLT 124, BUN/Cr 18/1.0, GFR > 60, Na 131, K 4.1, HCO3 22, AG 10, Mg 2.1, Ca 7.6, PO4 2.0, alb 2.5, glob 2.6, TBil 4.8, DBil 3.1, alk phos 73, AST 75, ALT 44, * CRP > 9.0, TChol 108, TG 131, HDL 35, LDL 47 09/23/17: U/A- hazy nohemi, > 1.030, 6.0, 3-5 RBC, 3-5 WBC, rare gran cast, few bact, mod amorph, large Hgb, neg icto, 100+ prot, > 8.0 urobil; + nitrite, neg esterase. 09/20/17: BC x 2- neg. 09/20/17: UC- neg. 09/23/17: BC x 2- pending. The patient has necrotizing pancreatitis, most likely from a combination of EtOH and moderately elevated triglycerides. Recent data shows that even moderate TG can induce pancreatitis in those with additional risk factors. He reportedly has not smoked since 07/2016. He had a long prior hx EtOH abuse, & resumed EtOH in 09/2017, drinking until 1 day [employer]. The patient may have a component of EtOH hepatitis, although his LFTs were in a somewhat atypical pattern for this. He did have imaging evidence of fatty liver, which certainly can contribute to this. The abdominal pain, nausea, vomiting, fevers, & leukocytosis (left shift), are probably from a combination of necrotizing pancreatitis, EtOH hepatitis, EtOH withdrawal, and/or atelectasis. There is no evidence of aspiration PNA. CIWA have been relatively stable. *MRCP did not show any cholelithiasis or choledocholithiasis. The main question is whether the necrotizing pancreatitis is superinfected. *He apparently received 2 doses of Meropenem earlier on 09/23/17. I would not empirically tx with this (risk of fungemia, etc), until we know whether the necrotizing pancreatitis is superinfxd. *SUGGEST: NPO. May need eventual N-J tube feeds if prolonged NPO vs. PICC line for TPN ( although enteral feedings below the level of the ampulla woud be preferable). Hold Meropenem for now. Follow-up cultures. *Advise ID consult (& possible surgical consult) for consideration of IR needle aspirate of pancreatic necrosis. If evidence of infxd pancreatic necrosis, may need surgical debridement. IV Lactated Ringers at 250 cc/hr for now. Watch for hemoconcentration (i.e.- rising Hgb or BUN, despite IVF), which would be a poor prognostic sign (this occured earlier in the admission). Strict I/O's. IV analgesics. Avoid NSAIDS. MVI, thiamine, folate. Ativan as needed. CIWA protocol. Antiemetics as needed. DVT prophylaxis. Nebulizers & w/u of abnl urinary sediment, etc., per medical team. O2 prn. Lisinopril was apparently rxd as an inpt (would prefer to avoid ACEI with pancreatitis). May take Tricor with sips of H2O, regarding hyperTG, & recheck TG. Check CRP for prognostic purposes. Consider checking full Hep A, B, & C serologies, HIV, MAXIMILIANO, AMA (doubt), Fe, TIBC , ferritin, ceruloplasmin, A1AT level. Eventual outpt Vitamin E 800 IU po daily for fatty liver, along with risk factor modification (i.e- cessation of EtOH, & strict control of BP, glucose, lipids, body weight, etc.), with consideration for outpt FibroScan. The patient was made aware that continual EtOH abuse could result in his . Advise psychiatric & social work input. If patient deteriorates, low threshold for ICU monitoring. Consider vascular followup for ? hepatic artery aneurysm seen on CT (vs. CTA). The above was discussed with the medical housestaff in detail, & earlier with Dr. Del Castillo. Further GI recommendations to follow, depending on clinical course. Problem List: 1. Necrotizing pancreatitis 2. Hypertriglyceridemia 3. Alcohol abuse 4. Fatty liver 5. Abnormal LFTs 6. Alcoholic hepatitis 7. Abdominal pain 8. Nausea & vomiting 9. Fever 10. Leukocytosis 11. Umbilical hernia 12. Right inguinal hernia 13. Malnutrition Copies To: Abundio STANLEY,Heydi Consult Acknowledgment - Thank you for your consult request.
[2017-09-23 17:28] VITALS: BP 102/78
--- NOTE | 2017-09-23 18:40 | CT SCAN REPORT ---
EXAMINATION: CT ABDOMEN AND PELVIS WITHOUT AND WITH CONTRAST CLINICAL INFORMATION: Evaluate for necrotizing pancreatitis COMPARISON: Portions of a previous CT 09/20/17 TECHNIQUE: Pancreatic protocol Multidetector volumetric imaging was performed of the abdomen and pelvis. The abdomen was performed without IV contrast. The abdomen was examined during the arterial phase. The abdomen and pelvis were examined following IV administration of 95 mL of Optiray 320 intravenous contrast. Sagittal and coronal reformatted images were obtained on the technologist's workstation. DLP: 992 mGy-cm FINDINGS: LUNG BASES: There is now a small amount of bilateral pleural fluid. There are linear opacities in both lung bases which could be atelectasis. There is no pneumothorax. There is no evidence of pneumoperitoneum. LIVER, GALLBLADDER, AND BILIARY TREE: Diffuse fatty change in the liver. Small zone of low-attenuation adjacent to the falciform ligament. This is a common location for focal fatty change or a small perfusion abnormality. This is likely unchanged. The gallbladder is mildly distended. There is likely some dependent sludge. No calcified stones demonstrated. The common duct is top normal. There is no opaque duct calculus PANCREAS: There has been significant interval worsening. There is now severe pancreatitis. There is enhancement of the uncinate process pancreatic head and some of the pancreatic neck. The remainder the pancreas is enlarged and low attenuating without significant parenchymal enhancement in the body or tail. There is severe surrounding fat stranding. There are fluid collections in the lesser sac and in the lateral gutter. There is mass effect upon the lesser curvature the stomach. There is thickening of the anterior pararenal fascia. There is retroperitoneal stranding in the anterior pararenal space. There are fluid collections in the gutter, Morison's pouch and the deep pelvic recesses which are all essentially new. No gas within the collections. SPLEEN: The spleen enhances homogeneously. ADRENAL GLANDS: Within normal limits KIDNEYS AND URETERS: No dilation of the collecting system. No suspicious renal mass. There are symmetric nephrograms. BLADDER: The bladder is nearly empty. No focal abnormality GASTROINTESTINAL TRACT: No localized colonic wall thickening. The appendix is normal. There is no significant small bowel dilation. There is some distention of the duodenum. As described there is stranding surrounding the proximal stomach with mass effect upon the lesser curve and a fluid collection in the lesser sac. ABDOMINAL WALL: Asymmetric fat protrudes into the right inguinal canal. LYMPH NODES: No suspicious adenopathy. VASCULAR: There is no abdominal aortic aneurysm. The portal vein enhances. The superior mesenteric vein enhances. The splenic vein enhances but is surrounded by fluid and fat stranding. There is a focus of amorphous enhancement medial and slightly superior to the proper hepatic artery (series 12, image 58; series 602, image 52; series 601, image 78). This is not present on the early arterial phase. This was not present on 09/20/17. PELVIC VISCERA: Within normal limits OSSEOUS STRUCTURES: No focal abnormality IMPRESSION: Marked interval worsening. CT evidence of severe acute necrotizing pancreatitis with lack of enhancement throughout the body and tail. There is extensive surrounding fat stranding and there are fluid collections including a collection in the lesser sac. There is no internal gas. Correlate with systemic inflammatory response markers. There is an amorphous 1 cm late enhancing abnormality near the hepatic artery. This is concerning for a small pseudoaneurysm. Short interval follow-up may be necessary. Depending upon the clinical circumstances follow-up might include CT angiography including late venous phase
[2017-09-23 20:42] VITALS: BP 110/76
--- NOTE | 2017-09-23 21:46 | Event Note ---
Event Note Event Note: Situation : Clinical status deteriorating/ ICU Transfer for closer monitoring Background :Mr Peck is a 32 YO old male who was being treated on telemetry floor for worsening of pancreatitis. MRCP today showed worsening pancreatitis with diffuse pancreatic edema, interval development of ascites and pleural effusion, findings consistent with severe acute edematous interstitial pancreatitis. However both the abdomen and pelvis CT and abdominal MRI were done without contrast. Currently the patient has a fever of 102, blood pressure of 102/78, respiratory rate of 20. He is lying on the bed very uncomfortable, abdominal pain 9.5 out of 10, n.p.o., right upper quadrant tenderness and overall very tender abdomen, bowel sounds present. Assessment : Patient seems to have worsening pancreatitis now necrotizing, positve SIRS, increasing white count with bands, high HCT, borderline BP, we were also signed out from primary team in case of worsening condition, plan to transfer ot ICU. Plan: -Ringer Lactate bolus -Maintainence RL 150cc/ hour -Surgical consult(call back awaited) -ICU bundle, CBC -Pain mx with iv dilaudid -Maintain patient NPO. -Please obtain ID consult in am. -ct monitor electrolytes. -will discuss possible debridement with surgery at some point. -plan discussed with Cooler Deliverer Dr rodriguez -Dr Pimentel informed -GI consult/recs awaited.
--- NOTE | 2017-09-23 22:47 | Event Note ---
Event Note Event Note: Patient received from tele floor for: * Acute necrotizing pancreatitis, with worsening pain, fever 102 F, BP 102/78, and imaging done earlier today (without contrast) suggestive of severe acute necrotizing pancreatitis. * Alcohol withdrawal (on CIWA), no active symptoms currently In summary, Mr Coleman is a 32 yo M with h/o alcoholic pancreatitis last year, EtOH abuse requiring Ativan drip in 07/30, active smoking, marijuana use, asthma, who had recently re-started drinking mixed drinks last week (09/18/17) who came in to the ED with severe epigastric pain, nausea/dry heaving, was admitted for acute alcoholic pancreatitis and alcohol detox, and was being managed in the tele floor. His BISAP score was zero when he came in but had severe pain, couldn't tolerate PO, and was treated with IV fluids, bowel rest and analgesia. His condition today was worse with pain and persistent leukocytosis, and a repeat CT abdomen (without contrast) showed evidence of severe acute necrotizing pancreatitis, and peripancreatic edema, ascites and pleural effusion, loculated extrapancreatic fluid collection. GI was consulted and asked regarding ICU transfer, and possiblility of IV Meropenem. Awaiting suggestions currently. Patient developed fever and worsening pain and also had nursing staff reported low BP recordings, so GI service was called again and the patient transferred to the ICU for closer observation and further management. For now, the overnight tele team ordered: * ICU lab bundle ordered * Inj Dilaudid 2 mg IV STAT-->Patient says his pain is better now, refused * IV Meropenem 1 gm q8h-->NOT given per GI recs * Inj Lactated Ringers 500 ml IV STAT * Followed by Inj Lactated Ringers @ 150ml/hr-->Increased to 250 ml/hr per GI recs * VBG * Surgical service consult placed * Await GI recommendations-->Appreciated, added on CRP, lipid panel; Extensive labs (rheumatologic, ...) not added yet * ID consult for the morning (not informed yet) * Dr Pimentel (critical care) informed * Dr Boothe (sales and business development manager) informed His CIWA since this AM has been 0-3. I spoke to the patient after the transfer and he is calm, cooperative, and not in any distress. His abdomen seems somewhat distended to me (?baseline), soft, non tender on gentle palpation, and has bowel sounds. Chest exam is unremarkable. He is getting the blood draws and the IV fluids currently. His vitals are stable right now and he has requested the morning team to inform his employers about his ICU transfer as well. Miguel A Joseph (patient's mother's boyfriend) picked up the phone at the home number ([phone]) and he was updated about the transfer. He did not have any question to be answered currently and mentioned that he would update the patient 's mother Bethany Coleman.
[2017-09-23 22:57] LABS: ABSOLUTE BASOPHIL COUNT 0.1 /CUMM (0.0-0.2); ABSOLUTE EOSINOPHIL COUNT 0 /CUMM (0.0-0.7); ABSOLUTE GRANULOCYTE CT 17.5 /CUMM (1.4-6.5); ABSOLUTE LYMPH COUNT 1.1 /CUMM (1.2-3.4); ABSOLUTE MONOCYTE COUNT 1.2 /CUMM (0.10-0.60); BASOPHIL % 0.3 % (0.0-2.0); EOSINOPHIL % 0 % (0-5); MEAN CORPUSCULAR HGB 31.4 PG (27.0-31.0); MEAN CORPUSCULAR HGB CONC 34.2 G/DL (33.0-37.0); MEAN CORPUSCULAR VOLUME 92.1 FL (80.0-94.0); MEAN PLATELET VOLUME 7.6 FL (7.4-10.4); PLATELET COUNT 124 /CUMM (130-400); RBC DISTRIBUTION WIDTH 13.1 % (11.5-14.5); RED BLOOD CELL CT 4.51 /CUMM (4.70-6.10); WHITE BLOOD CELL COUNT 19.9 /CUMM (4.8-10.8)
[2017-09-23 22:58] LABS: HEMATOCRIT 41.6 % (42-52)
[2017-09-24] VITALS (9 sets, daily range): BP systolic 118–150; BP diastolic 52–78
[2017-09-24 04:19] LABS: ABSOLUTE BASOPHIL COUNT 0 /CUMM (0.0-0.2); ABSOLUTE EOSINOPHIL COUNT 0 /CUMM (0.0-0.7); ABSOLUTE GRANULOCYTE CT 15.1 /CUMM (1.4-6.5); ABSOLUTE LYMPH COUNT 1.3 /CUMM (1.2-3.4); ABSOLUTE MONOCYTE COUNT 1.2 /CUMM (0.10-0.60); BASOPHIL % 0.1 % (0.0-2.0); EOSINOPHIL % 0 % (0-5); GRANULOCYTE % 85.9 % (42.2-75.2); HEMATOCRIT 37.2 % (42-52); MEAN CORPUSCULAR HGB 31.8 PG (27.0-31.0); MEAN CORPUSCULAR HGB CONC 34.6 G/DL (33.0-37.0); MEAN PLATELET VOLUME 7.7 FL (7.4-10.4); PLATELET COUNT 118 /CUMM (130-400); RBC DISTRIBUTION WIDTH 12.9 % (11.5-14.5); RED BLOOD CELL CT 4.05 /CUMM (4.70-6.10); WHITE BLOOD CELL COUNT 17.6 /CUMM (4.8-10.8)
--- NOTE | 2017-09-24 07:40 | Cons- CRCU ---
Jerri STANLEY,Derian 09/24/17 0740: General Information and HPI Consulting Request Date of Consult: 09/24/17 Requested By: Heydi Del Castillo MD Reason for Consult: Acute on chronic pancreatitis Source of Information: patient, family, old records Exam Limitations: no limitations History of Present Illness: Patient is a 32-year-old male with past medical history of asthma(mild persistent), hypertension(on medication lisinopril), history of alcohol induced pancreatitis(07/31/2016-08/12/2016) presented with chief complaints of severe abdominal pain, nausea, vomiting, diarrhea. History is taken from Mr. Coleman. According to him he was completely all right since 2016 and quit alcohol. He denies that any episode of pancreatitis are fatty food intolerance, pain in the abdomen or using pain medicine. He had septal surgery and got the antibiotic in between. Last Saturday he was watching softball game. During that time he did consume 6 beers, 6 shots, and sometimes whiskey. He was completely all right afterwards. On next day he started feeling difficulty in the breathing. He denies for any episode of fever, chills , sick contacts, vomiting. It does not seems that he had aspiration pneumonia. He did go to urgent care and was given nebulization and a course of prednisone with Singulair. He did took all the medicine despite of that he was not feeling well. On this he revisited urgent care and was given a course of Z- Daniel. After 24-hour he started feeling nausea vomiting and diarrhea followed by abdominal pain distention. So on Saturday he presented to [facility] ED for further evaluation and management. He was admitted into the general medicine floor. Vital signs at the time of admission -afebrile, pulse 47, respiratory rate 15, blood pressure 160/90, SPO2 98% on room air. Blood workup did show -WBC count 17.4, granulocyte 77.7, no band cells, serum sodium 133/hyponatremia, lactic acid 2.8, AST/ALT-122/122, negative troponins, triglyceride 362, amylase 65, lipase 783. CT abdomen pelvis did show Recurrent acute interstitial edematous pancreatitis with inflammation centered around the pancreatic head and uncinate process. Reactive inflammation of the duodenum. He was evaluated and treated for bradycardia and acute pancreatitis. * Bradycardia has been resolved. Echocardiogram was normal, Lyme titer was negative. * Patient was evaluated for the etiology of pancreatitis. His serum alcohol level was less than 10. Right upper quadrant ultrasound did not show any evidence of cholecystitis and cholelithiasis. His triglyceride level was 362 initially and now 113. He continues to have pain and started getting fever( 101.4/102), persistent leukocytosis along with the band cells. Because of that he underwent CT and abdomen with contrast on 09/23/2017 which show evidence of severe acute necrotizing pancreatitis with lack of enhancement throughout the body and tail. There is extensive surrounding fat stranding and there are fluid collections including a collection in the lesser sac. He was transferred to the ICU for further evaluation and close monitoring. Currently at the time of examination he was complaining of abdominal pain which is similar in nature as at the time of admission. He does feel difficulty in the breathing and wheezing sometimes. He was having nausea and retching after drinking even a small amount of liquid including ice chips. Past medical history-asthma, alcohol use, hypertension on lisinopril History of alcohol use -he started drinking alcohol at the age of 18. Initially he was using occasionally but later on he started drinking around 5-6 beers per day. In between he was using shots. After he got the pancreatitis in 2017 he stopped drinking. According to him he did drink on the last and on the last Saturday(09/21/2017). He drank around 6 beers, 6 shots, mixed drink including whiskey. Personal history -lives with the mother, satisfied at the workplace, he does drink alcohol, occasionally smokes cigar which he stopped in 2016, does smoke marijuana vapor. Family history -his mother has history of hypertension Allergies/Medications Allergies: Coded Allergies: No Known Allergies (09/20/17) Home Med List: Albuterol Sulfate (Proair Hfa) 90 MCG HFA.AER.AD 2 PUF INH Q4-6 PRN PRN SHORTNESS OF BREATH (Reported) Azithromycin 250 MG TABLET 1 DP PO DAILY ANTIBIOTIC, INFECTION (Reported) 2 the first day followed by 1 for days 2-5 Melatonin 5 MG TABLET 1 TAB PO QPM SLEEP (Reported) Montelukast Sodium 10 MG TABLET 1 TAB PO DAILY ALLERGIES (Reported) Prednisone 20 MG TABLET 1 TAB PO TID STEROID (Reported) Review of Systems Review of Systems Constitutional: Reports: no symptoms, fever, weakness. Respiratory: Reports: short of breath. GI: Reports: bloating, constipation, distention, nausea, vomiting. Genitourinary: Reports: hematuria. Musculoskeletal: Reports: back pain. Past History Travel History Traveled to [place] past 21 day No Medical History Blood Transfusion Hx: No Neurological: NONE EENT: NONE Cardiovascular: hypertension (? 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 Age 55. FH: alcoholism FH: COPD (chronic obstructive pulmonary disease) FATHER (pt estranged form father- pt's parents are ). Age 53. FH: alcoholism maternal grandmother ([place]). , Age 74. FH: CAD (coronary artery disease) BROTHER, , Age Infancy; Cause: SIDS (sudden syndrome). SISTER (A&W). Age 23. Psychosocial History Where Do You Live? Home Who Do You Live With? parent (mother & occ girlfriend) Services at Home: None Primary Language: Argentine Smoking Status: Former Smoker (D/C cigars 07/2016) ETOH Use: alcoholic (> 10 yrs, resumed 09/2017) Illicit Drug Use: marijuana Living Will? no Power of Pharmacy Affairs Assistant/HCP? no Other Social History: Single. No children. Lives with mother, & occasionally his girlfriend (parents & estranged from father). Ex-cigar smoker, D/C 07/2016. EtOH abuse daily x > 10 yrs, starting in [place] Stopped EtOH 07/2016-> resumed in 09/2017. Smokes & vapes cannabis. No other illicit drugs. Denies IVDA. Old tattoos. Works in [employer]. Functional Ability ADLs Independent: dressing, eating, toileting, bathing. Ambulation: independent IADLs Independent: shopping, housework, finances, food prep, telephone, transportation , medication admin. Employment History Employment: Employed Profession/Employer: [employer] ECHO Results (as available) Date of last Echo 09/20/17 EF% 60 Exam & Diagnostic Data Last 24 Hrs of Vital Signs/I&O Vital Signs Date Time Temp Pulse Resp B/P B/P Pulse O2 O2 Flow FiO2 Mean Ox Delivery Rate 09/24 0600 98.9 104 22 123/71 09/24 0400 98.8 107 17 118/62 09/24 0400 94 Room Air 09/24 0200 98.0 106 30 119/76 06 0000 98.2 105 23 122/78 06 0000 92 Room Air 09/24 0000 98.2 105 23 122/78 92 Room Air 09/23 2304 94 Room Air Room Air 09/23 2042 102.0 122 26 110/76 93 09/23 1728 102/78 09/23 1448 101.4 09/23 1431 101.4 120 18 130/68 92 Room Air 09/23 1400 127 09/23 1200 128 09/23 1000 114 09/23 0816 134/64 Intake & Output 09/24 1600 /12 0800 06 0000 Intake Total 1750 1200 Output Total 250 900 Balance 1500 300 Intake, IV 1750 1200 Intake, Oral 0 Number 0 Bowel Movements Output, Urine 250 900 Patient 90.86 kg Weight Weight Bed scale Measurement Method Physical Exam General Appearance: no apparent distress, alert, awake, comfortable Head: atraumatic, normal appearance Eyes: Bilateral: normal appearance. Ears, Nose, Throat: normal pharynx, dry oral mucosa with whitish coated tongue Neck: normal inspection, supple Respiratory: decreased breath sounds, wheezing Cardiovascular: regular rate/rhythm, tachycardia Peripheral Pulses: 4+ dorsalis pedis (R), 4+ dorsalis pedis (L) Gastrointestinal: distention, tenderness Extremities: normal inspection, normal capillary refill Last 48 Hrs of Labs/Mike: Laboratory Tests 09/24/17 0334: Anion Gap 7, Estimated GFR > 60, BUN/Creatinine Ratio 22.0, Total Bilirubin 4.6 H, Direct Bilirubin 3.1 H, AST 72 H, ALT 45, Alkaline Phosphatase 75, Total Protein 4.7 L, Albumin 2.4 L, CBC w Diff MAN DIFF ORDERED, RBC 4.05 L, MCV 92.0, MCH 31.8 H, MCHC 34.6, RDW 12.9, MPV 7.7, Gran % 85.9 H, Lymphocytes % 7.4 L, Monocytes % 6.6, Eosinophils % 0, Basophils % 0.1, Absolute Granulocytes 15.1 H, Segmented Neutrophils 67, Band Neutrophils 19 H, Absolute Lymphocytes 1.3, Lymphocytes 8 L, Monocytes 6, Absolute Monocytes 1.2 H, Absolute Eosinophils 0, Absolute Basophils 0, Platelet Estimate DECREASED, Normocytic RBCs VERIFIED, Normochromic RBCs VERIFIED 09/23/17 2229: Anion Gap 10, Estimated GFR > 60, BUN/Creatinine Ratio 18.0, Calcium 7.6 L, Phosphorus 2.0 L, Magnesium 2.1, Total Bilirubin 4.8 H, Direct Bilirubin 3.1 H, AST 75 H, ALT 44, Alkaline Phosphatase 73, C-Reactive Prot, Quant > 9.0 H, Total Protein 5.1 L, Albumin 2.5 L, Triglycerides 131, Cholesterol 108, LDL Cholesterol, Calc 47 L, HDL Cholesterol 35 L, Cholesterol/HDL Ratio 3.1, CBC w Diff MAN DIFF ORDERED, RBC 4.51 L, MCV 92.1, MCH 31.4 H, MCHC 34.2, RDW 13.1, MPV 7.6, Gran % 88.0 H, Lymphocytes % 5.6 L, Monocytes % 6.1, Eosinophils % 0, Basophils % 0.3, Absolute Granulocytes 17.5 H, Segmented Neutrophils 58, Band Neutrophils 33 H, Absolute Lymphocytes 1.1 L, Lymphocytes 5 L, Monocytes 4, Absolute Monocytes 1.2 H, Absolute Eosinophils 0, Absolute Basophils 0.1, Platelet Estimate VERIFIED BY SMEAR, Polychromasia , Fld Total RBCs Counted 100 09/23/175: Bicarbonate Actual 16 L, Mixed VBG pH 7.60 H, Mixed VBG pCO2 16 L, Mixed VBG O2 Saturation 64 H, Carboxyhemoglobin 2.8, O2 Concentration % RA, O2 Delivery Method RA, Phlebotomy Draw Site R.FOREARM 09/23/171999: Urinalysis MOD H, Urine Color GHAZALA, Urine Clarity HAZY H, Urine pH 6.0, Ur Specific [place] >= 1.030, Urine Protein 100 H, Urine Ketones NEG, Urine Nitrite POS H, Urine Bilirubin NEG@ICTO, Urine Urobilinogen >=8.0 H, Ur Leukocyte Esterase NEG, Ur Microscopic SEDIMENT EXAMINED, Urine RBC 3-5, Urine WBC 3-5 H, Urine Bacteria FEW H, Granular Casts RARE H, Urine Hemoglobin LARGE H, Urine Glucose NEG 09/23/17 1337: PT 13.3 H, INR 1.22 H 09/23/17 1315: Total Bilirubin Cancelled, Direct Bilirubin Cancelled, AST Cancelled, ALT Cancelled, Alkaline Phosphatase Cancelled, Total Protein Cancelled, Albumin Cancelled 09/23/17 0615: Anion Gap 11, Total Bilirubin 3.5 H, Direct Bilirubin 2.1 H, AST 89 H, ALT 56 , Alkaline Phosphatase 71, Total Protein 5.5 L, Albumin 2.9 L, CBC w Diff MAN DIFF ORDERED, RBC 5.07, MCV 93.2, MCH 32.1 H, MCHC 34.4, RDW 12.7, MPV 7.7, Gran % 86.5 H, Lymphocytes % 6.2 L, Monocytes % 7.3, Eosinophils % 0, Basophils % 0, Absolute Granulocytes 16.1 H, Segmented Neutrophils 66, Band Neutrophils 20 H, Absolute Lymphocytes 1.1 L, Lymphocytes 10 L, Monocytes 4, Absolute Monocytes 1.4 H, Absolute Eosinophils 0, Absolute Basophils 0, Platelet Estimate VERIFIED BY SMEAR, Normocytic RBCs VERIFIED, Normochromic RBCs VERIFIED Diagnostic Data CXR Results Low lung volume and nonspecific bibasilar airspace disease and small right-sided pleural effusion, new since prior study dated 09/20/2017. Assessment/Plan CRCU Impression/Plan: Patient is a 32-year-old male with past medical history of asthma(mild persistent), hypertension(on medication lisinopril), history of alcohol induced pancreatitis(07/31/2016-08/12/2016) presented with chief complaints of severe abdominal pain, nausea, vomiting, diarrhea.He continues to have pain and started getting fever(101.4/102), persistent leukocytosis along with the band cells.He underwent CT and abdomen with contrast on 09/23/2017 which show evidence of severe acute necrotizing pancreatitis.He was transferred to the ICU for further evaluation and close monitoring. Vital signs-maximum temperature 98.5, pulse 108, sinus tachycardia, respiratory rate 27, blood pressure 123/69, oxygen saturation 95% on room air intake/output 2400/250. Severe acute necrotizing pancreatitis secondary to alcohol intake and probably aggravated by viral infection, steroid - * We will keep patient n.p.o. * We will continue patient on Ringer lactate 250 cc/h * We will follow ID recommendation, GI recommendation * It is planned that patient will get CT-guided pancreatic biopsy and if the biopsy is positive for infection then we will start patient on antibiotic. * Strict intake output charting * Incentive spirometry Severity of acute pancreatitis - CT severity score (the Sandi score) [CTSI] - * On 09/20 CTSI -1; mild acute pancreatitis. * On 09/23 CTSI -10; Sever acute pancreatitis Samina criteria for pancreatitis prognosis - * 3-5 Points -Mortality 11-15% BISAP score - 2; Lower mortality (<2 percent) Pain management - * Avoid NSAIDs and nephrotoxic medication * Injection Dilaudid 0.4 mg IV every 4 as needed Small right-sided pleural effusion -reactionary * Possibly reactionary will follow chest x-ray. Hepatic artery pseudoaneurysm - * We will watch for the bleeding in the size of the aneurysm * Is if needed then will consider vascular consultation History of asthma- * TRC/nebulization Alcohol use disorder - * Ativan according to CIWA protocol * We already counseled him for cessation of alcohol intake History of hypertension - * We will hold lisinopril for now and if needed then we will give IV antihypertensive including metoprolol as needed. Bradycardia -resolved * Echocardiogram was normal, Lyme titer was negative. ? Hematuria/ Myoglobinuria -Watch conservatively CODE STATUS-full code DVT prophylaxis-TOMÁS/heparin, We will hold the heparin before the procedure and then restart afterwards. Diet-n.p.o. Problem List: 1. Necrotizing pancreatitis Consult Acknowledgment - Thank you for your consult request. Geo Pimentel MD 09/24/17 1049: Assessment/Plan CRCU Other Findings/Comments: Geo Deleon M.D. have examined this patient, reviewed available EMR data, personally reviewed images, discussed with resident/PA/DEVELOPMENTAL MATHEMATICS PROFESSOR, discussed management plan with housestaff and nursing staff, discussed managment plan all of healthcare providers, discussed management plan with patient and/or family, agreed with resident/PA/DEVELOPMENTAL MATHEMATICS PROFESSOR. The past history and parts of the chart have been autopopulated. Impression 32 year old man * necrotizing pancreatitis likely secondary to etoh dependence Plan -ID consultation appreciated -plan for IR guided biopsy of pancreas -continue hydration IVF -replete lytes as needed -NPO -f/u GI recommendations DVT prophylaxis at all times TTS 40 min Consult Acknowledgment - Thank you for your consult request.
--- NOTE | 2017-09-24 11:41 | Cons- Infect Disease ---
General Information and HPI Consulting Request Date of Consult: 09/24/17 Requested By: Heydi Del Castillo MD Reason for Consult: Necrotizing pancreatitis Source of Information: patient History of Present Illness: This is a 32-year-old man with a history of asthma, alcohol abuse and pancreatitis 1 year prior to admission, treated over the past week prior to admission for bronchitis with prednisone, albuterol and Singulair and begun on Azithromycin one day prior to admission admitted on September 20 after presenting to the emergency room with a one day history of mid-abdominal pain, radiating to the back, nausea, vomiting and diarrhea without any fevers or chills. On admission he was afebrile, with a heart rate of 47. Laboratory data revealed a white blood cell count of 17,000, BUN/creatinine 12 and 0.8, lactic acid 2.8, lipase 783, triglycerides 362, AST/ALT 122 and 122, alcohol level less than 10. Urinalysis negative. Urine tox screen was positive for opiates/morphine and cannabis. Chest x-ray revealed mild subsegmental atelectasis in the right lung base. CT of the abdomen and pelvis revealed recurrent peripancreatic inflammation around the pancreatic head and uncinate process with no evidence of necrosis or peripancreatic fluid collections. He was managed symptomatically and supportively with IV fluids and pain meds. By September 21 his bradycardia resolved and he became tachycardic. On October 23 he developed a fever up to 102 and his white blood cell count remained elevated, with increasing bands. Repeat imaging with an MRI and CT of the abdomen with IV contrast revealed severe acute necrotizing pancreatitis with lack of enhancement throughout the body and tail, with extensive surrounding fat stranding and fluid collections, with no cholelithiasis, choledocholithiasis or biliary ductal dilatation. He was moved to the ICU and has remained stable overnight. He appears to have defervesced overnight and at present his pain is controlled with pain meds. Allergies/Medications Allergies: Coded Allergies: No Known Allergies (09/20/17) Home Med List: Albuterol Sulfate (Proair Hfa) 90 MCG HFA.AER.AD 2 PUF INH Q4-6 PRN PRN SHORTNESS OF BREATH (Reported) Azithromycin 250 MG TABLET 1 DP PO DAILY ANTIBIOTIC, INFECTION (Reported) 2 the first day followed by 1 for days 2-5 Melatonin 5 MG TABLET 1 TAB PO QPM SLEEP (Reported) Montelukast Sodium 10 MG TABLET 1 TAB PO DAILY ALLERGIES (Reported) Prednisone 20 MG TABLET 1 TAB PO TID STEROID (Reported) Past History Travel History Traveled to [place] past 21 day No Medical History Blood Transfusion Hx: No Neurological: NONE EENT: NONE Cardiovascular: hyperlipidemia (TG) Respiratory: asthma Gastrointestinal: pancreatitis (EtOH/TG) Hepatic: fatty liver Renal: NONE Musculoskeletal: sciatica Psychiatric: alcohol dependence, anxiety, depression, PTSD Endocrine: obesity Blood Disorders: NONE Cancer(s): NONE 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 Age 55. FH: alcoholism FH: COPD (chronic obstructive pulmonary disease) FATHER (pt estranged form father- pt's parents are ). Age 53. FH: alcoholism maternal grandmother ([place]). , Age 74. FH: CAD (coronary artery disease) BROTHER, , Age Infancy; Cause: SIDS (sudden infant syndrome). SISTER (A&W). Age 23. Psychosocial History Where Do You Live? Home Who Do You Live With? parent (mother & occ girlfriend) Services at Home: None Primary Language: Lebanese Smoking Status: Former Smoker (D/C cigars 07/2016) ETOH Use: alcoholic (> 10 yrs, resumed 09/2017) Illicit Drug Use: marijuana Living Will? no Power of Brim Raiser/HCP? no Other Social History: Single. No children. Lives with mother, & occasionally his girlfriend (parents & estranged from father). Ex-cigar smoker, D/C 07/2016. EtOH abuse daily x > 10 yrs, starting in [place] Stopped EtOH 07/2016-> resumed in 09/2017. Smokes & vapes cannabis. No other illicit drugs. Denies IVDA. Old tattoos. Works in [employer]. Functional Ability ADLs Independent: dressing, eating, toileting, bathing. Ambulation: independent IADLs Independent: shopping, housework, finances, food prep, telephone, transportation , medication admin. Employment History Employment: Employed Profession/Employer: [employer] ECHO Results (as available) Date of last Echo 09/20/17 EF% 60 Review of Systems Review of Systems All Other Systems: Reviewed and Negative Exam & Diagnostic Data Last 24 Hrs of Vital Signs/I&O Vital Signs Date Time Temp Pulse Resp B/P B/P Pulse O2 O2 Flow FiO2 Mean Ox Delivery Rate 09/24 1057 94 Room Air Room Air 09/24 0800 99.5 115 21 133/73 09/24 0800 96 Room Air 09/24 0800 99.5 115 21 118/60 96 Room Air 09/24 0600 98.9 104 22 123/71 09/24 0400 98.8 107 17 118/62 09/24 0400 94 Room Air 09/24 0200 98.0 106 30 119/76 09/24 0000 98.2 105 23 122/78 09/24 0000 92 Room Air 09/24 0000 98.2 105 23 122/78 92 Room Air 09/23 2304 94 Room Air Room Air 09/23 2042 102.0 122 26 110/76 93 09/23 1728 102/78 09/23 1448 101.4 09/23 1431 101.4 120 18 130/68 92 Room Air 09/23 1400 127 09/23 1200 128 Intake & Output 09/24 1600 /12 0800 09/24 0000 Intake Total 1750 1200 Output Total 250 900 Balance 1500 300 Intake, IV 1750 1200 Intake, Oral 0 Number 0 Bowel Movements Output, Urine 250 900 Patient 200 lb Weight Weight Bed scale Measurement Method Physical Exam Other Physical Findings: He is awake and alert in no acute distress. T-max 102. Skin reveals no rash. HEENT exam is negative. Neck is supple with no adenopathy. Lungs mild rhonchi bilaterally. Heart regular rhythm with no murmur. Abdomen is mildly distended, tender to palpation in the midabdomen, with no guarding or rebound, with positive bowel sounds. 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 Extremities no cyanosis, clubbing or edema. Neuro is without focality. Last 24 Hours of Lab Results: Laboratory Tests 09/24 09/23 0334 2229 Chemistry Sodium (137 - 145 mmol/L) 134 L 131 L Potassium (3.5 - 5.1 mmol/L) 4.0 4.1 Chloride (98 - 107 mmol/L) 101 99 Carbon Dioxide (22 - 30 mmol/L) 25 22 Anion Gap (5 - 16) 7 10 BUN (9 - 20 mg/dL) 22 H 18 Creatinine (0.7 - 1.2 mg/dL) 1.0 1.0 Estimated GFR (>60 ml/min) > 60 > 60 BUN/Creatinine Ratio (7 - 25 %) 22.0 18.0 Glucose (65 - 99 mg/dL) 109 H Calcium (8.4 - 10.2 mg/dL) 7.6 L Phosphorus (2.5 - 4.5 mg/dL) 2.0 L Magnesium (1.6 - 2.3 mg/dL) 2.1 Total Bilirubin (0.2 - 1.3 mg/dL) 4.6 H 4.8 H Direct Bilirubin (< 0.4 mg/dL) 3.1 H 3.1 H AST (17 - 59 U/L) 72 H 75 H ALT (21 - 72 U/L) 45 44 Alkaline Phosphatase (< 127 U/L) 75 73 Lactate Dehydrogenase (313 - 618 U/L) 2933 H C-Reactive Prot, Quant (<1.0 mg/dL) > 9.0 H Total Protein (6.3 - 8.2 g/dL) 4.7 L 5.1 L Albumin (3.5 - 5.0 g/dL) 2.4 L 2.5 L Triglycerides (<150 mg/dL) 131 Cholesterol (< 200 MG/DL) 108 LDL Cholesterol, Calc (65 - 129 mg/dL) 47 L HDL Cholesterol (40 - 60 mg/dL) 35 L Cholesterol/HDL Ratio (0.00 - 4.88 %) 3.1 Hematology CBC w Diff MAN DIFF ORDERED MAN DIFF ORDERED WBC (4.8 - 10.8 /CUMM) 17.6 H 19.9 H RBC (4.70 - 6.10 /CUMM) 4.05 L 4.51 L Hgb (14.0 - 18.0 G/DL) 12.9 L 14.2 Hct (42 - 52 %) 37.2 L 41.6 L MCV (80.0 - 94.0 FL) 92.0 92.1 MCH (27.0 - 31.0 PG) 31.8 H 31.4 H MCHC (33.0 - 37.0 G/DL) 34.6 34.2 RDW (11.5 - 14.5 %) 12.9 13.1 Plt Count (130 - 400 /CUMM) 118 L 124 L MPV (7.4 - 10.4 FL) 7.7 7.6 Gran % (42.2 - 75.2 %) 85.9 H 88.0 H Lymphocytes % (20.5 - 51.1 %) 7.4 L 5.6 L Monocytes % (1.7 - 9.3 %) 6.6 6.1 Eosinophils % (0 - 5 %) 0 0 Basophils % (0.0 - 2.0 %) 0.1 0.3 Absolute Granulocytes (1.4 - 6.5 /CUMM) 15.1 H 17.5 H Segmented Neutrophils (42.2 - 75.2 %) 67 58 Band Neutrophils (0.0 - 5.0 %) 19 H 33 H Absolute Lymphocytes (1.2 - 3.4 /CUMM) 1.3 1.1 L Lymphocytes (20.5 - 51.1 %) 8 L 5 L Monocytes (1.7 - 9.3 %) 6 4 Absolute Monocytes (0.10 - 0.60 /CUMM) 1.2 H 1.2 H Absolute Eosinophils (0.0 - 0.7 /CUMM) 0 0 Absolute Basophils (0.0 - 0.2 /CUMM) 0 0.1 Platelet Estimate (ADEQUATE) DECREASED VERIFIED BY SMEAR Normocytic RBCs VERIFIED Normochromic RBCs VERIFIED Polychromasia Other Body Source Fld Total RBCs Counted (%) 100 09/23 09/23 09/23 2225 1999 1337 Blood Gas Bicarbonate Actual (22 - 26 MEQ/L) 16 L Mixed VBG pH (7.31 - 7.41 PH) 7.60 H Mixed VBG pCO2 (41 - 51 TORR) 16 L Mixed VBG O2 Saturation (35 - 45 TORR) 64 H Carboxyhemoglobin (1.5 - 5.0 %) 2.8 O2 Concentration % RA O2 Delivery Method RA Coagulation PT (9.4 - 12.5 SEC) 13.3 H INR (0.90 - 1.17) 1.22 H Miscellaneous Phlebotomy Draw Site R.FOREARM Urines Urinalysis MOD H Urine Color (YEL,AMB,STR) GHAZALA Urine Clarity (CLEAR) HAZY H Urine pH (5.0 - 8.0) 6.0 Ur Specific [place] (1.001 - 1.035) >= 1.030 Urine Protein (NEG,<30 MG/DL) 100 H Urine Ketones (NEG) NEG Urine Nitrite (NEG) POS H Urine Bilirubin (NEG) NEG@ICTO Urine Urobilinogen (0.1 - 1.0 EU/dl) >=8.0 H Ur Leukocyte Esterase (NEG) NEG Ur Microscopic SEDIMENT EXAMINED Urine RBC (0 - 5 /HPF) 3-5 Urine WBC (0 - 2 /HPF) 3-5 H Urine Bacteria (NEG/NONE) FEW H Granular Casts (NONE /LPF) RARE H Urine Hemoglobin (NEG) LARGE H Urine Glucose (N MG/DL) NEG 09/23 1315 Chemistry Total Bilirubin Cancelled Direct Bilirubin Cancelled AST Cancelled ALT Cancelled Alkaline Phosphatase Cancelled Total Protein Cancelled Albumin Cancelled Last 24 Hours of Mike Results: Blood cultures September 20 negative Blood cultures September 23 negative Urine culture September 20 negative Diagnostic Data Recent Imaging Findings: Chest x-ray September 20 revealed mild subsegmental atelectasis in the right lung base. CT of the abdomen and pelvis September 20 revealed recurrent peripancreatic inflammation around the pancreatic head and uncinate process with no evidence of necrosis or peripancreatic fluid collections. Right upper quadrant ultrasound September 23 reveals a normal gallbladder and biliary tree with pancreas not clearly visualized MRCP September 23 reveals significant interval worsening of pancreatitis with diffuse pancreatic edema, with ascites and pleural effusions, and with the developed of a loculated extrapancreatic fluid collection anterior to the body of the pancreas, measuring 5.6 x 4.4 x 4.3 cm; no evidence of cholelithiasis, choledocholithiasis or biliary ductal dilatation CT of the abdomen and pelvis with IV contrast September 23 reveals marked interval worsening with severe acute necrotizing pancreatitis with lack of enhancement throughout the body and tail, with extensive surrounding fat stranding and fluid collections Assessment/Plan Assessment/Plan Impression: This is a 32-year-old man with a history of alcohol abuse and pancreatitis treated over the past week for bronchitis with prednisone and, more recently, Azithromycin, admitted on September 20 with a one day history of mid-abdominal pain, radiating to the back, nausea, vomiting and diarrhea, found initially to be afebrile with a leukocytosis, elevated lipase and elevated liver enzymes and with a CT of the abdomen and pelvis revealing recurrent pancreatitis, with the development of a fever, bandemia and significant interval worsening of the pancreatitis, with evidence of necrosis, on repeat imaging. His clinical picture is suggestive of necrotizing pancreatitis, which places him at increased risk for pancreatic infection and, as discussed, aspiration of the pancreas will be necessary to rule this out. If infection is identified he will need antibiotics and, ultimately, debridement of the pancreas. If no infection is identified then supportive treatment can be continued. Suggestion: 1. Would pursue CT-guided aspiration of the pancreas for culture (have discussed with IR, patient and the ICU team) 2. Further management with regard to fluids and pain control per the ICU team 3. Follow off antibiotics pending above Consult Acknowledgment - Thank you for your consult request.
--- NOTE | 2017-09-24 17:03 | CT SCAN REPORT ---
PROCEDURE: CT PERCUTANEOUS ABSCESS DRAINAGE CLINICAL HISTORY: This patient is a 32 years old male with acute necrotizing pancreatitis, who presents to Interventional Radiology for CT-guided aspiration biopsy of the fluid collecting around the tail the pancreas to assess for superimposed infection as requested by Dr. Wood during our conversation earlier today . PROCEDURES: 1. Limited preprocedure CT of the abdomen. 2. Aspiration biopsy of the pancreatic tail fluid. PHYSICIANS: Dr. April Medeiros (attending) MONITORING: The procedure was performed with continuous blood pressure, pulse oximetry as well as heart rate monitoring was performed by an independent registered nurse. MEDICATIONS: 1. Versed 0 mg and fentanyl 100 mcg IV were administered. 2. Lidocaine 1%, 5 mL, SQ. COMPLICATIONS: None ESTIMATED BLOOD LOSS: <5 mL SPECIMENS: Left upper quadrant fluid at the pancreatic tail IMPLANT: None CONTRAST: None TOTAL DLP: 703.19 mGy-cm SITE MARKING: As part of the preprocedure verification policy, a site marking procedure was initiated. Due to the nature the procedure, the insertion site could not be predetermined thus invoking the policy of exemption to site laterality and marking. Insertion site marking was performed in the procedure room in conjunction with imaging confirmation. PROCEDURE NOTE: Informed consent was obtained from the patient prior to the procedure. During this process, the procedure and potential alternatives were explained along with the intended outcome and benefits. The risks of the procedure, including the possibility of an unsuccessful procedure, as well as the risk of not doing the procedure, were discussed. The patient was given the opportunity to ask questions regarding the procedure and appeared competent to make decisions. A signed consent form documenting this discussion was placed in the medical record. A time-out procedure was performed. The patient was placed KRISTAL on the CT table. A limited CT of the abdomen was performed to localize the fluid collection and to choose appropriate needle entry and trajectory. The abdomen was prepped and draped in usual sterile fashion. All elements of maximal sterile barrier technique followed including use of cap, mask, sterile gown, sterile gloves, a sterile full body drape and hand hygiene. Also followed skin preparation with 2% chlorhexidine for cutaneous antisepsis, and sterile ultrasound preparation with sterile gel and probe cover when applicable. The skin and subcutaneous tissues were anesthetized with lidocaine. Under CT-guidance, a 6 Green[place]ic 7 cm double-wall needle with coaxial catheter was advanced to the fluid collection. Fluid aspirate was obtained. A piece of white debris clogged the catheter and further aspiration was unable to be performed beyond approximately 3 mL. The catheter was removed and a sterile dressing applied. Samples were sent for pathology. The patient tolerated the procedure well. FINDINGS: Peripancreatic fluid concentrated at the lesser sac and pancreatic tail. Successful aspiration of the pancreatic tail collection. IMPRESSION: Successful CT-guided aspiration of a simple fluid from the tail region of the pancreas. PLAN: The patient was stable after the procedure and was transferred to the ICU.
--- NOTE | 2017-09-24 17:32 | Cons- General Surgery ---
General Information and HPI Consulting Request Date of Consult: 09/24/17 Requested By: Heydi Del Castillo MD History of Present Illness: CC: abdominal pain HPI: 32-year-old nondiabetic ex-smoker with a history of pancreatitis, ETOH, hospitalized a year ago, has been having mid abdominal pain for about a week some nausea no significant vomiting went to the walk-in clinic started on antibiotics until the pain worsened admitted to the medical service on the eighth interval repeat CT scan suggested pancreatic necrosis consult surgery for possible infected necrosis requiring intervention. He's been having some fevers he has leukocytosis the pain is better on IV analgesics, no more nausea or vomiting, pain across mid abdomen, does not radiate, not worse with activity no relation to foods (ie. 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 Otherwise no changes bowel habits, weight or appetite. I've reviewed the [facility]. No history of GERD, PUD, bleeding problems, heart disease or issues with anesthesia. Allergies/Medications Allergies: Coded Allergies: No Known Allergies (09/20/17) Home Med List: Albuterol Sulfate (Proair Hfa) 90 MCG HFA.AER.AD 2 PUF INH Q4-6 PRN PRN SHORTNESS OF BREATH (Reported) Azithromycin 250 MG TABLET 1 DP PO DAILY ANTIBIOTIC, INFECTION (Reported) 2 the first day followed by 1 for days 2-5 Melatonin 5 MG TABLET 1 TAB PO QPM SLEEP (Reported) Montelukast Sodium 10 MG TABLET 1 TAB PO DAILY ALLERGIES (Reported) Prednisone 20 MG TABLET 1 TAB PO TID STEROID (Reported) Past History Medical History Blood Transfusion Hx: No Neurological: NONE EENT: NONE Cardiovascular: hyperlipidemia (TG) Respiratory: asthma Gastrointestinal: pancreatitis (EtOH/TG) Hepatic: fatty liver Renal: NONE Musculoskeletal: sciatica Psychiatric: alcohol dependence, anxiety, depression, PTSD Endocrine: obesity Blood Disorders: NONE Cancer(s): NONE 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 Age 55. FH: alcoholism FH: COPD (chronic obstructive pulmonary disease) FATHER (pt estranged form father- pt's parents are ). Age 53. FH: alcoholism maternal grandmother ([place]). , Age 74. FH: CAD (coronary artery disease) BROTHER, , Age Infancy; Cause: SIDS (sudden infant syndrome). SISTER ([employer]). Age 23. Psychosocial History Where Do You Live? Home Who Do You Live With? parent (mother & occ girlfriend) Services at Home: None Primary Language: Kuwaiti Smoking Status: Former Smoker (D/C cigars 07/2016) ETOH Use: alcoholic (> 10 yrs, resumed 09/2017) Illicit Drug Use: marijuana Living Will? 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 no Other Social History: Single. No children. Lives with mother, & occasionally his girlfriend (parents & estranged from father). Ex-cigar smoker, D/C 07/2016. EtOH abuse daily x > 10 yrs, starting in [place] Stopped EtOH 07/2016-> resumed in 09/2017. Smokes & vapes cannabis. No other illicit drugs. Denies IVDA. Old tattoos. Works in [employer]. Functional Ability ADLs Independent: dressing, eating, toileting, bathing. Ambulation: independent IADLs Independent: shopping, housework, finances, food prep, telephone, transportation , medication admin. Employment History Employment: Employed Profession/Employer: [employer] Review of Systems Review of Systems: Constitutional: No fever, sweats or weight loss ENMT: No sore throat Cardiovascular: No chest pain, palpitations or leg swelling Respiratory: No shortness of breath, cough, or sputum or dyspnea on exertion GI: No GERD or bleeding per rectum : No dysuria or hematuria Musculoskeletal: No new muscle weakness, bone or joint pain Skin / Breast: No jaundice, rashes or itching Psychiatric: No history of drug or alcohol abuse no depression or anxiety Hematologic / lymphatic system: No problems with excessive bleeding, bruising, or blood clots Exam & Diagnostic Data Vital Signs and I&O I reviewed Vital Signs Date Time Temp Pulse Resp B/P B/P Pulse O2 O2 Flow FiO2 Mean Ox Delivery Rate 09/24 1600 100.5 110 22 140/70 93 Room Air 09/24 1200 Room Air 09/24 1200 98.3 111 16 144/77 09/24 1057 94 Room Air Room Air 09/24 1000 114 22 150/76 09/24 0800 99.5 115 21 133/73 09/24 0800 96 Room Air 09/24 0800 99.5 115 21 118/60 96 Room Air 09/24 0600 98.9 104 22 123/71 09/24 0400 98.8 107 17 118/62 09/24 0400 94 Room Air 09/24 0200 98.0 106 30 119/76 06/ 0000 98.2 105 23 122/78 06/ 0000 92 Room Air / 0000 98.2 105 23 122/78 92 Room Air 09/23 2304 94 Room Air Room Air 09/23 2042 102.0 122 26 110/76 93 I reviewed Intake & Output 09/24 1600 09/24 0800 09/24 0000 09/23 1600 09/23 0800 09/23 0000 Intake Total 1847 1750 1200 1120 1400 600 Output Total 400 250 900 200 Balance 1447 1247 694 0044 1200 600 Intake, IV 1817 1750 1200 1100 1400 600 Intake, Oral 30 0 20 Number 0 Bowel Movements Output, Urine 400 250 900 200 Patient 200 lb 201 lb 201 lb Weight Weight Bed scale Bed scale Measurement Method Physical Exam: Constitutional: pleasant, no acute distress, conversant Eyes: sclera anicteric ENMT: ears and nose atraumatic, moist mucous membranes, good dentition, no lip lesions Neck: Supple, trachea is midline, no cervical or supraclavicular adenopathy and no palpable thyromegaly Cardiovascular: S1, S2, no murmurs, no peripheral edema Respiratory: clear to auscultation with normal respiratory effort and no intercostal retractions GI: abdomen soft, distended and mildly tender the gastric no rebound or guarding , no palpable hepatosplenomegaly Extremities / lymphatics: symmetrically warm, free range of motion no peripheral edema, no cervical, supraclavicular, axillary, or inguinal adenopathy Musculoskeletal: Did not evaluate gait and station, no digital cyanosis, good muscle strength and tone no atrophy, motor grossly 5 out of 5 throughout Skin: no jaundice, no rashes warm, nondiaphoretic, no areas of erythema or induration Psychiatric: mood and affect are appropriate and alert and oriented to person place and time Last 24 Hours of Labs: I reviewed Laboratory Tests 09/24 09/24 7495 [id number] Chemistry Sodium (137 - 145 mmol/L) Pending 134 L Potassium (3.5 - 5.1 mmol/L) Pending 4.0 Chloride (98 - 107 mmol/L) Pending 101 Carbon Dioxide (22 - 30 mmol/L) Pending 25 Anion Gap (5 - 16) Pending 7 BUN (9 - 20 mg/dL) Pending 22 H Creatinine (0.7 - 1.2 mg/dL) Pending 1.0 Estimated GFR (>60 ml/min) > 60 BUN/Creatinine Ratio (7 - 25 %) 22.0 Glucose (65 - 99 mg/dL) Pending 109 H Calcium Pending Phosphorus Pending Magnesium Pending Total Bilirubin (0.2 - 1.3 mg/dL) Pending 4.6 H Direct Bilirubin (< 0.4 mg/dL) 3.1 H AST (17 - 59 U/L) Pending 72 H ALT (21 - 72 U/L) Pending 45 Alkaline Phosphatase (< 127 U/L) 75 Lactate Dehydrogenase (313 - 618 U/L) 2933 H Troponin I (<0.11 ng/ml) 0.03 Total Protein (6.3 - 8.2 g/dL) 4.7 L Albumin (3.5 - 5.0 g/dL) Pending 2.4 L Hematology CBC w Diff Pending MAN DIFF ORDERED WBC (4.8 - 10.8 /CUMM) Pending 17.6 H RBC (4.70 - 6.10 /CUMM) Pending 4.05 L Hgb (14.0 - 18.0 G/DL) Pending 12.9 L Hct (42 - 52 %) Pending 37.2 L MCV (80.0 - 94.0 FL) Pending 92.0 MCH (27.0 - 31.0 PG) Pending 31.8 H MCHC (33.0 - 37.0 G/DL) Pending 34.6 RDW (11.5 - 14.5 %) Pending 12.9 Plt Count (130 - 400 /CUMM) Pending 118 L MPV (7.4 - 10.4 FL) Pending 7.7 Gran % (42.2 - 75.2 %) 85.9 H Lymphocytes % (20.5 - 51.1 %) 7.4 L Monocytes % (1.7 - 9.3 %) 6.6 Eosinophils % (0 - 5 %) 0 Basophils % (0.0 - 2.0 %) 0.1 Absolute Granulocytes (1.4 - 6.5 /CUMM) 15.1 H Segmented Neutrophils (42.2 - 75.2 %) 67 Band Neutrophils (0.0 - 5.0 %) 19 H Absolute Lymphocytes (1.2 - 3.4 /CUMM) 1.3 Lymphocytes (20.5 - 51.1 %) 8 L Monocytes (1.7 - 9.3 %) 6 Absolute Monocytes (0.10 - 0.60 /CUMM) 1.2 H Absolute Eosinophils (0.0 - 0.7 /CUMM) 0 Absolute Basophils (0.0 - 0.2 /CUMM) 0 Platelet Estimate (ADEQUATE) DECREASED Normocytic RBCs VERIFIED Normochromic RBCs VERIFIED Immunology MAXIMILIANO Titer Pending Anti-Nuclear Antibody Pending 09/23 2225 Blood Gas Bicarbonate Actual (22 - 26 MEQ/L) 16 L Mixed VBG pH (7.31 - 7.41 PH) 7.60 H Mixed VBG pCO2 (41 - 51 TORR) 16 L Mixed VBG O2 Saturation (35 - 45 TORR) 64 H Carboxyhemoglobin (1.5 - 5.0 %) 2.8 O2 Concentration % RA O2 Delivery Method RA Chemistry Sodium (137 - 145 mmol/L) 131 L Potassium (3.5 - 5.1 mmol/L) 4.1 Chloride (98 - 107 mmol/L) 99 Carbon Dioxide (22 - 30 mmol/L) 22 Anion Gap (5 - 16) 10 BUN (9 - 20 mg/dL) 18 Creatinine (0.7 - 1.2 mg/dL) 1.0 Estimated GFR (>60 ml/min) > 60 BUN/Creatinine Ratio (7 - 25 %) 18.0 Calcium (8.4 - 10.2 mg/dL) 7.6 L Phosphorus (2.5 - 4.5 mg/dL) 2.0 L Magnesium (1.6 - 2.3 mg/dL) 2.1 Total Bilirubin (0.2 - 1.3 mg/dL) 4.8 H Direct Bilirubin (< 0.4 mg/dL) 3.1 H AST (17 - 59 U/L) 75 H ALT (21 - 72 U/L) 44 Alkaline Phosphatase (< 127 U/L) 73 C-Reactive Prot, Quant (<1.0 mg/dL) > 9.0 H Total Protein (6.3 - 8.2 g/dL) 5.1 L Albumin (3.5 - 5.0 g/dL) 2.5 L Triglycerides (<150 mg/dL) 131 Cholesterol (< 200 MG/DL) 108 LDL Cholesterol, Calc (65 - 129 mg/dL) 47 L HDL Cholesterol (40 - 60 mg/dL) 35 L Cholesterol/HDL Ratio (0.00 - 4.88 %) 3.1 Hematology CBC w Diff MAN DIFF ORDERED WBC (4.8 - 10.8 /CUMM) 19.9 H RBC (4.70 - 6.10 /CUMM) 4.51 L Hgb (14.0 - 18.0 G/DL) 14.2 Hct (42 - 52 %) 41.6 L MCV (80.0 - 94.0 FL) 92.1 MCH (27.0 - 31.0 PG) 31.4 H MCHC (33.0 - 37.0 G/DL) 34.2 RDW (11.5 - 14.5 %) 13.1 Plt Count (130 - 400 /CUMM) 124 L MPV (7.4 - 10.4 FL) 7.6 Gran % (42.2 - 75.2 %) 88.0 H Lymphocytes % (20.5 - 51.1 %) 5.6 L Monocytes % (1.7 - 9.3 %) 6.1 Eosinophils % (0 - 5 %) 0 Basophils % (0.0 - 2.0 %) 0.3 Absolute Granulocytes (1.4 - 6.5 /CUMM) 17.5 H Segmented Neutrophils (42.2 - 75.2 %) 58 Band Neutrophils (0.0 - 5.0 %) 33 H Absolute Lymphocytes (1.2 - 3.4 /CUMM) 1.1 L Lymphocytes (20.5 - 51.1 %) 5 L Monocytes (1.7 - 9.3 %) 4 Absolute Monocytes (0.10 - 0.60 /CUMM) 1.2 H Absolute Eosinophils (0.0 - 0.7 /CUMM) 0 Absolute Basophils (0.0 - 0.2 /CUMM) 0.1 Platelet Estimate (ADEQUATE) VERIFIED BY SMEAR Polychromasia Miscellaneous Phlebotomy Draw Site R.FOREARM Other Body Source Fld Total RBCs Counted (%) 100 09/24 1999 Urines Urinalysis MOD H Urine Color (YEL,AMB,STR) GHAZALA Urine Clarity (CLEAR) HAZY H Urine pH (5.0 - 8.0) 6.0 Ur Specific [place] (1.001 - 1.035) >= 1.030 Urine Protein (NEG,<30 MG/DL) 100 H Urine Ketones (NEG) NEG Urine Nitrite (NEG) POS H Urine Bilirubin (NEG) NEG@ICTO Urine Urobilinogen (0.1 - 1.0 EU/dl) >=8.0 H Ur Leukocyte Esterase (NEG) NEG Ur Microscopic SEDIMENT EXAMINED Urine RBC (0 - 5 /HPF) 3-5 Urine WBC (0 - 2 /HPF) 3-5 H Urine Bacteria (NEG/NONE) FEW H Granular Casts (NONE /LPF) RARE H Urine Hemoglobin (NEG) LARGE H Urine Glucose (N MG/DL) NEG Assessment/Plan Assessment/Plan I reviewed the 2 CT scans on this admission on PACS myself, compared it to that from August [address] shows significant diffuse edema around the pancreas more severe than earlier with a discrete fluid collection in the lesser sac, no gas, labs significant for persistent leukocytosis in the high teens a little better today, bilirubin elevated significantly more than the transaminases which are relatively stable, he was more hemoconcentrated 2 days ago but that's better as well. Impression is recurrent acute pancreatitis with acute fluid collections, doubt biliary as the cause, his labs and vital signs show an appropriate response, no signs of worsening / sepsis, but he needs monitoring I would follow trends and labs, consider repeating the amylase lipase, at this stage I would not recommend fine-needle aspiration as can inoculate the collection inadvertently, note that usually it's sterile necrosis. Consider empiric antibiotics to cover possible translocation of gut bacteria, and continue IV hydration but be careful not to over hydrate. Consult Acknowledgment - Thank you for your consult request.
[2017-09-24 18:58] LABS: ABSOLUTE BASOPHIL COUNT 0 /CUMM (0.0-0.2); ABSOLUTE EOSINOPHIL COUNT 0 /CUMM (0.0-0.7); ABSOLUTE GRANULOCYTE CT 12.7 /CUMM (1.4-6.5); ABSOLUTE LYMPH COUNT 1.2 /CUMM (1.2-3.4); ABSOLUTE MONOCYTE COUNT 1.2 /CUMM (0.10-0.60); BASOPHIL % 0.1 % (0.0-2.0); EOSINOPHIL % 0 % (0-5); GRANULOCYTE % 84.5 % (42.2-75.2); HEMATOCRIT 36.6 % (42-52); MEAN CORPUSCULAR HGB 31.7 PG (27.0-31.0); MEAN CORPUSCULAR HGB CONC 33.9 G/DL (33.0-37.0); MEAN CORPUSCULAR VOLUME 93.4 FL (80.0-94.0); MEAN PLATELET VOLUME 7.6 FL (7.4-10.4); PLATELET COUNT 125 /CUMM (130-400); RBC DISTRIBUTION WIDTH 13.2 % (11.5-14.5); RED BLOOD CELL CT 3.92 /CUMM (4.70-6.10); WHITE BLOOD CELL COUNT 15.1 /CUMM (4.8-10.8)
--- NOTE | 2017-09-24 21:25 | PN- Gastroenterology ---
Assessment/Plan GI Assessment/Recommendations: (*Please refer to previous inpt GI consult by Dr. Tanner Aguero, of 08/04/16. The patient was supposed to have followed up with him in the office 1 month later. He had a scheduled appointment, but never showed up). *Extensive labs & imaging studies reviewed, HD #4. 32 y/o male, non-HTN, non-DM, asthma, obesity, anxiety, depression, PTSD, without prior abdominal surgery, no hx PUD or GBD, ex-cigar smoker (D/C 2016), + cannabis (denies other illicit drugs or IVDA), hx EtOH abuse x 10 yrs,last admitted to [facility] 07/31/16-08/12/16 with his initial bout of pancreatitis, with TG 410 then. He developed EtOH withdrawal & was transferred from general medicine to the ICU then, requiriing benzodiazepines. Imaging studies then showed fatty liver. Although there was acute pancreatitis then by CT, there was no evidence of necrosis, pseudocyst, or abscess formation then. He had never been on lipid lowering medications. He claimed he stopped smoking & drinking EtOH then, but resumed heavy drinking in 09/2017, on a daily basis. The patient was in his USOH until 5 days STORE HAND, when he developed URI symptoms, consisting of a runny nose, sore throat & minimally productive cough. He went to a walk-in clinic in [place], [place], & was given a short course of steroids, albuterol, & Singulair. His symptoms persisted, and he was given Azithromycin 1 day STORE HAND on 09/19/17, after he returned to the same walk-in clinic. He does not have a PMD. His mother had similar URI sx then (smoker), & was admitted to [facility] for bronchitis. The patient last drank EtOH 1 day STORE HAND, on 09/19/17. After this, he developed GI symptoms, prompting him to present to the [facility] ER 09/20/17 at 9:46 a.m., complaining of sharp mid-abdominal pain, radiating to the mid-low back, "9 out of 10," with nausea & vomiting-> bilious. There was no hematemesis melena, or rectal bleeding. He initially denied any fevers, but had chills. He had non-bloody diarrhea then, which had since subsided. Upon arrival , BP 168/90. P 47, R 15, T 97.7, O2 sat RA 98%. He was txd in the ER with IV NS, Zofran, Toradol, MS, & Dilaudid. IVF were switched to Lactated Ringers in the ER. *Upon admission, he had 1 Grave sign by [place] criteria, namely elevated WBC, but no LDH was sent. Upon admission, he had 0 Grave signs by [facility] criteria. Admission CXR failed to reveal any pleural effusions, CHF, or focal PNA. Initially, there was no jaundice, but over the past few days as an inpt, he noted mild scleral icterus & dark urine, but no light stools or pruritus. He denied any confusion. He still had some URI sx, which were improving, but denied any sx UTI. His CIWA over the past 48 hrs prior to my GI consult ranged from 0- 6. He denied any NSAID use. His URI sx were slowly improving. Despit getting narcotic analgesics in the ER, his sx persisted. Admission CT-> pancreatitis (* see imaging studies), & he was admitted. He has been NPO since. *There was some lab evidence of hemoconcentration (09/21/17: Hgb 16.3-> 09/22/17: Hgb 18.4, but this has since improved. He remains with leukocytosis & a left shift. This, along with fevers, chills, abdominal pain, & higher LFTs, prompted the GI consult of 09/23/17, at which point, I advised a repeat CXR, MRCP (to clear the bile ducts), & repeat CT abdomen with pancreatic protocol to r/o necrosis. There is no FHx inherited pancreatitis, inherited liver disease, GI disease, or GI Ca. The patient was seen by cardiology 09/21/17 for asx sinus bradycardia. It was felt that most likely, the bradycardia was from MS or Hydromorphone, pus increased vagal tone from vomiting. Lyme titer was negative, with nl TSH & troponin- neg. Admission echocardiogram was essentially normal. *Subsequent imaging studies on 09/23/17, including MRCP followed by CT AP with pancreatic protocol, were suggestive of necrotizing pancreatitis, prompting the GI consult (*see imaging section). *As of 09/23/17, the patient's main complaint was abdominal pain "9 out of 10". The vomiting had mostly subsided. He had mild nausea. He did note intermittent fevers & chills, with occasional hiccups. His diarrhea had resolved. There was no CP or SOB. There was no hx of abdominal trauma. He denied any unintentional weight loss. His appetite was fair. He denied any GERD, odynophagia, or dysphagia. There was perhaps some minimal early satiety. He was getting a little constipated from narcotic analgesics. There was no obstipation. *As of 09/23/17, he had a stable BP 110/76, but was tachycardic 122, R 26, Tm 102, O2 sat RA 93%. 07/31/16: *Hep A Ab, Hep Bs Ag, Hep B core Ab, & Hep C Ab- all neg. 09/20/17: 1027- Admission WBC 17.4, H/H 16.1/46.5, MCV 92.2, RDW 12.7, PLT 187, Lyme 0.20, glu 109, BUN/Cr 12/0.8, GFR > 60, Na 139, K 3.6, HCO3 28, AG 14, *lactate 2.8 (- >2.6->2.5->2.4->2.0), amylase 65, *lipase 783, Mg 1.9, Ca 8.8, alb 4.0, glob 3.0 , TBil 0.5, alk phos 84, AST 122, ALT 122, troponin < 0.01, TSH 2.62, [EtOH] < 10, *TG 362 09/20/17: U/A- clear yellow, 1.010, 8.5, packed amorph, tr prot, 0.2 urobil; neg nitrite, neg esterase. 09/20/17: Utox: + OP/MS 2836, + cannabis > 80. 09/21/17: 45- WBC 18.2, H/H 16.3/47.2, PLT 162, BUN/Cr 10/0.7, GFR > 60, Na 133, K 4.2, HCO3 24, AG 12 09/22/17: 0624- WBC 18.2 (74S/11B/3L/12M), H/H 18.4/54.2, PLT 175, BUN/Cr 15/0.7 , GFR > 60, Na 133, K 3.9, HCO3 21, AG 15, alb 3.8, glob 2.8, TBil 1.6, DBil 0.6 , alk phos 79, AST 83, ALT 74 09/23/17: 0615- WBC 18.6 (66S/20B/10L/4M), H/H 16.3/47.3, PLT 137, Na 130, K 3.7 , HCO3 22, AG 11, alb 2.9, glob 2.6, TBil 3.5, DBil 2.1, alk phos 71, AST 89, ALT 56. 09/23/17: 1337- PT 13.3, INR 1.22 09/23/17: 2229- WBC 19.9 (58S/33B/5L/4M), H/H 14.2/41.6, PLT 124, BUN/Cr 18/1.0, GFR > 60, Na 131, K 4.1, HCO3 22, AG 10, Mg 2.1, Ca 7.6, PO4 2.0, alb 2.5, glob 2.6, TBil 4.8, DBil 3.1, alk phos 73, AST 75, ALT 44, * CRP > 9.0, TChol 108, TG 131, HDL 35, LDL 47 09/23/17: U/A- hazy nohemi, > 1.030, 6.0, 3-5 RBC, 3-5 WBC, rare gran cast, few bact, mod amorph, large Hgb, neg icto, 100+ prot, > 8.0 urobil; + nitrite, neg esterase. 09/20/17: BC x 2- neg. 09/20/17: UC- neg. 09/23/17: BC x 2- pending. The patient has necrotizing pancreatitis, most likely from a combination of EtOH and moderately elevated triglycerides. Recent data shows that even moderate TG can induce pancreatitis in those with additional risk factors. He reportedly has not smoked since 07/2016. He had a long prior hx EtOH abuse, & resumed EtOH in 09/2017, drinking until 1 day STORE HAND. The patient may have a component of EtOH hepatitis, although his LFTs were in a somewhat atypical pattern for this. He did have imaging evidence of fatty liver, which certainly can contribute to this. The abdominal pain, nausea, vomiting, fevers, & leukocytosis (left shift), are probably from a combination of necrotizing pancreatitis, EtOH hepatitis, EtOH withdrawal, and/or atelectasis. There is no evidence of aspiration PNA. CIWA have been relatively stable. *MRCP did not show any cholelithiasis or choledocholithiasis. The main question is whether the necrotizing pancreatitis is superinfected. *He apparently received 2 doses of Meropenem earlier on 09/23/17. I would not empirically tx with this (risk of fungemia, etc), until we know whether the necrotizing pancreatitis is superinfxd. 09/24/17: CT PERCUTANEOUS ABSCESS DRAINAGE- Successful CT-guided aspiration (3 mL) of a simple fluid from the tail region of the pancreas, per Dr. Medeiros. 09/24/17: 0334- WBC 17.6 (67S/19B/8L/6M), H/H 12.9/37.2, PLT 118, glu 109, BUN/ Cr 22/1.0, GFR > 60, Na 134, K 4.0, HCO3 25, AG 7, alb 2.4, glob 2.3, TBil 4.6, DBil 3.1, alk phos 75, AST 72, ALT 45, LDH 2933, trop 0.03 09/24/17: 1735- WBC 15.1 (66S/16B/9L/9M), H/H 12.4/36.6, PLT 125, glu 89, BUN/Cr 13/0.8, GFR > 60, Na 134, K 3.7, HCO3 26, AG 8, Mg 2.2, Ca 7.7, *PO4 1.9, alb 2.5, TBil 5.1, AST 64, ALT 43. 09/24/17: *MAXIMILIANO- pending 09/24/17: *Pancreatic C&S- pending. The patient was moved to the ICU for closer monitoring overnight on 09/23/17, as he was borderline hypotensive and tachycardic. The patient was seen by ID, surgery, & the ICU team. Dr. Wood agreed with sending the patient to IR for needle aspirate of his necrotizing pancreatitis, to rule out superinfection. This was performed on 04/[address] Medeiros, & cultures are pending. Empiric IV Meropenem was stopped on 09/23/17, after 2 doses. This will be reassessed after reviewing the 09/24/17: pancreatic cultures. Multiple BC remained negative. The patient remained NPO, receiving IV: Lactated Ringers @ 150 cc/hr. He was still having abdominal pain, that was controlled with Dilaudid. His nausea was somewhat improved. He had no vomiting. He was mildly icteric. He was receiving nebulizers for his asthma. He denied any CP or SOB. His wheezing was improved. CIWA have ranged anywhere from 0->8 over the past 24 hrs, most recently, 0. His fevers were improving (low grade). He denied any chills. *There was no evidence of hemoconcentration, & the patient's Hgb & BUN dropped appropriately, with IVF. *As of 09/24/17, BP 140/70, P 110, R 22, Tm 100.5, O2 sat RA 90%. I/O: + 2.947 L/past 24 hrs. Lisinopril was D/C 09/24/17. *SUGGEST: Maintain in ICU for now. Maintain NPO for now. *May need eventual N-J tube feeds if prolonged NPO vs. PICC line for TPN (although enteral feedings below the level of the ampulla woud be preferable). Hold Meropenem for now. Follow-up cultures, especially 09/24/17: *Pancreatic C&S- pending. *Follow-up with ID & surgery. *If evidence of infxd pancreatic necrosis, would need resumption of Meropenem & may need surgical debridement. IV Lactated Ringers at 150 cc/hr for now. Watch for hemoconcentration (i.e.- rising Hgb or BUN, despite IVF), which would be a poor prognostic sign (this occured earlier in the admission, but resolved). Strict I/O's. IV analgesics. Avoid NSAIDS. MVI, thiamine, folate. Ativan as needed. CIWA protocol. Antiemetics as needed. DVT prophylaxis. Nebulizers & w/u of abnl urinary sediment, etc., per medical/ICU team. O2 prn. May take Tricor with sips of H2O, regarding hyperTG, & recheck TG. Consider checking full Hep A, B, & C serologies, HIV, MAXIMILIANO, AMA (doubt), Fe, TIBC, ferritin, ceruloplasmin, A1AT level. *LFTs are probably rx in nature. There does not appear to be a biliary process. Eventual outpt Vitamin E 800 IU po daily for fatty liver, along with risk factor modification (i.e- cessation of EtOH, & strict control of BP, glucose, lipids, body weight, etc.), with consideration for outpt FibroScan. The patient was previously made aware that continual EtOH abuse could result in his . Advise psychiatric & social work input. Consider vascular followup for ? hepatic artery aneurysm seen on CT (vs. CTA). The above was previously discussed with the medical housestaff in detail, & earlier with Dr. Wood. Further GI recommendations to follow, depending on clinical course. 1/2 hour of ICU care was spent on the patient. Problem List: 1. Necrotizing pancreatitis 2. Hypertriglyceridemia 3. Alcohol abuse 4. Fatty liver 5. Abnormal LFTs 6. Alcoholic hepatitis 7. Abdominal pain 8. Nausea & vomiting 9. Fever 10. Leukocytosis 11. Umbilical hernia 12. Right inguinal hernia 13. Malnutrition Subjective Subjective: 09/24/17: CT PERCUTANEOUS ABSCESS DRAINAGE- Successful CT-guided aspiration (3 mL) of a simple fluid from the tail region of the pancreas, per Dr. Medeiros. 09/24/17: 0334- WBC 17.6 (67S/19B/8L/6M), H/H 12.9/37.2, PLT 118, glu 109, BUN/ Cr 22/1.0, GFR > 60, Na 134, K 4.0, HCO3 25, AG 7, alb 2.4, glob 2.3, TBil 4.6, DBil 3.1, alk phos 75, AST 72, ALT 45, LDH 2933, trop 0.03 09/24/17: 1735- WBC 15.1 (66S/16B/9L/9M), H/H 12.4/36.6, PLT 125, glu 89, BUN/Cr 13/0.8, GFR > 60, Na 134, K 3.7, HCO3 26, AG 8, Mg 2.2, Ca 7.7, *PO4 1.9, alb 2.5, TBil 5.1, AST 64, ALT 43. 09/24/17: *MAXIMILIANO- pending 09/24/17: *Pancreatic C&S- pending. The patient was moved to the ICU for closer monitoring overnight on 09/23/17, as he was borderline hypotensive and tachycardic. The patient was seen by ID, surgery, & the ICU team. Dr. Wood agreed with sending the patient to IR for needle aspirate of his necrotizing pancreatitis, to rule out superinfection. This was performed on 04/[address] Medeiros, & cultures are pending. Empiric IV Meropenem was stopped on 09/23/17, after 2 doses. This will be reassessed after reviewing the 09/24/17: pancreatic cultures. Multiple BC remained negative. The patient remained NPO, receiving IV: Lactated Ringers @ 150 cc/hr. He was still having abdominal pain, that was controlled with Dilaudid. His nausea was somewhat improved. He had no vomiting. He was mildly icteric. He was receiving nebulizers for his asthma. He denied any CP or SOB. His wheezing was improved. CIWA have ranged anywhere from 0->8 over the past 24 hrs, most recently, 0. His fevers were improving (low grade). He denied any chills. *There was no evidence of hemoconcentration, & the patient's Hgb & BUN dropped appropriately, with IVF. *As of 09/24/17, BP 140/70, P 110, R 22, Tm 100.5, O2 sat RA 90%. I/O: + 2.947 L/past 24 hrs. Lisinopril was D/C 09/24/17. Review of Systems: Full 14 point ROS otherwise noncontributory & as above Review of Systems Constitutional: Reports: chills (intermittent), fever (intermittent). Denies: diaphoresis, malaise, weakness, unexplained weight loss. EENTM: Denies: blurred vision, double vision, visual changes, eye pain, eye drainage, eye tearing, icterus, ear discharge, ear pain, ear redness, hearing changes, nasal congestion, epistaxis, nasal pain, throat pain, throat swelling, mouth pain, tooth pain. Cardiovascular: Denies: chest pain, edema, orthopena, palpitations, peripheral edema, syncope. Respiratory: Reports: cough (improved), sputum production (minimal), wheezing (rare). Denies: hemoptysis, orthopnea, short of breath, stridor. GI: Reports: abdominal pain, diarrhea (resolved), nausea (improving), vomiting ( resolved). Denies: bloating, constipation, distention, bowel incontinence, melena, bloody stool, changes in stool, steatorrhea. Genitourinary: Reports: hematuria ("dark urine"). Denies: discharge, dysuria, frequency, hesitation, nocturia, pain, urgency. Musculoskeletal: Denies: back pain, gout, joint pain, joint swelling, muscle pain, muscle stiffness, neck pain. Skin: Reports: jaundice. Denies: cysts, change in skin color, change in hair/nails, dryness, erythema, lesions, lymphangitis, lumps, moles, rash. Neurological/Psychological: Reports: anxiety, depressed, emotional problems. Denies: ataxia, cognitive dysfunction, confusion, dementia, headache, numbness, paresthesia, pre-existing deficit, petit mal seizures, tingling, tremors, tonic- clonic seizures, unable to move lower ext, unable to move upper ext, weakness. Hematologic/Endocrine: Denies: bruising, bleeding, polyuria, polydipsia. Immunologic/Allergic: Denies: splenectomy, HIV/AIDS, lymphadenopathy. All Other Systems: Reviewed and Negative Objective Vital Signs and I&Os Vital Signs Date Time Temp Pulse Resp B/P B/P Pulse O2 O2 Flow FiO2 Mean Ox Delivery Rate 09/245 90 Room Air Room Air 09/24 2000 95 Room Air 09/24 1600 100.5 110 22 140/70 93 Room Air 12 1200 Room Air /12 1200 98.3 111 16 144/77 /12 1057 94 Room Air Room Air /12 1000 114 22 150/76 / 0800 99.5 115 21 133/73 06/12 0800 96 Room Air / 0800 99.5 115 21 118/60 96 Room Air / 0600 98.9 104 22 123/71 /12 0400 98.8 107 17 118/62 / 0400 94 Room Air /12 0200 98.0 106 30 119/76 09/24 0000 98.2 105 23 122/78 / 0000 92 Room Air 09/24 0000 98.2 105 23 122/78 92 Room Air 09/23 2304 94 Room Air Room Air Intake & Output 09/24 1600 09/24 0400 09/23 1600 09/23 0400 09/22 1600 09/22 0400 Intake Total 3597 1200 2520 600 2075 375 Output Total 650 900 200 Balance 2947 300 2320 600 2075 375 Intake, IV 3567 1200 2500 600 1875 375 Intake, Oral 30 20 200 Number 0 Bowel Movements Output, Urine 650 900 200 Patient 200 lb 201 lb 201 lb 199 lb Weight Weight Bed scale Bed scale Bed scale Measurement Method Physical Exam: Well-developed, slightly malnourished, obese male, in no apparent distress. Nontoxic appearing. *Sclera icteric. Conjunctiva pink. Oropharynx clear. Slightly dry mucus membranes. No oral thush. No apthous ulcers. There is no adenopathy, thyromegaly, or JVD. No peripheral stigmata of inflammatory bowel disease on exam. No spiders on the anterior chest wall. Mild gynecomastia B/L, without masses (? due to obesity > liver disease). No CVA tenderness. Lungs: clear to A&P, with decreased BS at bases B/L. No wheezing, rales, or rhonchi. Heart exam: regular rate, tachycardic S1 and S2, without any murmur. Abdominal exam: normal bowel sounds, obese, mildly distended belly, moderate diffuse tenderness on deep palpation, without guarding or rebound. No peritoneal signs. Reducible umbilical hernia & RIH. Otherwise, no mass. Enlarged liver 20 cm by percussion. No definite palpable spleen tip. Negative Segura sign. No definite fluid shift. No pulsatile mass. No epigastric bruit. Digital rectal exam: deferred by patient. Extremities: without C, C, or E. No palpable cords. Old tattoos UE B/L. No acute arthropathy. No rash. No palmar erythema. No Dupuytren' s contractures. Distal pulses 2+ bilaterally. DTRs 2+ bilaterally. Alert and oriented x 3. Right handed. CN II-XII intact. Motor: 5/5 B/L. No tremor. No asterixis. Current Medications: Current Medications Sig/Brynn Start time Last Medication Dose Route Stop Time Status Admin Acetaminophen 1,000 MG ONCE ONE 09/24 2215 AC N/A 1 UNIT IV 09/24 2229 Albuterol Sulfate 3 ML BID 09/24 2100 AC 09/24 INH 2044 Albuterol Sulfate 3 ML Q4P PRN 09/23 1345 DC 09/24 INH 1054 Albuterol Sulfate 2 PUF Q4-6 PRN PRN 09/20 1400 AC 09/24 INH 0633 Atropine Sulfate 1 MG ONE PRN 09/20 2000 DC IV Cyanocobalamin/ 1 BAG DAILY 09/24 1050 CAN Thiamine/Pyridoxine IV Dextrose/Water 1,000 ML Enoxaparin Sodium 40 MG DAILY 09/25 0900 CAN SC Enoxaparin Sodium 40 MG DAILY 09/20 1354 DC 09/23 SC 0816 Fenofibrate 48 MG DAILY 09/21 1342 AC 09/24 PO 1004 Fentanyl Citrate 0 .STK-MED ONE 09/24 1602 DC .ROUTE Folic Acid 1 MG DAILY 09/24 1039 CAN IV Hydromorphone HCl 0.4 MG Q3 PRN 09/24 1354 AC 09/24 IV 1947 Hydromorphone HCl 0.4 MG Q4 PRN 09/24 0859 DC 09/24 IV 1008 Hydromorphone HCl 1 MG ONCE ONE 09/24 0230 DC 09/24 IV 09/24 0231 0235 Hydromorphone HCl 0.4 MG Q4P PRN 09/24 0215 DC 09/24 IV 0630 Hydromorphone HCl 2 MG ONCE PRN 09/23 2215 AC IV Hydromorphone HCl 1 MG Q3P PRN 09/23 1145 DC 09/23 PO 2130 Lactated Ringer's 1,000 ML Q6H 09/23 2145 AC 09/24 IV 2153 Lactated Ringer's 500 ML .Q1H 09/23 2145 DC 09/23 IV 09/23 2244 2149 Lisinopril 20 MG DAILY 09/21 0900 DC 09/23 PO 0816 Lorazepam 1.5 MG Q4P PRN 09/24 0230 AC IV Lorazepam 1.5 MG Q4H 09/23 1300 DC 09/24 PO 0131 Lorazepam 0 Q1P PRN 09/21 1745 AC 09/22 IV 0525 Meropenem 1 GM IQ8 06/12 0000 CAN IV Metoclopramide HCl 10 MG Q6P PRN 09/24 1400 AC 09/24 IV 1703 Multivitamins 1 GEORGETTE DAILY 09/24 1100 CAN Lactated Ringer's 1,000 ML IV Multivitamins 1 GEORGETTE DAILY 09/24 1100 AC 09/24 Thiamine HCl 100 MG IV 1115 Folic Acid 1 MG Lactated Ringer's 1,000 ML Multivitamins 1 GEORGETTE DAILY 09/24 0917 CAN IV Multivitamins 1 TAB DAILY 09/20 1400 DC 09/23 PO 0816 Thiamine HCl 100 MG DAILY 09/24 1039 CAN Sodium Chloride 50 ML IV Trimethobenzamide HCl 200 MG .STK-MED ONE 09/24 1025 DC IM 09/24 1026 Trimethobenzamide HCl 200 MG 4 TIMES/DAY PRN 09/21 1715 DC 09/24 IM 1027 Results Pertinent Lab Results: Laboratory Tests 09/24 09/24 1735 0334 Chemistry Sodium (137 - 145 mmol/L) 134 L 134 L Potassium (3.5 - 5.1 mmol/L) 3.7 4.0 Chloride (98 - 107 mmol/L) 100 101 Carbon Dioxide (22 - 30 mmol/L) 26 25 Anion Gap (5 - 16) 8 7 BUN (9 - 20 mg/dL) 13 22 H Creatinine (0.7 - 1.2 mg/dL) 0.8 1.0 Estimated GFR (>60 ml/min) > 60 > 60 BUN/Creatinine Ratio (7 - 25 %) 22.0 Glucose (65 - 99 mg/dL) 89 109 H Calcium (8.4 - 10.2 mg/dL) 7.7 L Phosphorus (2.5 - 4.5 mg/dL) 1.9 L Magnesium (1.6 - 2.3 mg/dL) 2.2 Total Bilirubin (0.2 - 1.3 mg/dL) 5.1 H 4.6 H Direct Bilirubin (< 0.4 mg/dL) 3.1 H AST (17 - 59 U/L) 64 H 72 H ALT (21 - 72 U/L) 43 45 Alkaline Phosphatase (< 127 U/L) 75 Lactate Dehydrogenase (313 - 618 U/L) 2933 H Troponin I (<0.11 ng/ml) 0.03 Total Protein (6.3 - 8.2 g/dL) 4.7 L Albumin (3.5 - 5.0 g/dL) 2.5 L 2.4 L Hematology CBC w Diff MAN DIFF ORDERED MAN DIFF ORDERED WBC (4.8 - 10.8 /CUMM) 15.1 H 17.6 H RBC (4.70 - 6.10 /CUMM) 3.92 L 4.05 L Hgb (14.0 - 18.0 G/DL) 12.4 L 12.9 L Hct (42 - 52 %) 36.6 L 37.2 L MCV (80.0 - 94.0 FL) 93.4 92.0 MCH (27.0 - 31.0 PG) 31.7 H 31.8 H MCHC (33.0 - 37.0 G/DL) 33.9 34.6 RDW (11.5 - 14.5 %) 13.2 12.9 Plt Count (130 - 400 /CUMM) 125 L 118 L MPV (7.4 - 10.4 FL) 7.6 7.7 Gran % (42.2 - 75.2 %) 84.5 H 85.9 H Lymphocytes % (20.5 - 51.1 %) 7.7 L 7.4 L Monocytes % (1.7 - 9.3 %) 7.7 6.6 Eosinophils % (0 - 5 %) 0 0 Basophils % (0.0 - 2.0 %) 0.1 0.1 Absolute Granulocytes (1.4 - 6.5 /CUMM) 12.7 H 15.1 H Segmented Neutrophils (42.2 - 75.2 %) 66 67 Band Neutrophils (0.0 - 5.0 %) 16 H 19 H Absolute Lymphocytes (1.2 - 3.4 /CUMM) 1.2 1.3 Lymphocytes (20.5 - 51.1 %) 9 L 8 L Monocytes (1.7 - 9.3 %) 9 6 Absolute Monocytes (0.10 - 0.60 /CUMM) 1.2 H 1.2 H Absolute Eosinophils (0.0 - 0.7 /CUMM) 0 0 Absolute Basophils (0.0 - 0.2 /CUMM) 0 0 Platelet Estimate (ADEQUATE) DECREASED DECREASED Normocytic RBCs VERIFIED VERIFIED Normochromic RBCs VERIFIED VERIFIED Immunology MAXIMILIANO Titer Pending Anti-Nuclear Antibody Pending 09/235 2229 Blood Gas Bicarbonate Actual (22 - 26 MEQ/L) 16 L Mixed VBG pH (7.31 - 7.41 PH) 7.60 H Mixed VBG pCO2 (41 - 51 TORR) 16 L Mixed VBG O2 Saturation (35 - 45 TORR) 64 H Carboxyhemoglobin (1.5 - 5.0 %) 2.8 O2 Concentration % RA O2 Delivery Method RA Chemistry Sodium (137 - 145 mmol/L) 131 L Potassium (3.5 - 5.1 mmol/L) 4.1 Chloride (98 - 107 mmol/L) 99 Carbon Dioxide (22 - 30 mmol/L) 22 Anion Gap (5 - 16) 10 BUN (9 - 20 mg/dL) 18 Creatinine (0.7 - 1.2 mg/dL) 1.0 Estimated GFR (>60 ml/min) > 60 BUN/Creatinine Ratio (7 - 25 %) 18.0 Calcium (8.4 - 10.2 mg/dL) 7.6 L Phosphorus (2.5 - 4.5 mg/dL) 2.0 L Magnesium (1.6 - 2.3 mg/dL) 2.1 Total Bilirubin (0.2 - 1.3 mg/dL) 4.8 H Direct Bilirubin (< 0.4 mg/dL) 3.1 H AST (17 - 59 U/L) 75 H ALT (21 - 72 U/L) 44 Alkaline Phosphatase (< 127 U/L) 73 C-Reactive Prot, Quant (<1.0 mg/dL) > 9.0 H Total Protein (6.3 - 8.2 g/dL) 5.1 L Albumin (3.5 - 5.0 g/dL) 2.5 L Triglycerides (<150 mg/dL) 131 Cholesterol (< 200 MG/DL) 108 LDL Cholesterol, Calc (65 - 129 mg/dL) 47 L HDL Cholesterol (40 - 60 mg/dL) 35 L Cholesterol/HDL Ratio (0.00 - 4.88 %) 3.1 Hematology CBC w Diff MAN DIFF ORDERED WBC (4.8 - 10.8 /CUMM) 19.9 H RBC (4.70 - 6.10 /CUMM) 4.51 L Hgb (14.0 - 18.0 G/DL) 14.2 Hct (42 - 52 %) 41.6 L MCV (80.0 - 94.0 FL) 92.1 MCH (27.0 - 31.0 PG) 31.4 H MCHC (33.0 - 37.0 G/DL) 34.2 RDW (11.5 - 14.5 %) 13.1 Plt Count (130 - 400 /CUMM) 124 L MPV (7.4 - 10.4 FL) 7.6 Gran % (42.2 - 75.2 %) 88.0 H Lymphocytes % (20.5 - 51.1 %) 5.6 L Monocytes % (1.7 - 9.3 %) 6.1 Eosinophils % (0 - 5 %) 0 Basophils % (0.0 - 2.0 %) 0.3 Absolute Granulocytes (1.4 - 6.5 /CUMM) 17.5 H Segmented Neutrophils (42.2 - 75.2 %) 58 Band Neutrophils (0.0 - 5.0 %) 33 H Absolute Lymphocytes (1.2 - 3.4 /CUMM) 1.1 L Lymphocytes (20.5 - 51.1 %) 5 L Monocytes (1.7 - 9.3 %) 4 Absolute Monocytes (0.10 - 0.60 /CUMM) 1.2 H Absolute Eosinophils (0.0 - 0.7 /CUMM) 0 Absolute Basophils (0.0 - 0.2 /CUMM) 0.1 Platelet Estimate (ADEQUATE) VERIFIED BY SMEAR Polychromasia Miscellaneous Phlebotomy Draw Site R.FOREARM Other Body Source Fld Total RBCs Counted (%) 100 09/23 1337 1315 Chemistry Total Bilirubin Cancelled Direct Bilirubin Cancelled AST Cancelled ALT Cancelled Alkaline Phosphatase Cancelled Total Protein Cancelled Albumin Cancelled Coagulation PT (9.4 - 12.5 SEC) 13.3 H INR (0.90 - 1.17) 1.22 H Urines Urinalysis MOD H Urine Color (YEL,AMB,STR) NOHEMI Urine Clarity (CLEAR) HAZY H Urine pH (5.0 - 8.0) 6.0 Ur Specific [place] (1.001 - 1.035) >= 1.030 Urine Protein (NEG,<30 MG/DL) 100 H Urine Ketones (NEG) NEG Urine Nitrite (NEG) POS H Urine Bilirubin (NEG) NEG@ICTO Urine Urobilinogen (0.1 - 1.0 EU/dl) >=8.0 H Ur Leukocyte Esterase (NEG) NEG Ur Microscopic SEDIMENT EXAMINED Urine RBC (0 - 5 /HPF) 3-5 Urine WBC (0 - 2 /HPF) 3-5 H Urine Bacteria (NEG/NONE) FEW H Granular Casts (NONE /LPF) RARE H Urine Hemoglobin (NEG) LARGE H Urine Glucose (N MG/DL) NEG 09/23 09/22 0615 0624 Chemistry Sodium (137 - 145 mmol/L) 130 L 133 L Potassium (3.5 - 5.1 mmol/L) 3.7 3.9 Chloride (98 - 107 mmol/L) 97 L 97 L Carbon Dioxide (22 - 30 mmol/L) 22 21 L Anion Gap (5 - 16) 11 15 BUN (9 - 20 mg/dL) 15 Creatinine (0.7 - 1.2 mg/dL) 0.7 Estimated GFR (>60 ml/min) > 60 BUN/Creatinine Ratio (7 - 25 %) 21.4 Total Bilirubin (0.2 - 1.3 mg/dL) 3.5 H 1.6 H Direct Bilirubin (< 0.4 mg/dL) 2.1 H 0.6 H AST (17 - 59 U/L) 89 H 83 H ALT (21 - 72 U/L) 56 74 H Alkaline Phosphatase (< 127 U/L) 71 79 Total Protein (6.3 - 8.2 g/dL) 5.5 L 6.6 Albumin (3.5 - 5.0 g/dL) 2.9 L 3.8 Hematology CBC w Diff MAN DIFF ORDERED MAN DIFF ORDERED WBC (4.8 - 10.8 /CUMM) 18.6 H 18.2 H RBC (4.70 - 6.10 /CUMM) 5.07 5.88 Hgb (14.0 - 18.0 G/DL) 16.3 18.4 H Hct (42 - 52 %) 47.3 54.2 H MCV (80.0 - 94.0 FL) 93.2 92.3 MCH (27.0 - 31.0 PG) 32.1 H 31.2 H MCHC (33.0 - 37.0 G/DL) 34.4 33.8 RDW (11.5 - 14.5 %) 12.7 13.0 Plt Count (130 - 400 /CUMM) 137 175 MPV (7.4 - 10.4 FL) 7.7 7.8 Gran % (42.2 - 75.2 %) 86.5 H 91.7 H Lymphocytes % (20.5 - 51.1 %) 6.2 L 3.1 L Monocytes % (1.7 - 9.3 %) 7.3 5.1 Eosinophils % (0 - 5 %) 0 0 Basophils % (0.0 - 2.0 %) 0 0.1 Absolute Granulocytes (1.4 - 6.5 /CUMM) 16.1 H 16.7 H Segmented Neutrophils (42.2 - 75.2 %) 66 74 Band Neutrophils (0.0 - 5.0 %) 20 H 11 H Absolute Lymphocytes (1.2 - 3.4 /CUMM) 1.1 L 0.6 L Lymphocytes (20.5 - 51.1 %) 10 L 3 L Monocytes (1.7 - 9.3 %) 4 12 H Absolute Monocytes (0.10 - 0.60 /CUMM) 1.4 H 0.9 H Absolute Eosinophils (0.0 - 0.7 /CUMM) 0 0 Absolute Basophils (0.0 - 0.2 /CUMM) 0 0 Platelet Estimate (ADEQUATE) VERIFIED BY SMEAR Normocytic RBCs VERIFIED VERIFIED Normochromic RBCs VERIFIED VERIFIED Imaging/Other Studies: 09/20/17: EKG- SB @ 43, nl axis, nonspecific IVCD, flipped T in III. 09/22/17: EKG- ST @ 119, nl axis, ? RA abnl 09/20/17- ECHOCARDIOGRAM- Normal size left ventricle. Normal left ventricular wall thickness. No obvious regional wall motion abnormalities. Normal left ventricular ejection fraction visually estimated at >60 Normal left ventricular diastolic filling pattern for age. Normal right ventricular size and function. Normal atrial size. Trace mitral regurgitation. Mild tricuspid regurgitation. Dilated inferior vena cava. Rehan Das M.D. 09/20/17: CT ABD & PELVIS W IV CONTRAST- Recurrent acute interstitial edematous pancreatitis with inflammation centered around the pancreatic head and uncinate process. Reactive inflammation of the duodenum. This is less extensive than on the prior CTs from July 2016. No associated complicating features are identified. Hepatomegaly 21 cm & steatosis, without focal hepatic defect. Normal GB. Normal spleen. Small fat containing umbilical hernia & RIH. Normal kidneys. Normal PV, SMV, SV, & aorta. 09/20/17: XRY-CHEST XRAY, TWO VIEWS- 1. Mild subsegmental atelectasis in right lung base. 2. Slightly thickened central airways, consistent with reactive airways disease or bronchitis. No focal pneumonia. 09/23/17: US-LIMITED (RUQ) ABDOMEN- Limited examination secondary to patient body habitus, overlying bowel gas and patient's inability to follow breathing instructions. Pancreas was not clearly visualized and the liver was incompletely visualized. Enlarged liver. Normal GB. Normal CBD 4 mm. Normal right kidney. No free fluid. Further evaluation with cross-sectional imaging is recommended. 09/23/17: XRY-CHEST XRAY, TWO VIEWS- Low lung volume and nonspecific bibasilar airspace disease and small right-sided pleural effusion, new since prior study dated 09/20/2017. 09/23/17: MRI ABDOMEN WITHOUT CONTRAST/MRCP- 1. There has been significant interval worsening of pancreatitis with diffuse pancreatic edema, interval development of ascites and pleural effusion. Findings may represent severe acute edematous interstitial pancreatitis. Assessment for necrotizing pancreatitis is limited without IV contrast. Given the significant interval worsening of the overall pancreatitis, further assessment with contrast-enhanced CT scan or postgadolinium MRI images are recommended. 2. Interval development of a loculated extrapancreatic fluid collection anterior to the body of the pancreas measuring approximately 5.6 x 4.4 x 4.3 cm likely represents of acute peripancreatic fluid collection. Infected fluid collection cannot be entirely excluded without intravenous contrast. No gross evidence of debris identified within the fluid collection on the MRI images. It is too early for formation of pseudocyst. 3. No evidence of cholelithiasis or choledocholithiasis. No evidence of biliary ductal dilatation. Critical results were discussed with Dr. Rodriguez at 4:40 PM on 09/23/2017. 09/23/17: CT ABD & PELVIS W IV CONTRAST- Marked interval worsening. Small B/L pleural effusions & bibasilar atelectasis. CT evidence of severe acute necrotizing pancreatitis with lack of enhancement throughout the body and tail. There is extensive surrounding fat stranding and there are fluid collections, including a collection in the lesser sac, with mass effect upon the lesser curvature of stomach. There is no internal gas. Diffuse fatty liver. Mildly distended GB with ? sludge. No gallstones. No dilated ducts. RIH. Correlate with systemic inflammatory response markers. There is an amorphous 1 cm late enhancing abnormality near the hepatic artery. This is concerning for a small pseudoaneurysm. Short interval follow-up may be necessary. Depending upon the clinical circumstances follow-up might include CT angiography including late venous phase 09/24/17: CT PERCUTANEOUS ABSCESS DRAINAGE- Successful CT-guided aspiration (3 mL) of a simple fluid from the tail region of the pancreas, per Dr. Medeiros.
[2017-09-25 04:55] LABS: ABSOLUTE BASOPHIL COUNT 0 /CUMM (0.0-0.2); ABSOLUTE EOSINOPHIL COUNT 0 /CUMM (0.0-0.7); ABSOLUTE GRANULOCYTE CT 14.9 /CUMM (1.4-6.5); ABSOLUTE LYMPH COUNT 1.4 /CUMM (1.2-3.4); ABSOLUTE MONOCYTE COUNT 0.8 /CUMM (0.10-0.60); BASOPHIL % 0.1 % (0.0-2.0); EOSINOPHIL % 0.1 % (0-5); GRANULOCYTE % 86.8 % (42.2-75.2); HEMATOCRIT 35.8 % (42-52); MEAN CORPUSCULAR HGB CONC 34.7 G/DL (33.0-37.0); MEAN CORPUSCULAR VOLUME 92.4 FL (80.0-94.0); MEAN PLATELET VOLUME 7.2 FL (7.4-10.4); PLATELET COUNT 126 /CUMM (130-400); RBC DISTRIBUTION WIDTH 12.9 % (11.5-14.5); RED BLOOD CELL CT 3.88 /CUMM (4.70-6.10); WHITE BLOOD CELL COUNT 17.2 /CUMM (4.8-10.8)
--- NOTE | 2017-09-25 07:28 | PN- Resident CRCU ---
Jerri STANLEY,Derian 09/25/17 0727: Subjective HPI/CRCU Issues: Patient is seen and examined at the bedside. He was complaining of slight pain in abdomen, though denies for any nausea, vomiting. He is able to pass the flatus and had a good bowel movement in the morning. We discussed about the plan for today to start him on clear liquid diet and if he is able to tolerate, then we'll stop IV fluids. 24 Hour Events: Vital signs-T-max was 102, pulse 107, sinus tachycardia, respiratory rate 20, blood pressure 162/93, 95% on room air, intake/output 4565/1974, Objective Vital Signs & I&O Last 8 Hrs of Vitals and I&O: Vital signs-T-max was 102, pulse 107, sinus tachycardia, respiratory rate 20, blood pressure 162/93, 95% on room air, intake/output 4565/1974, Exam General Appearance: well developed/nourished, no apparent distress, awake, comfortable Respiratory: normal breath sounds, mild decrease in bilatral basilar air entry Cardiovascular: regular rate/rhythm, tachycardia Gastrointestinal: soft, tenderness Extremities: normal inspection, normal capillary refill, normal range of motion Current Medications: Current Medications Sig/Brynn Start time Last Medication Dose Route Stop Time Status Admin Acetaminophen 500 MG ONCE ONE 09/25 0515 MT 09/25 N/A 1 UNIT IV 09/25 0522 0511 Acetaminophen 1,000 MG ONCE ONE 09/24 2215 DC 09/24 N/A 1 UNIT IV 09/24 2229 2220 Albuterol Sulfate 3 ML BID 09/24 2100 09/25 INH 0835 Albuterol Sulfate 3 ML Q4P PRN 09/23 1345 DC 09/24 INH 1054 Albuterol Sulfate 2 PUF Q4-6 PRN PRN 09/20 1400 AC 09/24 INH 0633 Fenofibrate 48 MG DAILY 09/21 1342 09/25 PO 0817 Fentanyl Citrate 0 .STK-MED ONE 09/24 1602 DC .ROUTE Hydromorphone HCl 0.4 MG Q3 PRN 09/24 1354 AC 09/25 IV 1128 Hydromorphone HCl 0.4 MG Q4 PRN 09/24 0859 DC 09/24 IV 1008 Hydromorphone HCl 2 MG ONCE PRN 09/23 2215 AC IV Lactated Ringer's 1,000 ML Q6H 09/23 2145 AC 09/25 IV 0453 Lorazepam 1.5 MG Q4P PRN 09/24 0230 AC IV Lorazepam 0 Q1P PRN 09/21 1745 AC 09/22 IV 0525 Metoclopramide HCl 10 MG Q6P PRN 09/24 1400 AC 09/25 IV 0817 Multivitamins 1 GEORGETTE DAILY 09/24 1100 AC 09/25 Thiamine HCl 100 MG IV 0902 Folic Acid 1 MG Lactated Ringer's 1,000 ML Trimethobenzamide HCl 200 MG 4 TIMES/DAY PRN 09/21 1715 DC 09/24 IM 1027 CXR Findings: Low lung volumes with bilateral small pleural effusions and associated bibasilar opacities, most likely related to atelectasis. 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 Vital signs-maximum temperature 98.5, pulse 108, sinus tachycardia, respiratory rate 27, blood pressure 123/69, oxygen saturation 95% on room air intake/output 2400/250. Severe acute necrotizing pancreatitis secondary to alcohol intake and probably aggravated by viral infection, steroid - * We will keep patient n.p.o. * We will continue patient on Ringer lactate 150 cc/h * We will follow ID recommendation, GI recommendation * It is planned that patient will get CT-guided pancreatic biopsy and if the biopsy is positive for infection then we will start patient on antibiotic. * Strict intake output charting * Incentive spirometry Severity of acute pancreatitis - CT severity score (the Sandi score) [CTSI] - * On 09/20 CTSI -1; mild acute pancreatitis. * On 09/23 CTSI -10; Sever acute pancreatitis Samina criteria for pancreatitis prognosis - * 3-5 Points -Mortality 11-15% BISAP score - 2; Lower mortality (<2 percent) Pain management - * Avoid NSAIDs and nephrotoxic medication * Injection Dilaudid 0.4 mg IV every 4 as needed Small right-sided pleural effusion -reactionary * Possibly reactionary will follow chest x-ray. Hepatic artery pseudoaneurysm - * We will watch for the bleeding in the size of the aneurysm * Is if needed then will consider vascular consultation History of asthma- * TRC/nebulization Alcohol use disorder - * Ativan according to CIWA protocol * We already counseled him for cessation of alcohol intake History of hypertension - * We will hold lisinopril for now and if needed then we will give IV antihypertensive including metoprolol as needed. Bradycardia -resolved * Echocardiogram was normal, Lyme titer was negative. ? Hematuria/ Myoglobinuria -Watch conservatively CODE STATUS-full code DVT prophylaxis-TOMÁS/heparin Diet - Clear liquid diet Problem List: 1. Acute pancreatitis Pain Ratin Pain Location: abdomen Tomorrow's Labs & Rationales: f/u CBC,ICU bundle Geo Pimentel MD 09/25/17 0946: Impression/Plan Plan DVT/Prophylaxis: mechanical, pharmacological Attending MD Review Statement Attending Sign Off Attending Cosign Statement: I have: examined this patient, reviewed avalbl EMR data, personally reviewd images, discussd w/resident/PA/PHOTOGRAPHIC EQUIPMENT ASSEMBLER, discussed mgmt plan w/lizz, discussed mgmt plan w/CM, discussed mgmt plan w/pt, agreed w/resident/PA/PHOTOGRAPHIC EQUIPMENT ASSEMBLER, amended to note. Other Findings: IGeo M.D. have examined this patient, reviewed available EMR data, personally reviewed images, discussed with resident/PA/PHOTOGRAPHIC EQUIPMENT ASSEMBLER, discussed management plan with housestaff and nursing staff, discussed managment plan all of healthcare providers, discussed management plan with patient and/or family, agreed with resident/PA/PHOTOGRAPHIC EQUIPMENT ASSEMBLER. The past history and parts of the chart have been autopopulated. Impression 32 year old man * necrotizing pancreatitis likely secondary to etoh dependence Plan -s/p IR guided aspiration, f/u all cultures -ID consultation appreciated -continue hydration IVF -replete lytes as needed -clear liquid sips per GI -f/u GI recommendations -incentive spirometry DVT prophylaxis at all times TTS 35 min
[2017-09-25 08:00] VITALS: BP 130/70
--- NOTE | 2017-09-25 08:40 | PN- Gastroenterology ---
Assessment/Plan GI Assessment/Recommendations: (*Please refer to previous inpt GI consult by Dr. Tanner Aguero, of 08/04/16. The patient was supposed to have followed up with him in the office 1 month later. He had a scheduled appointment, but never showed up). *Extensive labs & imaging studies reviewed, HD #4. 32 y/o male, non-HTN, non-DM, asthma, obesity, anxiety, depression, PTSD, without prior abdominal surgery, no hx PUD or GBD, ex-cigar smoker (D/C 2016), + cannabis (denies other illicit drugs or IVDA), hx EtOH abuse x 10 yrs,last admitted to [facility] 07/31/16-08/12/16 with his initial bout of pancreatitis, with TG 410 then. He developed EtOH withdrawal & was transferred from general medicine to the ICU then, requiriing benzodiazepines. Imaging studies then showed fatty liver. Although there was acute pancreatitis then by CT, there was no evidence of necrosis, pseudocyst, or abscess formation then. He had never been on lipid lowering medications. He claimed he stopped smoking & drinking EtOH then, but resumed heavy drinking in 09/2017, on a daily basis. The patient was in his USOH until 5 days LEAK PATCHER, when he developed URI symptoms, consisting of a runny nose, sore throat & minimally productive cough. He went to a walk-in clinic in [place], [place], & was given a short course of steroids, albuterol, & Singulair. His symptoms persisted, and he was given Azithromycin 1 day LEAK PATCHER on 09/19/17, after he returned to the same walk-in clinic. He does not have a PMD. His mother had similar URI sx then (smoker), & was admitted to [facility] for bronchitis. The patient last drank EtOH 1 day LEAK PATCHER, on 09/19/17. After this, he developed GI symptoms, prompting him to present to the [facility] ER 09/20/17 at 9:46 a.m., complaining of sharp mid-abdominal pain, radiating to the mid-low back, "9 out of 10," with nausea & vomiting-> bilious. There was no hematemesis melena, or rectal bleeding. He initially denied any fevers, but had chills. He had non-bloody diarrhea then, which had since subsided. Upon arrival , BP 168/90. P 47, R 15, T 97.7, O2 sat RA 98%. He was txd in the ER with IV NS, Zofran, Toradol, MS, & Dilaudid. IVF were switched to Lactated Ringers in the ER. *Upon admission, he had 1 Grave sign by [place] criteria, namely elevated WBC, but no LDH was sent. Upon admission, he had 0 Grave signs by [facility] criteria. Admission CXR failed to reveal any pleural effusions, CHF, or focal PNA. Initially, there was no jaundice, but over the past few days as an inpt, he noted mild scleral icterus & dark urine, but no light stools or pruritus. He denied any confusion. He still had some URI sx, which were improving, but denied any sx UTI. His CIWA over the past 48 hrs prior to my GI consult ranged from 0- 6. He denied any NSAID use. His URI sx were slowly improving. Despit getting narcotic analgesics in the ER, his sx persisted. Admission CT-> pancreatitis (* see imaging studies), & he was admitted. He has been NPO since. *There was some lab evidence of hemoconcentration (09/21/17: Hgb 16.3-> 09/22/17: Hgb 18.4, but this has since improved. He remains with leukocytosis & a left shift. This, along with fevers, chills, abdominal pain, & higher LFTs, prompted the GI consult of 09/23/17, at which point, I advised a repeat CXR, MRCP (to clear the bile ducts), & repeat CT abdomen with pancreatic protocol to r/o necrosis. There is no FHx inherited pancreatitis, inherited liver disease, GI disease, or GI Ca. The patient was seen by cardiology 09/21/17 for asx sinus bradycardia. It was felt that most likely, the bradycardia was from MS or Hydromorphone, pus increased vagal tone from vomiting. Lyme titer was negative, with nl TSH & troponin- neg. Admission echocardiogram was essentially normal. *Subsequent imaging studies on 09/23/17, including MRCP followed by CT AP with pancreatic protocol, were suggestive of necrotizing pancreatitis, prompting the GI consult (*see imaging section). *As of 09/23/17, the patient's main complaint was abdominal pain "9 out of 10". The vomiting had mostly subsided. He had mild nausea. He did note intermittent fevers & chills, with occasional hiccups. His diarrhea had resolved. There was no CP or SOB. There was no hx of abdominal trauma. He denied any unintentional weight loss. His appetite was fair. He denied any GERD, odynophagia, or dysphagia. There was perhaps some minimal early satiety. He was getting a little constipated from narcotic analgesics. There was no obstipation. *As of 09/23/17, he had a stable BP 110/76, but was tachycardic 122, R 26, Tm 102, O2 sat RA 93%. 07/31/16: *Hep A Ab, Hep Bs Ag, Hep B core Ab, & Hep C Ab- all neg. 09/20/17: 1027- Admission WBC 17.4, H/H 16.1/46.5, MCV 92.2, RDW 12.7, PLT 187, Lyme 0.20, glu 109, BUN/Cr 12/0.8, GFR > 60, Na 139, K 3.6, HCO3 28, AG 14, *lactate 2.8 (- >2.6->2.5->2.4->2.0), amylase 65, *lipase 783, Mg 1.9, Ca 8.8, alb 4.0, glob 3.0 , TBil 0.5, alk phos 84, AST 122, ALT 122, troponin < 0.01, TSH 2.62, [EtOH] < 10, *TG 362 09/20/17: U/A- clear yellow, 1.010, 8.5, packed amorph, tr prot, 0.2 urobil; neg nitrite, neg esterase. 09/20/17: Utox: + OP/MS 2836, + cannabis > 80. 09/21/17: 45- WBC 18.2, H/H 16.3/47.2, PLT 162, BUN/Cr 10/0.7, GFR > 60, Na 133, K 4.2, HCO3 24, AG 12 09/22/17: 0624- WBC 18.2 (74S/11B/3L/12M), H/H 18.4/54.2, PLT 175, BUN/Cr 15/0.7 , GFR > 60, Na 133, K 3.9, HCO3 21, AG 15, alb 3.8, glob 2.8, TBil 1.6, DBil 0.6 , alk phos 79, AST 83, ALT 74 09/23/17: 0615- WBC 18.6 (66S/20B/10L/4M), H/H 16.3/47.3, PLT 137, Na 130, K 3.7 , HCO3 22, AG 11, alb 2.9, glob 2.6, TBil 3.5, DBil 2.1, alk phos 71, AST 89, ALT 56. 09/23/17: 1337- PT 13.3, INR 1.22 09/23/17: 2229- WBC 19.9 (58S/33B/5L/4M), H/H 14.2/41.6, PLT 124, BUN/Cr 18/1.0, GFR > 60, Na 131, K 4.1, HCO3 22, AG 10, Mg 2.1, Ca 7.6, PO4 2.0, alb 2.5, glob 2.6, TBil 4.8, DBil 3.1, alk phos 73, AST 75, ALT 44, * CRP > 9.0, TChol 108, TG 131, HDL 35, LDL 47 09/23/17: U/A- hazy nohemi, > 1.030, 6.0, 3-5 RBC, 3-5 WBC, rare gran cast, few bact, mod amorph, large Hgb, neg icto, 100+ prot, > 8.0 urobil; + nitrite, neg esterase. 09/20/17: BC x 2- neg. 09/20/17: UC- neg. 09/23/17: BC x 2- pending. The patient has necrotizing pancreatitis, most likely from a combination of EtOH and moderately elevated triglycerides. Recent data shows that even moderate TG can induce pancreatitis in those with additional risk factors. He reportedly has not smoked since 07/2016. He had a long prior hx EtOH abuse, & resumed EtOH in 09/2017, drinking until 1 day LEAK PATCHER. The patient may have a component of EtOH hepatitis, although his LFTs were in a somewhat atypical pattern for this. He did have imaging evidence of fatty liver, which certainly can contribute to this. The abdominal pain, nausea, vomiting, fevers, & leukocytosis (left shift), are probably from a combination of necrotizing pancreatitis, EtOH hepatitis, EtOH withdrawal, and/or atelectasis. There is no evidence of aspiration PNA. CIWA have been relatively stable. *MRCP did not show any cholelithiasis or choledocholithiasis. The main question is whether the necrotizing pancreatitis is superinfected. *He apparently received 2 doses of Meropenem earlier on 09/23/17. I would not empirically tx with this (risk of fungemia, etc), until we know whether the necrotizing pancreatitis is superinfxd. 09/24/17: CT PERCUTANEOUS ABSCESS DRAINAGE- Successful CT-guided aspiration (3 mL) of a simple fluid from the tail region of the pancreas, per Dr. Medeiros. 09/24/17: 0334- WBC 17.6 (67S/19B/8L/6M), H/H 12.9/37.2, PLT 118, glu 109, BUN/ Cr 22/1.0, GFR > 60, Na 134, K 4.0, HCO3 25, AG 7, alb 2.4, glob 2.3, TBil 4.6, DBil 3.1, alk phos 75, AST 72, ALT 45, LDH 2933, trop 0.03 09/24/17: 1735- WBC 15.1 (66S/16B/9L/9M), H/H 12.4/36.6, PLT 125, glu 89, BUN/Cr 13/0.8, GFR > 60, Na 134, K 3.7, HCO3 26, AG 8, Mg 2.2, Ca 7.7, *PO4 1.9, alb 2.5, TBil 5.1, AST 64, ALT 43. 09/24/17: *MAXIMILIANO- pending 09/24/17: *Pancreatic C&S- pending. The patient was moved to the ICU for closer monitoring overnight on 09/23/17, as he was borderline hypotensive and tachycardic. The patient was seen by ID, surgery, & the ICU team. Dr. Wood agreed with sending the patient to IR for needle aspirate of his necrotizing pancreatitis, to rule out superinfection. This was performed on 04/[address] Medeiros, & cultures are pending. Empiric IV Meropenem was stopped on 09/23/17, after 2 doses. This will be reassessed after reviewing the 09/24/17: pancreatic cultures. Multiple BC remained negative. The patient remained NPO, receiving IV: Lactated Ringers @ 150 cc/hr. He was still having abdominal pain, that was controlled with Dilaudid. His nausea was somewhat improved. He had no vomiting. He was mildly icteric. He was receiving nebulizers for his asthma. He denied any CP or SOB. His wheezing was improved. CIWA have ranged anywhere from 0->8 over the past 24 hrs, most recently, 0. His fevers were improving (low grade). He denied any chills. *There was no evidence of hemoconcentration, & the patient's Hgb & BUN dropped appropriately, with IVF. *As of 09/24/17, BP 140/70, P 110, R 22, Tm 100.5, O2 sat RA 90%. I/O: + 2.947 L/past 24 hrs. Lisinopril was D/C 09/24/17. 09/24/17: *Pancreatic aspirate per IR- gram stain pending; C&S- neg x 1 day. 09/25/17: 0422- WBC 17.2 (66S/15B/12L/7M), H/H 12.4/35.8, PLT 126, glucose 81, BUN/Cr 11/0.8, GFR > 60, Na 136, K 3.6, HCO3 23, AG 8, Mg 2.1, Ca 7.1, PO4 2.5, alb 2.3, TBil 5.0, AST 54, ALT 45. *As of 09/25/17, patient remained normotensive 142/52, and borderline tachycardic 109, with Tm 102 (100.5), & O2 sat 2L - 98%. He was + 3.451L the previous day. He was not hemoconcentrated. BC remained negative. He had mild nausea, but no vomiting. He still had abdominal pain requiring Dilaudid, given 1/2 hour prior to my exam. He denied any chills, CP, or SOB. He was passing flatus, & had a solid BM this morning. He remained jaundiced. He was trying sips of H2O. He otherwise had no new complaints. *SUGGEST: Maintain in ICU for now. *Trial of sips of clears. *May need eventual N-[place] tube feeds if prolonged NPO vs. PICC line for TPN (although enteral feedings below the level of the ampulla woud be preferable). Hold Meropenem for now. Follow-up cultures, especially 09/24/17: *Pancreatic C&S- pending. *Follow-up with ID & surgery. *If evidence of infxd pancreatic necrosis, would need resumption of Meropenem & may need surgical debridement. *Cut back IV Lactated Ringers to 100 cc/hr for now. Watch for hemoconcentration (i.e.- rising Hgb or BUN, despite IVF ), which would be a poor prognostic sign (this occured earlier in the admission, but resolved). Strict I/O's. IV analgesics. *Replete lytes. *Check prealbumin. Avoid NSAIDS. MVI, thiamine, folate. Ativan as needed. CIWA protocol. Antiemetics as needed. DVT prophylaxis. Nebulizers & w/u of abnl urinary sediment, etc., per medical/ICU team. O2 prn. May take Tricor with sips of H2O, regarding hyperTG, & recheck TG. *Consider checking full Hep A, B, & C serologies, HIV, MAXIMILIANO, AMA (doubt), Fe, TIBC, ferritin, ceruloplasmin, A1AT level. *LFTs are probably rx in nature. There does not appear to be a biliary process. Eventual outpt Vitamin E 800 IU po daily for fatty liver, along with risk factor modification (i.e- cessation of EtOH, & strict control of BP, glucose, lipids, body weight, etc.), with consideration for outpt FibroScan. The patient was previously made aware that continual EtOH abuse could result in his . Advise psychiatric & social work input. *Consider vascular followup for ? hepatic artery aneurysm seen on CT (vs. CTA). The above was previously discussed with the medical housestaff in detail, & with Dr. Wood. Further GI recommendations to follow, depending on clinical course. Problem List: 1. Necrotizing pancreatitis 2. Hypertriglyceridemia 3. Alcohol abuse 4. Fatty liver 5. Abnormal LFTs 6. Alcoholic hepatitis 7. Abdominal pain 8. Nausea & vomiting 9. Fever 10. Leukocytosis 11. Umbilical hernia 12. Right inguinal hernia 13. Malnutrition Subjective Subjective: 09/24/17: *Pancreatic aspirate per IR- gram stain pending; C&S- neg x 1 day. 09/25/17: 0422- WBC 17.2 (66S/15B/12L/7M), H/H 12.4/35.8, PLT 126, glucose 81, BUN/Cr 11/0.8, GFR > 60, Na 136, K 3.6, HCO3 23, AG 8, Mg 2.1, Ca 7.1, PO4 2.5, alb 2.3, TBil 5.0, AST 54, ALT 45. *As of 09/25/17, patient remained normotensive 142/52, and borderline tachycardic 109, with Tm 102 (100.5), & O2 sat 2L - 98%. He was + 3.451L the previous day. He was not hemoconcentrated. BC remained negative. He had mild nausea, but no vomiting. He still had abdominal pain requiring Dilaudid, given 1/2 hour prior to my exam. He denied any chills, CP, or SOB. He was passing flatus, & had a solid BM this morning. He remained jaundiced. He was trying sips of H2O. He otherwise had no new complaints. Review of Systems: Full 14 point ROS otherwise noncontributory & as above Review of Systems Constitutional: Reports: chills (intermittent), fever (intermittent). Denies: diaphoresis, malaise, weakness, unexplained weight loss. EENTM: Denies: blurred vision, double vision, visual changes, eye pain, eye drainage, eye tearing, icterus, ear discharge, ear pain, ear redness, hearing changes, nasal congestion, epistaxis, nasal pain, throat pain, throat swelling, mouth pain, tooth pain. Cardiovascular: Denies: chest pain, edema, orthopena, palpitations, peripheral edema, syncope. Respiratory: Reports: cough (improved), sputum production (minimal), wheezing (rare). Denies: hemoptysis, orthopnea, short of breath, stridor. GI: Reports: abdominal pain, diarrhea (resolved), nausea (improving), vomiting ( resolved). Denies: bloating, constipation, distention, bowel incontinence, melena, bloody stool, changes in stool, steatorrhea. Genitourinary: Reports: hematuria ("dark urine"). Denies: discharge, dysuria, frequency, hesitation, nocturia, pain, urgency. Musculoskeletal: Denies: back pain, gout, joint pain, joint swelling, muscle pain, muscle stiffness, neck pain. Skin: Reports: jaundice. Denies: cysts, change in skin color, change in hair/nails, dryness, erythema, lesions, lymphangitis, lumps, moles, rash. Neurological/Psychological: Reports: anxiety, depressed, emotional problems. Denies: ataxia, cognitive dysfunction, confusion, dementia, headache, numbness, paresthesia, pre-existing deficit, petit mal seizures, tingling, tremors, tonic- clonic seizures, unable to move lower ext, unable to move upper ext, weakness. Hematologic/Endocrine: Denies: bruising, bleeding, polyuria, polydipsia. Immunologic/Allergic: Denies: splenectomy, HIV/AIDS, lymphadenopathy. All Other Systems: Reviewed and Negative Objective Vital Signs and I&Os Vital Signs Date Time Temp Pulse Resp B/P B/P Pulse O2 O2 Flow FiO2 Mean Ox Delivery Rate 09/25 0837 98 Room Air 09/25 0800 98.7 102 18 130/70 95 Room Air 09/25 0617 100.5 09/25 0511 101.7 09/25 0400 94 Room Air 09/25 0000 95 Nasal 2.0L Cannula 09/24 2310 100.8 09/24 2309 100.8 109 21 142/52 92 Room Air 09/24 2223 102.0 09/24 2220 102.0 09/24 2045 90 Room Air Room Air 09/24 2000 95 Room Air 09/24 1600 100.5 110 22 140/70 93 Room Air 09/24 1200 Room Air 09/24 1200 98.3 111 16 144/77 09/24 1057 94 Room Air Room Air 09/24 1000 114 22 150/76 Intake & Output 09/25 1600 09/25 0400 09/24 1600 09/24 0400 09/23 1600 09/23 0400 Intake Total 1239 1479 3597 1200 2520 600 Output Total 600 975 650 900 200 Balance 709 880 9928 300 2320 600 Intake, IV 1239 1479 3567 1200 2500 600 Intake, Oral 0 0 30 20 Number 0 0 0 Bowel Movements Output, Urine 600 975 650 900 200 Patient 212 lb 200 lb 201 lb 201 lb Weight Weight Bed scale Bed scale Bed scale Measurement Method Physical Exam: Well-developed, slightly malnourished, obese male, in no apparent distress. Nontoxic appearing. *Sclera icteric. Conjunctiva pink. Oropharynx clear. Slightly dry mucus membranes. No oral thush. No apthous ulcers. There is no adenopathy, thyromegaly, or JVD. No peripheral stigmata of inflammatory bowel disease on exam. No spiders on the anterior chest wall. Mild gynecomastia B/L, without masses (? due to obesity > liver disease). No CVA tenderness. Lungs: clear to A&P, with decreased BS at bases B/L. No wheezing, rales, or rhonchi. Heart exam: regular rate, tachycardic S1 and S2, without any murmur. Abdominal exam: normal bowel sounds, obese, less distended, softer belly, mild to moderate diffuse tenderness on deep palpation, without guarding or rebound. No peritoneal signs. Reducible umbilical hernia & RIH. Otherwise, no mass. Enlarged liver 20 cm by percussion. No definite palpable spleen tip. Negative Segura sign. No definite fluid shift. No pulsatile mass. No epigastric bruit. Digital rectal exam: deferred by patient. Extremities: without C, C, or E. No palpable cords. Old tattoos UE B/L. No acute arthropathy. No rash. No palmar erythema. No Dupuytren's contractures. Distal pulses 2+ bilaterally. DTRs 2+ bilaterally. Alert and oriented x 3. Right handed. CN II-XII intact. Motor: 5/5 B/L. No tremor. No asterixis. Current Medications: Current Medications Sig/Brynn Start time Last Medication Dose Route Stop Time Status Admin Acetaminophen 500 MG ONCE ONE 09/25 0415 DC 09/25 N/A 1 UNIT IV 09/25 521 0511 Acetaminophen 1,000 MG ONCE ONE 09/245 DC 09/24 N/A 1 UNIT IV 09/24 Albuterol Sulfate 3 ML BID 09/24 2099 AC 09/25 INH 0835 Albuterol Sulfate 3 ML Q4P PRN 09/23 1345 DC 09/24 INH 1054 Albuterol Sulfate 2 PUF Q4-6 PRN PRN 09/20 1400 AC 09/24 INH 0633 Atropine Sulfate 1 MG ONE PRN 09/20 2000 DC IV Cyanocobalamin/ 1 BAG DAILY 09/24 1050 CAN Thiamine/Pyridoxine IV Dextrose/Water 1,000 ML Enoxaparin Sodium 40 MG DAILY 09/25 0900 CAN SC Fenofibrate 48 MG DAILY 09/21 1342 AC 09/25 PO 0817 Fentanyl Citrate 0 .STK-MED ONE 09/24 1602 DC .ROUTE Folic Acid 1 MG DAILY 09/24 1039 CAN IV Hydromorphone HCl 0.4 MG Q3 PRN 09/24 1354 AC 09/25 IV 0818 Hydromorphone HCl 0.4 MG Q4 PRN 09/24 0859 DC 09/24 IV 1008 Hydromorphone HCl 2 MG ONCE PRN 09/23 2215 AC IV Lactated Ringer's 1,000 ML Q6H 09/23 2145 AC 09/25 IV 0453 Lisinopril 20 MG DAILY 09/21 0900 DC 09/23 PO 0816 Lorazepam 1.5 MG Q4P PRN 09/24 0230 AC IV Lorazepam 0 Q1P PRN 09/21 1745 AC 09/22 IV 0525 Metoclopramide HCl 10 MG Q6P PRN 09/24 1400 AC 09/25 IV 0817 Multivitamins 1 GEORGETTE DAILY 09/24 1100 CAN Lactated Ringer's 1,000 ML IV Multivitamins 1 GEORGETTE DAILY 09/24 1100 AC 09/24 Thiamine HCl 100 MG IV 1115 Folic Acid 1 MG Lactated Ringer's 1,000 ML Multivitamins 1 GEORGETTE DAILY 09/24 0917 CAN IV Multivitamins 1 TAB DAILY 09/20 1400 DC 09/23 PO 0816 Thiamine HCl 100 MG DAILY 09/24 1039 CAN Sodium Chloride 50 ML IV Trimethobenzamide HCl 200 MG .STK-MED ONE 09/24 1025 DC IM 09/24 1026 Trimethobenzamide HCl 200 MG 4 TIMES/DAY PRN 09/21 1715 DC 09/24 IM 1027 Results Pertinent Lab Results: Laboratory Tests 09/25 09/24 0422 1735 Chemistry Sodium (137 - 145 mmol/L) 136 L 134 L Potassium (3.5 - 5.1 mmol/L) 3.6 3.7 Chloride (98 - 107 mmol/L) 105 100 Carbon Dioxide (22 - 30 mmol/L) 23 26 Anion Gap (5 - 16) 8 8 BUN (9 - 20 mg/dL) 11 13 Creatinine (0.7 - 1.2 mg/dL) 0.8 0.8 Estimated GFR (>60 ml/min) > 60 > 60 Glucose (65 - 99 mg/dL) 81 89 Calcium (8.4 - 10.2 mg/dL) 7.1 L 7.7 L Phosphorus (2.5 - 4.5 mg/dL) 2.5 1.9 L Magnesium (1.6 - 2.3 mg/dL) 2.1 2.2 Total Bilirubin (0.2 - 1.3 mg/dL) 5.0 H 5.1 H AST (17 - 59 U/L) 54 64 H ALT (21 - 72 U/L) 45 43 Albumin (3.5 - 5.0 g/dL) 2.3 L 2.5 L Hematology CBC w Diff MAN DIFF ORDERED MAN DIFF ORDERED WBC (4.8 - 10.8 /CUMM) 17.2 H 15.1 H RBC (4.70 - 6.10 /CUMM) 3.88 L 3.92 L Hgb (14.0 - 18.0 G/DL) 12.4 L 12.4 L Hct (42 - 52 %) 35.8 L 36.6 L MCV (80.0 - 94.0 FL) 92.4 93.4 MCH (27.0 - 31.0 PG) 32.0 H 31.7 H MCHC (33.0 - 37.0 G/DL) 34.7 33.9 RDW (11.5 - 14.5 %) 12.9 13.2 Plt Count (130 - 400 /CUMM) 126 L 125 L MPV (7.4 - 10.4 FL) 7.2 L 7.6 Gran % (42.2 - 75.2 %) 86.8 H 84.5 H Lymphocytes % (20.5 - 51.1 %) 8.3 L 7.7 L Monocytes % (1.7 - 9.3 %) 4.7 7.7 Eosinophils % (0 - 5 %) 0.1 0 Basophils % (0.0 - 2.0 %) 0.1 0.1 Absolute Granulocytes (1.4 - 6.5 /CUMM) 14.9 H 12.7 H Segmented Neutrophils (42.2 - 75.2 %) 66 66 Band Neutrophils (0.0 - 5.0 %) 15 H 16 H Absolute Lymphocytes (1.2 - 3.4 /CUMM) 1.4 1.2 Lymphocytes (20.5 - 51.1 %) 12 L 9 L Monocytes (1.7 - 9.3 %) 7 9 Absolute Monocytes (0.10 - 0.60 /CUMM) 0.8 H 1.2 H Absolute Eosinophils (0.0 - 0.7 /CUMM) 0 0 Absolute Basophils (0.0 - 0.2 /CUMM) 0 0 Platelet Estimate (ADEQUATE) DECREASED DECREASED Normocytic RBCs VERIFIED VERIFIED Normochromic RBCs VERIFIED VERIFIED Other Body Source Fld Total RBCs Counted (%) 100 09/24 09/23 0334 2229 Chemistry Sodium (137 - 145 mmol/L) 134 L 131 L Potassium (3.5 - 5.1 mmol/L) 4.0 4.1 Chloride (98 - 107 mmol/L) 101 99 Carbon Dioxide (22 - 30 mmol/L) 25 22 Anion Gap (5 - 16) 7 10 BUN (9 - 20 mg/dL) 22 H 18 Creatinine (0.7 - 1.2 mg/dL) 1.0 1.0 Estimated GFR (>60 ml/min) > 60 > 60 BUN/Creatinine Ratio (7 - 25 %) 22.0 18.0 Glucose (65 - 99 mg/dL) 109 H Calcium (8.4 - 10.2 mg/dL) 7.6 L Phosphorus (2.5 - 4.5 mg/dL) 2.0 L Magnesium (1.6 - 2.3 mg/dL) 2.1 Total Bilirubin (0.2 - 1.3 mg/dL) 4.6 H 4.8 H Direct Bilirubin (< 0.4 mg/dL) 3.1 H 3.1 H AST (17 - 59 U/L) 72 H 75 H ALT (21 - 72 U/L) 45 44 Alkaline Phosphatase (< 127 U/L) 75 73 Lactate Dehydrogenase (313 - 618 U/L) 2933 H Troponin I (<0.11 ng/ml) 0.03 C-Reactive Prot, Quant (<1.0 mg/dL) > 9.0 H Total Protein (6.3 - 8.2 g/dL) 4.7 L 5.1 L Albumin (3.5 - 5.0 g/dL) 2.4 L 2.5 L Triglycerides (<150 mg/dL) 131 Cholesterol (< 200 MG/DL) 108 LDL Cholesterol, Calc (65 - 129 mg/dL) 47 L HDL Cholesterol (40 - 60 mg/dL) 35 L Cholesterol/HDL Ratio (0.00 - 4.88 %) 3.1 Hematology CBC w Diff MAN DIFF ORDERED MAN DIFF ORDERED WBC (4.8 - 10.8 /CUMM) 17.6 H 19.9 H RBC (4.70 - 6.10 /CUMM) 4.05 L 4.51 L Hgb (14.0 - 18.0 G/DL) 12.9 L 14.2 Hct (42 - 52 %) 37.2 L 41.6 L MCV (80.0 - 94.0 FL) 92.0 92.1 MCH (27.0 - 31.0 PG) 31.8 H 31.4 H MCHC (33.0 - 37.0 G/DL) 34.6 34.2 RDW (11.5 - 14.5 %) 12.9 13.1 Plt Count (130 - 400 /CUMM) 118 L 124 L MPV (7.4 - 10.4 FL) 7.7 7.6 Gran % (42.2 - 75.2 %) 85.9 H 88.0 H Lymphocytes % (20.5 - 51.1 %) 7.4 L 5.6 L Monocytes % (1.7 - 9.3 %) 6.6 6.1 Eosinophils % (0 - 5 %) 0 0 Basophils % (0.0 - 2.0 %) 0.1 0.3 Absolute Granulocytes (1.4 - 6.5 /CUMM) 15.1 H 17.5 H Segmented Neutrophils (42.2 - 75.2 %) 67 58 Band Neutrophils (0.0 - 5.0 %) 19 H 33 H Absolute Lymphocytes (1.2 - 3.4 /CUMM) 1.3 1.1 L Lymphocytes (20.5 - 51.1 %) 8 L 5 L Monocytes (1.7 - 9.3 %) 6 4 Absolute Monocytes (0.10 - 0.60 /CUMM) 1.2 H 1.2 H Absolute Eosinophils (0.0 - 0.7 /CUMM) 0 0 Absolute Basophils (0.0 - 0.2 /CUMM) 0 0.1 Platelet Estimate (ADEQUATE) DECREASED VERIFIED BY SMEAR Normocytic RBCs VERIFIED Normochromic RBCs VERIFIED Polychromasia Immunology MAXIMILIANO Titer Pending Anti-Nuclear Antibody Pending Other Body Source Fld Total RBCs Counted (%) 100 09/23 1337 Blood Gas Bicarbonate Actual (22 - 26 MEQ/L) 16 L Mixed VBG pH (7.31 - 7.41 PH) 7.60 H Mixed VBG pCO2 (41 - 51 TORR) 16 L Mixed VBG O2 Saturation (35 - 45 TORR) 64 H Carboxyhemoglobin (1.5 - 5.0 %) 2.8 O2 Concentration % RA O2 Delivery Method RA Coagulation PT (9.4 - 12.5 SEC) 13.3 H INR (0.90 - 1.17) 1.22 H Miscellaneous Phlebotomy Draw Site R.[email or web address] Urines Urinalysis MOD H Urine Color (YEL,AMB,STR) NOHEMI Urine Clarity (CLEAR) HAZY H Urine pH (5.0 - 8.0) 6.0 Ur Specific [place] (1.001 - 1.035) >= 1.030 Urine Protein (NEG,<30 MG/DL) 100 H Urine Ketones (NEG) NEG Urine Nitrite (NEG) POS H Urine Bilirubin (NEG) NEG@ICTO Urine Urobilinogen (0.1 - 1.0 EU/dl) >=8.0 H Ur Leukocyte Esterase (NEG) NEG Ur Microscopic SEDIMENT EXAMINED Urine RBC (0 - 5 /HPF) 3-5 Urine WBC (0 - 2 /HPF) 3-5 H Urine Bacteria (NEG/NONE) FEW H Granular Casts (NONE /LPF) RARE H Urine Hemoglobin (NEG) LARGE H Urine Glucose (N MG/DL) NEG 09/23 09/23 1315 0615 Chemistry Sodium (137 - 145 mmol/L) 130 L Potassium (3.5 - 5.1 mmol/L) 3.7 Chloride (98 - 107 mmol/L) 97 L Carbon Dioxide (22 - 30 mmol/L) 22 Anion Gap (5 - 16) 11 Total Bilirubin (0.2 - 1.3 mg/dL) Cancelled 3.5 H Direct Bilirubin (< 0.4 mg/dL) Cancelled 2.1 H AST (17 - 59 U/L) Cancelled 89 H ALT (21 - 72 U/L) Cancelled 56 Alkaline Phosphatase (< 127 U/L) Cancelled 71 Total Protein (6.3 - 8.2 g/dL) Cancelled 5.5 L Albumin (3.5 - 5.0 g/dL) Cancelled 2.9 L Hematology CBC w Diff MAN DIFF ORDERED WBC (4.8 - 10.8 /CUMM) 18.6 H RBC (4.70 - 6.10 /CUMM) 5.07 Hgb (14.0 - 18.0 G/DL) 16.3 Hct (42 - 52 %) 47.3 MCV (80.0 - 94.0 FL) 93.2 MCH (27.0 - 31.0 PG) 32.1 H MCHC (33.0 - 37.0 G/DL) 34.4 RDW (11.5 - 14.5 %) 12.7 Plt Count (130 - 400 /CUMM) 137 MPV (7.4 - 10.4 FL) 7.7 Gran % (42.2 - 75.2 %) 86.5 H Lymphocytes % (20.5 - 51.1 %) 6.2 L Monocytes % (1.7 - 9.3 %) 7.3 Eosinophils % (0 - 5 %) 0 Basophils % (0.0 - 2.0 %) 0 Absolute Granulocytes (1.4 - 6.5 /CUMM) 16.1 H Segmented Neutrophils (42.2 - 75.2 %) 66 Band Neutrophils (0.0 - 5.0 %) 20 H Absolute Lymphocytes (1.2 - 3.4 /CUMM) 1.1 L Lymphocytes (20.5 - 51.1 %) 10 L Monocytes (1.7 - 9.3 %) 4 Absolute Monocytes (0.10 - 0.60 /CUMM) 1.4 H Absolute Eosinophils (0.0 - 0.7 /CUMM) 0 Absolute Basophils (0.0 - 0.2 /CUMM) 0 Platelet Estimate (ADEQUATE) VERIFIED BY SMEAR Normocytic RBCs VERIFIED Normochromic RBCs VERIFIED Imaging/Other Studies: 09/20/17: EKG- SB @ 43, nl axis, nonspecific IVCD, flipped T in III. 09/22/17: EKG- ST @ 119, nl axis, ? RA abnl 09/20/17- ECHOCARDIOGRAM- Normal size left ventricle. Normal left ventricular wall thickness. No obvious regional wall motion abnormalities. Normal left ventricular ejection fraction visually estimated at >60 Normal left ventricular diastolic filling pattern for age. Normal right ventricular size and function. Normal atrial size. Trace mitral regurgitation. Mild tricuspid regurgitation. Dilated inferior vena cava. Rehan Das M.D. 09/20/17: CT ABD & PELVIS W IV CONTRAST- Recurrent acute interstitial edematous pancreatitis with inflammation centered around the pancreatic head and uncinate process. Reactive inflammation of the duodenum. This is less extensive than on the prior CTs from July 2016. No associated complicating features are identified. Hepatomegaly 21 cm & steatosis, without focal hepatic defect. Normal GB. Normal spleen. Small fat containing umbilical hernia & RIH. Normal kidneys. Normal PV, SMV, SV, & aorta. 09/20/17: XRY-CHEST XRAY, TWO VIEWS- 1. Mild subsegmental atelectasis in right lung base. 2. Slightly thickened central airways, consistent with reactive airways disease or bronchitis. No focal pneumonia. 09/23/17: US-LIMITED (RUQ) ABDOMEN- Limited examination secondary to patient body habitus, overlying bowel gas and patient's inability to follow breathing instructions. Pancreas was not clearly visualized and the liver was incompletely visualized. Enlarged liver. Normal GB. Normal CBD 4 mm. Normal right kidney. No free fluid. Further evaluation with cross-sectional imaging is recommended. 09/23/17: XRY-CHEST XRAY, TWO VIEWS- Low lung volume and nonspecific bibasilar airspace disease and small right-sided pleural effusion, new since prior study dated 09/20/2017. 09/23/17: MRI ABDOMEN WITHOUT CONTRAST/MRCP- 1. There has been significant interval worsening of pancreatitis with diffuse pancreatic edema, interval development of ascites and pleural effusion. Findings may represent severe acute edematous interstitial pancreatitis. Assessment for necrotizing pancreatitis is limited without IV contrast. Given the significant interval worsening of the overall pancreatitis, further assessment with contrast-enhanced CT scan or postgadolinium MRI images are recommended. 2. Interval development of a loculated extrapancreatic fluid collection anterior to the body of the pancreas measuring approximately 5.6 x 4.4 x 4.3 cm likely represents of acute peripancreatic fluid collection. Infected fluid collection cannot be entirely excluded without intravenous contrast. No gross evidence of debris identified within the fluid collection on the MRI images. It is too early for formation of pseudocyst. 3. No evidence of cholelithiasis or choledocholithiasis. No evidence of biliary ductal dilatation. Critical results were discussed with Dr. Rodriguez at 4:40 PM on 09/23/2017. 09/23/17: CT ABD & PELVIS W IV CONTRAST- Marked interval worsening. Small B/L pleural effusions & bibasilar atelectasis. CT evidence of severe acute necrotizing pancreatitis with lack of enhancement throughout the body and tail. There is extensive surrounding fat stranding and there are fluid collections, including a collection in the lesser sac, with mass effect upon the lesser curvature of stomach. There is no internal gas. Diffuse fatty liver. Mildly distended GB with ? sludge. No gallstones. No dilated ducts. RIH. Correlate with systemic inflammatory response markers. There is an amorphous 1 cm late enhancing abnormality near the hepatic artery. This is concerning for a small pseudoaneurysm. Short interval follow-up may be necessary. Depending upon the clinical circumstances follow-up might include CT angiography including late venous phase 09/24/17: CT PERCUTANEOUS ABSCESS DRAINAGE- Successful CT-guided aspiration (3 mL) of a simple fluid from the tail region of the pancreas, per Dr. Medeiros.
--- NOTE | 2017-09-25 10:55 | PN- Infect Dx ---
Subjective Subjective: T-max 102. He feels improved, with abdominal pain under control with medication. Objective Last 24 Hrs of Vital Signs/I&O Vital Signs Date Time Temp Pulse Resp B/P B/P Pulse O2 O2 Flow FiO2 Mean Ox Delivery Rate 09/25 0837 98 Room Air 09/25 0800 98.7 102 18 130/70 95 Room Air 09/25 0617 100.5 09/25 0511 101.7 09/25 0400 94 Room Air 09/25 0000 95 Nasal 2.0L Cannula 09/24 2310 100.8 09/24 2309 100.8 109 21 142/52 92 Room Air 09/24 2223 102.0 09/24 2220 102.0 09/24 2045 90 Room Air Room Air 09/24 2000 95 Room Air 09/24 1600 100.5 110 22 140/70 93 Room Air 09/24 1200 Room Air 09/24 1200 98.3 111 16 144/77 09/24 1057 94 Room Air Room Air Intake & Output 09/25 1600 09/25 0800 09/25 0000 Intake Total 1239 1479 Output Total 600 975 Balance 639 504 Intake, IV 1239 1479 Intake, Oral 0 0 Number 0 0 Bowel Movements Output, Urine 600 975 Patient 212 lb Weight Weight Bed scale Measurement Method Physical Exam Other Physical Findings: He appears comfortable in no acute distress Lungs decreased breath sounds at the left base, with bibasilar rhonchi Heart regular rhythm with no murmur Abdomen is mildly distended, minimally tender on palpation, with positive bowel sounds Extremities no cyanosis, clubbing or edema Results Last 24 Hours of Lab Results: Laboratory Tests 09/25 09/24 0422 1735 Chemistry Sodium (137 - 145 mmol/L) 136 L 134 L Potassium (3.5 - 5.1 mmol/L) 3.6 3.7 Chloride (98 - 107 mmol/L) 105 100 Carbon Dioxide (22 - 30 mmol/L) 23 26 Anion Gap (5 - 16) 8 8 BUN (9 - 20 mg/dL) 11 13 Creatinine (0.7 - 1.2 mg/dL) 0.8 0.8 Estimated GFR (>60 ml/min) > 60 > 60 Glucose (65 - 99 mg/dL) 81 89 Calcium (8.4 - 10.2 mg/dL) 7.1 L 7.7 L Phosphorus (2.5 - 4.5 mg/dL) 2.5 1.9 L Magnesium (1.6 - 2.3 mg/dL) 2.1 2.2 Total Bilirubin (0.2 - 1.3 mg/dL) 5.0 H 5.1 H AST (17 - 59 U/L) 54 64 H ALT (21 - 72 U/L) 45 43 Albumin (3.5 - 5.0 g/dL) 2.3 L 2.5 L Hematology CBC w Diff MAN DIFF ORDERED MAN DIFF ORDERED WBC (4.8 - 10.8 /CUMM) 17.2 H 15.1 H RBC (4.70 - 6.10 /CUMM) 3.88 L 3.92 L Hgb (14.0 - 18.0 G/DL) 12.4 L 12.4 L Hct (42 - 52 %) 35.8 L 36.6 L MCV (80.0 - 94.0 FL) 92.4 93.4 MCH (27.0 - 31.0 PG) 32.0 H 31.7 H MCHC (33.0 - 37.0 G/DL) 34.7 33.9 RDW (11.5 - 14.5 %) 12.9 13.2 Plt Count (130 - 400 /CUMM) 126 L 125 L MPV (7.4 - 10.4 FL) 7.2 L 7.6 Gran % (42.2 - 75.2 %) 86.8 H 84.5 H Lymphocytes % (20.5 - 51.1 %) 8.3 L 7.7 L Monocytes % (1.7 - 9.3 %) 4.7 7.7 Eosinophils % (0 - 5 %) 0.1 0 Basophils % (0.0 - 2.0 %) 0.1 0.1 Absolute Granulocytes (1.4 - 6.5 /CUMM) 14.9 H 12.7 H Segmented Neutrophils (42.2 - 75.2 %) 66 66 Band Neutrophils (0.0 - 5.0 %) 15 H 16 H Absolute Lymphocytes (1.2 - 3.4 /CUMM) 1.4 1.2 Lymphocytes (20.5 - 51.1 %) 12 L 9 L Monocytes (1.7 - 9.3 %) 7 9 Absolute Monocytes (0.10 - 0.60 /CUMM) 0.8 H 1.2 H Absolute Eosinophils (0.0 - 0.7 /CUMM) 0 0 Absolute Basophils (0.0 - 0.2 /CUMM) 0 0 Platelet Estimate (ADEQUATE) DECREASED DECREASED Normocytic RBCs VERIFIED VERIFIED Normochromic RBCs VERIFIED VERIFIED Other Body Source Fld Total RBCs Counted (%) 100 Last 24 Hours of Mike Results: Peripancreatic aspiration September 24 no growth Blood cultures September 23 negative Blood cultures September 20 negative Assessment/Plan ID Impression: Stable, status post CT-guided aspiration of a peripancreatic fluid collection yesterday to rule out a pancreatic infection in the setting of severe necrotizing pancreatitis. He remains febrile with a leukocytosis and a persistent, though decreased, bandemia off antibiotics, with the preliminary culture of the aspiration negative. Suggestion: 1. Follow-up culture from the recent aspiration 2. Further management with regard to fluids and pain control per the ICU team 3. Continue to follow off antibiotics pending above
--- NOTE | 2017-09-25 11:02 | RADIOLOGY REPORT ---
EXAMINATION: XR PORTABLE CHEST CLINICAL INFORMATION: Acute pancreatitis. Presumptive diagnosis of question ARDS/pneumonia/pleural effusion. COMPARISON: Several prior chest x-rays, most recent of which is dated 09/23/2017. TECHNIQUE: Portable AP semierect view of the chest was obtained. FINDINGS: EKG leads overlie the chest. The cardiomediastinal silhouette is within normal limits in size. Low lung volumes are seen with bibasilar opacities, unchanged on the right side and perhaps slightly increased on the left side. Small bilateral pleural effusions are seen. Lungs are otherwise clear. Bony structures are unremarkable. IMPRESSION: Low lung volumes with bilateral small pleural effusions and associated bibasilar opacities, most likely related to atelectasis.
[2017-09-25 16:00] VITALS: BP 160/80
[2017-09-25 23:00] VITALS: BP 150/84
[2017-09-26 03:38] LABS: ABSOLUTE BASOPHIL COUNT 0 /CUMM (0.0-0.2); ABSOLUTE EOSINOPHIL COUNT 0 /CUMM (0.0-0.7); ABSOLUTE GRANULOCYTE CT 15.8 /CUMM (1.4-6.5); ABSOLUTE LYMPH COUNT 1.3 /CUMM (1.2-3.4); BASOPHIL % 0.1 % (0.0-2.0); EOSINOPHIL % 0 % (0-5); GRANULOCYTE % 82.7 % (42.2-75.2); HEMATOCRIT 33.5 % (42-52); MEAN CORPUSCULAR HGB 31.9 PG (27.0-31.0); MEAN CORPUSCULAR HGB CONC 34.5 G/DL (33.0-37.0); MEAN CORPUSCULAR VOLUME 92.5 FL (80.0-94.0); MEAN PLATELET VOLUME 7.1 FL (7.4-10.4); PLATELET COUNT 163 /CUMM (130-400); RBC DISTRIBUTION WIDTH 12.8 % (11.5-14.5); RED BLOOD CELL CT 3.62 /CUMM (4.70-6.10); WHITE BLOOD CELL COUNT 19.1 /CUMM (4.8-10.8)
--- NOTE | 2017-09-26 07:17 | PN- Resident CRCU ---
Jerri STANLEY,Derian 09/26/17 0717: Subjective HPI/CRCU Issues: Patient is seen and examined at the bedside. He was still complaining of pain in the abdomen but he denies for any bloating. He did try clear water without any difficulty. He did have 2 bowel movements yesterday but denies any blood in it. He is much comfortable and wanted to try broth again. He wanted to move around. Discussed with the nurse. 24 Hour Events: Vital signs-T maximum 98.2, pulse 88, blood pressure 124/69, 98% on room air. Intake/outpuT -3614/2650. Objective Vital Signs & I&O Last 8 Hrs of Vitals and I&O: Intake & Output 09/26 0800 Intake Total 755 Output Total 1151 Balance -396 Intake, IV 755 Number 0 Bowel Movements Output, 1 Emesis Output, Urine 1150 Patient 92.193 kg Weight Weight Bed scale Measurement Method Exam General Appearance: well developed/nourished, no apparent distress, alert, awake , comfortable Respiratory: normal breath sounds, chest non-tender, no respiratory distress, quiet respiration, decreased air entry on bases Cardiovascular: regular rate/rhythm Gastrointestinal: soft, tender, distended, BS+ Extremities: normal inspection, normal capillary refill, normal range of motion, no edema Current Medications: Current Medications Sig/Brynn Start time Last Medication Dose Route Stop Time Status Admin Albuterol Sulfate 3 ML BID 09/24 2100 AC 09/25 INH 1915 Albuterol Sulfate 2 PUF Q4-6 PRN PRN 09/20 1400 AC 09/24 INH 0633 Docusate Sodium 100 MG DAILY NEEDED PRN 09/25 1430 AC PO Enoxaparin Sodium 40 MG DAILY 09/26 0900 AC SC Fenofibrate 48 MG DAILY 09/21 1342 AC 09/25 PO 0817 Hydromorphone HCl 0.4 MG Q3 PRN 09/24 1354 AC 09/26 IV 0604 Hydromorphone HCl 2 MG ONCE PRN 09/23 2215 AC IV Lactated Ringer's 1,000 ML Q6H 09/23 2145 AC 09/26 IV 0436 Lorazepam 1.5 MG Q4P PRN 09/24 0230 AC IV Lorazepam 0 Q1P PRN 09/21 1745 AC 09/22 IV 0525 Metoclopramide HCl 10 MG Q6P PRN 09/24 1400 AC 09/26 IV 0604 Multivitamins 1 GEORGETTE DAILY 09/24 1100 AC 09/25 Thiamine HCl 100 MG IV 09 Folic Acid 1 MG Lactated Ringer's 1,000 ML Potassium Chloride 10 MEQ Q1H 09/26 0645 DC 09/26 IV 09/26 0746 0654 Impression/Plan Impression/Problem List Impression: Patient is a 32-year-old male with past medical history of asthma(mild persistent), hypertension(on medication lisinopril), history of alcohol induced pancreatitis(07/31/2016-08/12/2016) presented with chief complaints of severe abdominal pain, nausea, vomiting, diarrhea.He continues to have pain and started getting fever(101.4/102), persistent leukocytosis along with the band cells.He underwent CT and abdomen with contrast on 09/23/2017 which show evidence of severe acute necrotizing pancreatitis.He was transferred to the ICU for further evaluation and close monitoring. Vital signs-Vital signs-T maximum 98.2, pulse 88, blood pressure 124/69, 98% on room air. Intake/output -3614/2650. Assesment and plan - Transfer to . Severe acute necrotizing pancreatitis secondary to alcohol intake and probably aggravated by viral infection, steroid - * We start patient on liquid diet. * We will continue patient on Ringer lactate 75 cc/h * We will follow ID recommendation, GI recommendation * Patient had CT-guided pancreatic biopsy and which is neg for infection. * Strict intake output charting * Incentive spirometry Severity of acute pancreatitis - CT severity score (the Sandi score) [CTSI] - * On 09/20 CTSI -1; mild acute pancreatitis. * On 09/23 CTSI -10; Sever acute pancreatitis Samina criteria for pancreatitis prognosis - * 3-5 Points -Mortality 11-15% BISAP score - 2; Lower mortality (<2 percent) Pain management - * Avoid NSAIDs and nephrotoxic medication * Injection Dilaudid 0.4 mg IV every 4 as needed Small bilateral pleural effusion -reactionary * will follow . Hepatic artery pseudoaneurysm - * We will watch for the bleeding in the size of the aneurysm * Is if needed then will consider vascular consultation History of asthma- * TRC/nebulization Alcohol use disorder - * We already counseled him for cessation of alcohol intake History of hypertension - * We will hold lisinopril for now and if needed then we will add it. Bradycardia -resolved * Echocardiogram was normal, Lyme titer was negative. ? Hematuria possibly Myoglobinuria - Urine clear. Watch conservatively CODE STATUS-full code DVT prophylaxis-TOMÁS/heparin Diet - liquid diet Problem List: 1. Acute pancreatitis Pain Ratin Pain Location: abdomen Tomorrow's Labs & Rationales: f/u CBC, ICU bundle Plan DVT/Prophylaxis: mechanical, pharmacological Geo Pimentel MD 09/26/17 0926: Attending MD Review Statement Attending Sign Off Attending Cosign Statement: I have: examined this patient, reviewed avalbl EMR data, personally reviewd images, discussd w/resident/PA/DRAPERY WORKER, discussed mgmt plan w/lizz, discussed mgmt plan w/CM, discussed mgmt plan w/pt, agreed w/resident/PA/DRAPERY WORKER, amended to note. Other Findings: IGeo M.D. have examined this patient, reviewed available EMR data, personally reviewed images, discussed with resident/PA/DRAPERY WORKER, discussed management plan with housestaff and nursing staff, discussed managment plan all of healthcare providers, discussed management plan with patient and/or family, agreed with resident/PA/DRAPERY WORKER. The past history and parts of the chart have been autopopulated. Impression 32 year old man * necrotizing pancreatitis likely secondary to etoh dependence Plan -s/p IR guided aspiration, f/u all cultures -ID consultation appreciated -continue hydration IVF -replete lytes as needed -clear liquid sips per GI -f/u GI recommendations -incentive spirometry DVT prophylaxis at all times TTS 35 min DG to GM
[2017-09-26 08:00] VITALS: BP 120/70
--- NOTE | 2017-09-26 10:48 | PN- Infect Dx ---
Subjective Subjective: Afebrile. He feels improved and has tolerated broth this morning. Objective Last 24 Hrs of Vital Signs/I&O Vital Signs Date Time Temp Pulse Resp B/P B/P Pulse O2 O2 Flow FiO2 Mean Ox Delivery Rate 09/26 0800 98 Room Air Room Air 09/26 0800 99.0 86 18 120/70 96 Room Air Room Air 09/26 0400 94 Room Air Room Air 09/25 2300 98.2 102 28 150/84 94 Room Air Room Air 09/25 2000 96 Room Air Room Air 09/25 1915 96 Room Air 09/25 1600 97.9 103 20 160/80 94 Room Air Intake & Output 09/26 1600 09/26 0800 09/26 0000 Intake Total 755 1059 Output Total 1151 650 Balance -396 409 Intake, IV 755 879 Intake, Oral 180 Number 0 0 Bowel Movements Output, 1 Emesis Output, Urine 1150 650 Patient 203 lb Weight Weight Bed scale Measurement Method Physical Exam Other Physical Findings: He appears comfortable in no acute distress Lungs are clear Heart regular rhythm with no murmur Abdomen is soft, mildly tender on palpation diffusely, with no guarding or rebound, positive bowel sounds Extremities no cyanosis, clubbing or edema Results Last 24 Hours of Lab Results: Laboratory Tests 09/26 0313 Chemistry Sodium (137 - 145 mmol/L) 133 L Potassium (3.5 - 5.1 mmol/L) 3.5 Chloride (98 - 107 mmol/L) 97 L Carbon Dioxide (22 - 30 mmol/L) 25 Anion Gap (5 - 16) 11 BUN (9 - 20 mg/dL) 10 Creatinine (0.7 - 1.2 mg/dL) 0.8 Estimated GFR (>60 ml/min) > 60 Glucose (65 - 99 mg/dL) 108 H Calcium (8.4 - 10.2 mg/dL) 7.9 L Phosphorus (2.5 - 4.5 mg/dL) 2.4 L Magnesium (1.6 - 2.3 mg/dL) 2.1 Total Bilirubin (0.2 - 1.3 mg/dL) 3.7 H AST (17 - 59 U/L) 61 H ALT (21 - 72 U/L) 53 Albumin (3.5 - 5.0 g/dL) 2.6 L Hematology CBC w Diff NO MAN DIFF REQ WBC (4.8 - 10.8 /CUMM) 19.1 H RBC (4.70 - 6.10 /CUMM) 3.62 L Hgb (14.0 - 18.0 G/DL) 11.6 L Hct (42 - 52 %) 33.5 L MCV (80.0 - 94.0 FL) 92.5 MCH (27.0 - 31.0 PG) 31.9 H MCHC (33.0 - 37.0 G/DL) 34.5 RDW (11.5 - 14.5 %) 12.8 Plt Count (130 - 400 /CUMM) 163 MPV (7.4 - 10.4 FL) 7.1 L Gran % (42.2 - 75.2 %) 82.7 H Lymphocytes % (20.5 - 51.1 %) 6.8 L Monocytes % (1.7 - 9.3 %) 10.4 H Eosinophils % (0 - 5 %) 0 Basophils % (0.0 - 2.0 %) 0.1 Absolute Granulocytes (1.4 - 6.5 /CUMM) 15.8 H Absolute Lymphocytes (1.2 - 3.4 /CUMM) 1.3 Absolute Monocytes (0.10 - 0.60 /CUMM) 2.0 H Absolute Eosinophils (0.0 - 0.7 /CUMM) 0 Absolute Basophils (0.0 - 0.2 /CUMM) 0 Last 24 Hours of Mike Results: Aspiration of peripancreatic fluid September 24 negative Blood cultures 2 September 23 negative Recent Imaging Studies: Chest x-ray September 25 reveals low lung volumes with bilateral small pleural effusions and associated bibasilar opacities Assessment/Plan ID Impression: Stable, with no further fevers but with an increasing white blood cell count, off antibiotics status post CT-guided aspiration of a peripancreatic fluid collection 2 days ago to rule out a pancreatic infection in the setting of severe necrotizing pancreatitis. The culture of the aspiration remains negative suggesting that his fevers and leukocytosis are secondary to the pancreatitis itself. The bibasilar densities most likely represent atelectasis, with his respiratory status stable. Suggestion: 1. Follow-up final culture from the recent peripancreatic aspiration 2. Further management with regard to fluids and pain control per the ICU team 3. Continue to follow off antibiotics pending above
--- NOTE | 2017-09-26 13:02 | PN- Cardiology ---
Subjective Subjective: Admits to feeling a little better today. Cardiac monitoring reveals sinus rhythm. Objective Vital Signs and I&Os Vital Signs Date Time Temp Pulse Resp B/P B/P Pulse O2 O2 Flow FiO2 Mean Ox Delivery Rate 09/26 1200 96 Room Air Room Air 09/26 0800 98 Room Air Room Air 09/26 0800 99.0 86 18 120/70 96 Room Air Room Air 09/26 0400 94 Room Air Room Air 09/25 2300 98.2 102 28 150/84 94 Room Air Room Air 09/25 2000 96 Room Air Room Air 09/25 1915 96 Room Air 09/25 1600 97.9 103 20 160/80 94 Room Air Intake & Output 09/26 1600 09/26 0800 09/26 0000 09/25 1600 09/25 0800 09/25 0000 Intake Total 755 1059 1300 1239 1479 Output Total 1151 650 850 600 975 Balance -396 409 450 639 504 Intake, IV 552 347 7658 1239 1479 Intake, Oral 180 240 0 0 Number 0 0 1 0 0 Bowel Movements Output, 1 Emesis Output, Urine 1150 650 850 600 975 Patient 203 lb 212 lb Weight Weight Bed scale Bed scale Measurement Method Physical Exam: Well-developed, well-nourished male in no acute distress. Vital signs: See above. HEENT: Normocephalic, atraumatic, EOMI, slightly dry mucous membranes. Neck: No JVD, no bruits. Lungs: Clear to auscultation bilaterally except for a mild expiratory wheeze. Abdomen: Soft, positive bowel sounds, pain to palpation. Extremities: No edema. Peripheral pulses: Symmetrical/intact. Assessment/Plan Assessment/Plan 32-y-o-w-m w/ hx fmr light tob use, childhood asthma, "social" EtOH, last adm to (07/31-08/12/2016) w/ EtOH withdrawal requiring Ativan drip w/ assoc pancreatitis, & recent bronchitis Rx'd w/a short course of steroids, albuterol, & singulair who presented to the ED 09/20/2017 after the sudden onset of lower abd pain the night before w/ assoc N/V/D, & chills w/o fever that was Rx'd w/ IV morphine sulfate and hydromorphone who we were initially asked to evaluate in regard to SB which has resolved and was felt to be in the basis of his pain medications. Elevated CIWA score c/w EtOH withdrawal for which he is now on benzodiazepines. Abdominal pain secondary to pancreatitis for which he is on Dilaudid. Hemodynamically stable and feeling improved today. No further bradycardia. Afebrile, elevated WBC count off antimicrobial therapy, s/p CT guided aspiration of pancreatic tail fluid 09/24/2017 w/ negative cultures. Continue DVT prophylaxis. Continue telemetry? Not applicable (In ICU.)
[2017-09-26 16:00] VITALS: BP 148/78
[2017-09-26 17:46] VITALS: BP 154/70
--- NOTE | 2017-09-26 20:53 | PN- Gastroenterology ---
Assessment/Plan GI Assessment/Recommendations: (*Please refer to previous inpt GI consult by Dr. Tanner Aguero, of 08/04/16. The patient was supposed to have followed up with him in the office 1 month later. He had a scheduled appointment, but never showed up). *Extensive labs & imaging studies reviewed, HD #4. 32 y/o male, non-HTN, non-DM, asthma, obesity, anxiety, depression, PTSD, without prior abdominal surgery, no hx PUD or GBD, ex-cigar smoker (D/C 2016), + cannabis (denies other illicit drugs or IVDA), hx EtOH abuse x 10 yrs,last admitted to [facility] 07/31/16-08/12/16 with his initial bout of pancreatitis, with TG 410 then. He developed EtOH withdrawal & was transferred from general medicine to the ICU then, requiriing benzodiazepines. Imaging studies then showed fatty liver. Although there was acute pancreatitis then by CT, there was no evidence of necrosis, pseudocyst, or abscess formation then. He had never been on lipid lowering medications. He claimed he stopped smoking & drinking EtOH then, but resumed heavy drinking in 09/2017, on a daily basis. 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 He went to a walk-in clinic in [place], [place], & was given a short course of steroids, albuterol, & Singulair. 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 He does not have a PMD. His mother had similar URI sx then (smoker), & was admitted to [facility] for bronchitis. 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 After this, he developed GI symptoms, prompting him to present to the [facility] ER 09/20/17 at 9:46 a.m., complaining of sharp mid-abdominal pain, radiating to the mid-low back, "9 out of 10," with nausea & vomiting-> bilious. There was no hematemesis melena, or rectal bleeding. He initially denied any fevers, but had chills. He had non-bloody diarrhea then, which had since subsided. Upon arrival , BP 168/90. P 47, R 15, T 97.7, O2 sat RA 98%. He was txd in the ER with IV NS, Zofran, Toradol, MS, & Dilaudid. IVF were switched to Lactated Ringers in the ER. *Upon admission, he had 1 Grave sign by [place] criteria, namely elevated WBC, but no LDH was sent. Upon admission, he had 0 Grave signs by [facility] criteria. Admission CXR failed to reveal any pleural effusions, CHF, or focal PNA. Initially, there was no jaundice, but over the past few days as an inpt, he noted mild scleral icterus & dark urine, but no light stools or pruritus. He denied any confusion. He still had some URI sx, which were improving, but denied any sx UTI. His CIWA over the past 48 hrs prior to my GI consult ranged from 0- 6. He denied any NSAID use. His URI sx were slowly improving. Despit getting narcotic analgesics in the ER, his sx persisted. Admission CT-> pancreatitis (* see imaging studies), & he was admitted. He has been NPO since. *There was some lab evidence of hemoconcentration (09/21/17: Hgb 16.3-> 09/22/17: Hgb 18.4, but this has since improved. He remains with leukocytosis & a left shift. This, along with fevers, chills, abdominal pain, & higher LFTs, prompted the GI consult of 09/23/17, at which point, I advised a repeat CXR, MRCP (to clear the bile ducts), & repeat CT abdomen with pancreatic protocol to r/o necrosis. There is no FHx inherited pancreatitis, inherited liver disease, GI disease, or GI Ca. The patient was seen by cardiology 09/21/17 for asx sinus bradycardia. It was felt that most likely, the bradycardia was from MS or Hydromorphone, pus increased vagal tone from vomiting. Lyme titer was negative, with nl TSH & troponin- neg. Admission echocardiogram was essentially normal. *Subsequent imaging studies on 09/23/17, including MRCP followed by CT AP with pancreatic protocol, were suggestive of necrotizing pancreatitis, prompting the GI consult (*see imaging section). *As of 09/23/17, the patient's main complaint was abdominal pain "9 out of 10". The vomiting had mostly subsided. He had mild nausea. He did note intermittent fevers & chills, with occasional hiccups. His diarrhea had resolved. There was no CP or SOB. There was no hx of abdominal trauma. He denied any unintentional weight loss. His appetite was fair. He denied any GERD, odynophagia, or dysphagia. There was perhaps some minimal early satiety. He was getting a little constipated from narcotic analgesics. There was no obstipation. *As of 09/23/17, he had a stable BP 110/76, but was tachycardic 122, R 26, Tm 102, O2 sat RA 93%. 07/31/16: *Hep A Ab, Hep Bs Ag, Hep B core Ab, & Hep C Ab- all neg. 09/20/17: 1027- Admission WBC 17.4, H/H 16.1/46.5, MCV 92.2, RDW 12.7, PLT 187, Lyme 0.20, glu 109, BUN/Cr 12/0.8, GFR > 60, Na 139, K 3.6, HCO3 28, AG 14, *lactate 2.8 (- >2.6->2.5->2.4->2.0), amylase 65, *lipase 783, Mg 1.9, Ca 8.8, alb 4.0, glob 3.0 , TBil 0.5, alk phos 84, AST 122, ALT 122, troponin < 0.01, TSH 2.62, [EtOH] < 10, *TG 362 09/20/17: U/A- clear yellow, 1.010, 8.5, packed amorph, tr prot, 0.2 urobil; neg nitrite, neg esterase. 09/20/17: Utox: + OP/MS 2836, + cannabis > 80. 09/21/17: 45- WBC 18.2, H/H 16.3/47.2, PLT 162, BUN/Cr 10/0.7, GFR > 60, Na 133, K 4.2, HCO3 24, AG 12 09/22/17: 0624- WBC 18.2 (74S/11B/3L/12M), H/H 18.4/54.2, PLT 175, BUN/Cr 15/0.7 , GFR > 60, Na 133, K 3.9, HCO3 21, AG 15, alb 3.8, glob 2.8, TBil 1.6, DBil 0.6 , alk phos 79, AST 83, ALT 74 09/23/17: 0615- WBC 18.6 (66S/20B/10L/4M), H/H 16.3/47.3, PLT 137, Na 130, K 3.7 , HCO3 22, AG 11, alb 2.9, glob 2.6, TBil 3.5, DBil 2.1, alk phos 71, AST 89, ALT 56. 09/23/17: 1337- PT 13.3, INR 1.22 09/23/17: 2229- WBC 19.9 (58S/33B/5L/4M), H/H 14.2/41.6, PLT 124, BUN/Cr 18/1.0, GFR > 60, Na 131, K 4.1, HCO3 22, AG 10, Mg 2.1, Ca 7.6, PO4 2.0, alb 2.5, glob 2.6, TBil 4.8, DBil 3.1, alk phos 73, AST 75, ALT 44, * CRP > 9.0, TChol 108, TG 131, HDL 35, LDL 47 09/23/17: U/A- hazy nohemi, > 1.030, 6.0, 3-5 RBC, 3-5 WBC, rare gran cast, few bact, mod amorph, large Hgb, neg icto, 100+ prot, > 8.0 urobil; + nitrite, neg esterase. 09/20/17: BC x 2- neg. 09/20/17: UC- neg. 09/23/17: BC x 2- pending. The patient has necrotizing pancreatitis, most likely from a combination of EtOH and moderately elevated triglycerides. Recent data shows that even moderate TG can induce pancreatitis in those with additional risk factors. He reportedly has not smoked since 07/2016. 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 The patient may have a component of EtOH hepatitis, although his LFTs were in a somewhat atypical pattern for this. He did have imaging evidence of fatty liver, which certainly can contribute to this. The abdominal pain, nausea, vomiting, fevers, & leukocytosis (left shift), are probably from a combination of necrotizing pancreatitis, EtOH hepatitis, EtOH withdrawal, and/or atelectasis. There is no evidence of aspiration PNA. CIWA have been relatively stable. *MRCP did not show any cholelithiasis or choledocholithiasis. The main question is whether the necrotizing pancreatitis is superinfected. *He apparently received 2 doses of Meropenem earlier on 09/23/17. I would not empirically tx with this (risk of fungemia, etc), until we know whether the necrotizing pancreatitis is superinfxd. 09/24/17: CT PERCUTANEOUS ABSCESS DRAINAGE- Successful CT-guided aspiration (3 mL) of a simple fluid from the tail region of the pancreas, per Dr. Medeiros. 09/24/17: 0334- WBC 17.6 (67S/19B/8L/6M), H/H 12.9/37.2, PLT 118, glu 109, BUN/ Cr 22/1.0, GFR > 60, Na 134, K 4.0, HCO3 25, AG 7, alb 2.4, glob 2.3, TBil 4.6, DBil 3.1, alk phos 75, AST 72, ALT 45, LDH 2933, trop 0.03 09/24/17: 1735- WBC 15.1 (66S/16B/9L/9M), H/H 12.4/36.6, PLT 125, glu 89, BUN/Cr 13/0.8, GFR > 60, Na 134, K 3.7, HCO3 26, AG 8, Mg 2.2, Ca 7.7, *PO4 1.9, alb 2.5, TBil 5.1, AST 64, ALT 43. 09/24/17: *MAXIMILIANO- pending 09/24/17: *Pancreatic C&S- pending. The patient was moved to the ICU for closer monitoring overnight on 09/23/17, as he was borderline hypotensive and tachycardic. The patient was seen by ID, surgery, & the ICU team. Dr. Wood agreed with sending the patient to IR for needle aspirate of his necrotizing pancreatitis, to rule out superinfection. This was performed on 04/[address] Medeiros, & cultures are pending. Empiric IV Meropenem was stopped on 09/23/17, after 2 doses. This will be reassessed after reviewing the 09/24/17: pancreatic cultures. Multiple BC remained negative. The patient remained NPO, receiving IV: Lactated Ringers @ 150 cc/hr. He was still having abdominal pain, that was controlled with Dilaudid. His nausea was somewhat improved. He had no vomiting. He was mildly icteric. He was receiving nebulizers for his asthma. He denied any CP or SOB. His wheezing was improved. CIWA have ranged anywhere from 0->8 over the past 24 hrs, most recently, 0. His fevers were improving (low grade). He denied any chills. *There was no evidence of hemoconcentration, & the patient's Hgb & BUN dropped appropriately, with IVF. *As of 09/24/17, BP 140/70, P 110, R 22, Tm 100.5, O2 sat RA 90%. I/O: + 2.947 L/past 24 hrs. Lisinopril was D/C 09/24/17. 09/24/17: *Pancreatic aspirate per IR- gram stain pending; C&S- neg x 1 day. 09/25/17: 0422- WBC 17.2 (66S/15B/12L/7M), H/H 12.4/35.8, PLT 126, glucose 81, BUN/Cr 11/0.8, GFR > 60, Na 136, K 3.6, HCO3 23, AG 8, Mg 2.1, Ca 7.1, PO4 2.5, alb 2.3, TBil 5.0, AST 54, ALT 45. *As of 09/25/17, patient remained normotensive 142/52, and borderline tachycardic 109, with Tm 102 (100.5), & O2 sat 2L - 98%. He was + 3.451L the previous day. He was not hemoconcentrated. BC remained negative. He had mild nausea, but no vomiting. He still had abdominal pain requiring Dilaudid, given 1/2 hour prior to my exam. He denied any chills, CP, or SOB. He was passing flatus, & had a solid BM this morning. He remained jaundiced. He was trying sips of H2O. He otherwise had no new complaints. 09/25/17: XRY-PORTABLE CHEST XRAY- Low lung volumes with bilateral small pleural effusions and associated bibasilar opacities, most likely related to atelectasis. 09/24/17: MAXIMILIANO- neg 1:40 09/26/17: 0313- WBC 19.1 (83% gran/16 gran Ab), H/H 11.6/33.5, PLT 163, glu 108, BUN/Cr 10/0.8, GFR > 60, Na 133, K 3.5, HCO3 25, AG 11, Mg 2.1, Ca 7.9, PO4 2.4, alb 2.6, TBil 3.7, AST 61, ALT 53 *As of 09/26/17, the patient was clinically improving. He was no longer tachycardic. He was hemodynamically stable & afebrile, with O2 sat RA 96%. Specifically, 154/70, P 96, R 20, T 98.6 (Tm 99). He was ambulating & tolerated clear broth po. His abdominal pain & bloating were much improved & his Dilaudid requirements were less. He denied any significant nausea. He had no vomiting. He denied any CP or SOB. He was transferred out of the ICU to general medicine. *His 09/24/17: pancreatic aspirate C&S remained negative, c/w sterile pancreatic necrosis. His TBil was slowly improving, but his leukocytosis persisted ( probably rx in nature to the sterile pancreatic necrosis). IV: Lactated Ringers @ 75 cc/hr. There was no evidence of hemoconcentration by H/H or by BUN. ID, cardiology, & ICU/medicine notes appreciated. *SUGGEST: Maintain on general medicine for now. *Clears po & try to advance diet in a.m. ( low fat). *May need eventual [place] tube feeds if prolonged NPO vs. PICC line for TPN (although enteral feedings below the level of the ampulla woud be preferable ), *although currently tolerating clears po. Continue to hold Meropenem for now. Follow-up cultures, especially 09/24/17: *Pancreatic C&S- negative so far. * Follow-up with ID, medicine, cardiology, & surgery. *If evidence of infxd pancreatic necrosis, would need resumption of Meropenem & may need surgical debridement, *although the pancreatic necrosis appears to be sterile. *IV Lactated Ringers @ 75 cc/hr for now. Watch for hemoconcentration (i.e.- rising Hgb or BUN, despite IVF), which would be a poor prognostic sign (this occured earlier in the admission, but resolved). Strict I/O's. Taper IV analgesics. * Replete lytes. *Check prealbumin. Avoid NSAIDS. MVI, thiamine, folate. Ativan as needed. CIWA protocol. Antiemetics as needed. DVT prophylaxis. Nebulizers & w/u of abnl urinary sediment, etc., per medical/ICU team. O2 prn. *May take Tricor with sips of H2O, regarding hyperTG, & recheck TG. *Consider checking full Hep A , B, & C serologies, HIV, MAXIMILIANO, AMA (doubt), Fe, TIBC, ferritin, ceruloplasmin, A1AT level. *LFTs are probably rx in nature. There does not appear to be a biliary process. *Eventual outpt Vitamin E 800 IU po daily for fatty liver, along with risk factor modification (i.e- cessation of EtOH, & strict control of BP, glucose, lipids, body weight, etc.), with consideration for outpt FibroScan. The patient was previously made aware that continual EtOH abuse could result in his . Advise psychiatric & social work input. *Consider vascular followup for ? hepatic artery aneurysm seen on CT (vs. CTA). The above was previously discussed with the medical housestaff in detail, & previously with Dr. Wood. Further GI recommendations to follow, depending on clinical course. Dr. Gilbert assumed the inpt weekly GI coverage his p.m. Problem List: 1. Necrotizing pancreatitis 2. Hypertriglyceridemia 3. Alcohol abuse 4. Fatty liver 5. Abnormal LFTs 6. Alcoholic hepatitis 7. Abdominal pain 8. Nausea & vomiting 9. Fever 10. Leukocytosis 11. Umbilical hernia 12. Right inguinal hernia 13. Malnutrition Subjective Subjective: 09/25/17: XRY-PORTABLE CHEST XRAY- Low lung volumes with bilateral small pleural effusions and associated bibasilar opacities, most likely related to atelectasis. 09/24/17: MAXIMILIANO- neg 1:40 09/26/17: 0313- WBC 19.1 (83% gran/16 gran Ab), H/H 11.6/33.5, PLT 163, glu 108, BUN/Cr 10/0.8, GFR > 60, Na 133, K 3.5, HCO3 25, AG 11, Mg 2.1, Ca 7.9, PO4 2.4, alb 2.6, TBil 3.7, AST 61, ALT 53 *As of 09/26/17, the patient was clinically improving. He was no longer tachycardic. He was hemodynamically stable & afebrile, with O2 sat RA 96%. Specifically, 154/70, P 96, R 20, T 98.6 (Tm 99). He was ambulating & tolerated clear broth po. His abdominal pain & bloating were much improved & his Dilaudid requirements were less. He denied any significant nausea. He had no vomiting. He denied any CP or SOB. He was transferred out of the ICU to general medicine. *His 09/24/17: pancreatic aspirate C&S remained negative, c/w sterile pancreatic necrosis. His TBil was slowly improving, but his leukocytosis persisted ( probably rx in nature to the sterile pancreatic necrosis). IV: Lactated Ringers @ 75 cc/hr. There was no evidence of hemoconcentration by H/H or by BUN. ID, cardiology, & ICU/medicine notes appreciated. Review of Systems: Full 14 point ROS otherwise noncontributory & as above Review of Systems Constitutional: Reports: fever (resolved). Denies: chills, diaphoresis, malaise, weakness, unexplained weight loss. EENTM: Denies: blurred vision, double vision, visual changes, eye pain, eye drainage, eye tearing, icterus, ear discharge, ear pain, ear redness, hearing changes, nasal congestion, epistaxis, nasal pain, throat pain, throat swelling, mouth pain, tooth pain. Cardiovascular: Denies: chest pain, edema, orthopena, palpitations, peripheral edema, syncope. Respiratory: Reports: cough (resolved), sputum production (minimal), wheezing (rare). Denies: hemoptysis, orthopnea, short of breath, stridor. GI: Reports: abdominal pain (improving), diarrhea (resolved), nausea (improving), vomiting (resolved). Denies: bloating, constipation, distention, bowel incontinence, melena, bloody stool, changes in stool, steatorrhea. Genitourinary: Reports: hematuria ("dark urine"- improving). Denies: discharge, dysuria, frequency, hesitation, nocturia, pain, urgency. Musculoskeletal: Denies: back pain, gout, joint pain, joint swelling, muscle pain, muscle stiffness, neck pain. Skin: Reports: jaundice (improving). Denies: cysts, change in skin color, change in hair/nails, dryness, erythema, lesions, lymphangitis, lumps, moles, rash. Neurological/Psychological: Reports: anxiety, depressed, emotional problems. Denies: ataxia, cognitive dysfunction, confusion, dementia, headache, numbness, paresthesia, pre-existing deficit, petit mal seizures, tingling, tremors, tonic- clonic seizures, unable to move lower ext, unable to move upper ext, weakness. Hematologic/Endocrine: Denies: bruising, bleeding, polyuria, polydipsia. Immunologic/Allergic: Denies: splenectomy, HIV/AIDS, lymphadenopathy. All Other Systems: Reviewed and Negative Objective Vital Signs and I&Os Vital Signs Date Time Temp Pulse Resp B/P B/P Pulse O2 O2 Flow FiO2 Mean Ox Delivery Rate 09/26 1900 96 Room Air 09/26 1746 98.6 96 20 154/70 96 Room Air 09/26 1600 96 Room Air Room Air 09/26 1600 97.8 98 18 148/78 98 Room Air Room Air 09/26 1200 96 Room Air Room Air 09/26 0800 98 Room Air Room Air 09/26 0800 99.0 86 18 120/70 96 Room Air Room Air 09/26 0400 94 Room Air Room Air 09/25 2300 98.2 102 28 150/84 94 Room Air Room Air Intake & Output 09/26 1600 09/26 0400 09/25 1600 09/25 0400 09/24 1600 09/24 0400 Intake Total 1801 1059 2539 1479 3597 1200 Output Total 9957 019 2246 975 650 900 Balance -224 312 7310 504 2947 300 Intake, IV 0159 642 7958 1479 3567 1200 Intake, Oral 200 180 240 0 30 Number 1 0 1 0 0 Bowel Movements Output, 1 Emesis Output, Urine 1211 179 2128 975 650 900 Patient 203 lb 212 lb 200 lb Weight Weight Bed scale Bed scale Bed scale Measurement Method Physical Exam: Well-developed, slightly malnourished, obese male, in no apparent distress. Nontoxic appearing. *Sclera less icteric. Conjunctiva pink. Oropharynx clear. Moist mucus membranes. No oral thush. No apthous ulcers. There is no adenopathy , thyromegaly, or JVD. No peripheral stigmata of inflammatory bowel disease on exam. No spiders on the anterior chest wall. Mild gynecomastia B/L, without masses (? due to obesity > liver disease). No CVA tenderness. Lungs: clear to A &P, with decreased BS at bases B/L. No wheezing, rales, or rhonchi. Heart exam: regular rate, tachycardic S1 and S2, without any murmur. Abdominal exam: normal bowel sounds, obese, less distended, softer belly, scant tenderness on deep palpation, without guarding or rebound. No peritoneal signs. Reducible umbilical hernia & RIH. Otherwise, no mass. Enlarged liver 20 cm by percussion. No definite palpable spleen tip. Negative Segura sign. No definite fluid shift. No pulsatile mass. No epigastric bruit. Digital rectal exam: deferred by patient. Extremities: without C, C, or E. No palpable cords. Old tattoos UE B/ L. No acute arthropathy. No rash. No palmar erythema. No Dupuytren's contractures. Distal pulses 2+ bilaterally. DTRs 2+ bilaterally. Alert and oriented x 3. Right handed. CN II-XII intact. Motor: 5/5 B/L. No tremor. No asterixis. No cogwheeling post Reglan. Current Medications: Current Medications Sig/Brynn Start time Last Medication Dose Route Stop Time Status Admin Albuterol Sulfate 3 ML BID 09/24 2100 AC 09/26 INH 1900 Albuterol Sulfate 2 PUF Q4-6 PRN PRN 09/20 1400 AC 09/24 INH 0633 Docusate Sodium 100 MG DAILY NEEDED PRN 09/25 1430 DC PO Enoxaparin Sodium 40 MG DAILY 09/26 0900 AC 09/26 SC 0910 Fenofibrate 48 MG DAILY 09/21 1342 AC 09/26 PO 0910 Hydromorphone HCl 0.4 MG Q4P PRN 09/26 1640 AC 09/26 IV 1958 Hydromorphone HCl 0.4 MG Q3 PRN 09/24 1354 DC 09/26 IV 1512 Hydromorphone HCl 2 MG ONCE PRN 09/23 2215 DC IV Lactated Ringer's 1,000 ML Q6H 09/23 2145 AC 09/26 IV 1514 Lorazepam 1.5 MG Q4P PRN 09/24 0230 DC IV Lorazepam 0 Q1P PRN 09/21 1745 DC 09/22 IV 0525 Metoclopramide HCl 10 MG Q6P PRN 09/24 1400 AC 09/26 IV 0604 Multivitamins 1 GEORGETTE DAILY 09/24 1100 AC 09/26 Thiamine HCl 100 MG IV 1121 Folic Acid 1 MG Lactated Ringer's 1,000 ML Potassium Chloride 10 MEQ Q1H 09/26 0645 DC 09/26 IV 09/26 0746 0910 Results Pertinent Lab Results: Laboratory Tests 09/26 09/25 0313 0422 Chemistry Sodium (137 - 145 mmol/L) 133 L 136 L Potassium (3.5 - 5.1 mmol/L) 3.5 3.6 Chloride (98 - 107 mmol/L) 97 L 105 Carbon Dioxide (22 - 30 mmol/L) 25 23 Anion Gap (5 - 16) 11 8 BUN (9 - 20 mg/dL) 10 11 Creatinine (0.7 - 1.2 mg/dL) 0.8 0.8 Estimated GFR (>60 ml/min) > 60 > 60 Glucose (65 - 99 mg/dL) 108 H 81 Calcium (8.4 - 10.2 mg/dL) 7.9 L 7.1 L Phosphorus (2.5 - 4.5 mg/dL) 2.4 L 2.5 Magnesium (1.6 - 2.3 mg/dL) 2.1 2.1 Total Bilirubin (0.2 - 1.3 mg/dL) 3.7 H 5.0 H AST (17 - 59 U/L) 61 H 54 ALT (21 - 72 U/L) 53 45 Albumin (3.5 - 5.0 g/dL) 2.6 L 2.3 L Hematology CBC w Diff NO MAN DIFF REQ MAN DIFF ORDERED WBC (4.8 - 10.8 /CUMM) 19.1 H 17.2 H RBC (4.70 - 6.10 /CUMM) 3.62 L 3.88 L Hgb (14.0 - 18.0 G/DL) 11.6 L 12.4 L Hct (42 - 52 %) 33.5 L 35.8 L MCV (80.0 - 94.0 FL) 92.5 92.4 MCH (27.0 - 31.0 PG) 31.9 H 32.0 H MCHC (33.0 - 37.0 G/DL) 34.5 34.7 RDW (11.5 - 14.5 %) 12.8 12.9 Plt Count (130 - 400 /CUMM) 163 126 L MPV (7.4 - 10.4 FL) 7.1 L 7.2 L Gran % (42.2 - 75.2 %) 82.7 H 86.8 H Lymphocytes % (20.5 - 51.1 %) 6.8 L 8.3 L Monocytes % (1.7 - 9.3 %) 10.4 H 4.7 Eosinophils % (0 - 5 %) 0 0.1 Basophils % (0.0 - 2.0 %) 0.1 0.1 Absolute Granulocytes (1.4 - 6.5 /CUMM) 15.8 H 14.9 H Segmented Neutrophils (42.2 - 75.2 %) 66 Band Neutrophils (0.0 - 5.0 %) 15 H Absolute Lymphocytes (1.2 - 3.4 /CUMM) 1.3 1.4 Lymphocytes (20.5 - 51.1 %) 12 L Monocytes (1.7 - 9.3 %) 7 Absolute Monocytes (0.10 - 0.60 /CUMM) 2.0 H 0.8 H Absolute Eosinophils (0.0 - 0.7 /CUMM) 0 0 Absolute Basophils (0.0 - 0.2 /CUMM) 0 0 Platelet Estimate (ADEQUATE) DECREASED Normocytic RBCs VERIFIED Normochromic RBCs VERIFIED Other Body Source Fld Total RBCs Counted (%) 100 06/12 1735 Chemistry Sodium (137 - 145 mmol/L) 134 L Potassium (3.5 - 5.1 mmol/L) 3.7 Chloride (98 - 107 mmol/L) 100 Carbon Dioxide (22 - 30 mmol/L) 26 Anion Gap (5 - 16) 8 BUN (9 - 20 mg/dL) 13 Creatinine (0.7 - 1.2 mg/dL) 0.8 Estimated GFR (>60 ml/min) > 60 Glucose (65 - 99 mg/dL) 89 Calcium (8.4 - 10.2 mg/dL) 7.7 L Phosphorus (2.5 - 4.5 mg/dL) 1.9 L Magnesium (1.6 - 2.3 mg/dL) 2.2 Total Bilirubin (0.2 - 1.3 mg/dL) 5.1 H AST (17 - 59 U/L) 64 H ALT (21 - 72 U/L) 43 Albumin (3.5 - 5.0 g/dL) 2.5 L Hematology CBC w Diff MAN DIFF ORDERED WBC (4.8 - 10.8 /CUMM) 15.1 H RBC (4.70 - 6.10 /CUMM) 3.92 L Hgb (14.0 - 18.0 G/DL) 12.4 L Hct (42 - 52 %) 36.6 L MCV (80.0 - 94.0 FL) 93.4 MCH (27.0 - 31.0 PG) 31.7 H MCHC (33.0 - 37.0 G/DL) 33.9 RDW (11.5 - 14.5 %) 13.2 Plt Count (130 - 400 /CUMM) 125 L MPV (7.4 - 10.4 FL) 7.6 Gran % (42.2 - 75.2 %) 84.5 H Lymphocytes % (20.5 - 51.1 %) 7.7 L Monocytes % (1.7 - 9.3 %) 7.7 Eosinophils % (0 - 5 %) 0 Basophils % (0.0 - 2.0 %) 0.1 Absolute Granulocytes (1.4 - 6.5 /CUMM) 12.7 H Segmented Neutrophils (42.2 - 75.2 %) 66 Band Neutrophils (0.0 - 5.0 %) 16 H Absolute Lymphocytes (1.2 - 3.4 /CUMM) 1.2 Lymphocytes (20.5 - 51.1 %) 9 L Monocytes (1.7 - 9.3 %) 9 Absolute Monocytes (0.10 - 0.60 /CUMM) 1.2 H Absolute Eosinophils (0.0 - 0.7 /CUMM) 0 Absolute Basophils (0.0 - 0.2 /CUMM) 0 Platelet Estimate (ADEQUATE) DECREASED Normocytic RBCs VERIFIED Normochromic RBCs VERIFIED 09/24 0334 Chemistry Sodium (137 - 145 mmol/L) 134 L Potassium (3.5 - 5.1 mmol/L) 4.0 Chloride (98 - 107 mmol/L) 101 Carbon Dioxide (22 - 30 mmol/L) 25 Anion Gap (5 - 16) 7 BUN (9 - 20 mg/dL) 22 H Creatinine (0.7 - 1.2 mg/dL) 1.0 Estimated GFR (>60 ml/min) > 60 BUN/Creatinine Ratio (7 - 25 %) 22.0 Glucose (65 - 99 mg/dL) 109 H Total Bilirubin (0.2 - 1.3 mg/dL) 4.6 H Direct Bilirubin (< 0.4 mg/dL) 3.1 H AST (17 - 59 U/L) 72 H ALT (21 - 72 U/L) 45 Alkaline Phosphatase (< 127 U/L) 75 Lactate Dehydrogenase (313 - 618 U/L) 2933 H Troponin I (<0.11 ng/ml) 0.03 Total Protein (6.3 - 8.2 g/dL) 4.7 L Albumin (3.5 - 5.0 g/dL) 2.4 L Hematology CBC w Diff MAN DIFF ORDERED WBC (4.8 - 10.8 /CUMM) 17.6 H RBC (4.70 - 6.10 /CUMM) 4.05 L Hgb (14.0 - 18.0 G/DL) 12.9 L Hct (42 - 52 %) 37.2 L MCV (80.0 - 94.0 FL) 92.0 MCH (27.0 - 31.0 PG) 31.8 H MCHC (33.0 - 37.0 G/DL) 34.6 RDW (11.5 - 14.5 %) 12.9 Plt Count (130 - 400 /CUMM) 118 L MPV (7.4 - 10.4 FL) 7.7 Gran % (42.2 - 75.2 %) 85.9 H Lymphocytes % (20.5 - 51.1 %) 7.4 L Monocytes % (1.7 - 9.3 %) 6.6 Eosinophils % (0 - 5 %) 0 Basophils % (0.0 - 2.0 %) 0.1 Absolute Granulocytes (1.4 - 6.5 /CUMM) 15.1 H Segmented Neutrophils (42.2 - 75.2 %) 67 Band Neutrophils (0.0 - 5.0 %) 19 H Absolute Lymphocytes (1.2 - 3.4 /CUMM) 1.3 Lymphocytes (20.5 - 51.1 %) 8 L Monocytes (1.7 - 9.3 %) 6 Absolute Monocytes (0.10 - 0.60 /CUMM) 1.2 H Absolute Eosinophils (0.0 - 0.7 /CUMM) 0 Absolute Basophils (0.0 - 0.2 /CUMM) 0 Platelet Estimate (ADEQUATE) DECREASED Normocytic RBCs VERIFIED Normochromic RBCs VERIFIED Immunology MAXIMILIANO Titer ND Anti-Nuclear Antibody (NEG,1:40) NEG 1:40 IFA ASSAY 09/23 09/23 2229 2225 Blood Gas Bicarbonate Actual (22 - 26 MEQ/L) 16 L Mixed VBG pH (7.31 - 7.41 PH) 7.60 H Mixed VBG pCO2 (41 - 51 TORR) 16 L Mixed VBG O2 Saturation (35 - 45 TORR) 64 H Carboxyhemoglobin (1.5 - 5.0 %) 2.8 O2 Concentration % RA O2 Delivery Method RA Chemistry Sodium (137 - 145 mmol/L) 131 L Potassium (3.5 - 5.1 mmol/L) 4.1 Chloride (98 - 107 mmol/L) 99 Carbon Dioxide (22 - 30 mmol/L) 22 Anion Gap (5 - 16) 10 BUN (9 - 20 mg/dL) 18 Creatinine (0.7 - 1.2 mg/dL) 1.0 Estimated GFR (>60 ml/min) > 60 BUN/Creatinine Ratio (7 - 25 %) 18.0 Calcium (8.4 - 10.2 mg/dL) 7.6 L Phosphorus (2.5 - 4.5 mg/dL) 2.0 L Magnesium (1.6 - 2.3 mg/dL) 2.1 Total Bilirubin (0.2 - 1.3 mg/dL) 4.8 H Direct Bilirubin (< 0.4 mg/dL) 3.1 H AST (17 - 59 U/L) 75 H ALT (21 - 72 U/L) 44 Alkaline Phosphatase (< 127 U/L) 73 C-Reactive Prot, Quant (<1.0 mg/dL) > 9.0 H Total Protein (6.3 - 8.2 g/dL) 5.1 L Albumin (3.5 - 5.0 g/dL) 2.5 L Triglycerides (<150 mg/dL) 131 Cholesterol (< 200 MG/DL) 108 LDL Cholesterol, Calc (65 - 129 mg/dL) 47 L HDL Cholesterol (40 - 60 mg/dL) 35 L Cholesterol/HDL Ratio (0.00 - 4.88 %) 3.1 Hematology CBC w Diff MAN DIFF ORDERED WBC (4.8 - 10.8 /CUMM) 19.9 H RBC (4.70 - 6.10 /CUMM) 4.51 L Hgb (14.0 - 18.0 G/DL) 14.2 Hct (42 - 52 %) 41.6 L MCV (80.0 - 94.0 FL) 92.1 MCH (27.0 - 31.0 PG) 31.4 H MCHC (33.0 - 37.0 G/DL) 34.2 RDW (11.5 - 14.5 %) 13.1 Plt Count (130 - 400 /CUMM) 124 L MPV (7.4 - 10.4 FL) 7.6 Gran % (42.2 - 75.2 %) 88.0 H Lymphocytes % (20.5 - 51.1 %) 5.6 L Monocytes % (1.7 - 9.3 %) 6.1 Eosinophils % (0 - 5 %) 0 Basophils % (0.0 - 2.0 %) 0.3 Absolute Granulocytes (1.4 - 6.5 /CUMM) 17.5 H Segmented Neutrophils (42.2 - 75.2 %) 58 Band Neutrophils (0.0 - 5.0 %) 33 H Absolute Lymphocytes (1.2 - 3.4 /CUMM) 1.1 L Lymphocytes (20.5 - 51.1 %) 5 L Monocytes (1.7 - 9.3 %) 4 Absolute Monocytes (0.10 - 0.60 /CUMM) 1.2 H Absolute Eosinophils (0.0 - 0.7 /CUMM) 0 Absolute Basophils (0.0 - 0.2 /CUMM) 0.1 Platelet Estimate (ADEQUATE) VERIFIED BY SMEAR Polychromasia Miscellaneous Phlebotomy Draw Site R.FOREARM Other Body Source Fld Total RBCs Counted (%) 100 Imaging/Other Studies: 09/20/17: EKG- SB @ 43, nl axis, nonspecific IVCD, flipped T in III. 09/22/17: EKG- ST @ 119, nl axis, ? RA abnl 09/20/17- ECHOCARDIOGRAM- Normal size left ventricle. Normal left ventricular wall thickness. No obvious regional wall motion abnormalities. Normal left ventricular ejection fraction visually estimated at >60 Normal left ventricular diastolic filling pattern for age. Normal right ventricular size and function. Normal atrial size. Trace mitral regurgitation. Mild tricuspid regurgitation. Dilated inferior vena cava. Rehan Das M.D. 09/20/17: CT ABD & PELVIS W IV CONTRAST- Recurrent acute interstitial edematous pancreatitis with inflammation centered around the pancreatic head and uncinate process. Reactive inflammation of the duodenum. This is less extensive than on the prior CTs from July 2016. No associated complicating features are identified. Hepatomegaly 21 cm & steatosis, without focal hepatic defect. Normal GB. Normal spleen. Small fat containing umbilical hernia & RIH. Normal kidneys. Normal PV, SMV, SV, & aorta. 09/20/17: XRY-CHEST XRAY, TWO VIEWS- 1. Mild subsegmental atelectasis in right lung base. 2. Slightly thickened central airways, consistent with reactive airways disease or bronchitis. No focal pneumonia. 09/23/17: US-LIMITED (RUQ) ABDOMEN- Limited examination secondary to patient body habitus, overlying bowel gas and patient's inability to follow breathing instructions. Pancreas was not clearly visualized and the liver was incompletely visualized. Enlarged liver. Normal GB. Normal CBD 4 mm. Normal right kidney. No free fluid. Further evaluation with cross-sectional imaging is recommended. 09/23/17: XRY-CHEST XRAY, TWO VIEWS- Low lung volume and nonspecific bibasilar airspace disease and small right-sided pleural effusion, new since prior study dated 09/20/2017. 09/23/17: MRI ABDOMEN WITHOUT CONTRAST/MRCP- 1. There has been significant interval worsening of pancreatitis with diffuse pancreatic edema, interval development of ascites and pleural effusion. Findings may represent severe acute edematous interstitial pancreatitis. Assessment for necrotizing pancreatitis is limited without IV contrast. Given the significant interval worsening of the overall pancreatitis, further assessment with contrast-enhanced CT scan or postgadolinium MRI images are recommended. 2. Interval development of a loculated extrapancreatic fluid collection anterior to the body of the pancreas measuring approximately 5.6 x 4.4 x 4.3 cm likely represents of acute peripancreatic fluid collection. Infected fluid collection cannot be entirely excluded without intravenous contrast. No gross evidence of debris identified within the fluid collection on the MRI images. It is too early for formation of pseudocyst. 3. No evidence of cholelithiasis or choledocholithiasis. No evidence of biliary ductal dilatation. Critical results were discussed with Dr. Rodriguez at 4:40 PM on 09/23/2017. 09/23/17: CT ABD & PELVIS W IV CONTRAST- Marked interval worsening. Small B/L pleural effusions & bibasilar atelectasis. CT evidence of severe acute necrotizing pancreatitis with lack of enhancement throughout the body and tail. There is extensive surrounding fat stranding and there are fluid collections, including a collection in the lesser sac, with mass effect upon the lesser curvature of stomach. There is no internal gas. Diffuse fatty liver. Mildly distended GB with ? sludge. No gallstones. No dilated ducts. RIH. Correlate with systemic inflammatory response markers. There is an amorphous 1 cm late enhancing abnormality near the hepatic artery. This is concerning for a small pseudoaneurysm. Short interval follow-up may be necessary. Depending upon the clinical circumstances follow-up might include CT angiography including late venous phase 09/24/17: CT PERCUTANEOUS ABSCESS DRAINAGE- Successful CT-guided aspiration (3 mL) of a simple fluid from the tail region of the pancreas, per Dr. Medeiros. 09/25/17: XRY-PORTABLE CHEST XRAY- Low lung volumes with bilateral small pleural effusions and associated bibasilar opacities, most likely related to atelectasis.
[2017-09-26 21:48] VITALS: BP 138/80
[2017-09-27 06:23] VITALS: BP 144/70
--- NOTE | 2017-09-27 07:25 | PN- Housestaff ---
See Addendum Subjective Follow-up For: acute necrotic pancreatitis etoh abuse Tele-Events Since Last Visit: off telemetry Subjective: patient reports persistent abdominal pain 4-5/10 wants to eat a regular diet, +BMs afebrile, tachycardia improved, no dysuria patient primary concerns are about anxiety, sleep, and frequent urination Review of Systems Constitutional: Reports: see HPI. Objective Last 24 Hrs of Vital Signs/I&O Vital Signs Date Time Temp Pulse Resp B/P B/P Pulse O2 O2 Flow FiO2 Mean Ox Delivery Rate 09/27 0623 98.9 91 18 144/70 96 Room Air 09/26 2148 99.1 103 18 138/80 94 Room Air 09/26 1900 96 Room Air 09/26 1746 98.6 96 20 154/70 96 Room Air 09/26 1600 96 Room Air Room Air 09/26 1600 97.8 98 18 148/78 98 Room Air Room Air 09/26 1200 96 Room Air Room Air 09/26 0800 98 Room Air Room Air 09/26 0800 99.0 86 18 120/70 96 Room Air Room Air Intake & Output 09/27 0800 09/27 0000 09/26 1600 Intake Total 320 669 3850 Output Total 825 Balance 695 490 221 Intake, IV 575 250 846 Intake, Oral 120 240 200 Number 1 Bowel Movements Output, Urine 825 Physical Exam General Appearance: Alert, Oriented X3, Cooperative, No Acute Distress Cardiovascular: Regular Rate, Normal S1, Normal S2, No Murmurs Lungs: bibasilar crackles Abdomen: Normal Bowel Sounds, Soft, No Tenderness, No Masses, right flank ecchymosis, epigastric/LUQ mild tenderness on palpation, no guarding, rigidity, or rebound, +abdominal distention Extremities: No Clubbing, No Cyanosis, No Edema, Normal Pulses Current Medications: Current Medications Sig/Brynn Start time Last Medication Dose Route Stop Time Status Admin Albuterol Sulfate 3 ML BID 09/24 2100 AC 09/26 INH 1900 Albuterol Sulfate 2 PUF Q4-6 PRN PRN 09/20 1400 AC 09/24 INH 0633 Diphenhydramine HCl 25 MG ONCE ONE 09/27 0545 DC 09/27 PO 09/27 0546 0603 Docusate Sodium 100 MG DAILY NEEDED PRN 09/25 1430 DC PO Enoxaparin Sodium 40 MG DAILY 09/26 0900 AC 09/26 SC 0910 Fenofibrate 48 MG DAILY 09/21 1342 AC 09/26 PO 0910 Hydromorphone HCl 0.4 MG Q4P PRN 09/26 1640 AC 09/27 IV 0422 Hydromorphone HCl 0.4 MG Q3 PRN 09/24 1354 DC 09/26 IV 1512 Hydromorphone HCl 2 MG ONCE PRN 09/23 2215 DC IV Lactated Ringer's 1,000 ML Q6H 09/23 2145 AC 09/27 IV 0004 Lorazepam 1.5 MG Q4P PRN 09/24 0230 DC IV Lorazepam 0 Q1P PRN 09/21 1745 DC 09/22 IV 0525 Metoclopramide HCl 10 MG Q6P PRN 09/24 1400 AC 09/26 IV 0604 Multivitamins 1 GEORGETTE DAILY 09/24 1100 AC 09/26 Thiamine HCl 100 MG IV 1121 Folic Acid 1 MG Lactated Ringer's 1,000 ML Last 24 Hrs of Lab/Mike Results Last 24 Hrs of Labs/Mics: Laboratory Tests 09/27/17 0617: Anion Gap 11, Estimated GFR > 60, Glucose 107 H, Calcium 8.0 L, Phosphorus 3.3 , Magnesium 2.0, Total Bilirubin 2.7 H, AST 104 H, ALT 84 H, Albumin 2.5 L, CBC w Diff Pending, WBC Pending, RBC Pending, Hgb Pending, Hct Pending, MCV Pending, MCH Pending, MCHC Pending, RDW Pending, Plt Count Pending, MPV Pending 09/27/17 0500: Sodium Cancelled, Potassium Cancelled, Chloride Cancelled, Carbon Dioxide Cancelled, Anion Gap Cancelled, BUN Cancelled, Creatinine Cancelled, Glucose Cancelled, Calcium Cancelled, Phosphorus Cancelled, Magnesium Cancelled, Total Bilirubin Cancelled, AST Cancelled, ALT Cancelled, Albumin Cancelled Assessment/Plan Assessment: 32 year old male with past medical history significant for asthma (mild persistent), history of smoking, 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 He was initially monitored on telemetry for sinus bradycardia when he developed worsening abdominal pain, tachycardia, persistent leukocytosis with bandemia, fever, and hyperbilirubinemia. He was transferred to the ICU, was given Ativan for possible EtOh withdrawal, and repeat CT of abdomen with contrast on 2017 show evidence of severe acute necrotizing pancreatitis, started on meropenem, later discontinued and underwent peripancreatic collection CT guided aspiration that was negative on culture consistent with sterile pancreatic necrosis. Severe necrotizing pancreatitis: Fever and tachycardia improved, with bowel rest, analgesia and hydration No hemoconcentration s/p CT guided aspiration of peripancreatic collection, culture negative, sterile necrosis Discontinue IV fluids today, Encourage PO intake and ambulation Change from IV dilaudid to PO oxycodone today Advance to low fat diet Follow up gastroenterology and infectious disease recommendations Continue to monitor off antibiotics Secondary to alcohol abuse and hypertriglyceridemia Continue Tricor for hypertriglyceridemia, repeat triglycerides wnl Outpatient Vitamin 800 IU PO daily for hepatosteatosis MRCP Significant interval worsening of pancreatitis with diffuse pancreatic edema, interval development of ascites and pleural effusion. Severe acute edematous interstitial pancreatitis. Assessment for necrotizing pancreatitis is limited without IV contrast. Interval development of a loculated extrapancreatic fluid collection anterior to the body of the pancreas measuring approximately 5.6 x 4.4 x 4.3cm likely represents of acute peripancreatic fluid collection. Infected fluid collection cannot be entirely excluded without intravenous contrast. No gross evidence of debris identified within the fluid collection on the MRI images. No evidence of cholelithiasis or choledocholithiasis. No evidence of biliary ductal dilatation. 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 Amorphous 1 cm late enhancing abnormality near the hepatic artery Consider vascular surgery follow up EtOH abuse: Discontinue CIWA monitoring and banana bag Counseled on alcohol cessation, patient reports drinking by himself and disclosing this to family after hospitalization Social work consulted History of asthma: Continue albuterol prn Bilateral pleural effusions on chest x-ray, reactive from pancreatitis History of anxiety: Complaining of insomnia Was taking Prozac approximately six months ago Will start melatonin qHS Low fat diet DVT ppx-lovenox subcutaneous and ALPs Full code Problem List: 1. Alcohol abuse 2. Acute pancreatitis 3. Fatty liver Pain Ratin Pain Location: epigastric Pain Goal: Pain 4 or less Pain Plan: prn oxycodone Tomorrow's Labs & Rationales: cbc, bep, lfts
[2017-09-27 07:58] LABS: ABSOLUTE BASOPHIL COUNT 0 /CUMM (0.0-0.2); ABSOLUTE EOSINOPHIL COUNT 0 /CUMM (0.0-0.7); ABSOLUTE GRANULOCYTE CT 13.6 /CUMM (1.4-6.5); ABSOLUTE LYMPH COUNT 1.2 /CUMM (1.2-3.4); ABSOLUTE MONOCYTE COUNT 1.6 /CUMM (0.10-0.60); BASOPHIL % 0.1 % (0.0-2.0); EOSINOPHIL % 0.2 % (0-5); GRANULOCYTE % 82.8 % (42.2-75.2); HEMATOCRIT 31.8 % (42-52); MEAN CORPUSCULAR HGB 32.2 PG (27.0-31.0); MEAN CORPUSCULAR HGB CONC 34.9 G/DL (33.0-37.0); MEAN PLATELET VOLUME 7.5 FL (7.4-10.4); PLATELET COUNT 212 /CUMM (130-400); RBC DISTRIBUTION WIDTH 12.9 % (11.5-14.5); RED BLOOD CELL CT 3.45 /CUMM (4.70-6.10); WHITE BLOOD CELL COUNT 16.5 /CUMM (4.8-10.8)
[2017-09-27] MEDS ORDERED: TRICOR48 M1 PO (10:36)
[2017-09-27] MEDS ORDERED: VITAMIN E400 UNI2 PO (10:36)
--- NOTE | 2017-09-27 10:38 | Patient Discharge Instructions ---
Discharge Instructions General Discharge Information You were seen/treated for: necrotizing pancreatitis Special Instructions: Please follow up with your primary care physician and sommelier, Dr. Anton. Acute Coronary Syndrome Inclusion Criteria At DC or during hospital stay patient has or had the following: ACS DIAGNOSIS No Discharge Core Measures Meds if any: Prescribed or Continued at Discharge Meds if any: NOT Prescribed or Continued at Discharge Congestive Heart Failure Inclusion Criteria At DC or during hospital stay patient has or had the following: CHF DIAGNOSIS No Discharge Core Measures Meds if any: Prescribed or Continued at Discharge Meds if any: NOT Prescribed or Continued at Discharge Cerebrovascular accident Inclusion Criteria At DC or during hospital stay patient has or had the following: CVA/TIA Diagnosis No Discharge Core Measures Meds if any: Prescribed or Continued at Discharge Meds if any: NOT Prescribed or Continued at Discharge Venous thromboembolism Inclusion Criteria VTE Diagnosis No VTE Type NONE VTE Confirmed by (Test) NONE Discharge Core Measures - Per Current guidelines, there needs to be overlap - treatment for the first 5 days of Warfarin therapy. - If discharged on Warfarin prior to 5 days of - overlap therapy, the patient will need to be - assessed for post discharge needs including - *Post discharge parental anticoagulation - *Warfarin and/or parental anticoagulation education - *Follow up date to check INR post discharge At least 5 days overlap therapy as Inpatient No Meds if any: Prescribed or Continued at Discharge Note: Overlap Therapy is Warfarin and Anticoagulant Meds if any: NOT Prescribed or Continued at Discharge
--- NOTE | 2017-09-27 10:43 | Discharge Summary ---
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 He was initially monitored on telemetry for sinus bradycardia when he developed worsening abdominal pain, tachycardia, persistent leukocytosis with bandemia, fever, and hyperbilirubinemia. He was transferred to the ICU, was given Ativan for possible EtOH withdrawal, and repeat CT of abdomen with contrast on 09/23/2017 show evidence of severe acute necrotizing pancreatitis, he was started on meropenem that was discontinued a short time later. He then underwent peripancreatic collection CT guided aspiration that was negative on culture, consistent with sterile pancreatic necrosis. His condition gradually improved over the course of a week while monitored off antibiotics. He did develop a low grade fever and worsening leukocytosis and persistent pain prior to discharge, repeat imaging was performed with intravenous contrast and interventional radiology performed an aspiration of necrotic area in the tail of the pancreas for repeat culture, which again was negative. Gastroenterology was consulted and he should follow up with them. He was started on Tricor for hypertriglyceridemia and Vitamin E for hepatic steatosis. On his most recent CT scan, he had a collection with mass effect on the posterior aspect of the stomach, likely a developing pseudocyst, that will need surveillance. Prior to discharge, his leukocytosis and abdominal pain improved. He was eating a low fat diet, normal bowel movements, and ambulating without issues. He was instructed to follow up with gastroenterology and primary care. He should also have a repeat CBC performed after discharge to monitor his leukocytosis for resolution. Allergies: Coded Allergies: No Known Allergies (09/20/17) Significant Procedures: SERVICE DATE: 10/01/17 EXAM TYPE: CAT - CT ABD & PELVIS W IV CONTRAST EXAMINATION: CT ABDOMEN AND PELVIS WITH CONTRAST CLINICAL INFORMATION: Follow up peripancreatic collection. Low-grade fever and leukocytosis. Abdominal pain. History of necrotizing pancreatitis. COMPARISON: Percutaneous abscess drainage 09/24/2017. CT scan abdomen and pelvis 09/23/2017. MR abdomen 09/23/2017 TECHNIQUE: Multidetector volumetric imaging was performed of the abdomen and pelvis following IV administration of 95 mL of Optiray 320 intravenous contrast. Sagittal and coronal reformatted images were obtained on the technologist's workstation. DLP: 492.74 mGy-cm FINDINGS: LUNG BASES: Minimal dependent atelectasis at the posterior left lung base. The small bilateral pleural effusions seen on the CAT scan of 09/23/2017 have resolved. LIVER, GALLBLADDER, AND BILIARY TREE: Diffuse fatty change of liver. No focal liver lesion. No intrahepatic bile duct dilatation. The gallbladder is unremarkable with no evidence of radiopaque gallstones, gallbladder wall thickening, or obvious pericholecystic inflammatory changes. PANCREAS: Changes of pancreatitis again noted with diffuse fluid and edema at the pancreatic bed. The head of the pancreas is still somewhat defined margins, but the remainder of the pancreas is edematous and swollen and ill-defined without defined enhancing parenchymal tissue. The severity of the changes from the pancreatitis remain similar to the CAT scan of 09/23/2017. There is no air in the pancreatic bed. The volume of the peripancreatic fluid collection and the fluid that extends down into the pelvis along the left pararenal fascia is similar in volume to the prior study as well. There is a fluid collection that is posterior to the stomach that measures about 6 x 7.5 x 4 cm which impresses on the posterior wall of the stomach. This fluid collection does not have enhanced frederick, is likely a developing organizing pseudocyst given it's mass effect upon the posterior wall of the stomach. This was seen on the MR study of 09/23/2017 as well, but appears larger on today's study. This previously measured about 5.7 x 3 cm on the MR exam of 09/23/2017. SPLEEN: Unremarkable. ADRENAL GLANDS: Unremarkable. KIDNEYS AND URETERS: The kidneys are normal in size, shape, and attenuation. No hydronephrosis, hydroureter, or calculi seen. No perinephric stranding. BLADDER: Unremarkable. GASTROINTESTINAL TRACT: There are multiple scattered diverticula of the left colon and sigmoid. No diverticulitis. No bowel wall thickening or edema. No bowel obstruction. Moderate volume of scattered stool in the colon. The appendix is normal. The small bowel loops are unremarkable. ABDOMINAL WALL: Small fat-containing umbilical hernia. LYMPH NODES: Normal. VASCULAR: There is poor enhancement of the midportion of the splenic vein adjacent to the edematous pancreas. This could be due to compression from mass effect, but thrombus not excluded. There is normal enhancement of the portal vein and the superior mesenteric vein. PELVIC VISCERA: Unremarkable. OSSEOUS STRUCTURES: Unremarkable. IMPRESSION: 1. Marked changes of pancreatitis. Overall, the appearance is similar to the CAT scan of 09/23/2017 and MR of 09/23/2017. The volume of the collection posterior to the stomach impressing upon the posterior wall of the stomach is slightly larger on today's study than the prior exams. This may be a developing pseudocyst. 2. Interval resolution of the previously seen bilateral pleural effusions. There is a small amount of dependent atelectasis still present at the dependent left lung base. CT ABD & PELVIS W IV CONTRAST 09/23/17 EXAMINATION: CT ABDOMEN AND PELVIS WITHOUT AND WITH CONTRAST CLINICAL INFORMATION: Evaluate for necrotizing pancreatitis COMPARISON: Portions of a previous CT 09/20/17 TECHNIQUE: Pancreatic protocol Multidetector volumetric imaging was performed of the abdomen and pelvis. The abdomen was performed without IV contrast. The abdomen was examined during the arterial phase. The abdomen and pelvis were examined following IV administration of 95 mL of Optiray 320 intravenous contrast. Sagittal and coronal reformatted images were obtained on the technologist's workstation. DLP: 992 mGy-cm FINDINGS: LUNG BASES: There is now a small amount of bilateral pleural fluid. There are linear opacities in both lung bases which could be atelectasis. There is no pneumothorax. There is no evidence of pneumoperitoneum. LIVER, GALLBLADDER, AND BILIARY TREE: Diffuse fatty change in the liver. Small zone of low-attenuation adjacent to the falciform ligament. This is a common location for focal fatty change or a small perfusion abnormality. This is likely unchanged. The gallbladder is mildly distended. There is likely some dependent sludge. No calcified stones demonstrated. The common duct is top normal. There is no opaque duct calculus PANCREAS: There has been significant interval worsening. There is now severe pancreatitis. There is enhancement of the uncinate process pancreatic head and some of the pancreatic neck. The remainder the pancreas is enlarged and low attenuating without significant parenchymal enhancement in the body or tail. There is severe surrounding fat stranding. There are fluid collections in the lesser sac and in the lateral gutter. There is mass effect upon the lesser curvature the stomach. There is thickening of the anterior pararenal fascia. There is retroperitoneal stranding in the anterior pararenal space. There are fluid collections in the gutter, Morison's pouch and the deep pelvic recesses which are all essentially new. No gas within the collections. SPLEEN: The spleen enhances homogeneously. ADRENAL GLANDS: Within normal limits KIDNEYS AND URETERS: No dilation of the collecting system. No suspicious renal mass. There are symmetric nephrograms. BLADDER: The bladder is nearly empty. No focal abnormality GASTROINTESTINAL TRACT: No localized colonic wall thickening. The appendix is normal. There is no significant small bowel dilation. There is some distention of the duodenum. As described there is stranding surrounding the proximal stomach with mass effect upon the lesser curve and a fluid collection in the lesser sac. ABDOMINAL WALL: Asymmetric fat protrudes into the right inguinal canal. LYMPH NODES: No suspicious adenopathy. VASCULAR: There is no abdominal aortic aneurysm. The portal vein enhances. The superior mesenteric vein enhances. The splenic vein enhances but is surrounded by fluid and fat stranding. There is a focus of amorphous enhancement medial and slightly superior to the proper hepatic artery (series 12, image 58; series 602, image 52; series 601, image 78). This is not present on the early arterial phase. This was not present on 09/20/17. PELVIC VISCERA: Within normal limits OSSEOUS STRUCTURES: No focal abnormality IMPRESSION: Marked interval worsening. CT evidence of severe acute necrotizing pancreatitis with lack of enhancement throughout the body and tail. There is extensive surrounding fat stranding and there are fluid collections including a collection in the lesser sac. There is no internal gas. Correlate with systemic inflammatory response markers. There is an amorphous 1 cm late enhancing abnormality near the hepatic artery. This is concerning for a small pseudoaneurysm. Short interval follow-up may be necessary. Depending upon the clinical circumstances follow-up might include CT angiography including late venous phase MRI - MRI-ABDOMEN 09/23/17 EXAMINATION: MR ABDOMEN AND MRCP WITHOUT CONTRAST CLINICAL INFORMATION: Alcoholic pancreatitis. Elevated LFTs. Fever. MRCP COMPARISON: CT abdomen and pelvis dated 09/20/2017 TECHNIQUE: MR abdomen without contrast was obtained using routine sequences. FINDINGS: Lung bases: Interval development of small bilateral pleural effusions. Liver, gallbladder and biliary tree: No gross evidence of hepatic steatosis based on dual echo images. No focal hepatic parenchymal abnormality on the noncontrast images. Perihepatic fluid/ascites demonstrates an interval change. No evidence of gallstones. Common bile duct is within normal limits. No evidence of intrahepatic biliary ductal dilatation. Fluid in the gallbladder fossa and pericholecystic fluid due to to the presence of ascites. Pancreas: Compared to the recent CT images, there has been interval increase in pancreatic edema and peripancreatic edema and fluid. More loculated fluid collection noted anterior to the body of the pancreas (series 7 image 17) measures approximately 5.6 x 4.4 x 4.3 cm. This represents an interval change. Infected fluid collection cannot be entirely excluded in the absence of IV contrast. There is stranding and edema noted in the peripancreatic mesentery (series 7 image 19). Smaller fluid collection noted anterior to the tail of the pancreas (series 7 image 17) this is likely due to free fluid. Free fluid is also tracking along the lateroconal fascia. Assessment of the pancreas for necrotizing pancreatitis is limited without IV contrast. Given the interval increase in the severity of the pancreatitis, further assessment with contrast-enhanced CT scan or postgadolinium MRI images are recommended. No gross evidence of pancreatic ductal dilatation. Spleen: No gross parenchymal abnormality. Trace perisplenic fluid. Adrenal glands: Unremarkable. Kidneys: Unremarkable. GI tract: No gross abnormality of the visualized GI tract. Mild dilatation of the third portion of duodenum likely represents reactive change due to adjacent severe pancreatitis. (Series 2 image 9). Lymphovascular structures: Assessment is limited due to patient motion. Signal void noted in the portal venous system. Osseous structures: Unremarkable. IMPRESSION: 1. There has been significant interval worsening of pancreatitis with diffuse pancreatic edema, interval development of ascites and pleural effusion. Findings may represent severe acute edematous interstitial pancreatitis. Assessment for necrotizing pancreatitis is limited without IV contrast. Given the significant interval worsening of the overall pancreatitis, further assessment with contrast-enhanced CT scan or postgadolinium MRI images are recommended. 2. Interval development of a loculated extrapancreatic fluid collection anterior to the body of the pancreas measuring approximately 5.6 x 4.4 x 4.3 cm likely represents of acute peripancreatic fluid collection. Infected fluid collection cannot be entirely excluded without intravenous contrast. No gross evidence of debris identified within the fluid collection on the MRI images. It is too early for formation of pseudocyst. 3. No evidence of cholelithiasis or choledocholithiasis. No evidence of biliary ductal dilatation. Transthoracic Echocardiogram 09/20/17 Left Ventricle Normal size left ventricle. Normal left ventricular wall thickness. No obvious regional wall motion abnormalities. Normal left ventricular ejection fraction visually estimated at >60 %. Normal left ventricular diastolic filling pattern for age. Right Ventricle Normal right ventricular size and function. Right Atrium Normal right atrial size. Left Atrium Normal left atrial size. Mitral Valve Structurally normal mitral valve. Trace mitral regurgitation. Aortic Valve Trileaflet aortic valve. No aortic valve stenosis or regurgitation. Tricuspid Valve Structurally normal tricuspid valve. Mild tricuspid regurgitation. Pulmonic Valve Pulmonic valve not well visualized, grossly normal. No pulmonic regurgitation. Pericardium No pericardial effusion. Great Vessels Normal size aortic root. Dilated inferior vena cava. CONCLUSIONS Normal size left ventricle. Normal left ventricular wall thickness. No obvious regional wall motion abnormalities. Normal left ventricular ejection fraction visually estimated at >60 Normal left ventricular diastolic filling pattern for age. Normal right ventricular size and function. Normal atrial size. Trace mitral regurgitation. Mild tricuspid regurgitation. Dilated inferior vena cava. EXAM TYPE: CAT - CT ABD & PELVIS W IV CONTRAST 09/20/17 EXAMINATION: CT ABDOMEN AND PELVIS WITH CONTRAST CLINICAL INFORMATION: Abdominal pain, vomiting, history of pancreatitis COMPARISON: CT abdomen and pelvis 08/04/2016 TECHNIQUE: Multidetector volumetric imaging was performed of the abdomen and pelvis following IV administration of 94 mL of Optiray 320 intravenous contrast. Sagittal and coronal reformatted images were obtained on the technologist's workstation. DLP: 426 mGy-cm FINDINGS: LUNG BASES: Right lower lobe subsegmental atelectasis. No pleural or pericardial effusion. LIVER, GALLBLADDER, AND BILIARY TREE: The liver is enlarged measuring 21.6 cm in craniocaudal span. Relative low attenuation of the parenchyma suggests steatosis. No focal lesions. No biliary ductal dilation. The gallbladder is unremarkable with no evidence of radiopaque gallstones, gallbladder wall thickening, or obvious pericholecystic inflammatory changes. PANCREAS: There is recurrent peripancreatic inflammation centered around the pancreatic head and uncinate process. This is decreased in extent when compared to CT from 08/04/2016. There is mild parenchymal heterogeneity in the pancreatic head without evidence of necrosis. No peripancreatic fluid collections. SPLEEN: Unremarkable. ADRENAL GLANDS: Unremarkable. KIDNEYS AND URETERS: The kidneys are normal in size, shape, and attenuation. No hydronephrosis, hydroureter, or calculi seen. No perinephric stranding. BLADDER: Unremarkable. GASTROINTESTINAL TRACT: The stomach, small bowel, and colon are nondilated. There is reactive inflammation of the duodenum. The appendix is normal. ABDOMINAL WALL: Small fat-containing umbilical hernia and right inguinal hernia. LYMPH NODES: Normal. VASCULAR: The portal vein, SMV, and splenic vein demonstrate normal enhancement. The abdominal aorta is normal in caliber. Incidentally noted accessory right renal artery to the upper pole. PELVIC VISCERA: Unremarkable. No free fluid. OSSEOUS STRUCTURES: Unremarkable. IMPRESSION: Recurrent acute interstitial edematous pancreatitis with inflammation centered around the pancreatic head and uncinate process. Reactive inflammation of the duodenum. This is less extensive than on the prior CTs from July 2016. No associated complicating features are identified. Hepatomegaly and steatosis. Disposition Summary Disposition Principal Diagnosis: Acute necrotizing pancreatitis secondary to alcohol abuse and hypertriglyceridemia Additional Diagnosis: Asthma Hepatic steatosis Alcohol use disorder Discharge Disposition: home or self care Discharge Instructions General Discharge Information Code Status: Full Code Patient's Diet: Low fat diet Patient's Activity: As tolerated Follow-Up Instructions/Appts: Please follow up with your primary care physician and gastroenterology. Medications at Discharge Discharge Medications: Stop taking the following medications: Prednisone (Prednisone) 20 MG TABLET ORAL THREE TIMES DAILY Qty = 15 Azithromycin (Azithromycin) 250 MG TABLET ORAL DAILY Continue taking these medications: Montelukast Sodium (Montelukast Sodium) 10 MG TABLET 1 Tablet ORAL DAILY Qty = 30 Comments: NOT GIVEN IN HOSPITAL Melatonin (Melatonin) 5 MG TABLET 1 Tablet ORAL Every night Qty = 30 Comments: Last Taken: 10/03/17 Time: 0030AM Albuterol Sulfate (Proair Hfa) 90 MCG HFA.AER.AD 2 Puff Inhale through mouth EVERY 4-6 HOURS NEEDED as needed for SHORTNESS OF BREATH Qty = 9 Comments: NOT GIVEN IN HOSPITAL Start taking the following new medications: Vitamin E Mixed (Vitamin E) 400 UNIT TABLET 2 Tablet ORAL DAILY Qty = 60 No Refills Instructions: . Comments: NOT GIVEN IN HOSPITAL Polyethylene Glycol 3350 (Miralax) 17 GRAM POWD.PACK 1 Packet ORAL DAILY as needed for constipation Qty = 30 No Refills Instructions: dissolve in water. Comments: Last Taken: 10/03/17 Time: 0800AM Fenofibrate (Tricor) 48 MG TABLET 48 Milligram ORAL DAILY Qty = 30 No Refills Instructions: . Comments: Last Taken: 10/03/17 Time: 8AM Oxycodone HCl (Oxycodone HCl) 5 MG TABLET 1 Tablet ORAL Q6H as needed for PAIN Qty = 10 No Refills Comments: Last Taken: 10/03/17 Time: 8AM Copies To: Desean STANLEY,Mat Barrett; Michelle STANLEY,Minesh Berger Attending MD Review Statement Documenting Attending: Cheikh Jamil MD
[2017-09-27] MEDS ORDERED: OXYCODONE HCL5 M1 PO (13:28)
[2017-09-27 14:12] VITALS: BP 142/87
[2017-09-27 22:34] VITALS: BP 125/64
[2017-09-28 06:30] VITALS: BP 134/72
[2017-09-28 08:18] LABS: ABSOLUTE BASOPHIL COUNT 0.1 /CUMM (0.0-0.2); ABSOLUTE EOSINOPHIL COUNT 0.1 /CUMM (0.0-0.7); ABSOLUTE GRANULOCYTE CT 15.5 /CUMM (1.4-6.5); ABSOLUTE LYMPH COUNT 1.5 /CUMM (1.2-3.4); ABSOLUTE MONOCYTE COUNT 1.8 /CUMM (0.10-0.60); BASOPHIL % 0.4 % (0.0-2.0); EOSINOPHIL % 0.3 % (0-5); MEAN CORPUSCULAR HGB 31.6 PG (27.0-31.0); MEAN CORPUSCULAR HGB CONC 34.3 G/DL (33.0-37.0); MEAN PLATELET VOLUME 7.6 FL (7.4-10.4); PLATELET COUNT 271 /CUMM (130-400); RBC DISTRIBUTION WIDTH 13.4 % (11.5-14.5); RED BLOOD CELL CT 3.48 /CUMM (4.70-6.10); WHITE BLOOD CELL COUNT 18.9 /CUMM (4.8-10.8)
--- NOTE | 2017-09-28 08:48 | PN- Housestaff ---
See Addendum Subjective Follow-up For: acute necrotic pancreatitis alcohol use disorder Subjective: patient is feeling improved, no new complaints tmax overnight 100.4 no BM yesterday, urinary frequency improved Review of Systems Constitutional: Reports: see HPI. Objective Last 24 Hrs of Vital Signs/I&O Vital Signs Date Time Temp Pulse Resp B/P B/P Pulse O2 O2 Flow FiO2 Mean Ox Delivery Rate 09/28 0630 99.8 90 20 134/72 95 Room Air 09/27 2234 100.4 108 20 125/64 96 Room Air 09/27 1955 96 Room Air Room Air 09/27 1600 97 Room Air 09/27 1412 99.5 94 18 142/87 96 Room Air Physical Exam General Appearance: Alert, Oriented X3, Cooperative, No Acute Distress Cardiovascular: Regular Rate, Normal S1, Normal S2, No Murmurs Lungs: bibasilar crackles Abdomen: Normal Bowel Sounds, Soft, No Masses, abdominal distention with mild epigastric tenderness on palpation, right flank ecchymosis Extremities: No Clubbing, No Cyanosis, No Edema, Normal Pulses Current Medications: Current Medications Sig/Brynn Start time Last Medication Dose Route Stop Time Status Admin Albuterol Sulfate 3 ML BID 09/24 2100 AC 09/27 INH 1953 Albuterol Sulfate 2 PUF Q4-6 PRN PRN 09/20 1400 AC 09/24 INH 0633 Enoxaparin Sodium 40 MG DAILY 09/26 0900 AC 09/28 SC 0758 Fenofibrate 48 MG DAILY 09/21 1342 AC 09/28 PO 0755 Lactated Ringer's 1,000 ML Q6H 09/23 2145 DC 09/27 IV 09/27 Melatonin 10 MG AT BEDTIME 09/27 2100 AC 09/27 PO 2337 Multivitamins 1 GEORGETTE DAILY 09/24 1100 DC 09/27 Thiamine HCl 100 MG IV 09/27 1700 0837 Folic Acid 1 MG Lactated Ringer's 1,000 ML Oxycodone HCl 5 MG Q6P PRN 09/27 0845 AC PO Oxycodone HCl 10 MG Q6P PRN 09/27 0845 AC 09/28 PO 0535 Last 24 Hrs of Lab/Mike Results Last 24 Hrs of Labs/Mics: Laboratory Tests 09/28/17 0606: Anion Gap 11, Estimated GFR > 60, BUN/Creatinine Ratio 12.9, Magnesium 2.0, Total Bilirubin 2.0 H, Direct Bilirubin 1.3 H, AST 66 H, ALT 79 H, Alkaline Phosphatase 117, Total Protein 5.5 L, Albumin 2.6 L, CBC w Diff NO MAN DIFF REQ, RBC 3.48 L, MCV 92.0, MCH 31.6 H, MCHC 34.3, RDW 13.4, MPV 7.6, Gran % 82.0 H, Lymphocytes % 7.9 L, Monocytes % 9.4 H, Eosinophils % 0.3, Basophils % 0.4, Absolute Granulocytes 15.5 H, Absolute Lymphocytes 1.5, Absolute Monocytes 1.8 H, Absolute Eosinophils 0.1, Absolute Basophils 0.1 09/27/17 1600: Urine Color YEL, Urine Clarity HAZY H, Urine pH 7.5, Ur Specific [place] 1.020, Urine Protein TRACE H, Urine Ketones NEG, Urine Nitrite NEG, Urine Bilirubin NEG@ICTO, Urine Urobilinogen >=8.0 H, Ur Leukocyte Esterase NEG, Ur Microscopic SEDIMENT EXAMINED, Urine RBC 1-3, Urine WBC 3-5 H, Ur Epithelial Cells FEW, Urine Bacteria FEW H, Urine Hemoglobin TRACE-INTACT H, Urine Glucose NEG Microbiology 09/28 1599 URINE ROUT: Urine Culture - RECD Assessment/Plan Assessment: 32 year old male with past medical history significant for asthma (mild persistent), history of smoking, 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 He was initially monitored on telemetry for sinus bradycardia when he developed worsening abdominal pain, tachycardia, persistent leukocytosis with bandemia, fever, and hyperbilirubinemia. He was transferred to the ICU, was given Ativan for possible EtOh withdrawal, and repeat CT of abdomen with contrast on 2017 show evidence of severe acute necrotizing pancreatitis, started on meropenem, later discontinued and underwent peripancreatic collection CT guided aspiration that was negative on culture consistent with sterile pancreatic necrosis. Severe necrotizing pancreatitis: Fever and tachycardia improved, with bowel rest, analgesia and hydration No hemoconcentration s/p CT guided aspiration of peripancreatic collection, culture negative, sterile necrosis Discontinue IV fluids today, Encourage PO intake and ambulation Change from IV dilaudid to PO oxycodone today Advance to low fat diet Follow up gastroenterology and infectious disease recommendations Continue to monitor off antibiotics Secondary to alcohol abuse and hypertriglyceridemia Continue Tricor for hypertriglyceridemia, repeat triglycerides wnl Outpatient Vitamin 800 IU PO daily for hepatosteatosis MRCP Significant interval worsening of pancreatitis with diffuse pancreatic edema, interval development of ascites and pleural effusion. Severe acute edematous interstitial pancreatitis. Assessment for necrotizing pancreatitis is limited without IV contrast. Interval development of a loculated extrapancreatic fluid collection anterior to the body of the pancreas measuring approximately 5.6 x 4.4 x 4.3cm likely represents of acute peripancreatic fluid collection. Infected fluid collection cannot be entirely excluded without intravenous contrast. No gross evidence of debris identified within the fluid collection on the MRI images. No evidence of cholelithiasis or choledocholithiasis. No evidence of biliary ductal dilatation. 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 Amorphous 1 cm late enhancing abnormality near the hepatic artery Consider vascular surgery follow up EtOH abuse: Discontinue CIWA monitoring and banana bag Counseled on alcohol cessation, patient reports drinking by himself and disclosing this to family after hospitalization Social work consulted, consider IOP vs AA meetings History of asthma: Continue albuterol prn Bilateral pleural effusions on chest x-ray, reactive from pancreatitis History of anxiety: Complaining of insomnia Was taking Prozac approximately six months ago Will start melatonin qHS Low fat diet DVT ppx-lovenox subcutaneous and ALPs Full code Patient was febrile to 100.4 overnight and leukocytosis increasing from 16,500 to 18,900. Plan to keep in the hospital for 24 hours of improved WBC and afebrile prior to discharge with GI f/u Problem List: 1. Acute pancreatitis 2. Alcohol abuse 3. Fever 4. Leukocytosis 5. Abdominal pain 6. Abnormal LFTs Pain Ratin Pain Location: epigastric Pain Goal: Pain 4 or less Pain Plan: oxycodone prn Tomorrow's Labs & Rationales: cbc, bep, lfts
[2017-09-28 14:13] VITALS: BP 155/68
--- NOTE | 2017-09-28 16:54 | RADIOLOGY REPORT ---
EXAMINATION: XR CHEST CLINICAL INFORMATION: Fever. Presumptive diagnosis of pleural effusion. COMPARISON: Several prior chest x-rays, most recent of which is dated 09/25/2017. TECHNIQUE: 2 views of the chest were obtained. FINDINGS: The cardiomediastinal silhouette is borderline enlarged. Low lung volumes are seen with bibasilar opacities, likely representing atelectasis, improved when compared to prior study. There is a persistent small left-sided pleural effusion. There may be a trace right-sided pleural effusion as well. Lungs are otherwise unremarkable. Bony structures are unremarkable. IMPRESSION: 1. Borderline enlarged cardiac silhouette. 2. Improving bibasilar subsegmental atelectasis. 3. Persistent small left-sided and probable trace right-sided pleural effusion.
[2017-09-28 23:11] VITALS: BP 121/85
[2017-09-28 23:26] VITALS: BP 90/50
[2017-09-29 07:33] VITALS: BP 124/71
[2017-09-29 08:10] LABS: ABSOLUTE BASOPHIL COUNT 0.2 /CUMM (0.0-0.2); ABSOLUTE EOSINOPHIL COUNT 0.1 /CUMM (0.0-0.7); ABSOLUTE GRANULOCYTE CT 20.6 /CUMM (1.4-6.5); ABSOLUTE LYMPH COUNT 1.7 /CUMM (1.2-3.4); ABSOLUTE MONOCYTE COUNT 1.3 /CUMM (0.10-0.60); BASOPHIL % 0.9 % (0.0-2.0); EOSINOPHIL % 0.3 % (0-5); GRANULOCYTE % 86.3 % (42.2-75.2); HEMATOCRIT 33.8 % (42-52); MEAN CORPUSCULAR HGB 31.9 PG (27.0-31.0); MEAN CORPUSCULAR HGB CONC 34.4 G/DL (33.0-37.0); MEAN CORPUSCULAR VOLUME 92.8 FL (80.0-94.0); MEAN PLATELET VOLUME 8.3 FL (7.4-10.4); PLATELET COUNT 231 /CUMM (130-400); RBC DISTRIBUTION WIDTH 13.3 % (11.5-14.5); RED BLOOD CELL CT 3.64 /CUMM (4.70-6.10); WHITE BLOOD CELL COUNT 23.8 /CUMM (4.8-10.8)
--- NOTE | 2017-09-29 08:22 | PN- Housestaff ---
See Addendum Subjective Follow-up For: necrotizing pancreatitis Subjective: No new complaints had a bowel movement today mild abdominal pain afebrile overnight Review of Systems Constitutional: Reports: see HPI. Objective Last 24 Hrs of Vital Signs/I&O Vital Signs Date Time Temp Pulse Resp B/P B/P Pulse O2 O2 Flow FiO2 Mean Ox Delivery Rate 09/29 0733 99.4 88 20 124/71 97 Room Air 09/29 0000 Room Air 09/28 2311 99.4 99 20 121/85 97 Room Air 09/28 1930 98 Room Air 09/28 1413 99.1 94 18 155/68 97 Room Air 09/28 1037 97 Room Air Physical Exam General Appearance: Alert, Oriented X3, Cooperative, No Acute Distress Cardiovascular: Regular Rate, Normal S1, Normal S2, No Murmurs Lungs: bibasilar crackles Abdomen: Normal Bowel Sounds, Soft, No Masses, abdominal distention and mild epigastric tenderness Extremities: No Clubbing, No Cyanosis, No Edema, Normal Pulses Current Medications: Current Medications Sig/Brynn Start time Last Medication Dose Route Stop Time Status Admin Albuterol Sulfate 3 ML BID 09/24 2100 AC 09/28 INH 1037 Albuterol Sulfate 2 PUF Q4-6 PRN PRN 09/20 1400 AC 09/24 INH 0633 Enoxaparin Sodium 40 MG DAILY 09/26 0900 AC 09/28 SC 0758 Fenofibrate 48 MG DAILY 09/21 1342 AC 09/28 PO 0755 Fluticasone 2 SPRAY DAILY 09/28 1327 AC 09/28 Propionate TAMEKA 1434 Melatonin 10 MG AT BEDTIME 09/27 2100 AC 09/28 PO 2315 Oxycodone HCl 5 MG Q4 HRS NEEDED PRN 09/28 1030 AC 09/28 PO 2315 Oxycodone HCl 5 MG Q6P PRN 09/27 0845 DC PO Oxycodone HCl 10 MG Q6P PRN 09/27 0845 AC 09/28 PO 0535 Last 24 Hrs of Lab/Mike Results Last 24 Hrs of Labs/Mics: Laboratory Tests 09/29/17 0619: Sodium Pending, Potassium Pending, Chloride Pending, Carbon Dioxide Pending, Anion Gap Pending, BUN Pending, Creatinine Pending, BUN/Creatinine Ratio Pending , Total Bilirubin Pending, Direct Bilirubin Pending, AST Pending, ALT Pending, Alkaline Phosphatase Pending, Total Protein Pending, Albumin Pending, CBC w Diff Pending, WBC Pending, RBC Pending, Hgb Pending, Hct Pending, MCV Pending, MCH Pending, MCHC Pending, RDW Pending, Plt Count Pending, MPV Pending Assessment/Plan Assessment: 32 year old male with past medical history significant for asthma (mild persistent), history of smoking, 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 He was initially monitored on telemetry for sinus bradycardia when he developed worsening abdominal pain, tachycardia, persistent leukocytosis with bandemia, fever, and hyperbilirubinemia. He was transferred to the ICU, was given Ativan for possible EtOh withdrawal, and repeat CT of abdomen with contrast on 2017 show evidence of severe acute necrotizing pancreatitis, started on meropenem, later discontinued and underwent peripancreatic collection CT guided aspiration that was negative on culture consistent with sterile pancreatic necrosis. Severe necrotizing pancreatitis: Fever and tachycardia improved, with bowel rest, analgesia and hydration No hemoconcentration s/p CT guided aspiration of peripancreatic collection, culture negative, sterile necrosis Discontinue IV fluids today, Encourage PO intake and ambulation Change from IV dilaudid to PO oxycodone today Advance to low fat diet Follow up gastroenterology and infectious disease recommendations Continue to monitor off antibiotics Secondary to alcohol abuse and hypertriglyceridemia Continue Tricor for hypertriglyceridemia, repeat triglycerides wnl Outpatient Vitamin 800 IU PO daily for hepatosteatosis MRCP Significant interval worsening of pancreatitis with diffuse pancreatic edema, interval development of ascites and pleural effusion. Severe acute edematous interstitial pancreatitis. Assessment for necrotizing pancreatitis is limited without IV contrast. Interval development of a loculated extrapancreatic fluid collection anterior to the body of the pancreas measuring approximately 5.6 x 4.4 x 4.3cm likely represents of acute peripancreatic fluid collection. Infected fluid collection cannot be entirely excluded without intravenous contrast. No gross evidence of debris identified within the fluid collection on the MRI images. No evidence of cholelithiasis or choledocholithiasis. No evidence of biliary ductal dilatation. 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 Amorphous 1 cm late enhancing abnormality near the hepatic artery Consider vascular surgery follow up EtOH abuse: Discontinue CIWA monitoring and banana bag Counseled on alcohol cessation, patient reports drinking by himself and disclosing this to family after hospitalization Social work consulted, consider IOP vs AA meetings History of asthma: Continue albuterol prn Bilateral pleural effusions on chest x-ray, reactive from pancreatitis History of anxiety: Complaining of insomnia Was taking Prozac approximately six months ago Will start melatonin qHS Low fat diet DVT ppx-lovenox subcutaneous and ALPs Full code Stable for discharge today as he is clinically improved Residual leukocytosis probably reactive from pancreatic necrosis Check labs for leukocytosis resolution as an outpatient, given referrals for PCP and GI f/u Problem List: 1. Acute pancreatitis 2. Alcohol abuse Pain Ratin Pain Location: epigastric Pain Goal: Pain 4 or less Pain Plan: prn Tomorrow's Labs & Rationales: cbc, bep, lft next week
--- NOTE | 2017-09-29 10:28 | PN- Gastroenterology ---
Brad Gilbert MD 09/29/17 1022: Assessment/Plan GI Assessment/Recommendations: Assessment: Mr. Coleman is a 32 year old male admitted with etoh necrotizing pancreatitis who is currently clinically improved, but he continues to have low grade temps and his WBC is increasing. His cultures have remained negative off of antibiotics and I suspect his low grade fevers are reactive to his pancreatitis. While it may be reasonable to repeat imaging for the increased WBC as he otherwise feels well, his LFTs are improving, and he has been without high temperature spikes I would just recommend observation for another 24-48 hours. Recommendations: 1. Diet as tolerated. 2. Continue to observe off of antibiotics 3. Analgesia as needed 4. If no high temperature spikes and no significant worsening of WBC in the am would give consideration to discharge home. 5. Will consider a repeat ct scan for high temp spikes and further worseing of his WBC. I will continue to follow this patient and make further recommendations based on his clinical course and results of repeat blood work. Problem List: 1. Acute pancreatitis 2. Alcohol withdrawal 3. Necrotizing pancreatitis Subjective Subjective: pt feeling well tolerating a PO diet. pain meds changed to oral yesterday. continues to have low grade temps, but no high temp spikes. Objective Vital Signs and I&Os Vital Signs Date Time Temp Pulse Resp B/P B/P Pulse O2 O2 Flow FiO2 Mean Ox Delivery Rate 09/29 0937 97 Room Air 09/29 0733 99.4 88 20 124/71 97 Room Air 09/29 0000 Room Air 09/28 2311 99.4 99 20 121/85 97 Room Air 09/28 1930 98 Room Air 09/28 1413 99.1 94 18 155/68 97 Room Air 09/28 1037 97 Room Air Intake & Output 09/29 1600 09/29 0400 09/28 1600 09/28 0400 09/27 1600 09/27 0400 Intake Total 750 2395 490 Output Total Balance 750 2395 490 Intake, IV 1575 250 Intake, Oral 750 820 240 Number 1 Bowel Movements Physical Exam General Appearance: well developed/nourished, no apparent distress, alert, comfortable Head: atraumatic Neck: normal inspection, supple, full range of motion Respiratory: normal breath sounds, chest non-tender, no respiratory distress Cardiovascular: regular rate/rhythm Abdomen: normal bowel sounds, soft, non-tender, no organomegaly Extremities: normal inspection Neurologic/Psychiatric: no motor/sensory deficits, awake, alert, oriented x 3 Current Medications: Current Medications Sig/Brynn Start time Last Medication Dose Route Stop Time Status Admin Albuterol Sulfate 3 ML BID 09/24 2100 AC 09/29 INH 0929 Albuterol Sulfate 2 PUF Q4-6 PRN PRN 09/20 1400 AC 09/24 INH 0633 Enoxaparin Sodium 40 MG DAILY 09/26 0900 AC 09/29 SC 0828 Fenofibrate 48 MG DAILY 09/21 1342 AC 09/29 PO 0828 Fluticasone 2 SPRAY DAILY 09/28 1327 AC 09/29 Propionate TAMEKA 0828 Melatonin 10 MG AT BEDTIME 09/27 2100 AC 09/28 PO 2315 Oxycodone HCl 5 MG Q4 HRS NEEDED PRN 09/28 1030 AC 09/29 PO 0829 Oxycodone HCl 10 MG Q6P PRN 09/27 0845 AC 09/28 PO 0535 Results Pertinent Lab Results: Laboratory Tests 09/29 09/28 0619 0606 Chemistry Sodium (137 - 145 mmol/L) 136 L 135 L Potassium (3.5 - 5.1 mmol/L) 3.6 3.7 Chloride (98 - 107 mmol/L) 95 L 96 L Carbon Dioxide (22 - 30 mmol/L) 28 28 Anion Gap (5 - 16) 12 11 BUN (9 - 20 mg/dL) 8 L 9 Creatinine (0.7 - 1.2 mg/dL) 0.7 0.7 Estimated GFR (>60 ml/min) > 60 > 60 BUN/Creatinine Ratio (7 - 25 %) 11.4 12.9 Magnesium (1.6 - 2.3 mg/dL) 2.0 Total Bilirubin (0.2 - 1.3 mg/dL) 1.6 H 2.0 H Direct Bilirubin (< 0.4 mg/dL) 1.0 H 1.3 H AST (17 - 59 U/L) 66 H 66 H ALT (21 - 72 U/L) 90 H 79 H Alkaline Phosphatase (< 127 U/L) 128 H 117 Total Protein (6.3 - 8.2 g/dL) 5.7 L 5.5 L Albumin (3.5 - 5.0 g/dL) 2.8 L 2.6 L Hematology CBC w Diff MAN DIFF ORDERED NO MAN DIFF REQ WBC (4.8 - 10.8 /CUMM) 23.8 H 18.9 H RBC (4.70 - 6.10 /CUMM) 3.64 L 3.48 L Hgb (14.0 - 18.0 G/DL) 11.6 L 11.0 L Hct (42 - 52 %) 33.8 L 32.0 L MCV (80.0 - 94.0 FL) 92.8 92.0 MCH (27.0 - 31.0 PG) 31.9 H 31.6 H MCHC (33.0 - 37.0 G/DL) 34.4 34.3 RDW (11.5 - 14.5 %) 13.3 13.4 Plt Count (130 - 400 /CUMM) 231 271 MPV (7.4 - 10.4 FL) 8.3 7.6 Gran % (42.2 - 75.2 %) 86.3 H 82.0 H Lymphocytes % (20.5 - 51.1 %) 7.1 L 7.9 L Monocytes % (1.7 - 9.3 %) 5.4 9.4 H Eosinophils % (0 - 5 %) 0.3 0.3 Basophils % (0.0 - 2.0 %) 0.9 0.4 Absolute Granulocytes (1.4 - 6.5 /CUMM) 20.6 H 15.5 H Segmented Neutrophils (42.2 - 75.2 %) 82 H Band Neutrophils (0.0 - 5.0 %) 6 H Absolute Lymphocytes (1.2 - 3.4 /CUMM) 1.7 1.5 Lymphocytes (20.5 - 51.1 %) 7 L Monocytes (1.7 - 9.3 %) 3 Absolute Monocytes (0.10 - 0.60 /CUMM) 1.3 H 1.8 H Eosinophils (0 - 5.0 %) 1 Absolute Eosinophils (0.0 - 0.7 /CUMM) 0.1 0.1 Absolute Basophils (0.0 - 0.2 /CUMM) 0.2 0.1 Metamyelocytes (0.0 - 1.0 %) 1 Platelet Estimate (ADEQUATE) ADEQUATE Normocytic RBCs VERIFIED Normochromic RBCs VERIFIED 09/27 09/27 1600 0617 Chemistry Sodium (137 - 145 mmol/L) 134 L Potassium (3.5 - 5.1 mmol/L) 3.3 L Chloride (98 - 107 mmol/L) 98 Carbon Dioxide (22 - 30 mmol/L) 25 Anion Gap (5 - 16) 11 BUN (9 - 20 mg/dL) 9 Creatinine (0.7 - 1.2 mg/dL) 0.7 Estimated GFR (>60 ml/min) > 60 Glucose (65 - 99 mg/dL) 107 H Calcium (8.4 - 10.2 mg/dL) 8.0 L Phosphorus (2.5 - 4.5 mg/dL) 3.3 Magnesium (1.6 - 2.3 mg/dL) 2.0 Total Bilirubin (0.2 - 1.3 mg/dL) 2.7 H AST (17 - 59 U/L) 104 H ALT (21 - 72 U/L) 84 H Albumin (3.5 - 5.0 g/dL) 2.5 L Hematology CBC w Diff NO MAN DIFF REQ WBC (4.8 - 10.8 /CUMM) 16.5 H RBC (4.70 - 6.10 /CUMM) 3.45 L Hgb (14.0 - 18.0 G/DL) 11.1 L Hct (42 - 52 %) 31.8 L MCV (80.0 - 94.0 FL) 92.0 MCH (27.0 - 31.0 PG) 32.2 H MCHC (33.0 - 37.0 G/DL) 34.9 RDW (11.5 - 14.5 %) 12.9 Plt Count (130 - 400 /CUMM) 212 MPV (7.4 - 10.4 FL) 7.5 Gran % (42.2 - 75.2 %) 82.8 H Lymphocytes % (20.5 - 51.1 %) 7.5 L Monocytes % (1.7 - 9.3 %) 9.4 H Eosinophils % (0 - 5 %) 0.2 Basophils % (0.0 - 2.0 %) 0.1 Absolute Granulocytes (1.4 - 6.5 /CUMM) 13.6 H Absolute Lymphocytes (1.2 - 3.4 /CUMM) 1.2 Absolute Monocytes (0.10 - 0.60 /CUMM) 1.6 H Absolute Eosinophils (0.0 - 0.7 /CUMM) 0 Absolute Basophils (0.0 - 0.2 /CUMM) 0 Urines Urine Color (YEL,AMB,STR) YEL Urine Clarity (CLEAR) HAZY H Urine pH (5.0 - 8.0) 7.5 Ur Specific [place] (1.001 - 1.035) 1.020 Urine Protein (NEG,<30 MG/DL) TRACE H Urine Ketones (NEG) NEG Urine Nitrite (NEG) NEG Urine Bilirubin (NEG) NEG@ICTO Urine Urobilinogen (0.1 - 1.0 EU/dl) >=8.0 H Ur Leukocyte Esterase (NEG) NEG Ur Microscopic SEDIMENT EXAMINED Urine RBC (0 - 5 /HPF) 1-3 Urine WBC (0 - 2 /HPF) 3-5 H Ur Epithelial Cells (NONE,FEW) FEW Urine Bacteria (NEG/NONE) FEW H Urine Hemoglobin (NEG) TRACE-INTACT H Urine Glucose (N MG/DL) NEG 09/27 0500 Chemistry Sodium Cancelled Potassium Cancelled Chloride Cancelled Carbon Dioxide Cancelled Anion Gap Cancelled BUN Cancelled Creatinine Cancelled Glucose Cancelled Calcium Cancelled Phosphorus Cancelled Magnesium Cancelled Total Bilirubin Cancelled AST Cancelled ALT Cancelled Albumin Cancelled Hematology CBC w Diff Cancelled WBC Cancelled RBC Cancelled Hgb Cancelled Hct Cancelled MCV Cancelled MCH Cancelled MCHC Cancelled RDW Cancelled Plt Count Cancelled MPV Cancelled
[2017-09-29 16:00] VITALS: BP 126/72
[2017-09-29 22:07] VITALS: BP 130/60
[2017-09-30 07:06] VITALS: BP 116/66
--- NOTE | 2017-09-30 07:15 | PN- Housestaff ---
See Addendum Subjective Follow-up For: pancreatitis Subjective: patient says he had some breakthrough right subcostal pain overnight, but otherwise is feeling well ambulating, tolerating PO intake, afebrile overnight Review of Systems Constitutional: Reports: see HPI. Objective Last 24 Hrs of Vital Signs/I&O Vital Signs Date Time Temp Pulse Resp B/P B/P Pulse O2 O2 Flow FiO2 Mean Ox Delivery Rate 09/30 0706 99.4 101 20 116/66 96 09/29 2207 98.6 102 20 130/60 95 Room Air 09/29 1905 95 Room Air 09/29 1600 98.4 86 126/72 Intake & Output 09/30 1600 09/30 0800 09/30 0000 Intake Total 120 240 Output Total Balance 120 240 Intake, Oral 120 240 Physical Exam General Appearance: Alert, Oriented X3, Cooperative, No Acute Distress Cardiovascular: Regular Rate, Normal S1, Normal S2, No Murmurs Lungs: bibasilar crackles Abdomen: Normal Bowel Sounds, Soft, No Tenderness, No Masses, abdominal distention Extremities: No Clubbing, No Cyanosis, No Edema, Normal Pulses Current Medications: Current Medications Sig/Brynn Start time Last Medication Dose Route Stop Time Status Admin Albuterol Sulfate 3 ML Q4P PRN 09/29 2100 AC INH Albuterol Sulfate 3 ML BID 09/24 2100 DC 09/29 INH 1905 Albuterol Sulfate 2 PUF Q4-6 PRN PRN 09/20 1400 AC 09/24 INH 0633 Enoxaparin Sodium 40 MG DAILY 09/26 0900 AC 09/30 SC 0908 Fenofibrate 48 MG DAILY 09/21 1342 AC 09/30 PO 0908 Fluticasone 2 SPRAY DAILY 09/28 1327 AC 09/30 Propionate TAMEKA 0907 Melatonin 10 MG AT BEDTIME 09/27 2100 AC 09/29 PO 2344 Oxycodone HCl 5 MG Q4 HRS NEEDED PRN 09/28 1030 AC 09/30 PO 0908 Oxycodone HCl 10 MG Q6P PRN 09/27 0845 AC 09/29 PO 1948 Last 24 Hrs of Lab/Mike Results Last 24 Hrs of Labs/Mics: Laboratory Tests 09/30/17 0628: CBC w Diff MAN DIFF ORDERED, RBC 3.49 L, MCV 92.1, MCH 31.9 H, MCHC 34.6, RDW 13.2, MPV 7.7, Gran % 83.9 H, Lymphocytes % 8.1 L, Monocytes % 7.0, Eosinophils % 0.5, Basophils % 0.5, Absolute Granulocytes 15.6 H, Segmented Neutrophils 76 H, Band Neutrophils 9 H, Absolute Lymphocytes 1.5, Lymphocytes 6 L, Monocytes 8, Absolute Monocytes 1.3 H, Eosinophils 1, Absolute Eosinophils 0.1, Absolute Basophils 0.1, Platelet Estimate VERIFIED BY SMEAR, Polychromasia Microbiology 09/30 858 BLOOD: Blood Culture - CAN Cancelled: Cancelled via OE: Error 09/30 858 BLOOD: Blood Culture - CAN Cancelled: Cancelled via OE: Error Assessment/Plan Assessment: 32 year old male with past medical history significant for asthma (mild persistent), history of smoking, 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 He was initially monitored on telemetry for sinus bradycardia when he developed worsening abdominal pain, tachycardia, persistent leukocytosis with bandemia, fever, and hyperbilirubinemia. He was transferred to the ICU, was given Ativan for possible EtOh withdrawal, and repeat CT of abdomen with contrast on 2017 show evidence of severe acute necrotizing pancreatitis, started on meropenem, later discontinued and underwent peripancreatic collection CT guided aspiration that was negative on culture consistent with sterile pancreatic necrosis. Severe necrotizing pancreatitis: Fever and tachycardia improved, with bowel rest, analgesia and hydration No hemoconcentration s/p CT guided aspiration of peripancreatic collection, culture negative, sterile necrosis Discontinue IV fluids today, Encourage PO intake and ambulation Change from IV dilaudid to PO oxycodone today Advance to low fat diet Follow up gastroenterology and infectious disease recommendations Continue to monitor off antibiotics Secondary to alcohol abuse and hypertriglyceridemia Continue Tricor for hypertriglyceridemia, repeat triglycerides wnl Outpatient Vitamin 800 IU PO daily for hepatosteatosis MRCP Significant interval worsening of pancreatitis with diffuse pancreatic edema, interval development of ascites and pleural effusion. Severe acute edematous interstitial pancreatitis. Assessment for necrotizing pancreatitis is limited without IV contrast. Interval development of a loculated extrapancreatic fluid collection anterior to the body of the pancreas measuring approximately 5.6 x 4.4 x 4.3cm likely represents of acute peripancreatic fluid collection. Infected fluid collection cannot be entirely excluded without intravenous contrast. No gross evidence of debris identified within the fluid collection on the MRI images. No evidence of cholelithiasis or choledocholithiasis. No evidence of biliary ductal dilatation. 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 Amorphous 1 cm late enhancing abnormality near the hepatic artery Consider vascular surgery follow up EtOH abuse: Discontinue CIWA monitoring and banana bag Counseled on alcohol cessation, patient reports drinking by himself and disclosing this to family after hospitalization Social work consulted, consider IOP vs AA meetings History of asthma: Continue albuterol prn Bilateral pleural effusions on chest x-ray, reactive from pancreatitis History of anxiety: Complaining of insomnia Was taking Prozac approximately six months ago Will start melatonin qHS Low fat diet DVT ppx-lovenox subcutaneous and ALPs Full code Leukocytosis improved today, will hold off repeat CT imaging at this time, if continues to trend down with planned discharge tomorrow and outpatient follow up CBC Problem List: 1. Acute pancreatitis 2. Leukocytosis 3. Abdominal pain 4. Necrotizing pancreatitis Pain Ratin Pain Location: abdominal Pain Goal: Pain 4 or less Pain Plan: prn Tomorrow's Labs & Rationales: cbc
[2017-09-30 08:29] LABS: ABSOLUTE BASOPHIL COUNT 0.1 /CUMM (0.0-0.2); ABSOLUTE EOSINOPHIL COUNT 0.1 /CUMM (0.0-0.7); ABSOLUTE GRANULOCYTE CT 15.6 /CUMM (1.4-6.5); ABSOLUTE LYMPH COUNT 1.5 /CUMM (1.2-3.4); ABSOLUTE MONOCYTE COUNT 1.3 /CUMM (0.10-0.60); BASOPHIL % 0.5 % (0.0-2.0); EOSINOPHIL % 0.5 % (0-5); GRANULOCYTE % 83.9 % (42.2-75.2); HEMATOCRIT 32.1 % (42-52); MEAN CORPUSCULAR HGB 31.9 PG (27.0-31.0); MEAN CORPUSCULAR HGB CONC 34.6 G/DL (33.0-37.0); MEAN CORPUSCULAR VOLUME 92.1 FL (80.0-94.0); MEAN PLATELET VOLUME 7.7 FL (7.4-10.4); PLATELET COUNT 336 /CUMM (130-400); RBC DISTRIBUTION WIDTH 13.2 % (11.5-14.5); RED BLOOD CELL CT 3.49 /CUMM (4.70-6.10); WHITE BLOOD CELL COUNT 18.5 /CUMM (4.8-10.8)
--- NOTE | 2017-09-30 12:23 | PN- Cardiology ---
Subjective Subjective: No complaints. Objective Vital Signs and I&Os Vital Signs Date Time Temp Pulse Resp B/P B/P Pulse O2 O2 Flow FiO2 Mean Ox Delivery Rate 09/30 0706 99.4 101 20 116/66 96 09/29 2207 98.6 102 20 130/60 95 Room Air 09/29 1905 95 Room Air 09/29 1600 98.4 86 126/72 Intake & Output 09/30 1600 09/30 0800 09/30 0000 09/29 1600 09/29 0800 09/29 0000 Intake Total 120 240 850 Output Total Balance 120 240 850 Intake, Oral 120 240 850 Physical Exam: Well-developed, well-nourished male in no acute distress. Vital signs: See above. HEENT: Normocephalic, atraumatic, EOMI, moist mucous membranes. Neck: No JVD, no bruits. Lungs: Clear to auscultation bilaterally. Abdomen: Soft, positive bowel sounds, mildly tender to palpation. Extremities: No edema. Peripheral pulses: Symmetrical/intact. Current Medications: Current Medications Sig/Brynn Start time Last Medication Dose Route Stop Time Status Admin Albuterol Sulfate 3 ML Q4P PRN 09/29 2100 AC INH Albuterol Sulfate 3 ML BID 09/24 2100 DC 09/29 INH 1905 Albuterol Sulfate 2 PUF Q4-6 PRN PRN 09/20 1400 AC 09/24 INH 0633 Enoxaparin Sodium 40 MG DAILY 09/26 0900 AC 09/30 SC 0908 Fenofibrate 48 MG DAILY 09/21 1342 AC 09/30 PO 0908 Fluticasone 2 SPRAY DAILY 09/28 1327 AC 09/30 Propionate TAMEKA 0907 Ibuprofen 600 MG ONCE ONE 09/30 1200 DC 09/30 PO 09/30 1201 1207 Melatonin 10 MG AT BEDTIME 09/27 2100 AC 09/29 PO 2344 Oxycodone HCl 5 MG Q4 HRS NEEDED PRN 09/28 1030 AC 09/30 PO 0908 Oxycodone HCl 10 MG Q6P PRN 09/27 0845 AC 09/29 PO 1948 Results Last 48 Hrs of Labs/Mics: Laboratory Tests 09/30/17 0628: CBC w Diff MAN DIFF ORDERED, RBC 3.49 L, MCV 92.1, MCH 31.9 H, MCHC 34.6, RDW 13.2, MPV 7.7, Gran % 83.9 H, Lymphocytes % 8.1 L, Monocytes % 7.0, Eosinophils % 0.5, Basophils % 0.5, Absolute Granulocytes 15.6 H, Segmented Neutrophils 76 H, Band Neutrophils 9 H, Absolute Lymphocytes 1.5, Lymphocytes 6 L, Monocytes 8, Absolute Monocytes 1.3 H, Eosinophils 1, Absolute Eosinophils 0.1, Absolute Basophils 0.1, Platelet Estimate VERIFIED BY SMEAR, Polychromasia 09/29/17 0619: Anion Gap 12, Estimated GFR > 60, BUN/Creatinine Ratio 11.4, Total Bilirubin 1.6 H, Direct Bilirubin 1.0 H, AST 66 H, ALT 90 H, Alkaline Phosphatase 128 H, Total Protein 5.7 L, Albumin 2.8 L, CBC w Diff MAN DIFF ORDERED, RBC 3.64 L, MCV 92.8, MCH 31.9 H, MCHC 34.4, RDW 13.3, MPV 8.3, Gran % 86.3 H, Lymphocytes % 7.1 L, Monocytes % 5.4, Eosinophils % 0.3, Basophils % 0.9, Absolute Granulocytes 20.6 H, Segmented Neutrophils 82 H, Band Neutrophils 6 H, Absolute Lymphocytes 1.7, Lymphocytes 7 L, Monocytes 3, Absolute Monocytes 1.3 H, Eosinophils 1, Absolute Eosinophils 0.1, Absolute Basophils 0.2, Metamyelocytes 1, Platelet Estimate ADEQUATE, Normocytic RBCs VERIFIED, Normochromic RBCs VERIFIED Recent Imaging Studies: CXR 09/28/2017: 1. Borderline enlarged cardiac silhouette. 2. Improving bibasilar subsegmental atelectasis. 3. Persistent small left-sided and probable trace right-sided pleural effusion. Assessment/Plan Assessment/Plan 32-y-o-w-m w/ hx fmr light tob use, childhood asthma, "social" EtOH, last adm to (07/31-08/12/2016) w/ EtOH withdrawal requiring Ativan drip w/ assoc pancreatitis, & recent bronchitis Rx'd w/ a short course of steroids, albuterol, & singulair who presented to the ED 09/20/2017 after the sudden onset of lower abd pain the night before w/ assoc N/V/D, & chills w/o fever that was Rx'd w/ IV morphine sulfate and hydromorphone who we were initially asked to evaluate in regard to SB which has resolved and was felt to be in the basis of his pain medications. S/p EtOH withdrawal. Abdominal pain 2/2 pancreatitis improved. Hemodynamically stable and feeling improved today. Afebrile, elevated WBC count off antimicrobial therapy, but lower than yesterday , s/p CT guided aspiration of pancreatic tail fluid 09/24/2017 w/ negative cultures. Continue DVT prophylaxis. No new cardiac issues. Continue telemetry? Not applicable (On 2 No.)
--- NOTE | 2017-09-30 14:27 | PN- Infect Dx ---
Subjective Subjective: Afebrile. He complains of left posterior chest/back pain. His abdominal pain is under control and he is tolerating a low-fat diet, with no nausea, vomiting or diarrhea. Objective Last 24 Hrs of Vital Signs/I&O Vital Signs Date Time Temp Pulse Resp B/P B/P Pulse O2 O2 Flow FiO2 Mean Ox Delivery Rate 09/30 0706 99.4 101 20 116/66 96 09/29 2207 98.6 102 20 130/60 95 Room Air 09/29 1905 95 Room Air 09/29 1600 98.4 86 126/72 Intake & Output 09/30 1600 09/30 0800 09/30 0000 Intake Total 120 240 Output Total Balance 120 240 Intake, Oral 120 240 Physical Exam Other Physical Findings: He appears comfortable in no acute distress Lungs decreased breath sounds at the left base Heart regular rhythm with no murmur Abdomen is soft, minimally tender on palpation diffusely, with no guarding or rebound, positive bowel sounds wet press tender over the left mid back Results Last 24 Hours of Lab Results: Laboratory Tests 09/30 0628 Hematology CBC w Diff MAN DIFF ORDERED WBC (4.8 - 10.8 /CUMM) 18.5 H RBC (4.70 - 6.10 /CUMM) 3.49 L Hgb (14.0 - 18.0 G/DL) 11.1 L Hct (42 - 52 %) 32.1 L MCV (80.0 - 94.0 FL) 92.1 MCH (27.0 - 31.0 PG) 31.9 H MCHC (33.0 - 37.0 G/DL) 34.6 RDW (11.5 - 14.5 %) 13.2 Plt Count (130 - 400 /CUMM) 336 MPV (7.4 - 10.4 FL) 7.7 Gran % (42.2 - 75.2 %) 83.9 H Lymphocytes % (20.5 - 51.1 %) 8.1 L Monocytes % (1.7 - 9.3 %) 7.0 Eosinophils % (0 - 5 %) 0.5 Basophils % (0.0 - 2.0 %) 0.5 Absolute Granulocytes (1.4 - 6.5 /CUMM) 15.6 H Segmented Neutrophils (42.2 - 75.2 %) 76 H Band Neutrophils (0.0 - 5.0 %) 9 H Absolute Lymphocytes (1.2 - 3.4 /CUMM) 1.5 Lymphocytes (20.5 - 51.1 %) 6 L Monocytes (1.7 - 9.3 %) 8 Absolute Monocytes (0.10 - 0.60 /CUMM) 1.3 H Eosinophils (0 - 5.0 %) 1 Absolute Eosinophils (0.0 - 0.7 /CUMM) 0.1 Absolute Basophils (0.0 - 0.2 /CUMM) 0.1 Platelet Estimate (ADEQUATE) VERIFIED BY SMEAR Polychromasia Last 24 Hours of Mike Results: Urine culture September 27 negative Recent Imaging Studies: Chest x-ray September 28 improving bibasilar subsegmental atelectasis, with a persistent small left pleural effusion and a trace right pleural effusion Assessment/Plan ID Impression: Stable, with intermittent fevers and a persistent leukocytosis, presumably secondary to ongoing pancreatitis, status post CT-guided aspiration of a peripancreatic fluid collection 6 days ago, which proved to be sterile. He remains otherwise stable off antibiotics, tolerating a diet and with his abdominal pain well controlled. The etiology of his left back pain is unclear, with the recent chest x-ray negative for any acute process. Suggestion: 1. Would repeat a CT of the abdomen and pelvis with pancreatic protocol if his fever recurs or white blood cell count increases 2. Continue to follow off antibiotics pending above
[2017-09-30 14:46] VITALS: BP 120/62
[2017-09-30 22:28] VITALS: BP 132/64
[2017-10-01 06:00] VITALS: BP 142/70
--- NOTE | 2017-10-01 07:20 | PN- Housestaff ---
See Addendum Subjective Follow-up For: acute necrotizing pancreatitis, alcohol/HLD alcohol use disorder Subjective: patient is doing well, ambulating, and eating, normal BMs afebrile off antibiotics patient had some back pain that responded to NSAIDs yesterday and his PO oxycodone is wearing off about every 3-4 hours, he reports his belly feels more firm today, didn't sleep well overnight Review of Systems Constitutional: Reports: see HPI. Objective Last 24 Hrs of Vital Signs/I&O Vital Signs Date Time Temp Pulse Resp B/P B/P Pulse O2 O2 Flow FiO2 Mean Ox Delivery Rate 10/01 0600 98.0 94 18 142/70 97 Room Air 09/30 2228 99.7 95 17 132/64 97 Room Air 09/30 1446 98.6 87 20 120/62 96 Room Air Intake & Output 10/01 1600 10/01 0800 10/01 0000 Intake Total 500 260 Output Total Balance 500 260 Intake, IV 20 20 Intake, Oral 480 240 Physical Exam General Appearance: Alert, Oriented X3, Cooperative, No Acute Distress Cardiovascular: Regular Rate, Normal S1, Normal S2, No Murmurs Lungs: bibasilar crackles Abdomen: Normal Bowel Sounds, Soft, No Tenderness, No Masses, distended Extremities: No Clubbing, No Cyanosis, No Edema, Normal Pulses Assessment/Plan Assessment: 32 year old male with past medical history significant for asthma (mild persistent), history of smoking, 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 He was initially monitored on telemetry for sinus bradycardia when he developed worsening abdominal pain, tachycardia, persistent leukocytosis with bandemia, fever, and hyperbilirubinemia. He was transferred to the ICU, was given Ativan for possible EtOh withdrawal, and repeat CT of abdomen with contrast on 2017 show evidence of severe acute necrotizing pancreatitis, started on meropenem, later discontinued and underwent peripancreatic collection CT guided aspiration that was negative on culture consistent with sterile pancreatic necrosis. Severe necrotizing pancreatitis: Fever and tachycardia improved, with bowel rest, analgesia and hydration No hemoconcentration s/p CT guided aspiration of peripancreatic collection, culture negative, sterile necrosis PO oxycodone 5mg for moderate and 10mg for severe pain Follow up gastroenterology and infectious disease recommendations Continue to monitor off antibiotics Secondary to alcohol abuse and hypertriglyceridemia Continue Tricor for hypertriglyceridemia, repeat triglycerides wnl Outpatient Vitamin 800 IU PO daily for hepatosteatosis Counseled on alcohol cessation MRCP Significant interval worsening of pancreatitis with diffuse pancreatic edema, interval development of ascites and pleural effusion. Severe acute edematous interstitial pancreatitis. Assessment for necrotizing pancreatitis is limited without IV contrast. Interval development of a loculated extrapancreatic fluid collection anterior to the body of the pancreas measuring approximately 5.6 x 4.4 x 4.3cm likely represents of acute peripancreatic fluid collection. Infected fluid collection cannot be entirely excluded without intravenous contrast. No gross evidence of debris identified within the fluid collection on the MRI images. No evidence of cholelithiasis or choledocholithiasis. No evidence of biliary ductal dilatation. 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 Acute pancreatitis 2. Necrotizing pancreatitis Pain Ratin Pain Location: abdominal Pain Goal: Pain 4 or less Pain Plan: oxycodone prn Tomorrow's Labs & Rationales: cbc if not discharged
[2017-10-01 08:32] LABS: ABSOLUTE BASOPHIL COUNT 0.1 /CUMM (0.0-0.2); ABSOLUTE EOSINOPHIL COUNT 0.1 /CUMM (0.0-0.7); ABSOLUTE GRANULOCYTE CT 15.3 /CUMM (1.4-6.5); ABSOLUTE LYMPH COUNT 1.9 /CUMM (1.2-3.4); ABSOLUTE MONOCYTE COUNT 1.2 /CUMM (0.10-0.60); BASOPHIL % 0.3 % (0.0-2.0); EOSINOPHIL % 0.6 % (0-5); GRANULOCYTE % 82.4 % (42.2-75.2); HEMATOCRIT 36.4 % (42-52); MEAN CORPUSCULAR HGB 31.3 PG (27.0-31.0); MEAN CORPUSCULAR HGB CONC 33.7 G/DL (33.0-37.0); MEAN CORPUSCULAR VOLUME 92.8 FL (80.0-94.0); MEAN PLATELET VOLUME 7.6 FL (7.4-10.4); PLATELET COUNT 422 /CUMM (130-400); RBC DISTRIBUTION WIDTH 13.1 % (11.5-14.5); RED BLOOD CELL CT 3.92 /CUMM (4.70-6.10); WHITE BLOOD CELL COUNT 18.6 /CUMM (4.8-10.8)
--- NOTE | 2017-10-01 11:45 | PN- Infect Dx ---
Subjective Subjective: Afebrile. He continues to complain of abdominal pain, which is controlled with medication. He is eating well, with no nausea or vomiting. His left back pain appears to have resolved. Objective Last 24 Hrs of Vital Signs/I&O Vital Signs Date Time Temp Pulse Resp B/P B/P Pulse O2 O2 Flow FiO2 Mean Ox Delivery Rate 10/01 1005 95 Room Air 10/01 0600 98.0 94 18 142/70 97 Room Air 09/30 2228 99.7 95 17 132/64 97 Room Air 09/30 1446 98.6 87 20 120/62 96 Room Air Intake & Output 10/01 1600 10/01 0800 10/01 0000 Intake Total 500 260 Output Total Balance 500 260 Intake, IV 20 20 Intake, Oral 480 240 Physical Exam Other Physical Findings: He appears comfortable in no acute distress Abdomen is distended, minimally tender on palpation, with positive bowel sounds Back no tenderness Results Last 24 Hours of Lab Results: Laboratory Tests 10/01 0745 Hematology CBC w Diff NO MAN DIFF REQ WBC (4.8 - 10.8 /CUMM) 18.6 H RBC (4.70 - 6.10 /CUMM) 3.92 L Hgb (14.0 - 18.0 G/DL) 12.3 L Hct (42 - 52 %) 36.4 L MCV (80.0 - 94.0 FL) 92.8 MCH (27.0 - 31.0 PG) 31.3 H MCHC (33.0 - 37.0 G/DL) 33.7 RDW (11.5 - 14.5 %) 13.1 Plt Count (130 - 400 /CUMM) 422 H MPV (7.4 - 10.4 FL) 7.6 Gran % (42.2 - 75.2 %) 82.4 H Lymphocytes % (20.5 - 51.1 %) 10.2 L Monocytes % (1.7 - 9.3 %) 6.5 Eosinophils % (0 - 5 %) 0.6 Basophils % (0.0 - 2.0 %) 0.3 Absolute Granulocytes (1.4 - 6.5 /CUMM) 15.3 H Absolute Lymphocytes (1.2 - 3.4 /CUMM) 1.9 Absolute Monocytes (0.10 - 0.60 /CUMM) 1.2 H Absolute Eosinophils (0.0 - 0.7 /CUMM) 0.1 Absolute Basophils (0.0 - 0.2 /CUMM) 0.1 Last 24 Hours of Mike Results: No recent cultures Assessment/Plan ID Impression: Stable, with temperatures remaining normal but with a persistent leukocytosis, presumably secondary to ongoing pancreatitis, status post CT-guided aspiration of a peripancreatic fluid collection 1 week ago, which proved to be sterile. The possibility of infected necrotic pancreas remains and a repeat aspiration of the necrosis could be pursued, though he has overall continued to improve clinically. This has been discussed with IR and Medicine and this could be done today. Suggestion: 1. Repeat CT of the abdomen and pelvis with IV contrast, with plans for an aspiration of the necrotic pancreas per IR based on the results of the CT scan 2. Continue to follow off antibiotics pending above
[2017-10-01 14:00] VITALS: BP 120/80
--- NOTE | 2017-10-01 17:52 | CT SCAN REPORT ---
EXAMINATION: CT ABDOMEN AND PELVIS WITH CONTRAST CLINICAL INFORMATION: Follow up peripancreatic collection. Low-grade fever and leukocytosis. Abdominal pain. History of necrotizing pancreatitis. COMPARISON: Percutaneous abscess drainage 09/24/2017. CT scan abdomen and pelvis 09/23/2017. MR abdomen 09/23/2017 TECHNIQUE: Multidetector volumetric imaging was performed of the abdomen and pelvis following IV administration of 95 mL of Optiray 320 intravenous contrast. Sagittal and coronal reformatted images were obtained on the technologist's workstation. DLP: 492.74 mGy-cm FINDINGS: LUNG BASES: Minimal dependent atelectasis at the posterior left lung base. The small bilateral pleural effusions seen on the CAT scan of 09/23/2017 have resolved. LIVER, GALLBLADDER, AND BILIARY TREE: Diffuse fatty change of liver. No focal liver lesion. No intrahepatic bile duct dilatation. The gallbladder is unremarkable with no evidence of radiopaque gallstones, gallbladder wall thickening, or obvious pericholecystic inflammatory changes. PANCREAS: Changes of pancreatitis again noted with diffuse fluid and edema at the pancreatic bed. The head of the pancreas is still somewhat defined margins, but the remainder of the pancreas is edematous and swollen and ill-defined without defined enhancing parenchymal tissue. The severity of the changes from the pancreatitis remain similar to the CAT scan of 09/23/2017. There is no air in the pancreatic bed. The volume of the peripancreatic fluid collection and the fluid that extends down into the pelvis along the left pararenal fascia is similar in volume to the prior study as well. There is a fluid collection that is posterior to the stomach that measures about 6 x 7.5 x 4 cm which impresses on the posterior wall of the stomach. This fluid collection does not have enhanced frederick, is likely a developing organizing pseudocyst given it's mass effect upon the posterior wall of the stomach. This was seen on the MR study of 09/23/2017 as well, but appears larger on today's study. This previously measured about 5.7 x 3 cm on the MR exam of 09/23/2017. SPLEEN: Unremarkable. ADRENAL GLANDS: Unremarkable. KIDNEYS AND URETERS: The kidneys are normal in size, shape, and attenuation. No hydronephrosis, hydroureter, or calculi seen. No perinephric stranding. BLADDER: Unremarkable. GASTROINTESTINAL TRACT: There are multiple scattered diverticula of the left colon and sigmoid. No diverticulitis. No bowel wall thickening or edema. No bowel obstruction. Moderate volume of scattered stool in the colon. The appendix is normal. The small bowel loops are unremarkable. ABDOMINAL WALL: Small fat-containing umbilical hernia. LYMPH NODES: Normal. VASCULAR: There is poor enhancement of the midportion of the splenic vein adjacent to the edematous pancreas. This could be due to compression from mass effect, but thrombus not excluded. There is normal enhancement of the portal vein and the superior mesenteric vein. PELVIC VISCERA: Unremarkable. OSSEOUS STRUCTURES: Unremarkable. IMPRESSION: 1. Marked changes of pancreatitis. Overall, the appearance is similar to the CAT scan of 09/23/2017 and MR of 09/23/2017. The volume of the collection posterior to the stomach impressing upon the posterior wall of the stomach is slightly larger on today's study than the prior exams. This may be a developing pseudocyst. 2. Interval resolution of the previously seen bilateral pleural effusions. There is a small amount of dependent atelectasis still present at the dependent left lung base.
--- NOTE | 2017-10-01 19:09 | CT SCAN REPORT ---
PROCEDURE: CT PERCUTANEOUS DIAGNOSTIC ASPIRATION OF THE DISTAL PANCREAS CLINICAL INFORMATION: 32-year-old patient presenting with acute necrotizing pancreatitis secondary to alcohol use. Persistent fevers and leukocytosis raising question of superimposed infection. Diagnostic aspiration requested to exclude a developing infection. Prior diagnostic aspiration of peripancreatic fluid on 09/23/2017 negative for infection. COMPARISON: CTs of the abdomen and pelvis dated 10/01/2017 and 09/23/2017. PUBLIC RELATIONS MANAGER: Brad Garrido M.D. DESCRIPTION: The procedure was requested by Dr. David Wood of the infectious disease service. Informed consent was obtained from the patient prior to the procedure. During this process, the procedure and potential alternatives was explained, along with the intended outcome and benefits. The risks of the procedure, as well as the risk of not doing the procedure, were discussed. The patient was given the opportunity to ask questions regarding the procedure and appeared competent to make medical decisions. A signed consent form which documents this discussion was placed in the medical record. The patient's prior imaging studies were reviewed including the abdominal CT performed immediately prior to this procedure. This study showed nonenhancing tissue in the body and tail the pancreas with an increasing fluid collection in the lesser sac and progressive swelling of the distal pancreas. The patient was brought to the CT suite and a final timeout procedure was performed. The patient is placed in the CT gantry in the supine position. The patient was administered IV fentanyl alone (since he had eaten) for comfort. Skein Bander sections were obtained through the lower abdomen with a grid device on the left anterolateral abdominal wall for localization of the pancreatic tail and planning the approach. The overlying soft tissues were sterilely prepped and draped. Maximum sterile barrier technique was maintained throughout the procedure. Following administration of superficial and deep anesthesia using 1% lidocaine, a Ruiz-Franca needle was introduced into the pancreatic tail via a left anterior oblique approach taking care to avoid the splenic vessels. Approximately 15 mL of nonpurulent appearing, old blood was aspirated. Specimens were sent for culture and sensitivity. The patient tolerated the procedure well. There was no evidence of complications. MEDICATIONS: 150 mcg fentanyl ESTIMATED RADIATION DOSE (DLP): 343.6 mGy-cm CONCLUSION: Diagnostic aspiration performed of the pancreatic tail which showed some interval enlargement in size yielding old blood consistent with hemorrhage within the pancreatic bed. Aspirated specimen sent for culture and sensitivity.
[2017-10-01 21:48] VITALS: BP 128/76
[2017-10-02 06:53] VITALS: BP 122/74
[2017-10-02 07:48] LABS: ABSOLUTE BASOPHIL COUNT 0.1 /CUMM (0.0-0.2); ABSOLUTE EOSINOPHIL COUNT 0.2 /CUMM (0.0-0.7); ABSOLUTE GRANULOCYTE CT 12.2 /CUMM (1.4-6.5); ABSOLUTE LYMPH COUNT 1.7 /CUMM (1.2-3.4); ABSOLUTE MONOCYTE COUNT 1.3 /CUMM (0.10-0.60); BASOPHIL % 0.4 % (0.0-2.0); EOSINOPHIL % 1.2 % (0-5); HEMATOCRIT 34.8 % (42-52); MEAN CORPUSCULAR HGB CONC 33.9 G/DL (33.0-37.0); MEAN CORPUSCULAR VOLUME 91.5 FL (80.0-94.0); MEAN PLATELET VOLUME 7.3 FL (7.4-10.4); PLATELET COUNT 468 /CUMM (130-400); WHITE BLOOD CELL COUNT 15.5 /CUMM (4.8-10.8)
--- NOTE | 2017-10-02 08:09 | PN- Housestaff ---
See Addendum Subjective Follow-up For: necrotizing pancreatitis Subjective: patient went down for CT guided aspiration of the pancreas for repeat culture yesterday, after having persistent pain and leukocytosis with fever over the weekend now he is complaining of increased pain, abdominal bloating, and decreased appetite afebrile off antibiotics Review of Systems Constitutional: Reports: see HPI. Objective Last 24 Hrs of Vital Signs/I&O Vital Signs Date Time Temp Pulse Resp B/P B/P Pulse O2 O2 Flow FiO2 Mean Ox Delivery Rate 10/02 0653 98.9 93 18 122/74 98 10/01 2148 99.3 98 16 128/76 97 Room Air 10/01 1859 96 Room Air 10/01 1400 99.3 81 18 120/80 99 Room Air 10/01 1005 95 Room Air Intake & Output 10/02 1600 10/02 0800 10/02 0000 Intake Total 480 480 Output Total Balance 480 480 Intake, Oral 480 480 Physical Exam General Appearance: Alert, Oriented X3, Cooperative, No Acute Distress Cardiovascular: Regular Rate, Normal S1, Normal S2, No Murmurs Lungs: Clear to Auscultation, Normal Air Movement Abdomen: Normal Bowel Sounds, Soft, No Tenderness, No Masses, distended but soft abdomen, epigastric and LUQ tenderness without guarding or rebound, right flank ecchymosis, improving Extremities: No Clubbing, No Cyanosis, No Edema, Normal Pulses Current Medications: Current Medications Sig/Brynn Start time Last Medication Dose Route Stop Time Status Admin Albuterol Sulfate 3 ML Q4P PRN 09/29 2100 AC INH Albuterol Sulfate 2 PUF Q4-6 PRN PRN 09/20 1400 AC 10/02 INH 0819 Enoxaparin Sodium 40 MG DAILY 09/26 0900 AC 10/02 SC 0818 Fenofibrate 48 MG DAILY 09/21 1342 AC 10/02 PO 0818 Fentanyl Citrate 0 .STK-MED ONE 10/01 1534 DC .ROUTE Fentanyl Citrate 0 .STK-MED ONE 10/01 1530 DC .ROUTE Fluticasone 2 SPRAY DAILY 09/28 1327 AC 10/02 Propionate TAMEKA 0818 Lidocaine 1 ML .STK-MED ONE 10/01 1712 DC ID 10/01 1713 Melatonin 10 MG AT BEDTIME 09/27 2100 AC 10/01 PO 2351 Oxycodone HCl 10 MG Q4-PRN PRN 10/02 0815 AC 10/02 PO 0818 Oxycodone HCl 10 MG Q4-6 PRN PRN 10/02 1999 DC 10/02 PO 0358 Oxycodone HCl 5 MG Q4 HRS NEEDED PRN 09/28 1030 AC 10/01 PO 2000 Oxycodone HCl 10 MG Q6P PRN 09/27 0845 DC 09/29 PO 1948 Last 24 Hrs of Lab/Mike Results Last 24 Hrs of Labs/Mics: Laboratory Tests 10/02/17 0707: Anion Gap 13, Estimated GFR > 60, BUN/Creatinine Ratio 10.0, Magnesium 2.3, Total Bilirubin 1.1, Direct Bilirubin 0.7 H, AST 58, ALT 88 H, Alkaline Phosphatase 117, Total Protein 6.8, Albumin 3.3 L, CBC w Diff NO MAN DIFF REQ, RBC 3.80 L, MCV 91.5, MCH 31.0, MCHC 33.9, RDW 13.0, MPV 7.3 L, Gran % 79.0 H , Lymphocytes % 11.0 L, Monocytes % 8.4, Eosinophils % 1.2, Basophils % 0.4, Absolute Granulocytes 12.2 H, Absolute Lymphocytes 1.7, Absolute Monocytes 1.3 H, Absolute Eosinophils 0.2, Absolute Basophils 0.1 10/01/17 1700: Lymphocytes 15, % Normal PMNs 63, Misc Hematology Test , Fluid WBC , Fld Total RBCs Counted Microbiology 10/01 1699 BODY FLUID: Body Fluid Culture - RECD 10/01 1699 BODY FLUID: Gram Stain - RECD Assessment/Plan Assessment: 32 year old male with past medical history significant for asthma (mild persistent), history of smoking, 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 He was initially monitored on telemetry for sinus bradycardia when he developed worsening abdominal pain, tachycardia, persistent leukocytosis with bandemia, fever, and hyperbilirubinemia. He was transferred to the ICU, was given Ativan for possible EtOh withdrawal, and repeat CT of abdomen with contrast on 2017 show evidence of severe acute necrotizing pancreatitis, started on meropenem, later discontinued and underwent peripancreatic collection CT guided aspiration that was negative on culture consistent with sterile pancreatic necrosis. Patient had CT guided pancreatic tail aspiration on 10/01/17 for persistent pain, leukocytosis, and fever over the weekend. CT Abdomen/Pelvis with IV contrast 10/01/17 IMPRESSION: 1. Marked changes of pancreatitis. Overall, the appearance is similar to the CAT scan of 09/23/2017 and MR of 09/23/2017. The volume of the collection posterior to the stomach impressing upon the posterior wall of the stomach is slightly larger on today's study than the prior exams. This may be a developing pseudocyst. 2. Interval resolution of the previously seen bilateral pleural effusions. There is a small amount of dependent atelectasis still present at the dependent left lung base. Severe necrotizing pancreatitis: Secondary to alcohol abuse and hypertriglyceridemia Peripancreatic collection was culture negative and patient was monitored off antibiotics Patient had persistent leukocytosis, pain, and fever over the weekend precipitating a repeat CT guided aspiration yesterday performed by IR, now with increased abdominal pain post procedure Continue oxycodone 5mg for moderate and 10mg for severe pain, add morphine 4mg iv q4p Follow up gastroenterology and infectious disease recommendations Continue to monitor off antibiotics Continue Tricor for hypertriglyceridemia, repeat triglycerides wnl Outpatient Vitamin 800 IU PO daily for hepatosteatosis Counseled on alcohol cessation Awaiting gram stain and culture Leukocytosis improving past 3 days 15 mL of nonpurulent appearing, old blood was aspirated. Specimens were sent for culture and sensitivity Diagnostic aspiration performed of the pancreatic tail which showed some interval enlargement in size yielding old blood consistent with hemorrhage within the pancreatic bed. 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 Acute pancreatitis 2. Leukocytosis 3. Fever 4. Abdominal pain 5. Alcohol abuse Pain Ratin Pain Location: epigastric and LUQ Pain Goal: Pain 4 or less Pain Plan: prn Tomorrow's Labs & Rationales: cbc
[2017-10-02 14:15] VITALS: BP 130/70
--- NOTE | 2017-10-02 14:18 | PN- Infect Dx ---
Subjective Subjective: Afebrile. He complains of diffuse abdominal pain and bloating. Objective Last 24 Hrs of Vital Signs/I&O Vital Signs Date Time Temp Pulse Resp B/P B/P Pulse O2 O2 Flow FiO2 Mean Ox Delivery Rate 10/02 1039 95 Room Air 10/02 0653 98.9 93 18 122/74 98 10/01 2148 99.3 98 16 128/76 97 Room Air 10/01 1859 96 Room Air Intake & Output 10/02 1600 10/02 0800 10/02 0000 Intake Total 480 480 Output Total Balance 480 480 Intake, Oral 480 480 Physical Exam Other Physical Findings: He appears mildly uncomfortable but in no acute distress Abdomen is distended, tender to palpation diffusely, with no guarding or rebound , positive bowel sounds; no tenderness over the left flank at the site of the recent aspiration Results Last 24 Hours of Lab Results: Laboratory Tests 10/02 10/01 0707 1700 Chemistry Sodium (137 - 145 mmol/L) 137 Potassium (3.5 - 5.1 mmol/L) 4.7 Chloride (98 - 107 mmol/L) 95 L Carbon Dioxide (22 - 30 mmol/L) 30 Anion Gap (5 - 16) 13 BUN (9 - 20 mg/dL) 8 L Creatinine (0.7 - 1.2 mg/dL) 0.8 Estimated GFR (>60 ml/min) > 60 BUN/Creatinine Ratio (7 - 25 %) 10.0 Magnesium (1.6 - 2.3 mg/dL) 2.3 Total Bilirubin (0.2 - 1.3 mg/dL) 1.1 Direct Bilirubin (< 0.4 mg/dL) 0.7 H AST (17 - 59 U/L) 58 ALT (21 - 72 U/L) 88 H Alkaline Phosphatase (< 127 U/L) 117 Total Protein (6.3 - 8.2 g/dL) 6.8 Albumin (3.5 - 5.0 g/dL) 3.3 L Hematology CBC w Diff NO MAN DIFF REQ WBC (4.8 - 10.8 /CUMM) 15.5 H RBC (4.70 - 6.10 /CUMM) 3.80 L Hgb (14.0 - 18.0 G/DL) 11.8 L Hct (42 - 52 %) 34.8 L MCV (80.0 - 94.0 FL) 91.5 MCH (27.0 - 31.0 PG) 31.0 MCHC (33.0 - 37.0 G/DL) 33.9 RDW (11.5 - 14.5 %) 13.0 Plt Count (130 - 400 /CUMM) 468 H MPV (7.4 - 10.4 FL) 7.3 L Gran % (42.2 - 75.2 %) 79.0 H Lymphocytes % (20.5 - 51.1 %) 11.0 L Monocytes % (1.7 - 9.3 %) 8.4 Eosinophils % (0 - 5 %) 1.2 Basophils % (0.0 - 2.0 %) 0.4 Absolute Granulocytes (1.4 - 6.5 /CUMM) 12.2 H Absolute Lymphocytes (1.2 - 3.4 /CUMM) 1.7 Lymphocytes (%) 15 Absolute Monocytes (0.10 - 0.60 /CUMM) 1.3 H Absolute Eosinophils (0.0 - 0.7 /CUMM) 0.2 Absolute Basophils (0.0 - 0.2 /CUMM) 0.1 % Normal PMNs (%) 63 Misc Hematology Test (%) Other Body Source Fluid WBC (0 - 5 /CUMM) Fld Total RBCs Counted (0 /CUMM) Last 24 Hours of Mike Results: Pancreatic aspirate October 01 negative Recent Imaging Studies: CT of the abdomen and pelvis October 01 reveals no significant change from the previous CT scan, but with increased size of the collection impressing upon the posterior wall of the stomach, felt to possibly represent a developing pseudocyst Assessment/Plan ID Impression: Increased abdominal pain, possibly related to the recent pancreatitis aspiration , though his pain appears to be diffuse and not at the site of the aspiration. He remains afebrile, with his white blood cell count actually decreased today, off antibiotics with his repeat CT of the abdomen and pelvis yesterday revealing the possibility of a developing pseudocyst. Suggestion: 1. Follow-up results of the recent pancreatic aspiration 2. Consider repeat CT of the abdomen pelvis if his pain does not improve 3. Continue to follow off antibiotics pending above
[2017-10-02 21:31] VITALS: BP 130/90
[2017-10-03 04:58] VITALS: BP 122/82
[2017-10-03 08:26] LABS: ABSOLUTE BASOPHIL COUNT 0.1 /CUMM (0.0-0.2); ABSOLUTE EOSINOPHIL COUNT 0.2 /CUMM (0.0-0.7); ABSOLUTE GRANULOCYTE CT 9.6 /CUMM (1.4-6.5); ABSOLUTE LYMPH COUNT 1.8 /CUMM (1.2-3.4); EOSINOPHIL % 1.6 % (0-5); GRANULOCYTE % 75.4 % (42.2-75.2); HEMATOCRIT 39.2 % (42-52); MEAN CORPUSCULAR HGB CONC 33.6 G/DL (33.0-37.0); MEAN CORPUSCULAR VOLUME 92.2 FL (80.0-94.0); MEAN PLATELET VOLUME 7.9 FL (7.4-10.4); PLATELET COUNT 473 /CUMM (130-400); RBC DISTRIBUTION WIDTH 12.8 % (11.5-14.5); RED BLOOD CELL CT 4.25 /CUMM (4.70-6.10); WHITE BLOOD CELL COUNT 12.8 /CUMM (4.8-10.8)
--- NOTE | 2017-10-03 08:39 | PN- Housestaff ---
See Addendum Subjective Follow-up For: necrotizing pancreatitis Subjective: pain is significantly improved from yesterday with combination of oxycodone and ibuprofen afebrile overnight anxious to be discharged Review of Systems Constitutional: Reports: see HPI. Objective Last 24 Hrs of Vital Signs/I&O Vital Signs Date Time Temp Pulse Resp B/P B/P Pulse O2 O2 Flow FiO2 Mean Ox Delivery Rate 10/03 0458 98.2 92 18 122/82 100 Room Air 10/02 2131 98.4 99 16 130/90 96 Room Air 10/02 1415 98.5 87 16 130/70 95 Room Air 10/02 1039 95 Room Air Intake & Output 10/03 1600 10/03 0800 10/03 0000 Intake Total 480 Output Total Balance 480 Intake, Oral 480 Physical Exam General Appearance: Alert, Oriented X3, Cooperative, No Acute Distress Cardiovascular: Regular Rate, Normal S1, Normal S2, No Murmurs Lungs: Clear to Auscultation, Normal Air Movement Abdomen: Normal Bowel Sounds, Soft, No Masses, mild epigastric and LUQ tenderness, improved from yesterday Extremities: No Clubbing, No Cyanosis, No Edema, Normal Pulses Current Medications: Current Medications Sig/Brynn Start time Last Medication Dose Route Stop Time Status Admin Albuterol Sulfate 3 ML Q4P PRN 09/29 2100 DC INH Albuterol Sulfate 2 PUF Q4-6 PRN PRN 09/20 1400 DCD 10/03 INH 0853 Enoxaparin Sodium 40 MG DAILY 09/26 0900 DCD 10/03 SC 0812 Fenofibrate 48 MG DAILY 09/21 1342 DCD 10/03 PO 0811 Fluticasone 2 SPRAY DAILY 09/28 1327 DCD 10/03 Propionate TAMEKA 0812 Ibuprofen 600 MG Q6P PRN 10/02 1430 DCD 10/03 PO 0418 Melatonin 10 MG AT BEDTIME 09/27 2100 DCD 10/03 PO 0030 Morphine Sulfate 4 MG Q4 HRS NEEDED PRN 10/02 0930 DC 10/03 IV 0231 Oxycodone HCl 10 MG Q4-PRN PRN 10/02 0815 DCD 10/03 PO 0812 Oxycodone HCl 5 MG Q4 HRS NEEDED PRN 09/28 1030 DCD 10/01 PO 2000 Patient Medication 1 ED ONE ONE 10/02 1200 DC 10/02 Teaching ED 10/02 1201 1425 Polyethylene Glycol 17 GM DAILY 10/02 0935 DCD 10/03 PO 0812 Senna/Docusate Sodium 2 TAB DAILY PRN 10/02 0930 DCD 10/02 PO 1019 Last 24 Hrs of Lab/Mike Results Last 24 Hrs of Labs/Mics: Laboratory Tests 10/03/17 0700: CBC w Diff NO MAN DIFF REQ, RBC 4.25 L, MCV 92.2, MCH 31.0, MCHC 33.6, RDW 12.8 , MPV 7.9, Gran % 75.4 H, Lymphocytes % 14.5 L, Monocytes % 7.5, Eosinophils % 1.6, Basophils % 1.0, Absolute Granulocytes 9.6 H, Absolute Lymphocytes 1.8, Absolute Monocytes 1.0 H, Absolute Eosinophils 0.2, Absolute Basophils 0.1 Assessment/Plan Assessment: 32 year old male with past medical history significant for asthma (mild persistent), history of smoking, 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 He was initially monitored on telemetry for sinus bradycardia when he developed worsening abdominal pain, tachycardia, persistent leukocytosis with bandemia, fever, and hyperbilirubinemia. He was transferred to the ICU, was given Ativan for possible EtOh withdrawal, and repeat CT of abdomen with contrast on 2017 show evidence of severe acute necrotizing pancreatitis, started on meropenem, later discontinued and underwent peripancreatic collection CT guided aspiration that was negative on culture consistent with sterile pancreatic necrosis. Patient had CT guided pancreatic tail aspiration on 10/01/17 for persistent pain, leukocytosis, and fever over the weekend. CT Abdomen/Pelvis with IV contrast 10/01/17 IMPRESSION: The volume of the peripancreatic fluid collection and the fluid that extends down into the pelvis along the left pararenal fascia is similar in volume to the prior study as well. There is a fluid collection that is posterior to the stomach that measures about 6 x 7.5 x 4 cm which impresses on the posterior wall of the stomach. This fluid collection does not have enhanced frederick, is likely a developing organizing pseudocyst given it's mass effect upon the posterior wall of the stomach. This was seen on the MR study of 09/23/2017 as well, but appears larger on today's study. This previously measured about 5.7 x 3 cm on the MR exam of 09/23/2017. 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 Gram stain and culture negative, no infection of pancrease Leukocytosis continues to improve, stable for discharge today Patient will need outpatient GI follow up Problem List: 1. Acute pancreatitis 2. Alcohol abuse Pain Ratin Pain Location: epigastric Pain Goal: Pain 4 or less Pain Plan: prn oxycodone Tomorrow's Labs & Rationales: none
[2017-10-03] MEDS ORDERED: MIRALAX17 G1 PO ×2 (09:11→09:12)
[2017-10-03] MEDS ORDERED: VITAMIN E400 UNI2 PO (09:12)
[2017-10-03] MEDS ORDERED: TRICOR48 M1 PO (09:12)
== END 2017-10-03 09:30 | DRG 282 ==
LOC: ERH 09:46 → ERHI 13:34 → 1NO 13:34 → ENRESERV 13:55 → CANRESERV 13:55 → ENTRNSPT 14:27 → CMPTRNSPT 15:06 → EDBEDREQ 15:29 → ENRESERV 15:43 → ENTRNSPT 16:01 → EDTRNSPT 16:42 → EDTRNSPTSTS 16:42 → 1NO 16:44 → CMPTRNSPT 17:28 → 1NO 09-21 09:48 → CRI 09-23 22:13 → ENTRNSPT 09-26 17:02 → EDTRNSPT 09-26 17:21 → EDTRNSPTSTS 09-26 17:21 → 2NB 09-26 17:35 → CMPTRNSPT 09-26 17:42 → 2NB 09-27 12:42 → ENPENDDIS 10-03 09:12 → 2NB 10-03 09:30
PROVIDERS: Internal Medicine; Internal Medicine Adolescent Medicine; Physician Assistant Medical; Preventive Medicine Public Health & General Preventive Medicine; Radiology Vascular & Interventional Radiology; Student in an Organized Health Care Education/Training Program
PROC: 0F9G3ZX Drainage of Pancreas, Percutaneous Approach, Diagnostic (ICD-10-PCS; principal; 2017-09-24)
PROC: 0F9G3ZX Drainage of Pancreas, Percutaneous Approach, Diagnostic (ICD-10-PCS; 2017-10-01)
DX: K85.21 Alcohol induced acute pancreatitis with uninfected necrosis (principal); I72.8 Aneurysm of other specified arteries; E46 Unspecified protein-calorie malnutrition; E87.2 Acidosis; R18.8 Other ascites; J45.901 Unspecified asthma with (acute) exacerbation; R00.1 Bradycardia, unspecified; I10 Essential (primary) hypertension; E87.1 Hypo-osmolality and hyponatremia; F10.239 Alcohol dependence with withdrawal, unspecified; E78.1 Pure hyperglyceridemia; K42.9 Umbilical hernia without obstruction or gangrene; K40.90 Unilateral inguinal hernia, without obstruction or gangrene, not specified as recurrent; Z68.32 Body mass index [BMI] 32.0-32.9, adult; E78.5 Hyperlipidemia, unspecified; F41.9 Anxiety disorder, unspecified; Z87.891 Personal history of nicotine dependence
CPT/HCPCS: 1NSP; 2NBSP; 74181; 86618; 87075; CCU; 36415; 36592; 71045; 71046; 74177; 75989; 80307; 81001; 82436; 87040; 87070; 87086; 88305; 93005; 93010; 93306; 96374; 96375; G0480; J0131; J0360; J0461; J1170; J1650; J1885; J2001; J2185; J2405; J2765; J3250; J3490; J7120